=== PATIENT | female | born 1930 | race Caucasian/White ===

== ENCOUNTER → 2016-03-25 | Outpatient (REF) | payer OTHER ==
[~2016-03-25] MED LIST: /ROPI5TA OR; AMBI10TA PO; AMLO25TA PO; AMLO5TAB2 PO; BONIVA PO; CALCCHW12 OR; CITA10TA5 PO; COMP1TAB PO; DIOV320T3 PO; DULO1CAP3 PO; DULO20CA OR; FLAG500T PO; FLUC10TA PO; GABA-279 PO; GLEEVEC PO; IMAT400T PO; LEVO25TA2 OR; LEVO50TA5 PO; MEGA625S PO; MOBI15TA PO; MULTIVIT PO; MYLASUS2 PO; NITR50CA PO; ONDA1TAB16 PO; POTA8TAB PO; PROT1TAB2 PO; PROT20TA11 OR; QUET5TAB PO; RANI15TA PO; SUCR1TA PO; TORS10TA22 PO; TRAM50TA2 PO; TRAZ50TA4 PO; TYLE325T5 PO; VALS320T3 PO; VALS40TA OR; VITAMIN B COMPLEX WI OR; VITATAB38 PO; WELL100T OR; ZANT1TAB PO; ZOFR20TA PO; ZOFR8TAB4 PO; ZOLP5TAB PO
== END ==
LOC: M LAB REF 16:27
PROVIDERS: ATTEND Nurse Practitioner Family
DX: C92.10 Chronic myeloid leukemia, BCR/ABL-positive, not having achieved remission (principal)

== ENCOUNTER 2016-04-28 17:45 | Emergency (ER) | payer OTHER ==
[~2016-04-28 17:45] MED LIST changes: -TORS10TA22 PO; +TORS10TA3 PO
[2016-04-28] MEDS ORDERED: ACETAMINOPHEN 325 MG TAB As Ordered ONE (19:05)
[2016-04-28 19:41] LABS: BASO % 0.3 % (0.0-1.0); EOS % 0.1 % (0.0-3.0); LARGE UNSTAINED CELL # 0.1 K/mm3 (0.0-0.4); LARGE UNSTAINED CELL % 1.6 % (0.0-4.0); LYMPH # 1.6 K/mm3 (1.5-4.5); LYMPH % 22.4 % (24.0-44.0); MEAN CORPUSCULAR HEMOGLOBIN 31.3 pg (27.0-33.0); MEAN CORPUSCULAR HGB CONC 31.8 g/dl (32.0-36.5); MEAN CORPUSCULAR VOLUME 98.5 fl (80.0-96.0); MONO # 0.4 K/mm3 (0.0-0.8); MONO % 5.1 % (0.0-5.0); NEUTROPHILS # 4.9 K/mm3 (1.8-7.7); NEUTROPHILS % 70.3 % (36.0-66.0); PLATELET COUNT, AUTOMATED 143 k/mm3 (150-450); RED CELL DISTRIBUTION WIDTH 15.4 % (11.5-14.5)
--- NOTE | 2016-04-28 19:45 | REP ---
PA and lateral chest: Comparison 10/09/2015. There are no focal infiltrates. The left costophrenic angle is mildly effaced suggestive of a tiny left pleural effusion. The right costophrenic angle is unremarkable. Cardiac size is normal. The serena and mediastinum are unremarkable. There is a dual-chamber pacemaker. There is a scoliosis convex left in the lumbar spine. There is a fixed retrocardiac hiatal hernia. Impression: There are no acute cardiopulmonary findings except for a questionable tiny left pleural effusion. There is a fixed hiatal hernia. There is a pacemaker. Signed by Samuel Horta MD 04/28/2016 07:36 P
[2016-04-28 19:57] LABS: CALCIUM LEVEL 8.8 MG/DL (8.8-10.2); CREATININE FOR GFR 2.21 MG/DL (0.55-1.02); GLOMERULAR FILTRATION RATE 22.5 (>32); POTASSIUM SERUM 3.9 MEQ/L (3.5-5.1)
[2016-04-28] MEDS ORDERED: IPRATROPIUM 0.5MG/ALBUTEROL 2.5MG INH SOL UD 3ML (DUONEB)(J7620) As Ordered ONE (20:00)
[2016-04-28] MEDS ORDERED: AZITHROMYCIN 250 MG TAB As Ordered ONE (20:39)
--- NOTE | 2016-04-28 20:56 | EDDOCDS ---
Physician Documentation [facility] Name: Mariia Barnard Age: 86 yrs Sex: Female : 1930 Arrival Date: 04/28/2016 Time: 17:45 Bed 6 Private MD: Abdirizak Florez WAT Disposition: 04/28 20:25 Critical Care: Critical care not applicable. le Disposition: 04/28/16 20:23 Discharged to Home/Self Care. Impression: Acute sinusitis - bifrontal and right maxillary, Acute bronchitis. - Condition is Stable. - Discharge Instructions: Acute Bronchitis, Sinusitis, Adult. - Prescriptions for Zithromax Z- Cosme 250 mg Oral Tablet - take 1 tablet by ORAL route as directed for 4 days; 4 tablet. Albuterol Sulfate 90 mcg/actuation Inhalation HFA Aerosol Inhaler - inhale 2 puff by INHALATION route every 4 hours As needed; 1 Inhaler. - Medication Reconciliation, Local Pharmacy Hours form. - Follow up: Abdirizak Florez; When: Call to arrange an appointment; Reason: Recheck today's complaints, Continuance of care. - Problem is new. - Symptoms have improved. - Notes: Keep hydrated Use Tylenol, as needed, for any discomfort Return to the ED for worsening symptoms Historical: - Allergies: no known allergies; - Home Meds: 1. citalopram 10 mg Oral tab 1 tab once daily (Last dose: 04/28/2016 12:30) 2. acetaminophen 325 mg Oral tab 2 tabs every 4 hours as needed (Last dose: Unknown) 3. Compazine 10 mg Oral tab 1 tab nightly (Last dose: 04/27/2016) 4. Gleevec 400 mg oral tab once daily (Last dose: 04/28/2016 12:30) 5. levothyroxine 50 mcg Oral tab once daily (Last dose: 04/28/2016 12:30) 6. Protonix 40 mg Oral TbEC once daily (Last dose: 04/28/2016 12:30) 7. Seroquel 50 mg Oral tab 1 tab nightly (Last dose: 04/27/2016) 8. zolpidem 10 mg Oral tab 1 tab once daily (Last dose: 04/27/2016) 9. valsartan-hydrochlorothiazide 320-12.5 mg oral tab 1 tab once daily (Last dose: 04/28/2016 11:30) - PMHx: Hypothyroidism; Hypertension; Leukemia; GERD; Depression; - PSHx: Hysterectomy; Colon Resection; - Social history: Smoking status: Patient states was never smoker of tobacco. No barriers to communication noted, The patient speaks fluent Frisian, Speaks appropriately for age. - Family history: No immediate family members are acutely ill. - : The pt / caregiver states he / she is not on anticoagulants. Home medication list is obtained from the patient. - Exposure Risk Screening:: None identified. Vital Signs: 17:59 BP 151 / 72; Pulse 101; Resp 22; Temp 100(O); Pulse Ox 100% on 3 lpm NC; Weight 60.78 ct3 kg / 134 lbs (R); Height 5 ft. 0 in. (152.40 cm) (R); 19:10 BP 173 / 81 (auto/); mv5 19:10 Pulse 94 MON; Pulse Ox 89% ; mv5 19:49 Pulse Ox 89% on R/A; mv5 20:02 Pulse 92 MON; Pulse Ox 93% ; mv5 20:03 BP 141 / 83 (auto/); mv5 20:32 Pulse 90 MON; Pulse Ox 91% ; mv5 17:59 Body Mass Index 26.17 (60.78 kg, 152.40 cm) ct3 19:49 while ambulating mv5 MDM: 18:45 Misc. Nursing Order ordered. le 18:45 Albuterol-Ipratropium 3 ml Inhalation once ordered. le 18:45 Call Respiratory ordered. le 18:45 -Blood Culture (Adults Only), peripheral from different site, or from device/port/PICC le etc. if present ordered. 18:45 IV Saline Lock ordered. le 18:45 Rhythm Strip to chart ordered. le 18:45 Chest, 2 View (pa\E\lat) Ordered. EDMS 18:46 -Blood Culture Ordered. EDMS 18:46 Basic Metabolic Profile Ordered. EDMS 18:46 CBC with Diff Ordered. EDMS 18:47 Acetaminophen Tablet 650 mg PO once ordered. le 18:58 BLOOD CULTURES Ordered. EDMS 18:58 -Blood Culture (Adults Only), peripheral from different site, or from device/port/PICC mdr etc. if present complete. 18:58 Call Respiratory complete. dsf 20:14 Basic Metabolic Profile Reviewed. le 20:14 CBC with Diff Reviewed. le 20:14 Chest, 2 View (pa\E\lat) Reviewed. le 20:22 azithromycin 500 mg PO once ordered. le Administered Medications: 19:13 Drug: Acetaminophen 650 mg [acetaminophen 325 mg tablet (2 tabs)] Route: PO; mv5 20:34 Follow up: Response: No Adverse Reaction mv5 20:06 Drug: Albuterol-Ipratropium 3 ml [ipratropium-albuterol 0.5 mg-3 mg(2.5 mg base)/3 mL lf2 nebulization soln (3 mL)] Route: Inhalation; 20:42 Drug: azithromycin 500 mg [azithromycin 250 mg tablet (2 tabs)] Route: PO; mv5 Signatures: Dispatcher [employer] EDDeisy Ramos, BILINGUAL SPEECH LANGUAGE PATHOLOGIST BILINGUAL SPEECH LANGUAGE PATHOLOGIST Shannon GrubbsRN RN dsf Kirk Mosher, JV FRUIT PITTER Renea Mccollum RN RN mv5 Deisy Caro RT lf2 MTDD
--- NOTE | 2016-04-28 20:56 | EDDOCDS ---
Nurse's Notes [facility] Name: Mariia Barnard Age: 86 yrs Sex: Female : 1930 Arrival Date: 04/28/2016 Time: 17:45 Bed 6 Private MD: Abdirizak Florez WAT Diagnosis: Acute sinusitis-bifrontal and right maxillary;Acute bronchitis Presentation: 04/28 17:54 Presenting complaint: EMS states: pt was coughing 2 days ago. pt noticed facial dsf swelling today. Suicide/Homicide risk assessment- the patient denies having any suicidal and/or homicidal ideations and does not present with any other emotional, behavioral or mental health complaints. Status: Patient is not a room service clerk or dependent. Transition of care: patient was not received from another setting of care. 17:54 Acuity: CHARLES Level 3 dsf 17:54 Method Of Arrival: Ambulance dsf 20:54 Adult Sepsis Screening: The patient does not have new or worsening altered mentation. mv5 Patient's respiratory rate is less than 22. Systolic blood pressure is greater than 100. Patient has a qSOFA score of 0- Negative Sepsis Screen. Triage Assessment: 17:58 General: Appears in no apparent distress, Behavior is appropriate for age, cooperative. dsf Pain: Location: head Pain currently is 8 out of 10 on a pain scale. Quality of pain is described as aching. The patient is triaged at the bedside. See Assessment in Nurses Notes section of ED record. Neurological: Level of Consciousness is awake, alert, Oriented to person, place, time. Cardiovascular: Capillary refill < 3 seconds. Respiratory: Airway is patent Respiratory effort is even, unlabored, Respiratory pattern is regular, symmetrical, Reports cough that is since 2 days ago Denies shortness of breath pain with respiration. GI: Abdomen is non- distended. Derm: Skin is pink, warm & dry. Swollen area noted on under eyes and right side of face. Historical: - Allergies: no known allergies; - Home Meds: 1. citalopram 10 mg Oral tab 1 tab once daily (Last dose: 04/28/2016 12:30) 2. acetaminophen 325 mg Oral tab 2 tabs every 4 hours as needed (Last dose: Unknown) 3. Compazine 10 mg Oral tab 1 tab nightly (Last dose: 04/27/2016) 4. Gleevec 400 mg oral tab once daily (Last dose: 04/28/2016 12:30) 5. levothyroxine 50 mcg Oral tab once daily (Last dose: 04/28/2016 12:30) 6. Protonix 40 mg Oral TbEC once daily (Last dose: 04/28/2016 12:30) 7. Seroquel 50 mg Oral tab 1 tab nightly (Last dose: 04/27/2016) 8. zolpidem 10 mg Oral tab 1 tab once daily (Last dose: 04/27/2016) 9. valsartan-hydrochlorothiazide 320-12.5 mg oral tab 1 tab once daily (Last dose: 04/28/2016 11:30) - PMHx: Hypothyroidism; Hypertension; Leukemia; GERD; Depression; - PSHx: Hysterectomy; Colon Resection; - Social history: Smoking status: Patient states was never smoker of tobacco. No barriers to communication noted, The patient speaks fluent Prydeinig, Speaks appropriately for age. - Family history: No immediate family members are acutely ill. - : The pt / caregiver states he / she is not on anticoagulants. Home medication list is obtained from the patient. - Exposure Risk Screening:: None identified. Screenin:00 Screening information is obtained from the patient. Fall risk: No risks identified. dsf Assistance ADL's: Requires assistance with meal preparation, this assistance is provided by family members, housework, assistance is provided by Home Health Aides. Abuse/DV Screen: The patient / caregiver reports he/she is: not in a situation that causes fear, pain or injury. Nutritional screening: No deficits noted. Advance Directives: Currently, there is no health care proxy. home support is adequate. Assessment: 19:14 General: Appears in no apparent distress, well nourished. Pain: Denies pain. mv5 Neurological: Level of Consciousness is awake, alert, Oriented to person, place, time. EENT: Eyes swelling under eyes bilat. Cardiovascular: Capillary refill < 3 seconds Heart tones S1 S2 present Pulses are all present. Rhythm is sinus rhythm. Respiratory: Airway is patent Respiratory effort is even, unlabored, Respiratory pattern is regular, symmetrical, Breath sounds with wheezes bilaterally. GI: No deficits noted. : No deficits noted. Derm: Skin is pink, warm & dry. 19:34 General: Bloods collected. Pt to xray and returned without incident.. mv5 20:04 General: Appears in no apparent distress, RT at bedside. Neurological: Level of mv5 Consciousness is awake, alert. Cardiovascular: Rhythm is regular. Respiratory: Airway is patent Respiratory effort is even, unlabored, Respiratory pattern is regular, symmetrical. 20:53 General: Appears in no apparent distress. Pain: Denies pain. Cardiovascular: Rhythm is mv5 regular. Respiratory: Airway is patent Respiratory effort is even, unlabored, Respiratory pattern is regular, symmetrical. Derm: Skin is pink, warm & dry. Vital Signs: 17:59 BP 151 / 72; Pulse 101; Resp 22; Temp 100(O); Pulse Ox 100% on 3 lpm NC; Weight 60.78 ct3 kg (R); Height 5 ft. 0 in. (152.40 cm) (R); 19:10 BP 173 / 81 (auto/); mv5 19:10 Pulse 94 MON; Pulse Ox 89% ; mv5 19:49 Pulse Ox 89% on R/A; mv5 20:02 Pulse 92 MON; Pulse Ox 93% ; mv5 20:03 BP 141 / 83 (auto/); mv5 20:32 Pulse 90 MON; Pulse Ox 91% ; mv5 17:59 Body Mass Index 26.17 (60.78 kg, 152.40 cm) ct3 19:49 while ambulating mv5 Vitals: 17:59 Log In Time N/A - ambulance arrival. ct3 ED Course: 17:46 Patient visited by Adriana Muñoz, Early Morning Babysitter. lbd 17:46 Patient moved to Waiting lbd 17:47 Abdirizak Florez is Private Physician. lbd 17:47 Patient moved to 6 lbd 17:55 Triage Initiated dsf 17:59 Patient has correct armband on for positive identification. Placed in gown. Bed in low ct3 position. Call light in reach. Side rails up X2. shelter monitor on. Pulse ox on. NIBP on. 18:00 Patient visited by Chana Christie PCA. ct3 18:00 The patient / caregiver is instructed regarding the plan of care and ED course. dsf 18:01 Maintain field IV. Dressing intact. Good blood return noted. Site clean & dry. Gauge & dsf site: #20 gauge LAC. 18:13 Deisy Chaudhary FNP is PHCP. le 18:13 Patient visited by Deisy Chaudhary FNP. le 19:00 Renea Vance,YAN is Primary Nurse. mv5 19:34 Patient visited by Renea Vance RN. mv5 20:04 Patient visited by Renea Vance,YAN. mv5 20:06 Chest, 2 View (pa\E\lat) Returned. EDMS 20:23 Abdirizak Florez is Referral Physician. le 20:32 Discontinued intact, bleeding controlled, pressure dressing applied, No mv5 redness/swelling at site. No procedures done that require assistance. Administered Medications: 19:13 Drug: Acetaminophen 650 mg [acetaminophen 325 mg tablet (2 tabs)] Route: PO; mv5 20:34 Follow up: Response: No Adverse Reaction mv5 20:06 Drug: Albuterol-Ipratropium 3 ml [ipratropium-albuterol 0.5 mg-3 mg(2.5 mg base)/3 mL lf2 nebulization soln (3 mL)] Route: Inhalation; 20:42 Drug: azithromycin 500 mg [azithromycin 250 mg tablet (2 tabs)] Route: PO; mv5 RT: 20:06 Initial Med Neb Given as ordered Patient was instructed and evaluated on procedure lf2 Patient tolerated procedure well without adverse effect. Oxygen is room air. Respiratory: Airway is patent Respiratory effort is even, unlabored, Respiratory pattern is regular symmetrical, Breath sounds are coarse bilaterally. Reports shortness of breath on exertion cough that is non-productive. Order Results: Lab Order: Basic Metabolic Profile; SPEC'M 04/28/16 19:08 Test: GLUCOSE, FASTING; Value: 126; Range: 83-110; Abnormal: Above high normal; Units: MG/DL; Status: F Test: BLOOD UREA NITROGEN; Value: 32; Range: 7-18; Abnormal: Above high normal; Units: MG/DL; Status: F Test: CREATININE FOR GFR; Value: 2.21; Range: 0.55-1.02; Abnormal: Above high normal; Units: MG/DL; Status: F Test: GLOMERULAR FILTRATION RATE; Value: 22.5; Range: >32; Abnormal: Below low normal; Status: F Test: SODIUM LEVEL; Value: 138; Range: 136-145; Units: MEQ/L; Status: F Test: POTASSIUM SERUM; Value: 3.9; Range: 3.5-5.1; Units: MEQ/L; Status: F Test: CHLORIDE LEVEL; Value: 101; Range: 98-107; Units: MEQ/L; Status: F Test: CARBON DIOXIDE LEVEL; Value: 28; Range: 21-32; Units: MEQ/L; Status: F Test: ANION GAP; Value: 9; Range: 8-16; Units: MEQ/L; Status: F Test: CALCIUM LEVEL; Value: 8.8; Range: 8.8-10.2; Units: MG/DL; Status: F Test Note: ; Units are mL/min/1.73 m2 Chronic Kidney Disease Staging per NKF: Stage I & II GFR >=60 Normal to Mildly Decreased Stage III GFR 30-59 Moderately Decreased Stage IV GFR 15-29 Severely Decreased Stage V GFR <15 Very Little GFR Left ESRD GFR <15 on PROCUREMENT INTERNSHIP Lab Order: CBC with Diff; SPEC'M 04/28/16 19:08 Test: WHITE BLOOD COUNT; Value: 7.0; Range: 4.0-10.0; Units: K/mm3; Status: F Test: RED BLOOD COUNT; Value: 2.71; Range: 4.00-5.40; Abnormal: Below low normal; Units: M/mm3; Status: F Test: HEMOGLOBIN; Value: 8.5; Range: 12.0-16.0; Abnormal: Below low normal; Units: g/dl; Status: F Test: HEMATOCRIT; Value: 26.7; Range: 36.0-47.0; Abnormal: Below low normal; Units: %; Status: F Test: MEAN CORPUSCULAR VOLUME; Value: 98.5; Range: 80.0-96.0; Abnormal: Above high normal; Units: fl; Status: F Test: MEAN CORPUSCULAR HEMOGLOBIN; Value: 31.3; Range: 27.0-33.0; Units: pg; Status: F Test: MEAN CORPUSCULAR HGB CONC; Value: 31.8; Range: 32.0-36.5; Abnormal: Below low normal; Units: g/dl; Status: F Test: RED CELL DISTRIBUTION WIDTH; Value: 15.4; Range: 11.5-14.5; Abnormal: Above high normal; Units: %; Status: F Test: PLATELET COUNT, AUTOMATED; Value: 143; Range: 150-450; Abnormal: Below low normal; Units: k/mm3; Status: F Test: NEUTROPHILS %; Value: 70.3; Range: 36.0-66.0; Abnormal: Above high normal; Units: %; Status: F Test: LYMPH %; Value: 22.4; Range: 24.0-44.0; Abnormal: Below low normal; Units: %; Status: F Test: MONO %; Value: 5.1; Range: 0.0-5.0; Abnormal: Above high normal; Units: %; Status: F Test: EOS %; Value: 0.1; Range: 0.0-3.0; Units: %; Status: F Test: BASO %; Value: 0.3; Range: 0.0-1.0; Units: %; Status: F Test: LARGE UNSTAINED CELL %; Value: 1.6; Range: 0.0-4.0; Units: %; Status: F Test: NEUTROPHILS #; Value: 4.9; Range: 1.8-7.7; Units: K/mm3; Status: F Test: LYMPH #; Value: 1.6; Range: 1.5-4.5; Units: K/mm3; Status: F Test: MONO #; Value: 0.4; Range: 0.0-0.8; Units: K/mm3; Status: F Test: EOS #; Value: 0.0; Range: 0.0-0.50; Units: K/mm3; Status: F Test: BASO #; Value: 0.0; Range: 0.0-0.2; Units: K/mm3; Status: F Test: LARGE UNSTAINED CELL #; Value: 0.1; Range: 0.0-0.4; Units: K/mm3; Status: F Radiology Order: Chest, 2 View (pa\E\lat) Test: Chest, 2 View (pa\E\lat) REASON FOR EXAMINATION: Cough;Shortness of Breath; PA and lateral chest:; ; Comparison 10/09/2015.; ; There are no focal infiltrates. The left costophrenic angle is mildly effaced; suggestive of a tiny left pleural effusion. The right costophrenic angle is; unremarkable.; ; Cardiac size is normal. The serena and mediastinum are unremarkable.; ; There is a dual-chamber pacemaker.; ; There is a scoliosis convex left in the lumbar spine.; ; There is a fixed retrocardiac hiatal hernia.; ; Impression:; ; There are no acute cardiopulmonary findings except for a questionable tiny left; pleural effusion.; ; There is a fixed hiatal hernia. There is a pacemaker.; ; ; ; ; Signed by; Samuel Horta MD 04/28/2016 07:36 P; Outcome: 20:23 Discharge ordered by Provider. le 20:32 Discharge Assessment: Patient awake, alert and oriented x 3. No cognitive and/or mv5 functional deficits noted. Patient verbalized understanding of disposition instructions. patient administered narcotics - no. The following High Risk Discharge criteria are identified: None. Discharged to home via ambulance, by taxi. Condition: stable. No special radiology studies were completed. Property sent home with patient. 20:55 Patient left the ED. mv5 Signatures: Dispatcher [employer] EDMS Adriana Muñoz, Early Morning Babysitter Unit lbd Deiys Chaudhary, NETWORK DESKTOP SUPPORT SPECIALIST NETWORK DESKTOP SUPPORT SPECIALIST Chana Skinner, MEDICARE COMPLIANCE AUDITOR MEDICARE COMPLIANCE AUDITOR ct3 Shannon Ruiz,RN RN dsf Deisy Caro,RT RT lf2 Renea Vance,RN RN mv5 MTDD
--- NOTE | 2016-04-30 21:57 | EDDOCDS ---
Nurse's Notes [facility] Name: Mariia Barnard Age: 86 yrs Sex: Female : 1930 Arrival Date: 04/28/2016 Time: 17:45 Bed 6 Private MD: Abdirizak Florez WAT Diagnosis: Acute sinusitis-bifrontal and right maxillary;Acute bronchitis Presentation: 04/28 17:54 Presenting complaint: EMS states: pt was coughing 2 days ago. pt noticed facial dsf swelling today. Suicide/Homicide risk assessment- the patient denies having any suicidal and/or homicidal ideations and does not present with any other emotional, behavioral or mental health complaints. Status: Patient is not a home service advisor or dependent. Transition of care: patient was not received from another setting of care. 17:54 Acuity: CHARLES Level 3 dsf 17:54 Method Of Arrival: Ambulance dsf 20:54 Adult Sepsis Screening: The patient does not have new or worsening altered mentation. mv5 Patient's respiratory rate is less than 22. Systolic blood pressure is greater than 100. Patient has a qSOFA score of 0- Negative Sepsis Screen. Triage Assessment: 17:58 General: Appears in no apparent distress, Behavior is appropriate for age, cooperative. dsf Pain: Location: head Pain currently is 8 out of 10 on a pain scale. Quality of pain is described as aching. The patient is triaged at the bedside. See Assessment in Nurses Notes section of ED record. Neurological: Level of Consciousness is awake, alert, Oriented to person, place, time. Cardiovascular: Capillary refill < 3 seconds. Respiratory: Airway is patent Respiratory effort is even, unlabored, Respiratory pattern is regular, symmetrical, Reports cough that is since 2 days ago Denies shortness of breath pain with respiration. GI: Abdomen is non- distended. Derm: Skin is pink, warm & dry. Swollen area noted on under eyes and right side of face. Historical: - Allergies: no known allergies; - Home Meds: 1. citalopram 10 mg Oral tab 1 tab once daily (Last dose: 04/28/2016 12:30) 2. acetaminophen 325 mg Oral tab 2 tabs every 4 hours as needed (Last dose: Unknown) 3. Compazine 10 mg Oral tab 1 tab nightly (Last dose: 04/27/2016) 4. Gleevec 400 mg oral tab once daily (Last dose: 04/28/2016 12:30) 5. levothyroxine 50 mcg Oral tab once daily (Last dose: 04/28/2016 12:30) 6. Protonix 40 mg Oral TbEC once daily (Last dose: 04/28/2016 12:30) 7. Seroquel 50 mg Oral tab 1 tab nightly (Last dose: 04/27/2016) 8. zolpidem 10 mg Oral tab 1 tab once daily (Last dose: 04/27/2016) 9. valsartan-hydrochlorothiazide 320-12.5 mg oral tab 1 tab once daily (Last dose: 04/28/2016 11:30) - PMHx: Hypothyroidism; Hypertension; Leukemia; GERD; Depression; - PSHx: Hysterectomy; Colon Resection; - Social history: Smoking status: Patient states was never smoker of tobacco. No barriers to communication noted, The patient speaks fluent Moroccan, Speaks appropriately for age. - Family history: No immediate family members are acutely ill. - : The pt / caregiver states he / she is not on anticoagulants. Home medication list is obtained from the patient. - Exposure Risk Screening:: None identified. Screenin:00 Screening information is obtained from the patient. Fall risk: No risks identified. dsf Assistance ADL's: Requires assistance with meal preparation, this assistance is provided by family members, housework, assistance is provided by Home Health Aides. Abuse/DV Screen: The patient / caregiver reports he/she is: not in a situation that causes fear, pain or injury. Nutritional screening: No deficits noted. Advance Directives: Currently, there is no health care proxy. home support is adequate. Assessment: 19:14 General: Appears in no apparent distress, well nourished. Pain: Denies pain. mv5 Neurological: Level of Consciousness is awake, alert, Oriented to person, place, time. EENT: Eyes swelling under eyes bilat. Cardiovascular: Capillary refill < 3 seconds Heart tones S1 S2 present Pulses are all present. Rhythm is sinus rhythm. Respiratory: Airway is patent Respiratory effort is even, unlabored, Respiratory pattern is regular, symmetrical, Breath sounds with wheezes bilaterally. GI: No deficits noted. : No deficits noted. Derm: Skin is pink, warm & dry. 19:34 General: Bloods collected. Pt to xray and returned without incident.. mv5 20:04 General: Appears in no apparent distress, RT at bedside. Neurological: Level of mv5 Consciousness is awake, alert. Cardiovascular: Rhythm is regular. Respiratory: Airway is patent Respiratory effort is even, unlabored, Respiratory pattern is regular, symmetrical. 20:53 General: Appears in no apparent distress. Pain: Denies pain. Cardiovascular: Rhythm is mv5 regular. Respiratory: Airway is patent Respiratory effort is even, unlabored, Respiratory pattern is regular, symmetrical. Derm: Skin is pink, warm & dry. Vital Signs: 17:59 BP 151 / 72; Pulse 101; Resp 22; Temp 100(O); Pulse Ox 100% on 3 lpm NC; Weight 60.78 ct3 kg (R); Height 5 ft. 0 in. (152.40 cm) (R); 19:10 BP 173 / 81 (auto/); mv5 19:10 Pulse 94 MON; Pulse Ox 89% ; mv5 19:49 Pulse Ox 89% on R/A; mv5 20:02 Pulse 92 MON; Pulse Ox 93% ; mv5 20:03 BP 141 / 83 (auto/); mv5 20:32 Pulse 90 MON; Pulse Ox 91% ; mv5 17:59 Body Mass Index 26.17 (60.78 kg, 152.40 cm) ct3 19:49 while ambulating mv5 Vitals: 17:59 Log In Time N/A - ambulance arrival. ct3 ED Course: 17:46 Patient visited by Adriana Muñoz, Mine Engineering Manager. lbd 17:46 Patient moved to Waiting lbd 17:47 Abdirizak Florez is Private Physician. lbd 17:47 Patient moved to 6 lbd 17:55 Triage Initiated dsf 17:59 Patient has correct armband on for positive identification. Placed in gown. Bed in low ct3 position. Call light in reach. Side rails up X2. lunchroom monitor on. Pulse ox on. NIBP on. 18:00 Patient visited by Chana Christie PCA. ct3 18:00 The patient / caregiver is instructed regarding the plan of care and ED course. dsf 18:01 Maintain field IV. Dressing intact. Good blood return noted. Site clean & dry. Gauge & dsf site: #20 gauge LAC. 18:13 Deisy Chaudhary FNP is PHCP. le 18:13 Patient visited by Deisy Chaudhary FNP. le 19:00 Renea Vance,RN is Primary Nurse. mv5 19:34 Patient visited by Renea Vance,YAN. mv5 20:04 Patient visited by Renea Vance,YAN. mv5 20:06 Chest, 2 View (pa\E\lat) Returned. EDMS 20:23 Abdirizak Florez is Referral Physician. le 20:32 Discontinued intact, bleeding controlled, pressure dressing applied, No mv5 redness/swelling at site. No procedures done that require assistance. 04/29 14:09 T-Sheet-- Draft Copy was scanned into [employer] and attached to record. gb 14:10 Trend VS was scanned into [employer] and attached to record. gb Administered Medications: 04/28 19:13 Drug: Acetaminophen 650 mg [acetaminophen 325 mg tablet (2 tabs)] Route: PO; mv5 20:34 Follow up: Response: No Adverse Reaction mv5 20:06 Drug: Albuterol-Ipratropium 3 ml [ipratropium-albuterol 0.5 mg-3 mg(2.5 mg base)/3 mL lf2 nebulization soln (3 mL)] Route: Inhalation; 20:42 Drug: azithromycin 500 mg [azithromycin 250 mg tablet (2 tabs)] Route: PO; mv5 Attachments: 14:10 Trend VS gb RT: 04/28 20:06 Initial Med Neb Given as ordered Patient was instructed and evaluated on procedure lf2 Patient tolerated procedure well without adverse effect. Oxygen is room air. Respiratory: Airway is patent Respiratory effort is even, unlabored, Respiratory pattern is regular symmetrical, Breath sounds are coarse bilaterally. Reports shortness of breath on exertion cough that is non-productive. Order Results: Lab Order: -Blood Culture; SPEC'M 04/28/16 19:08 Test: BLOOD CULTURE; Value: No growth after 24 hours . All specimens observed; Status: F Test: BLOOD CULTURE; Value: for 5 days. Results final at that time.; Status: F Test: BLOOD CULTURE; Value: No Growth after 48 hours. All Specimens observed; Status: F Test: BLOOD CULTURE; Value: for 7 days. Results final at that time.; Status: F Lab Order: Basic Metabolic Profile; SPEC'M 04/28/16 19:08 Test: GLUCOSE, FASTING; Value: 126; Range: 83-110; Abnormal: Above high normal; Units: MG/DL; Status: F Test: BLOOD UREA NITROGEN; Value: 32; Range: 7-18; Abnormal: Above high normal; Units: MG/DL; Status: F Test: CREATININE FOR GFR; Value: 2.21; Range: 0.55-1.02; Abnormal: Above high normal; Units: MG/DL; Status: F Test: GLOMERULAR FILTRATION RATE; Value: 22.5; Range: >32; Abnormal: Below low normal; Status: F Test: SODIUM LEVEL; Value: 138; Range: 136-145; Units: MEQ/L; Status: F Test: POTASSIUM SERUM; Value: 3.9; Range: 3.5-5.1; Units: MEQ/L; Status: F Test: CHLORIDE LEVEL; Value: 101; Range: 98-107; Units: MEQ/L; Status: F Test: CARBON DIOXIDE LEVEL; Value: 28; Range: 21-32; Units: MEQ/L; Status: F Test: ANION GAP; Value: 9; Range: 8-16; Units: MEQ/L; Status: F Test: CALCIUM LEVEL; Value: 8.8; Range: 8.8-10.2; Units: MG/DL; Status: F Test Note: ; Units are mL/min/1.73 m2 Chronic Kidney Disease Staging per NKF: Stage I & II GFR >=60 Normal to Mildly Decreased Stage III GFR 30-59 Moderately Decreased Stage IV GFR 15-29 Severely Decreased Stage V GFR <15 Very Little GFR Left ESRD GFR <15 on PENS AND PENCILS REPAIRER Lab Order: CBC with Diff; SPEC'M 04/28/16 19:08 Test: WHITE BLOOD COUNT; Value: 7.0; Range: 4.0-10.0; Units: K/mm3; Status: F Test: RED BLOOD COUNT; Value: 2.71; Range: 4.00-5.40; Abnormal: Below low normal; Units: M/mm3; Status: F Test: HEMOGLOBIN; Value: 8.5; Range: 12.0-16.0; Abnormal: Below low normal; Units: g/dl; Status: F Test: HEMATOCRIT; Value: 26.7; Range: 36.0-47.0; Abnormal: Below low normal; Units: %; Status: F Test: MEAN CORPUSCULAR VOLUME; Value: 98.5; Range: 80.0-96.0; Abnormal: Above high normal; Units: fl; Status: F Test: MEAN CORPUSCULAR HEMOGLOBIN; Value: 31.3; Range: 27.0-33.0; Units: pg; Status: F Test: MEAN CORPUSCULAR HGB CONC; Value: 31.8; Range: 32.0-36.5; Abnormal: Below low normal; Units: g/dl; Status: F Test: RED CELL DISTRIBUTION WIDTH; Value: 15.4; Range: 11.5-14.5; Abnormal: Above high normal; Units: %; Status: F Test: PLATELET COUNT, AUTOMATED; Value: 143; Range: 150-450; Abnormal: Below low normal; Units: k/mm3; Status: F Test: NEUTROPHILS %; Value: 70.3; Range: 36.0-66.0; Abnormal: Above high normal; Units: %; Status: F Test: LYMPH %; Value: 22.4; Range: 24.0-44.0; Abnormal: Below low normal; Units: %; Status: F Test: MONO %; Value: 5.1; Range: 0.0-5.0; Abnormal: Above high normal; Units: %; Status: F Test: EOS %; Value: 0.1; Range: 0.0-3.0; Units: %; Status: F Test: BASO %; Value: 0.3; Range: 0.0-1.0; Units: %; Status: F Test: LARGE UNSTAINED CELL %; Value: 1.6; Range: 0.0-4.0; Units: %; Status: F Test: NEUTROPHILS #; Value: 4.9; Range: 1.8-7.7; Units: K/mm3; Status: F Test: LYMPH #; Value: 1.6; Range: 1.5-4.5; Units: K/mm3; Status: F Test: MONO #; Value: 0.4; Range: 0.0-0.8; Units: K/mm3; Status: F Test: EOS #; Value: 0.0; Range: 0.0-0.50; Units: K/mm3; Status: F Test: BASO #; Value: 0.0; Range: 0.0-0.2; Units: K/mm3; Status: F Test: LARGE UNSTAINED CELL #; Value: 0.1; Range: 0.0-0.4; Units: K/mm3; Status: F Lab Order: BLOOD CULTURES; SPEC'M 04/28/16 19:08 Test: BLOOD CULTURE; Value: No growth after 24 hours . All specimens observed; Status: F Test: BLOOD CULTURE; Value: for 5 days. Results final at that time.; Status: F Test: BLOOD CULTURE; Value: No Growth after 48 hours. All Specimens observed; Status: F Test: BLOOD CULTURE; Value: for 7 days. Results final at that time.; Status: F Radiology Order: Chest, 2 View (pa\E\lat) Test: Chest, 2 View (pa\E\lat) REASON FOR EXAMINATION: Cough;Shortness of Breath; PA and lateral chest:; ; Comparison 10/09/2015.; ; There are no focal infiltrates. The left costophrenic angle is mildly effaced; suggestive of a tiny left pleural effusion. The right costophrenic angle is; unremarkable.; ; Cardiac size is normal. The serena and mediastinum are unremarkable.; ; There is a dual-chamber pacemaker.; ; There is a scoliosis convex left in the lumbar spine.; ; There is a fixed retrocardiac hiatal hernia.; ; Impression:; ; There are no acute cardiopulmonary findings except for a questionable tiny left; pleural effusion.; ; There is a fixed hiatal hernia. There is a pacemaker.; ; ; ; ; Signed by; Samuel Horta MD 04/28/2016 07:36 P; Outcome: 20:23 Discharge ordered by Provider. le 20:32 Discharge Assessment: Patient awake, alert and oriented x 3. No cognitive and/or mv5 functional deficits noted. Patient verbalized understanding of disposition instructions. patient administered narcotics - no. The following High Risk Discharge criteria are identified: None. Discharged to home via ambulance, by taxi. Condition: stable. No special radiology studies were completed. Property sent home with patient. 20:55 Patient left the ED. mv5 Signatures: Dispatcher [employer] EDMS Adriana Muñoz, Mine Engineering Manager Unit lbd Yue Zhu, Reg Reg gb Deisy Chaudhary, HEALTH ACTUARY HEALTH ACTUARY Chana Skinner, SOIL SCIENCE TECHNICAL OFFICER SOIL SCIENCE TECHNICAL OFFICER ct3 Shannon Ruiz,RN RN dsf Deisy Caro,RT RT lf2 Renea Vance,RN RN mv5 Chart Complete MTDD
--- NOTE | 2016-04-30 21:57 | EDDOCDS ---
Physician Documentation [facility] Name: Mariia Barnard Age: 86 yrs Sex: Female : 1930 Arrival Date: 04/28/2016 Time: 17:45 Bed 6 Private MD: Abdirizak Florez WAT Disposition: 04/28 20:25 Critical Care: Critical care not applicable. le Disposition: 04/28/16 20:23 Discharged to Home/Self Care. Impression: Acute sinusitis - bifrontal and right maxillary, Acute bronchitis. - Condition is Stable. - Discharge Instructions: Acute Bronchitis, Sinusitis, Adult. - Prescriptions for Zithromax Z- Cosme 250 mg Oral Tablet - take 1 tablet by ORAL route as directed for 4 days; 4 tablet. Albuterol Sulfate 90 mcg/actuation Inhalation HFA Aerosol Inhaler - inhale 2 puff by INHALATION route every 4 hours As needed; 1 Inhaler. - Medication Reconciliation, Local Pharmacy Hours form. - Follow up: Abdirizak Florez; When: Call to arrange an appointment; Reason: Recheck today's complaints, Continuance of care. - Problem is new. - Symptoms have improved. - Notes: Keep hydrated Use Tylenol, as needed, for any discomfort Return to the ED for worsening symptoms Historical: - Allergies: no known allergies; - Home Meds: 1. citalopram 10 mg Oral tab 1 tab once daily (Last dose: 04/28/2016 12:30) 2. acetaminophen 325 mg Oral tab 2 tabs every 4 hours as needed (Last dose: Unknown) 3. Compazine 10 mg Oral tab 1 tab nightly (Last dose: 04/27/2016) 4. Gleevec 400 mg oral tab once daily (Last dose: 04/28/2016 12:30) 5. levothyroxine 50 mcg Oral tab once daily (Last dose: 04/28/2016 12:30) 6. Protonix 40 mg Oral TbEC once daily (Last dose: 04/28/2016 12:30) 7. Seroquel 50 mg Oral tab 1 tab nightly (Last dose: 04/27/2016) 8. zolpidem 10 mg Oral tab 1 tab once daily (Last dose: 04/27/2016) 9. valsartan-hydrochlorothiazide 320-12.5 mg oral tab 1 tab once daily (Last dose: 04/28/2016 11:30) - PMHx: Hypothyroidism; Hypertension; Leukemia; GERD; Depression; - PSHx: Hysterectomy; Colon Resection; - Social history: Smoking status: Patient states was never smoker of tobacco. No barriers to communication noted, The patient speaks fluent Divehi, Speaks appropriately for age. - Family history: No immediate family members are acutely ill. - : The pt / caregiver states he / she is not on anticoagulants. Home medication list is obtained from the patient. - Exposure Risk Screening:: None identified. Vital Signs: 17:59 BP 151 / 72; Pulse 101; Resp 22; Temp 100(O); Pulse Ox 100% on 3 lpm NC; Weight 60.78 ct3 kg / 134 lbs (R); Height 5 ft. 0 in. (152.40 cm) (R); 19:10 BP 173 / 81 (auto/); mv5 19:10 Pulse 94 MON; Pulse Ox 89% ; mv5 19:49 Pulse Ox 89% on R/A; mv5 20:02 Pulse 92 MON; Pulse Ox 93% ; mv5 20:03 BP 141 / 83 (auto/); mv5 20:32 Pulse 90 MON; Pulse Ox 91% ; mv5 17:59 Body Mass Index 26.17 (60.78 kg, 152.40 cm) ct3 19:49 while ambulating mv5 MDM: 18:45 Misc. Nursing Order ordered. le 18:45 Albuterol-Ipratropium 3 ml Inhalation once ordered. le 18:45 Call Respiratory ordered. le 18:45 -Blood Culture (Adults Only), peripheral from different site, or from device/port/PICC le etc. if present ordered. 18:45 IV Saline Lock ordered. le 18:45 Rhythm Strip to chart ordered. le 18:45 Chest, 2 View (pa\E\lat) Ordered. EDMS 18:46 -Blood Culture Ordered. EDMS 18:46 Basic Metabolic Profile Ordered. EDMS 18:46 CBC with Diff Ordered. EDMS 18:47 Acetaminophen Tablet 650 mg PO once ordered. le 18:58 BLOOD CULTURES Ordered. EDMS 18:58 -Blood Culture (Adults Only), peripheral from different site, or from device/port/PICC mdr etc. if present complete. 18:58 Call Respiratory complete. dsf 20:14 Basic Metabolic Profile Reviewed. le 20:14 CBC with Diff Reviewed. le 20:14 Chest, 2 View (pa\E\lat) Reviewed. le 20:22 azithromycin 500 mg PO once ordered. le 04/29 14: T-Sheet-- Draft Copy was scanned into [employer] and attached to record. gb 14:10 Trend VS was scanned into [employer] and attached to record. gb Administered Medications: 04/28 19:13 Drug: Acetaminophen 650 mg [acetaminophen 325 mg tablet (2 tabs)] Route: PO; mv5 20:34 Follow up: Response: No Adverse Reaction mv5 20:06 Drug: Albuterol-Ipratropium 3 ml [ipratropium-albuterol 0.5 mg-3 mg(2.5 mg base)/3 mL lf2 nebulization soln (3 mL)] Route: Inhalation; 20:42 Drug: azithromycin 500 mg [azithromycin 250 mg tablet (2 tabs)] Route: PO; mv5 Signatures: Dispatcher [employer] EDMS Yue Zhu, Reg Reg gb Deisy Chaudhary, CARD TENDER CARD TENDER Shannon Grubbs,RN RN dsf Krik Mosher, JV DATA SCIENCE AND IOT MANAGER Renea Mccollum RN RN mv5 Deisy Caro RT lf2 The chart was reviewed and I authenticate all verbal orders and agree with the evaluation and treatment provided.Attachments: 04/29 14:09 T-Sheet-- Draft Copy gb Chart Complete MTDD
--- NOTE | 2016-04-30 21:57 | EDDOCDS ---
Physician Documentation [facility] Name: Mariia Barnard Age: 86 yrs Sex: Female : 1930 Arrival Date: 04/28/2016 Time: 17:45 Bed 6 Private MD: Abdirizak Florez WAT Disposition: 04/28 20:25 Critical Care: Critical care not applicable. le Disposition: 04/28/16 20:23 Discharged to Home/Self Care. Impression: Acute sinusitis - bifrontal and right maxillary, Acute bronchitis. - Condition is Stable. - Discharge Instructions: Acute Bronchitis, Sinusitis, Adult. - Prescriptions for Zithromax Z- Cosme 250 mg Oral Tablet - take 1 tablet by ORAL route as directed for 4 days; 4 tablet. Albuterol Sulfate 90 mcg/actuation Inhalation HFA Aerosol Inhaler - inhale 2 puff by INHALATION route every 4 hours As needed; 1 Inhaler. - Medication Reconciliation, Local Pharmacy Hours form. - Follow up: Abdirizak Florez; When: Call to arrange an appointment; Reason: Recheck today's complaints, Continuance of care. - Problem is new. - Symptoms have improved. - Notes: Keep hydrated Use Tylenol, as needed, for any discomfort Return to the ED for worsening symptoms Historical: - Allergies: no known allergies; - Home Meds: 1. citalopram 10 mg Oral tab 1 tab once daily (Last dose: 04/28/2016 12:30) 2. acetaminophen 325 mg Oral tab 2 tabs every 4 hours as needed (Last dose: Unknown) 3. Compazine 10 mg Oral tab 1 tab nightly (Last dose: 04/27/2016) 4. Gleevec 400 mg oral tab once daily (Last dose: 04/28/2016 12:30) 5. levothyroxine 50 mcg Oral tab once daily (Last dose: 04/28/2016 12:30) 6. Protonix 40 mg Oral TbEC once daily (Last dose: 04/28/2016 12:30) 7. Seroquel 50 mg Oral tab 1 tab nightly (Last dose: 04/27/2016) 8. zolpidem 10 mg Oral tab 1 tab once daily (Last dose: 04/27/2016) 9. valsartan-hydrochlorothiazide 320-12.5 mg oral tab 1 tab once daily (Last dose: 04/28/2016 11:30) - PMHx: Hypothyroidism; Hypertension; Leukemia; GERD; Depression; - PSHx: Hysterectomy; Colon Resection; - Social history: Smoking status: Patient states was never smoker of tobacco. No barriers to communication noted, The patient speaks fluent Turkish, Speaks appropriately for age. - Family history: No immediate family members are acutely ill. - : The pt / caregiver states he / she is not on anticoagulants. Home medication list is obtained from the patient. - Exposure Risk Screening:: None identified. Vital Signs: 17:59 BP 151 / 72; Pulse 101; Resp 22; Temp 100(O); Pulse Ox 100% on 3 lpm NC; Weight 60.78 ct3 kg / 134 lbs (R); Height 5 ft. 0 in. (152.40 cm) (R); 19:10 BP 173 / 81 (auto/); mv5 19:10 Pulse 94 MON; Pulse Ox 89% ; mv5 19:49 Pulse Ox 89% on R/A; mv5 20:02 Pulse 92 MON; Pulse Ox 93% ; mv5 20:03 BP 141 / 83 (auto/); mv5 20:32 Pulse 90 MON; Pulse Ox 91% ; mv5 17:59 Body Mass Index 26.17 (60.78 kg, 152.40 cm) ct3 19:49 while ambulating mv5 MDM: 18:45 Misc. Nursing Order ordered. le 18:45 Albuterol-Ipratropium 3 ml Inhalation once ordered. le 18:45 Call Respiratory ordered. le 18:45 -Blood Culture (Adults Only), peripheral from different site, or from device/port/PICC le etc. if present ordered. 18:45 IV Saline Lock ordered. le 18:45 Rhythm Strip to chart ordered. le 18:45 Chest, 2 View (pa\E\lat) Ordered. EDMS 18:46 -Blood Culture Ordered. EDMS 18:46 Basic Metabolic Profile Ordered. EDMS 18:46 CBC with Diff Ordered. EDMS 18:47 Acetaminophen Tablet 650 mg PO once ordered. le 18:58 BLOOD CULTURES Ordered. EDMS 18:58 -Blood Culture (Adults Only), peripheral from different site, or from device/port/PICC mdr etc. if present complete. 18:58 Call Respiratory complete. dsf 20:14 Basic Metabolic Profile Reviewed. le 20:14 CBC with Diff Reviewed. le 20:14 Chest, 2 View (pa\E\lat) Reviewed. le 20:22 azithromycin 500 mg PO once ordered. le 04/29 14: T-Sheet-- Draft Copy was scanned into [employer] and attached to record. gb 14:10 Trend VS was scanned into [employer] and attached to record. gb Administered Medications: 04/28 19:13 Drug: Acetaminophen 650 mg [acetaminophen 325 mg tablet (2 tabs)] Route: PO; mv5 20:34 Follow up: Response: No Adverse Reaction mv5 20:06 Drug: Albuterol-Ipratropium 3 ml [ipratropium-albuterol 0.5 mg-3 mg(2.5 mg base)/3 mL lf2 nebulization soln (3 mL)] Route: Inhalation; 20:42 Drug: azithromycin 500 mg [azithromycin 250 mg tablet (2 tabs)] Route: PO; mv5 Signatures: Dispatcher [employer] EDMS Yue Zhu, Reg Reg gb Deisy Chaudhary, CLAIMS ANALYST CLAIMS ANALYST Shannon Grubbs,RN RN dsf iKrk Mosher, JV DRY WALL INSTALLER Renea Mccollum RN RN mv5 Deisy Caro RT lf2 The chart was reviewed and I authenticate all verbal orders and agree with the evaluation and treatment provided.Attachments: 04/29 14:09 T-Sheet-- Draft Copy gb Chart Complete MTDD
== END 2016-04-28 20:55 | disposition home or self-care (01) ==
LOC: M ED 17:45
DX: J01.90 Acute sinusitis, unspecified (principal); J20.9 Acute bronchitis, unspecified; E03.9 Hypothyroidism, unspecified; I10 Essential (primary) hypertension; Z85.6 Personal history of leukemia; K21.9 Gastro-esophageal reflux disease without esophagitis; F32.9 Major depressive disorder, single episode, unspecified; Z79.899 Other long term (current) drug therapy

== ENCOUNTER → 2016-04-29 | Outpatient (REF) | payer OTHER ==
[2016-04-29 19:06] LABS: PERCENT SATURATION 5.1 % (13.2-37.4)
== END ==
LOC: M LAB REF 16:28
PROVIDERS: ATTEND Internal Medicine Medical Oncology
DX: C92.10 Chronic myeloid leukemia, BCR/ABL-positive, not having achieved remission (principal); D64.9 Anemia, unspecified

== ENCOUNTER 2016-04-30 11:11 | Outpatient (CLI) | payer OTHER ==
[~2016-04-30] VITALS: Ht 152.4 cm; Wt 50.5 kg
[~2016-04-30 11:11] MED LIST changes: +ACETAMINOPHEN TAB 650MG DOSE (2X325MG) PO SCH; +diphenhydrAMINE 25 MG CAP PO SCH
[2016-04-30 11:15] VITALS: BP 128/66
[2016-04-30] MEDS ORDERED: FUROSEMIDE 20 MG/2 ML VIAL (J1940) IV ONE (14:00)
== END 2016-04-30 16:35 | disposition home or self-care (01) ==
LOC: M OPCLI4PR 11:11 → M PED 11:32 → M OPCLI4PR 16:35
PROVIDERS: ATTEND Nurse Practitioner Family
DX: D64.9 Anemia, unspecified (principal); Z91.018 Allergy to other foods
CPT/HCPCS: 36430; J1940; P9016

== ENCOUNTER → 2016-05-20 | Outpatient (REF) | payer OTHER ==
[~2016-05-20] MED LIST changes: -ACETAMINOPHEN TAB 650MG DOSE (2X325MG) PO SCH; -diphenhydrAMINE 25 MG CAP PO SCH
== END ==
LOC: M LAB REF 05-18 16:38
PROVIDERS: ATTEND Internal Medicine Medical Oncology
DX: C93.11 Chronic myelomonocytic leukemia, in remission (principal); D63.1 Anemia in chronic kidney disease; N18.9 Chronic kidney disease, unspecified; Z79.899 Other long term (current) drug therapy

== ENCOUNTER → 2016-06-04 | Outpatient (REF) | payer OTHER | LOC: M LAB REF 16:47 | PROVIDERS: ATTEND Internal Medicine Medical Oncology | DX: D64.9 Anemia, unspecified (principal) ==

== ENCOUNTER 2016-06-05 13:56 | Outpatient (CLI) | payer OTHER ==
[~2016-06-05 13:56] MED LIST changes: +ACETAMINOPHEN TAB 650MG DOSE (2X325MG) PO SCH
[2016-06-05] MEDS ORDERED: diphenhydrAMINE 50 MG CAP PO PRN (14:45)
[2016-06-05] MEDS ORDERED: FUROSEMIDE 20 MG/2 ML VIAL (J1940) IV ONE (21:00)
== END 2016-06-05 18:35 ==
LOC: M OPCLI4PV 13:56 → M MSPAV 13:59 → M OPCLI4PV 18:35
PROVIDERS: ATTEND Internal Medicine Medical Oncology
DX: D64.9 Anemia, unspecified (principal); Z79.899 Other long term (current) drug therapy; Z91.018 Allergy to other foods
CPT/HCPCS: 36430; J1940; P9016

== ENCOUNTER → 2016-06-24 | Outpatient (CLI) | payer OTHER ==
[~2016-06-24] VITALS: Ht 152.4 cm; Wt 55.3 kg
[~2016-06-24] MED LIST changes: -ACETAMINOPHEN TAB 650MG DOSE (2X325MG) PO SCH; +FERR150C PO; +LIDOCAINE 2% INJ 100 MG/5 ML SDV (FOR ANES.) As Ordered ONE; +MYLASUS16 PO; -MYLASUS2 PO; +NS 1,000 ML IV SCH; +POTA1TAB21 PO; -POTA8TAB PO; +PROPOFOL 200 MG/20 ML VIAL As Ordered ONE
--- NOTE | 2016-06-24 11:20 | ROOR ---
Patient Name: Mariia Barnard Procedure Date: 06/24/2016 10:39 AM Date of : 1930 Age: 86 Room: [facility] Gender: Female Note Status: Finalized Procedure: Upper GI endoscopy Indications: Iron deficiency anemia, Heartburn Providers: DO Angely Fonseca MD: OLIVIA LEE Requesting Provider: Medicines: Propofol per Anesthesia Complications: No immediate complications. Procedure: Pre-Anesthesia Assessment: - Prior to the procedure, a History and Physical was performed, and patient medications and allergies were reviewed. The patient is competent. The risks and benefits of the procedure and the sedation options and risks were discussed with the patient. All questions were answered and informed consent was obtained. Patient identification and proposed procedure were verified by the physician, the nurse, the anesthesiologist and the charge preparation technician in the endoscopy suite. Mental Status Examination: alert and oriented. Airway Examination: normal oropharyngeal airway and neck mobility. Respiratory Examination: clear to auscultation. CV Examination: normal. Prophylactic Antibiotics: The patient does not require prophylactic antibiotics. Prior Anticoagulants: The patient has taken no previous anticoagulant or antiplatelet agents. ASA Grade Assessment: II - A patient with mild systemic disease. After reviewing the risks and benefits, the patient was deemed in satisfactory condition to undergo the procedure. The anesthesia plan was to use monitored anesthesia care (MAC). Immediately prior to administration of medications, the patient was re-assessed for adequacy to receive sedatives. The heart rate, respiratory rate, oxygen saturations, blood pressure, adequacy of pulmonary ventilation, and response to care were monitored throughout the procedure. The physical status of the patient was re-assessed after the procedure. The Endoscope was introduced through the mouth, and advanced to the second part of duodenum. The upper GI endoscopy was accomplished without difficulty. The patient tolerated the procedure well. Findings: A medium-sized hiatal hernia was present. Estimated blood loss: none. Scattered severe inflammation characterized by adherent blood, congestion (edema), erythema, friability and linear erosions was found in the prepyloric region of the stomach. Biopsies were taken with a cold forceps for Helicobacter pylori testing. Estimated blood loss was minimal. The Z-line was irregular and was found 40 cm from the incisors. Biopsies were taken with a cold forceps for histology. Estimated blood loss was minimal. Impression: - Medium-sized hiatal hernia. - Gastritis. Biopsied. - Z-line irregular, 40 cm from the incisors. Biopsied. Recommendation: - Patient has a contact number available for emergencies. The signs and symptoms of potential delayed complications were discussed with the patient. Return to normal activities tomorrow. Written discharge instructions were provided to the patient. - Use sucralfate tablets 1 gram PO BID. - Await pathology results. Samuel Hernandez DO 06/24/2016 11:20:11 AM This report has been signed electronically. Number of Addenda: 0 Note Initiated On: 06/24/2016 10:39 AM Estimated Blood Loss: Estimated blood loss was minimal.
--- NOTE | 2016-06-24 11:23 | ROOR ---
Patient Name: Mariia Barnard Procedure Date: 06/24/2016 10:40 AM Date of : 1930 Age: 86 Room: [facility] Gender: Female Note Status: Finalized Procedure: Colonoscopy Indications: Iron deficiency anemia Providers: DO Angely Fonseca MD: Gera Salcedo MD Requesting Provider: Medicines: Propofol per Anesthesia Complications: No immediate complications. Procedure: Pre-Anesthesia Assessment: - Prior to the procedure, a History and Physical was performed, and patient medications and allergies were reviewed. The patient is competent. The risks and benefits of the procedure and the sedation options and risks were discussed with the patient. All questions were answered and informed consent was obtained. Patient identification and proposed procedure were verified by the physician, the nurse, the anesthesiologist and the certified veterinary technician in the endoscopy suite. Mental Status Examination: alert and oriented. Airway Examination: normal oropharyngeal airway and neck mobility. Respiratory Examination: clear to auscultation. CV Examination: normal. Prophylactic Antibiotics: The patient does not require prophylactic antibiotics. Prior Anticoagulants: The patient has taken no previous anticoagulant or antiplatelet agents. ASA Grade Assessment: II - A patient with mild systemic disease. After reviewing the risks and benefits, the patient was deemed in satisfactory condition to undergo the procedure. The anesthesia plan was to use monitored anesthesia care (MAC). Immediately prior to administration of medications, the patient was re-assessed for adequacy to receive sedatives. The heart rate, respiratory rate, oxygen saturations, blood pressure, adequacy of pulmonary ventilation, and response to care were monitored throughout the procedure. The physical status of the patient was re-assessed after the procedure. The Colonoscope was introduced through the anus and advanced to the cecum, identified by the appendiceal orifice, ileocecal valve and palpation. The colonoscopy was performed without difficulty. The patient tolerated the procedure well. The quality of the bowel preparation was adequate to identify polyps 6 mm and larger in size. Findings: A less than 5 mm polyp was found in the rectum. The polyp was semi-pedunculated. The polyp was removed with a hot snare. Resection and retrieval were complete. Estimated blood loss was minimal. The exam was otherwise without abnormality on direct and retroflexion views. Impression: - One less than 5 mm polyp in the rectum, removed with a hot snare. Resected and retrieved. - The examination was otherwise normal on direct and retroflexion views. Recommendation: - Patient has a contact number available for emergencies. The signs and symptoms of potential delayed complications were discussed with the patient. Return to normal activities tomorrow. Written discharge instructions were provided to the patient. - Repeat colonoscopy in 3 - 5 years for surveillance based on pathology results. Smauel Hernandez DO 06/24/2016 11:22:49 AM This report has been signed electronically. Number of Addenda: 0 Note Initiated On: 06/24/2016 10:40 AM Estimated Blood Loss: Estimated blood loss was minimal.
[2016-06-24 11:49] VITALS: BP 143/86
== END | disposition home or self-care (01) ==
LOC: M OPP 09:41
PROVIDERS: ATTEND Surgery
DX: D50.9 Iron deficiency anemia, unspecified (principal); D12.8 Benign neoplasm of rectum; R12 Heartburn; K22.8 Other specified diseases of esophagus; K44.9 Diaphragmatic hernia without obstruction or gangrene; K29.70 Gastritis, unspecified, without bleeding; K21.9 Gastro-esophageal reflux disease without esophagitis; I12.9 Hypertensive chronic kidney disease with stage 1 through stage 4 chronic kidney disease, or unspecified chronic kidney disease; E78.5 Hyperlipidemia, unspecified; E03.9 Hypothyroidism, unspecified; Z95.0 Presence of cardiac pacemaker; R19.5 Other fecal abnormalities; C92.10 Chronic myeloid leukemia, BCR/ABL-positive, not having achieved remission; M19.90 Unspecified osteoarthritis, unspecified site; F41.9 Anxiety disorder, unspecified; F32.9 Major depressive disorder, single episode, unspecified; G43.909 Migraine, unspecified, not intractable, without status migrainosus; N18.4 Chronic kidney disease, stage 4 (severe); N25.81 Secondary hyperparathyroidism of renal origin; Z91.018 Allergy to other foods; Z79.899 Other long term (current) drug therapy; Z80.3 Family history of malignant neoplasm of breast; Z80.1 Family history of malignant neoplasm of trachea, bronchus and lung

== ENCOUNTER 2016-07-07 14:25 | Outpatient (CLI) | payer OTHER ==
[~2016-07-07] VITALS: Ht 152.4 cm; Wt 60.1 kg
[~2016-07-07 14:25] MED LIST changes: -LIDOCAINE 2% INJ 100 MG/5 ML SDV (FOR ANES.) As Ordered ONE; -NS 1,000 ML IV SCH; -PROPOFOL 200 MG/20 ML VIAL As Ordered ONE
[2016-07-07] MEDS ORDERED: diphenhydrAMINE 50 MG CAP PO ONE (14:45)
[2016-07-07] MEDS ORDERED: ACETAMINOPHEN TAB 650MG DOSE (2X325MG) PO ONE (14:45)
[2016-07-07 16:30] VITALS: BP 174/81
[2016-07-07] MEDS: FUROSEMIDE 20 MG/2 ML VIAL (J1940) IV PRN ×2 (19:12→23:37)
[2016-07-07 20:05] VITALS: BP 148/67
[2016-07-07 21:15] VITALS: BP 168/84
[2016-07-07 21:30] VITALS: BP 166/80
[2016-07-07 22:15] VITALS: BP 168/88
[2016-07-07 23:15] VITALS: BP 168/88
[2016-07-08 00:15] VITALS: BP 166/84
== END 2016-07-08 00:22 | disposition home or self-care (01) ==
LOC: M INFU 14:25 → M MSPAV 16:35 → M INFU 07-08 00:22
PROVIDERS: ATTEND Internal Medicine Medical Oncology
DX: D64.9 Anemia, unspecified (principal); E07.9 Disorder of thyroid, unspecified; M19.90 Unspecified osteoarthritis, unspecified site; M54.2 Cervicalgia; Z95.0 Presence of cardiac pacemaker; Z91.018 Allergy to other foods; Z79.899 Other long term (current) drug therapy
CPT/HCPCS: 36430; 86850; 86870; 86900; 86901; 86920; J1940; P9016

== ENCOUNTER 2016-07-13 13:16 | Inpatient (IN) | payer OTHER ==
[~2016-07-13] VITALS: Ht 152.4 cm; Wt 54.3 kg
[2016-07-13] MEDS ORDERED: SUCR1TA PO (13:50)
[2016-07-13] MEDS ORDERED: SERO50TA PO (13:50)
[2016-07-13] MEDS ORDERED: MORPHINE 2 MG/ML 1ML SYRINGE IV ONE (14:15)
[2016-07-13] MEDS ORDERED: ONDANSETRON 4MG/2ML VIAL (J2405) IV ONE (14:15)
[2016-07-13 14:48] LABS: BASO % 0.1 % (0.0-1.0); EOS % 0.2 % (0.0-3.0); LARGE UNSTAINED CELL % 0.3 % (0.0-4.0); LYMPH # 0.3 K/mm3 (1.5-4.5); LYMPH % 3.9 % (24.0-44.0); MEAN CORPUSCULAR HEMOGLOBIN 29.5 pg (27.0-33.0); MEAN CORPUSCULAR HGB CONC 32.4 g/dl (32.0-36.5); MONO # 0.4 K/mm3 (0.0-0.8); MONO % 5.9 % (0.0-5.0); NEUTROPHILS # 5.7 K/mm3 (1.8-7.7); NEUTROPHILS % 89.4 % (36.0-66.0); PLATELET COUNT, AUTOMATED 142 k/mm3 (150-450); RED CELL DISTRIBUTION WIDTH 15.5 % (11.5-14.5); WHITE BLOOD COUNT 6.4 K/mm3 (4.0-10.0)
[2016-07-13 14:54] LABS: INR 0.95
[2016-07-13 15:22] LABS: CALCIUM LEVEL 9.4 MG/DL (8.8-10.2); CREATININE FOR GFR 2.25 MG/DL (0.55-1.02); POTASSIUM SERUM 4.3 MEQ/L (3.5-5.1)
--- NOTE | 2016-07-13 15:38 | REP ---
PELVIS AND RIGHT HIP: AP view of the pelvis and AP and cross table lateral views of the right hip demonstrate a fracture of the right femoral neck with varus deformity. No other fracture or dislocation is seen of the visualized osseous structures. IMPRESSION: Right femoral neck fracture. Signed by Samuel Luu MD 07/13/2016 08:12 P
[2016-07-13] MEDS ORDERED: MORPHINE 4 MG/ML 1ML SYRINGE IV ONE (15:45)
[2016-07-13] MEDS ORDERED: VALSARTAN 80 MG TAB (DIOVAN) PO ONE (15:45)
[2016-07-13] MEDS ORDERED: hydroCHLOROthiazide 25 MG TAB PO ONE (15:45)
--- NOTE | 2016-07-13 15:50 | REP ---
CHEST: AP view of the chest is performed. There is no acute infiltrate. There is calcification and tortuosity of the thoracic aorta. Heart is not significantly enlarged. Left dual lead pacemaker is noted. IMPRESSION: No acute infiltrate. Signed by Samuel Luu MD 07/13/2016 08:12 P
[2016-07-13] MEDS ORDERED: NEUR300C PO (15:52)
[2016-07-13] MEDS ORDERED: GUAI60TA PO (15:52)
[2016-07-13] MEDS ORDERED: MICR8CAP PO (15:52)
[2016-07-13] MEDS: NS 1,000 ML IV SCH (16:49)
--- NOTE | 2016-07-13 17:09 | HPE ---
DATE OF ADMISSION: 07/13/2016 REASON FOR ADMISSION: Fall, right femoral neck fracture. HISTORY OF PRESENT ILLNESS: The patient is an 86-year-old female with past medical history significant for heart block status post pacemaker, hypertension, gastroesophageal reflux disease, hypothyroidism, history of leukemia, depression and anxiety, neuropathy, history of gastritis, Simmons's esophagus and tubular adenoma, presented to the emergency room after she had fallen yesterday and was on the floor since last night. She stated she was trying to put on her pants, when she tripped and fell, landing on her right side. The patient was unable to get up and stayed on the floor until the following day when her grandson came down and saw her on the floor. She was brought into the emergency room. Hip and pelvis x-ray showed right femoral neck fracture. The patient had a CK of 2434. She had acute on chronic kidney injury. She was started on IV fluids in the emergency room. Dr. Fernandez from orthopedics was consulted and he agreed to see the patient in consultation. Hospitalist was called for the admission. The patient at this time states that her pain is 8/10. Denies any other symptoms. Denies any shortness of breath or chest pain. She states she is normally able to ambulate without difficulty as long as she does not go too fast. She can go up one flight of stairs without any difficulty without any shortness of breath or chest pain. REVIEW OF SYSTEMS: 12-point review of systems were obtained all of which was negative except for those mentioned above. 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 PAST SURGICAL HISTORY: Significant for pacemaker placement, bladder sling, tubal ligation, varicose vein surgery, cataract surgery, endoscopy and colonoscopy recent. ALLERGIES: No known drug allergies. SOCIAL HISTORY: The patient denies any alcohol or tobacco use. HOME MEDICATIONS: Include: - Tylenol 650 mg by mouth every 4 hours as needed for pain or fever - duloxetine 60 mg by mouth daily - gabapentin 300 mg by mouth three times a day - Mucinex 600 mg by mouth daily - Gleevec 400 mg by mouth daily - Synthroid 50 mcg by mouth daily - Zofran 8 mg by mouth three times a day as needed for nausea - Protonix 40 mg by mouth daily - Micro-K 8 mEq by mouth daily - Seroquel 50 mg at bedtime - ranitidine one tablet by mouth daily - Carafate 1 gram by mouth twice a day - tramadol 50 mg by mouth twice a day as needed for pain - valsartan-hydrochlorothiazide 320-25 mg by mouth daily - Ambien 5 mg at bedtime FAMILY HISTORY: Noncontributory. PHYSICAL EXAMINATION: Vital signs on admission: Temperature 98.9, pulse 83, respiratory rate 18, blood pressure initially was 212/99, recheck was 187/83, pulse oximetry 97% on room air. HEENT: Pupils equal, round, reactive to light and accommodation. Neck: Supple. No jugular venous distention (JVD). Lungs: Diminished breath sounds but no crackles or rhonchi appreciated. Cardiac: Regular rate and rhythm. Abdomen: Soft, nontender, nondistended. Extremities: Tenderness to palpation, worse over right hip. Neurologic: Cranial nerves II-XII grossly intact. No focal deficits. LABORATORY FINDINGS: WBC 6.4, hemoglobin 11, hematocrit 34.4, platelet count 142, sodium 137, potassium 4.3, chloride 99, BUN 38, creatinine 2.25, GFR 22, fasting glucose 125 , CK was 2434. IMAGING STUDIES: Pelvis and hip x-ray showed right femoral neck fracture. Chest x-ray showed no acute infiltrate. EKG reviewed appears paced. ASSESSMENT/PLAN: 1. Right femoral neck fracture. The patient will be evaluated by orthopedic surgery later. The patient has moderate risk of surgery given her age and cardiac pacemaker. will call Dr. Ash to obtain more records. The patient is able to ambulate independently and normally is able to go up one flight of stairs without getting short of breath. 2. History of leukemia. The patient used to follow with Dr. Peña, currently sees Dr. Banda. She is currently on Gleevec. 3. History of hypertension. We will resume the patient's home medication after she is evaluated by orthopedics. 4. History of depression and anxiety. We will continue her oral medications. 5. History of hypothyroidism. 6. History of gastroesophageal reflux disease. 7. History of gastritis and Simmons's esophagus. [facility]
[2016-07-13 20:22] VITALS: BP 189/94
--- NOTE | 2016-07-13 20:41 | ECGEPIP ---
Stationary ECG Study [facility] - ED Test Date: 2016-07-13 Pat Name: PHUONG ARZOLA Department: Room: - Gender: F Hand I Blocker: fred : 1930 Requested By: Shayne Chavis Order Number: [id number] Reading MD: Natali Uribe Measurements Intervals [place] Rate: 79 P: 56 GA: 182 QRS: 65 QRSD: 156 T: -87 QT: 416 QTc: 479 Interpretive Statements ELECTRONIC VENTRICULAR PACEMAKER ABNORMAL RHYTHM ECG SINUS RHYTHM SIMILAR 10/09/15 Electronically Signed On 07-13-2016 20:41:18 EDT by Natali Uribe
[2016-07-13 21:28] VITALS: BP 174/86
[2016-07-13] MEDS: NORCO, ANEXSIA 5/325MG TABLET (HYDROcodone/ACETAMINOPHEN) PO PRN (23:24)
[2016-07-13 23:53] VITALS: BP 166/79
[2016-07-14] VITALS (7 sets, daily range): BP systolic 122–172; BP diastolic 59–85; PULSE 79–80
[2016-07-14] MEDS: LEVOTHYROXINE 0.05 MG TAB (50 MCG) PO SCH (05:24)
[2016-07-14] MEDS: NORCO, ANEXSIA 5/325MG TABLET (HYDROcodone/ACETAMINOPHEN) PO PRN ×4 (05:24→22:02)
[2016-07-14 05:47] LABS: MEAN CORPUSCULAR HGB CONC 32.7 g/dl (32.0-36.5); MEAN CORPUSCULAR VOLUME 91.7 fl (80.0-96.0); RED CELL DISTRIBUTION WIDTH 15.9 % (11.5-14.5); WHITE BLOOD COUNT 6.3 K/mm3 (4.0-10.0)
[2016-07-14 06:18] LABS: ALBUMIN 3.1 GM/DL (3.2-5.2); ALBUMIN/GLOBULIN RATIO 1.03 (1.00-1.93); BILIRUBIN,TOTAL 0.6 MG/DL (0.2-1.0); CREATININE FOR GFR 2.27 MG/DL (0.55-1.02); GLOMERULAR FILTRATION RATE 21.8 (>32); MAGNESIUM LEVEL 1.5 MG/DL (1.8-2.4); TOTAL PROTEIN 6.1 GM/DL (6.4-8.2)
[2016-07-14] MEDS: NS 1,000 ML IV SCH (07:43)
[2016-07-14] MEDS: MAG SULF 1GM/100ML (MAG RUN) 1 GM in APPROPRIATE DILUENT 1 EA IV SCH ×2 (07:43→09:45)
[2016-07-14] MEDS: traMADol 50 MG TAB PO PRN (07:53)
[2016-07-14] MEDS ORDERED: ENOXAPARIN 30 MG/0.3 ML SYR (J1650) SC SCH (09:00)
[2016-07-14] MEDS: PANTOPRAZOLE 40MG TAB (PROTONIX) PO SCH (09:00)
--- NOTE | 2016-07-14 09:11 | IPNPDOC ---
Subjective Date Seen The patient was seen on 07/14/16. Subjective Chief Complaint/HPI The patient is a 86-year-old female admitted with a reason for visit of Fx Of Femoral Neck,Right,Closed. Events since last encounter pt seen and examined, doing well, denies any SOB or chest pain, no overnight events on tele. pain is somewhat controlled, Constitutional: Denies: Chills, Fever, Night Sweats Objective Physical Examination General Exam: Positive: Alert, No Acute Distress Eye Exam: Positive: Conjunctiva & lids normal, PERRLA Chest Exam: Positive: Clear to auscultation, Normal air movement Heart Exam: Positive: Rate Normal Abdomen Exam: Positive: Normal bowel sounds, Soft Extremity Exam: Positive: Tenderness, Negative: Clubbing, Cyanosis, Edema, Normal pulses, Other, Swelling Neuro Exam: Positive: Cranial Nerves 3-12 NL, Normal Speech Assessment /Plan Problems (1) Fracture of femoral neck, right, closed Status: Acute Problem Text: * Dr Fernandez saw pt yesterday and is willing to take her to surgery once she is medically optimaized * at this time, pt still has elevated CK, [employer] and troponin still going up * she has no chest pain or change in EKG but given her labs will wait one more day * will replace mag level, recheck cardiac marker and CK level * continue pain control * continue to monitor on tele (2) Presence of cardiac pacemaker Status: Chronic Response to Treatment: Stable (3) Fall on same level Status: Acute (4) HTN (hypertension) Status: Chronic Response to Treatment: Stable (5) Hypothyroidism Status: Chronic Response to Treatment: Stable (6) CML (chronic myelocytic leukemia) Status: Chronic Response to Treatment: Stable (7) MARCUS (acute kidney injury) Status: Acute Response to Treatment: Stable (8) Rhabdomyolysis Status: Acute Response to Treatment: Improving (9) GERD (gastroesophageal reflux disease) Status: Chronic Response to Treatment: Stable Plan/VTE VTE Prophylaxis Ordered?: Yes Plan/Urinary Catheter Reason for insertion/continuin: Perioperative VS, I&O, 24H, Fishbone Vital Signs/I&O Vital Signs Date Time Temp Pulse Resp B/P Pulse Ox O2 Delivery O2 Flow Rate FiO2 07/14/16 07:53 18 07/14/16 07:30 100.4 82 172/85 94 Room Air I&O- Last 24 Hours up to 6 AM 07/14/16 06:00 Intake Total 700 ml Output Total 325 ml Balance 375 ml Laboratory Data 24H LABS Laboratory Tests 2 07/13/16 14:32: Activated Partial Thromboplast Time 28.2, Anion Gap 8, White Blood Count 6.4, Red Blood Count 3.73L, Hemoglobin 11.0L, Hematocrit 34.0L, Mean Corpuscular Volume 91.0, Mean Corpuscular Hemoglobin 29.5, Mean Corpuscular Hemoglobin Concent 32.4, Red Cell Distribution Width 15.5H, Platelet Count 142L, Neutrophils (%) (Auto) 89.4H, Lymphocytes (%) (Auto) 3.9L, Monocytes (%) (Auto) 5.9H, Eosinophils (%) (Auto) 0.2, Basophils (%) (Auto) 0.1, Neutrophils # (Auto ) 5.7, Lymphocytes # (Auto) 0.3L, Monocytes # (Auto) 0.4, Eosinophils # (Auto) 0.0, Basophils # (Auto) 0.0, Blood Urea Nitrogen 38H, Creatinine 2.25H, Sodium Level 137, Potassium Level 4.3, Chloride Level 99, Carbon Dioxide Level 30, Calcium Level 9.4, Glomerular Filtration Rate 22.0L, Large Unclassified Cells # 0.0, Large Unclassified Cells % 0.3, Prothromb Time International Ratio 0.95, Prothrombin Time 12.8, Total Creatine Kinase 2434H 07/13/16 14:33: Total Creatine Kinase 2461H, Creatine Kinase MB 27.0H, Creatine Kinase MB Relative Index 1.09, Troponin I 0.13H 07/14/16 00:16: Total Creatine Kinase 2235H, Creatine Kinase MB 15.3H, Creatine Kinase MB Relative Index 0.68, Troponin I 0.23#H 07/14/16 05:17: Anion Gap 8, Blood Urea Nitrogen 39H, Creatinine 2.27H, Sodium Level 137, Potassium Level 4.0, Chloride Level 103, Carbon Dioxide Level 26, Calcium Level 8.0L, Glomerular Filtration Rate 21.8L, Total Creatine Kinase 1861H, Aspartate Amino Transf (AST/SGOT) 76H, Alanine Aminotransferase (ALT/SGPT) 27, Alkaline Phosphatase 63, Total Bilirubin 0.6, Total Protein 6.1L, Albumin 3.1L, Albumin/ Globulin Ratio 1.03, Magnesium Level 1.5L 07/14/16 08:43: CBC/BMP Laboratory Tests 07/13/16 14:32 Calcium Level 9.4, Red Blood Count 3.73 L, Mean Corpuscular Volume 91.0, Mean Corpuscular Hemoglobin 29.5, Mean Corpuscular Hemoglobin Concent 32.4, Red Cell Distribution Width 15.5 H, Neutrophils (%) (Auto) 89.4 H, Lymphocytes (%) (Auto ) 3.9 L, Monocytes (%) (Auto) 5.9 H, Eosinophils (%) (Auto) 0.2, Basophils (%) ( Auto) 0.1, Neutrophils # (Auto) 5.7, Lymphocytes # (Auto) 0.3 L, Monocytes # ( Auto) 0.4, Eosinophils # (Auto) 0.0, Basophils # (Auto) 0.0 07/14/16 05:17 Calcium Level 8.0 L, Red Blood Count 3.34 L, Mean Corpuscular Volume 91.7, Mean Corpuscular Hemoglobin 30.0, Mean Corpuscular Hemoglobin Concent 32.7, Red Cell Distribution Width 15.9 H, Aspartate Amino Transf (AST/SGOT) 76 H, Alanine Aminotransferase (ALT/SGPT) 27, Total Creatine Kinase 1861 H, Alkaline Phosphatase 63, Total Bilirubin 0.6, Total Protein 6.1 L, Albumin 3.1 L RORY WALLACE DO Jul 14, 2016 09:11
[2016-07-14] MEDS: MORPHINE 2 MG/ML 1ML SYRINGE IV PRN ×2 (09:46→14:31)
[2016-07-14] MEDS: hydrALAZINE INJ 20 MG/ML VIAL IV SCH ×2 (09:46→17:30)
[2016-07-14] MEDS: hydroCHLOROthiazide 25 MG TAB PO SCH (09:46)
[2016-07-14] MEDS: VALSARTAN 80 MG TAB (DIOVAN) PO SCH (09:47)
[2016-07-14] MEDS: POTASSIUM CHLORIDE 10 MEQ SR TABLET PO SCH (09:47)
[2016-07-14] MEDS: DULoxetine 30 MG CAP (CYMBALTA) PO SCH (09:47)
--- NOTE | 2016-07-14 09:59 | CR ---
DATE OF CONSULTATION: 07/14/2016 CHIEF COMPLAINT: Right hip pain. HISTORY OF PRESENT ILLNESS: This 86-year-old woman fell while at home. It happened in the evening. She was found about 11 o'clock in the morning by her son. Brought to the emergency room for further evaluation. Her imaging studies reflected a femoral neck fracture. She had an elevated CK and kidney issues. Orthopedics was consulted because of the hip fracture at the femoral neck. She complains of right hip pain. REVIEW OF SYSTEMS: 12-point review of systems obtained. Negative except for the right hip in terms of patient complaints. MEDICAL HISTORY: Includes leukemia, hypertension, pacemaker, depression, anxiety, neuropathy, hypothyroidism, reflux disease, gastritis, Simmons esophagus, adenoma in the colon, anemia which has required transfusion in the past. SURGICAL HISTORY: Includes pacemaker, bladder sling, tubal ligation, vein stripping, cataracts, endoscopy, colonoscopy. ALLERGIES: No known drug allergies. SOCIAL HISTORY: Does not drink or smoke. She lives in a senior facility; it is not an assisted-living facility. She had been having some struggles getting by as it is. She has a living son who accompanies her at the bedside today. She is retired. HOME MEDICATIONS: Include: - duloxetine - gabapentin - Mucinex - Gleevec - Synthroid - Zofran - Protonix - Micro-K - Seroquel - ranitidine - Carafate - tramadol - valsartan - Ambien FAMILY HISTORY: Not contributory. PHYSICAL EXAMINATION: Alert and cooperative. Mood and affect appropriate. Appears to be her stated age. She had palpable pulses at both lower extremities. Right lower extremity is shortened and externally rotated. There is no peripheral edema. The calves are soft and nontender, and there is no edema at the knees. Skin seems to be healthy at the face, upper and lower extremities. She is not short of breath. Cardiac seems to be regular at a rate of about 100 in the emergency room (ER). The abdomen is not distended. IMAGING STUDIES: Femoral neck fracture. LABORATORY STUDIES: Include hematocrit of 34%, creatinine 2.25, CK elevated at 24.34. IMPRESSION: Right femoral neck fracture in an 86-year-old woman. RECOMMENDATIONS: We will consider operative intervention if the patient clears for surgical intervention. Apparently, she will require cardiac clearance, as well as medical clearance, prior to surgery. We will tentatively coordinate with the ER and the operating room (OR) with respect to surgical scheduling.
--- NOTE | 2016-07-14 10:39 | CR ---
DATE OF CONSULTATION: 07/14/2016 Mariia's laboratories were reviewed today. Her hematocrit had decreased to 30.6. Her troponin had been noted to be elevated and trending to increase this morning at 0016 minutes past midnight at 0.23, elevated CK-MB, as well as an elevated creatinine kinase. Also, had a low magnesium and continues to have an elevated creatinine. IMPRESSION: She is not medically optimized for surgery. Therefore, we did not decide for surgery at this time. Decision for surgery will be made after medical optimization from cardiac and medical perspective.
[2016-07-14] MEDS ORDERED: HYDROmorphone 2 MG TAB PO ONE (12:30)
[2016-07-14 14:23] LABS: ALBUMIN 3.3 GM/DL (3.2-5.2); CALCIUM LEVEL 8.6 MG/DL (8.8-10.2); CREATININE FOR GFR 2.35 MG/DL (0.55-1.02); GLOMERULAR FILTRATION RATE 20.9 (>32); MAGNESIUM LEVEL 2.5 MG/DL (1.8-2.4); PHOSPHORUS LEVEL 2.6 MG/DL (2.5-4.9); POTASSIUM SERUM 3.9 MEQ/L (3.5-5.1)
[2016-07-15] VITALS (10 sets, daily range): BP systolic 126–191; BP diastolic 63–79; PULSE 77
[2016-07-15] MEDS: hydrALAZINE INJ 20 MG/ML VIAL IV SCH ×3 (02:00→17:08)
[2016-07-15 05:43] LABS: MEAN CORPUSCULAR HEMOGLOBIN 29.8 pg (27.0-33.0); MEAN CORPUSCULAR HGB CONC 31.6 g/dl (32.0-36.5); MEAN CORPUSCULAR VOLUME 94.1 fl (80.0-96.0); RED CELL DISTRIBUTION WIDTH 15.9 % (11.5-14.5); WHITE BLOOD COUNT 6.2 K/mm3 (4.0-10.0)
[2016-07-15] MEDS: LEVOTHYROXINE 0.05 MG TAB (50 MCG) PO SCH (05:51)
[2016-07-15 06:05] LABS: ALBUMIN 2.6 GM/DL (3.2-5.2); ALBUMIN/GLOBULIN RATIO 0.96 (1.00-1.93); BILIRUBIN,TOTAL 0.3 MG/DL (0.2-1.0); CALCIUM LEVEL 7.6 MG/DL (8.8-10.2); CREATININE FOR GFR 2.21 MG/DL (0.55-1.02); GLOMERULAR FILTRATION RATE 22.5 (>32); MAGNESIUM LEVEL 2.2 MG/DL (1.8-2.4); TOTAL PROTEIN 5.3 GM/DL (6.4-8.2)
--- NOTE | 2016-07-15 07:21 | ECGEPIP ---
Stationary ECG Study [facility] Test Date: 2016-07-14 Pat Name: PHUONG ARZOLA Department: Room: [place] [address] Gender: F Casing Splitter: : 1930 Requested By: RORY WALLACE Order Number: [id number] Reading MD: Antoine Anderson Measurements Intervals [place] Rate: 77 P: 68 ID: [id number] QRS: 86 QRSD: 155 T: -74 QT: 421 QTc: 477 Interpretive Statements Normal sinus rhythm with paced ventricular complexes No significant change since prior tracing of 07/13/2016 Electronically Signed On 07-15-2016 7:20:46 EDT by Antoine Anderson
--- NOTE | 2016-07-15 07:25 | IPNPDOC ---
Subjective Date Seen The patient was seen on 07/15/16. Subjective Chief Complaint/HPI The patient is a 86-year-old female admitted with a reason for visit of Fx Of Femoral Neck,Right,Closed. Events since last encounter pt seen and examined, doing well, denies any chest pain, palpitations, no Shortness of breath, still has leg pain, but controlled Objective Physical Examination General Exam: Positive: Alert, No Acute Distress Eye Exam: Positive: PERRLA, Conjunctiva & lids normal Chest Exam: Positive: Clear to auscultation, Normal air movement Heart Exam: Positive: Rate Normal Abdomen Exam: Positive: Normal bowel sounds, Soft Extremity Exam: Positive: Tenderness, Negative: Clubbing, Cyanosis, Edema, Normal pulses, Swelling, Other Neuro Exam: Positive: Normal Speech, Cranial Nerves 3-12 NL Assessment /Plan Problems (1) Preoperative clearance Problem Text: * Pt denies any chest pain, or shortness in breath, * no signs of acute ischemic heart disease or acute congestive heart failure * she follows up with Dr goff and i spoke with his yesterday regarding mild troponin elevation, he thought that it was secondary to her kidney disease, she has no symptoms at this time, pacemaker had no events, * pt normally ambulates independently without having chest pain or shortness of breath * she is moderate risk of surgery given her age and comorbidities * she is medically optimized (2) Fracture of femoral neck, right, closed Status: Acute Problem Text: * Dr Fernandez saw pt yesterday and is willing to take her to surgery once she is medically optimaized * at this time, pt still has elevated CK, 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 and 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 still going up * she has no chest pain or change in EKG but given her labs will wait one more day * will replace mag level, recheck cardiac marker and CK level * continue pain control * continue to monitor on tele (3) Presence of cardiac pacemaker Status: Chronic Response to Treatment: Stable (4) Fall on same level Status: Acute (5) HTN (hypertension) Status: Chronic Response to Treatment: Stable (6) Hypothyroidism Status: Chronic Response to Treatment: Stable (7) CML (chronic myelocytic leukemia) Status: Chronic Response to Treatment: Stable (8) Rhabdomyolysis Status: Acute Response to Treatment: Improving Problem Text: CK today 800s continue to trend rhabdomyolysis secondary to fall and being on the ground for a prolonged period of time (9) GERD (gastroesophageal reflux disease) Status: Chronic Response to Treatment: Stable (10) CKD (chronic kidney disease) Status: Chronic Response to Treatment: Stable Plan/VTE VTE Prophylaxis Ordered?: Yes Plan/Urinary Catheter Reason for insertion/continuin: Perioperative VS, I&O, 24H, Fishbone Vital Signs/I&O Vital Signs Date Time Temp Pulse Resp B/P (MAP) Pulse Ox O2 Delivery O2 Flow Rate FiO2 07/15/16 04:00 Room Air 07/15/16 04:00 77 07/15/16 03:45 98.8 18 126/63 (84) 94 I&O- Last 24 Hours up to 6 AM 07/15/16 06:00 Intake Total 1380 ml Output Total 600 ml Balance 780 ml Laboratory Data 24H LABS Laboratory Tests 2 07/14/16 08:43: Total Creatine Kinase 1564H, Creatine Kinase MB 11.0H, Creatine Kinase MB Relative Index 0.70, Troponin I 0.18#H 07/14/16 13:27: Total Creatine Kinase 1673H, Blood Urea Nitrogen 38H, Creatinine 2.35H, Sodium Level 137, Potassium Level 3.9, Chloride Level 100, Carbon Dioxide Level 28, Anion Gap 9, Glomerular Filtration Rate 20.9L, Calcium Level 8.6L, Phosphorus Level 2.6, Magnesium Level 2.5H, Albumin 3.3 07/14/16 21:56: Total Creatine Kinase 1257H 07/15/16 05:25: Total Creatine Kinase 847H, Blood Urea Nitrogen 38H, Creatinine 2.21H, Sodium Level 137, Potassium Level 4.0, Chloride Level 103, Carbon Dioxide Level 27, Anion Gap 7L, Glomerular Filtration Rate 22.5L, Calcium Level 7.6L, Magnesium Level 2.2, Albumin 2.6#L, Aspartate Amino Transf (AST/SGOT) 61H, Alanine Aminotransferase (ALT/SGPT) 24, Alkaline Phosphatase 57, Total Bilirubin 0.3, Total Protein 5.3L, Albumin/Globulin Ratio 0.96L CBC/BMP Laboratory Tests 07/14/16 13:27 Anion Gap 9 07/15/16 05:25 Red Blood Count 2.98 L, Mean Corpuscular Volume 94.1, Mean Corpuscular Hemoglobin 29.8, Mean Corpuscular Hemoglobin Concent 31.6 L, Red Cell Distribution Width 15.9 H, Calcium Level 7.6 L, Aspartate Amino Transf (AST/SGOT ) 61 H, Alanine Aminotransferase (ALT/SGPT) 24, Total Creatine Kinase 847 H, Alkaline Phosphatase 57, Total Bilirubin 0.3, Total Protein 5.3 L, Albumin 2.6 # L RORY WALLACE DO Jul 15, 2016 07:25
[2016-07-15] MEDS ORDERED: BUPIVACAINE/EPIN 0.25% 30 ML VIAL As Ordered ONE (07:42)
[2016-07-15] MEDS ORDERED: ceFAZolin 1GM INJ (J0690) As Ordered ONE (07:42)
[2016-07-15] MEDS: POTASSIUM CHLORIDE 10 MEQ SR TABLET PO SCH (08:27)
[2016-07-15] MEDS: NORCO, ANEXSIA 5/325MG TABLET (HYDROcodone/ACETAMINOPHEN) PO PRN ×2 (08:27→16:47)
[2016-07-15] MEDS: DULoxetine 30 MG CAP (CYMBALTA) PO SCH (08:28)
[2016-07-15] MEDS: PANTOPRAZOLE 40MG TAB (PROTONIX) PO SCH (08:28)
[2016-07-15] MEDS: hydroCHLOROthiazide 25 MG TAB PO SCH (10:36)
[2016-07-15] MEDS: VALSARTAN 80 MG TAB (DIOVAN) PO SCH (10:37)
[2016-07-15] MEDS: MORPHINE 2 MG/ML 1ML SYRINGE IV PRN ×3 (10:41→22:25)
[2016-07-15] MEDS ORDERED: EPINEPHrine INJ 1 MG/ML 1ML VIAL/AMP As Ordered ONE (15:22)
[2016-07-15] MEDS ORDERED: ceFAZolin 2 GM/D5W 50 ML IV BAG (J0690) As Ordered ONE (17:53)
[2016-07-15] MEDS ORDERED: fentaNYL 100 MCG/2 ML INJECTION (J3010) As Ordered ONE ×3 (18:25→20:43)
[2016-07-15] MEDS ORDERED: PROPOFOL 200 MG/20 ML VIAL As Ordered ONE (18:25)
[2016-07-15] MEDS ORDERED: ROCURONIUM BROMIDE 50 MG/5 ML VIAL As Ordered ONE (18:26)
[2016-07-15] MEDS ORDERED: GLYCOPYRROLATE INJ 0.2 MG/ML 2 ML VIAL As Ordered ONE (18:26)
[2016-07-15] MEDS ORDERED: NEOSTIGMINE 1MG/ML 5 ML SYRINGE (J2710) As Ordered ONE (18:26)
[2016-07-15] MEDS ORDERED: METOCLOPRAMIDE INJ 10MG/2ML VIAL (J2765) As Ordered ONE (18:26)
[2016-07-15] MEDS ORDERED: ONDANSETRON 4MG/2ML VIAL (J2405) As Ordered ONE (18:26)
[2016-07-15] MEDS ORDERED: LIDOCAINE 2% INJ 100 MG/5 ML SDV (FOR ANES.) As Ordered ONE (18:26)
[2016-07-15] MEDS ORDERED: PHENYLephrine HCL 500 MCG/5 ML (100MCG/ML) SYRINGE (J2370) As Ordered ONE (18:26)
[2016-07-15] MEDS ORDERED: PERCOCET 5MG/325MG TAB PO PRN (20:30)
[2016-07-15] MEDS ORDERED: METOCLOPRAMIDE INJ 10MG/2ML VIAL (J2765) IV PRN (20:30)
[2016-07-15] MEDS ORDERED: LR 1,000 ML IV SCH (20:30)
[2016-07-15] MEDS ORDERED: MEPERIDINE INJ 25 MG/ML VIAL (J2175) IV PRN (20:30)
[2016-07-15] MEDS ORDERED: ONDANSETRON 4MG/2ML VIAL (J2405) IV PRN (20:30)
[2016-07-15] MEDS: fentaNYL 100 MCG/2 ML INJECTION (J3010) IV PRN ×4 (20:48→21:03)
[2016-07-15] MEDS ORDERED: NS 1,000 ML IV SCH ×2 (21:00)
[2016-07-15] MEDS: IMATINIB MESYLATE 400 MG PO SCH (22:26)
[2016-07-16] VITALS (7 sets, daily range): BP systolic 129–142; BP diastolic 63–71
[2016-07-16] MEDS: MORPHINE 2 MG/ML 1ML SYRINGE IV PRN ×2 (00:30→08:26)
[2016-07-16] MEDS: hydrALAZINE INJ 20 MG/ML VIAL IV SCH ×3 (02:00→16:40)
[2016-07-16] MEDS: LEVOTHYROXINE 0.05 MG TAB (50 MCG) PO SCH (05:16)
[2016-07-16] MEDS: NORCO, ANEXSIA 5/325MG TABLET (HYDROcodone/ACETAMINOPHEN) PO PRN ×3 (05:16→22:27)
[2016-07-16 06:24] LABS: MEAN CORPUSCULAR HEMOGLOBIN 29.2 pg (27.0-33.0); MEAN CORPUSCULAR HGB CONC 30.9 g/dl (32.0-36.5); MEAN CORPUSCULAR VOLUME 94.3 fl (80.0-96.0); RED CELL DISTRIBUTION WIDTH 15.6 % (11.5-14.5); WHITE BLOOD COUNT 9.5 K/mm3 (4.0-10.0)
[2016-07-16 06:38] LABS: ALBUMIN 2.6 GM/DL (3.2-5.2); ALBUMIN/GLOBULIN RATIO 0.93 (1.00-1.93); BILIRUBIN,TOTAL 0.4 MG/DL (0.2-1.0); CALCIUM LEVEL 7.7 MG/DL (8.8-10.2); CREATININE FOR GFR 2.03 MG/DL (0.55-1.02); GLOMERULAR FILTRATION RATE 24.8 (>32); MAGNESIUM LEVEL 1.9 MG/DL (1.8-2.4); POTASSIUM SERUM 4.1 MEQ/L (3.5-5.1); TOTAL PROTEIN 5.4 GM/DL (6.4-8.2)
[2016-07-16] MEDS: MOM 30ML SUSPENSION UDC PO SCH (08:11)
[2016-07-16] MEDS: POTASSIUM CHLORIDE 10 MEQ SR TABLET PO SCH (08:11)
[2016-07-16] MEDS: MIRALAX *UNIT DOSE* 17GM PACKET PO SCH (08:11)
[2016-07-16] MEDS: IMATINIB MESYLATE 400 MG PO SCH (08:12)
[2016-07-16] MEDS: SENOKOT S TAB PO SCH ×2 (08:12→22:27)
[2016-07-16] MEDS: PANTOPRAZOLE 40MG TAB (PROTONIX) PO SCH (08:12)
[2016-07-16] MEDS: DULoxetine 30 MG CAP (CYMBALTA) PO SCH (08:12)
[2016-07-16] MEDS: hydroCHLOROthiazide 25 MG TAB PO SCH (08:13)
[2016-07-16] MEDS: VALSARTAN 80 MG TAB (DIOVAN) PO SCH (08:14)
--- NOTE | 2016-07-16 09:05 | IPNPDOC ---
Subjective Date Seen The patient was seen on 07/16/16. Subjective Chief Complaint/HPI The patient is a 86-year-old female admitted with a reason for visit of Fx Of Femoral Neck,Right,Closed. Events since last encounter pt seen and examined, doing well, tolerated procedure well, pain is controlled, states it's a 5/10 low grade temp this morning, no other events Objective Physical Examination General Exam: Positive: Alert, No Acute Distress Eye Exam: Positive: PERRLA, Conjunctiva & lids normal Chest Exam: Positive: Clear to auscultation, Normal air movement Heart Exam: Positive: Rate Normal Abdomen Exam: Positive: Normal bowel sounds, Soft Extremity Exam: Positive: Tenderness, Negative: Clubbing, Cyanosis, Edema, Normal pulses, Swelling, Other Neuro Exam: Positive: Normal Speech, Cranial Nerves 3-12 NL Assessment /Plan Problems (1) Fracture of femoral neck, right, closed Status: Acute Problem Text: * Dr Fernandez took pt to OR for hemiarthroplasty of Right hip POD #1 * pain is controlled, * will start pt on coumadin, checked with Dr duffy who will be following outpt * PT/OT (2) Anemia Status: Chronic Problem Text: * pt has history of chronic anemia * will transfuse 2 units of prbc * pt gets frequent blood transfusions (3) Presence of cardiac pacemaker Status: Chronic Response to Treatment: Stable (4) Fall on same level Status: Acute Problem Text: * s/p right femoral neck fracture, s/p hemiarthroplasty (5) HTN (hypertension) Status: Chronic Response to Treatment: Stable (6) Hypothyroidism Status: Chronic Response to Treatment: Stable (7) CML (chronic myelocytic leukemia) Status: Chronic Response to Treatment: Stable Problem Text: * pt follows up with dr duffy, (8) Rhabdomyolysis Status: Acute Response to Treatment: Improving Problem Text: rhabdomyolysis secondary to fall and remaining on the ground all night (9) GERD (gastroesophageal reflux disease) Status: Chronic Response to Treatment: Stable (10) CKD (chronic kidney disease) Status: Chronic Response to Treatment: Stable Problem Text: * 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 (11) Preoperative clearance Problem Text: * Pt denies any chest pain, or shortness in breath, * no signs of acute ischemic heart disease or acute congestive heart failure * she follows up with Dr goff and i spoke with his yesterday regarding mild troponin elevation, he thought that it was secondary to her kidney disease, she has no symptoms at this time, pacemaker had no events, * pt normally ambulates independently without having chest pain or shortness of breath * she is moderate risk of surgery given her age and comorbidities * she is medically optimized Plan/VTE VTE Prophylaxis Ordered?: Yes Plan/Urinary Catheter Reason for insertion/continuin: Perioperative VS, I&O, 24H, Fishbone Vital Signs/I&O Vital Signs Date Time Temp Pulse Resp B/P (MAP) Pulse Ox O2 Delivery O2 Flow Rate FiO2 07/16/16 08:26 20 Room Air 07/16/16 08:14 138/64 07/16/16 07:30 100.4 95 97 07/16/16 04:00 1.0 I&O- Last 24 Hours up to 6 AM 07/16/16 05:59 Intake Total 2072.5 ml Output Total 775 ml Balance 1297.5 ml Laboratory Data 24H LABS Laboratory Tests 2 07/15/16 13:54: Total Creatine Kinase 702H 07/15/16 22:07: Total Creatine Kinase 790H 07/16/16 05:46: Anion Gap 9, Glomerular Filtration Rate 24.8L, Blood Urea Nitrogen 35H, Creatinine 2.03H, Sodium Level 138, Potassium Level 4.1, Chloride Level 106, Carbon Dioxide Level 23, Calcium Level 7.7L, Aspartate Amino Transf (AST/SGOT) 49H, Alanine Aminotransferase (ALT/SGPT) 21, Alkaline Phosphatase 55, Total Bilirubin 0.4, Total Protein 5.4L, Albumin 2.6L, Magnesium Level 1.9, Albumin/ Globulin Ratio 0.93L CBC/BMP Laboratory Tests 07/16/16 05:46 Red Blood Count 2.74 L, Mean Corpuscular Volume 94.3, Mean Corpuscular Hemoglobin 29.2, Mean Corpuscular Hemoglobin Concent 30.9 L, Red Cell Distribution Width 15.6 H, Calcium Level 7.7 L, Aspartate Amino Transf (AST/SGOT ) 49 H, Alanine Aminotransferase (ALT/SGPT) 21, Alkaline Phosphatase 55, Total Bilirubin 0.4, Total Protein 5.4 L, Albumin 2.6 L RORY WALLACE DO Jul 16, 2016 09:04
[2016-07-16] MEDS: traMADol 50 MG TAB PO PRN (14:33)
[2016-07-16] MEDS ORDERED: WARFARIN SOD 5 MG TAB PO ONE (17:00)
--- NOTE | 2016-07-16 20:18 | REP ---
Right hip two views: There is a right hip hemiarthroplasty in satisfactory position alignment both projections. Skin yasemin are incidentally noted. Signed by Samuel Horta MD 07/16/2016 03:34 P
[2016-07-17 06:00] VITALS: BP 154/70
[2016-07-17] MEDS ORDERED: **hydrALAZINE** 10 MG TAB PO SCH (06:00)
[2016-07-17] MEDS: LEVOTHYROXINE 0.05 MG TAB (50 MCG) PO SCH (06:35)
[2016-07-17] MEDS: traMADol 50 MG TAB PO PRN (06:36)
[2016-07-17 06:41] LABS: MEAN CORPUSCULAR HEMOGLOBIN 31.7 pg (27.0-33.0); MEAN CORPUSCULAR HGB CONC 33.7 g/dl (32.0-36.5); MEAN CORPUSCULAR VOLUME 94.1 fl (80.0-96.0); RED CELL DISTRIBUTION WIDTH 15.3 % (11.5-14.5)
[2016-07-17 06:50] LABS: INR 1.19
[2016-07-17 07:02] LABS: ALBUMIN 2.2 GM/DL (3.2-5.2); ALBUMIN/GLOBULIN RATIO 0.71 (1.00-1.93); BILIRUBIN,TOTAL 0.5 MG/DL (0.2-1.0); CALCIUM LEVEL 8.1 MG/DL (8.8-10.2); CREATININE FOR GFR 2.58 MG/DL (0.55-1.02); GLOMERULAR FILTRATION RATE 18.8 (>32); POTASSIUM SERUM 4.7 MEQ/L (3.5-5.1); TOTAL PROTEIN 5.3 GM/DL (6.4-8.2)
--- NOTE | 2016-07-17 07:36 | IPNPDOC ---
Subjective Date Seen The patient was seen on 07/17/16. Subjective Chief Complaint/HPI The patient is a 86-year-old female admitted with a reason for visit of Fx Of Femoral Neck,Right,Closed. Events since last encounter pt seen and examined, states pain is controlled but still there, Constitutional: Denies: Chills, Fever, Night Sweats Pulmonary: Denies: Dyspnea, Cough Cardiovascular: Denies: Chest Pain, Palpitations, Orthopnea, Paroxysmal Noc. Dyspnea, Lt Headedness Objective Physical Examination General Exam: Positive: Alert, No Acute Distress Eye Exam: Positive: PERRLA, Conjunctiva & lids normal Chest Exam: Positive: Clear to auscultation, Normal air movement Heart Exam: Positive: Rate Normal Abdomen Exam: Positive: Normal bowel sounds, Soft Extremity Exam: Positive: Tenderness, Negative: Clubbing, Cyanosis, Edema, Normal pulses, Swelling, Other Neuro Exam: Positive: Normal Speech, Cranial Nerves 3-12 NL Assessment /Plan Problems (1) [id number] kidney injury Status: Acute Problem Text: * baseline creatine around 1.9-2. * will hold valsartan and hctz * continue to monitor (2) Fracture of femoral neck, right, closed Status: Acute Problem Text: * Dr Fernandez took pt to OR for hemiarthroplasty of Right hip POD #2 * pain is controlled, * pt was started on coumadin * PT/OT (3) Anemia Status: Chronic Problem Text: * pt has history of chronic anemia * s/p 2 units of prbc on 07/16/16 * pt gets frequent blood transfusions (4) Presence of cardiac pacemaker Status: Chronic Response to Treatment: Stable (5) Fall on same level Status: Acute Problem Text: * s/p right femoral neck fracture, s/p hemiarthroplasty (6) HTN (hypertension) Status: Chronic Response to Treatment: Stable Problem Text: pt is normally on valsartan and hctz will hold due to worsening kidney function will start hydralazine for now (7) Hypothyroidism Status: Chronic Response to Treatment: Stable (8) CML (chronic myelocytic leukemia) Status: Chronic Response to Treatment: Stable Problem Text: * pt follows up with dr duffy, (9) Rhabdomyolysis Status: Acute Response to Treatment: Improving Problem Text: rhabdomyolysis secondary to fall and remaining on the ground all night (10) GERD (gastroesophageal reflux disease) Status: Chronic Response to Treatment: Stable (11) CKD (chronic kidney disease) Status: Chronic Response to Treatment: Worse Problem Text: * 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 (12) Preoperative clearance Problem Text: * Pt denies any chest pain, or shortness in breath, * no signs of acute ischemic heart disease or acute congestive heart failure * she follows up with Dr goff and i spoke with his yesterday regarding mild troponin elevation, he thought that it was secondary to her kidney disease, she has no symptoms at this time, pacemaker had no events, * pt normally ambulates independently without having chest pain or shortness of breath * she is moderate risk of surgery given her age and comorbidities * she is medically optimized Plan/VTE VTE Prophylaxis Ordered?: Yes Plan/Urinary Catheter Reason for insertion/continuin: Perioperative VS, I&O, 24H, Fishbone Vital Signs/I&O Vital Signs Date Time Temp Pulse Resp B/P (MAP) Pulse Ox O2 Delivery O2 Flow Rate FiO2 07/17/16 06:36 18 07/17/16 06:00 99.3 86 154/70 (98) 94 Room Air 07/16/16 08:40 1.0 I&O- Last 24 Hours up to 6 AM 07/17/16 06:00 Intake Total 1195 ml Output Total 325 ml Balance 870 ml Laboratory Data 24H LABS Laboratory Tests 2 07/17/16 06:33: Prothrombin Time 15.2H, Prothromb Time International Ratio 1.19, Anion Gap 6L, Glomerular Filtration Rate 18.8L, Blood Urea Nitrogen 41H, Creatinine 2.58H, Sodium Level 134L, Potassium Level 4.7, Chloride Level 103, Carbon Dioxide Level 25, Calcium Level 8.1L, Aspartate Amino Transf (AST/SGOT) 34, Alanine Aminotransferase (ALT/SGPT) 18, Alkaline Phosphatase 59, Total Bilirubin 0.5, Total Protein 5.3L, Albumin 2.2L, Magnesium Level 2.0, Albumin/Globulin Ratio 0.71L CBC/BMP Laboratory Tests 07/17/16 06:33 Red Blood Count 3.04 L, Mean Corpuscular Volume 94.1, Mean Corpuscular Hemoglobin 31.7, Mean Corpuscular Hemoglobin Concent 33.7, Red Cell Distribution Width 15.3 H, Calcium Level 8.1 L, Aspartate Amino Transf (AST/SGOT ) 34, Alanine Aminotransferase (ALT/SGPT) 18, Alkaline Phosphatase 59, Total Bilirubin 0.5, Total Protein 5.3 L, Albumin 2.2 L RORY WALLACE DO Jul 17, 2016 07:36
[2016-07-17] MEDS: POTASSIUM CHLORIDE 10 MEQ SR TABLET PO SCH (09:21)
[2016-07-17] MEDS: IMATINIB MESYLATE 400 MG PO SCH (09:21)
[2016-07-17] MEDS: PANTOPRAZOLE 40MG TAB (PROTONIX) PO SCH (09:21)
[2016-07-17] MEDS: MIRALAX *UNIT DOSE* 17GM PACKET PO SCH (09:21)
[2016-07-17] MEDS: MOM 30ML SUSPENSION UDC PO SCH (09:21)
[2016-07-17 09:22] VITALS: BP 154/70
[2016-07-17] MEDS: DULoxetine 30 MG CAP (CYMBALTA) PO SCH (09:22)
[2016-07-17] MEDS: SENOKOT S TAB PO SCH (09:22)
[2016-07-17] MEDS ORDERED: NORCOTAB PO (09:48)
[2016-07-17] MEDS ORDERED: COUM1TAB17 PO (09:48)
--- NOTE | 2016-07-17 15:32 | IPN ---
DATE: 07/15/2016 The patient was seen for her right hip. She had initially failed clearance for surgery but then she cleared today. At that stage, she wanted to proceed with the operative intervention and we coordinated with anesthesia personnel as well the medical team to move forward with surgery and decided to proceed. Consent was again reviewed.
[2016-07-17] MEDS ORDERED: WARFARIN SOD 5 MG TAB PO ONE (17:00)
--- NOTE | 2016-07-18 15:05 | RO ---
DATE OF PROCEDURE: 07/15/2016 PREOPERATIVE DIAGNOSIS: Right femoral neck fracture. POSTOPERATIVE DIAGNOSIS: Right femoral neck fracture. PROCEDURE PERFORMED: Right hip hemiarthroplasty, cemented SURGEON: Dr. Wong Fernandez WALLBOARD WORKER: Dr. Espinal, physician. ANESTHESIA: LMA/general. ESTIMATED BLOOD LOSS: Less than 60 mL, replaced with crystalloid. No complications. INDICATIONS: An 86-year-old woman with a femoral neck fracture displaced, previous ambulator, has elected for operation. Next, consent reviewed in detail, including a xin discussion of the procedure proposed, alternatives including doing nothing, risks including but not limited to pain, failure, limp, infection, need for more surgery or some other issue. She wants to proceed. COMPONENTS USED: Include a size 43 fracture hip ball, size 2 femoral component, size -3 neck length. DESCRIPTION OF PROCEDURE: Identified in the holding area, site and side verified, brought to the operating room. Once anesthesia was administered, Dr. Espinal and I positioned the patient on the Aj frame for exposure of the right hip for operative intervention. This was for a Hardinge approach, lateral decubitus position. Next, once she was sterilely prepped and draped in the usual fashion, the incision was outlined with a marking pen based on the greater trochanter. I infiltrated with 0.25% Marcaine with epinephrine. We made our incision over the greater trochanter, developed down through skin and subcuticular tissues to the lateral fascia. The patient had significantly edematous soft tissues with a lot of watery edema fluid continuously expressed throughout the entirety of the procedure. The lateral fascia was identified and split parallel to its fibers, and this facilitated exposure of the greater trochanter and abductor mechanism. The patient appeared to have chronic bursitis over the right hip and also her abductor mechanism was somewhat attenuated. We created a split at the 2 o'clock position of the abductor mechanism and continued the dissection down the femoral neck, exposing the fracture. Next, we released the abductor mechanism from the greater trochanter, leaving a cuff of tissue for later repair and also split the vastus lateralis to facilitate better exposure. Next, the lesser trochanter was able to be palpated. We utilized a corkscrew to remove the femoral head and then we positioned the extremity and the hip bag and positioned the hip with the trochanteric retractor. Next, the canal opening reamer was utilized, followed by the canal finding reamer. Then, the femoral neck 1template was plate was placed in an intramedullary position. The oscillating saw was utilized to make the femoral neck cut one fingerbreadth from the lesser trochanter as palpated. Next, once this was accomplished, broaches through a size 2 broach were utilized. We also had measured the femoral head for a 43. Next, the 2 broach seemed to fit appropriately with good fill. Next, we inspected the acetabulum and removed some capsular debris in the round ligament. Next, the radiopaque bone cement was prepared for the surgery. Because of the patient's significant medical frailty, I did elect to use antibiotic impregnated cement. We placed a number 2 cement restrictor. Next, irrigation of the canal was accomplished. Canal was packed with epinephrine soaked vag pack. When the cement was the appropriate consistency, I removed the vag pack, one end of which was utilized to protect the acetabulum. The cement was injected into the femoral canal, and then the non-trial femoral component was installed. The cement was allowed to harden, excess cement cleared with curettes. Next, trial -3 neck length, 43 head was installed, reduced, placed through a range of motion, appeared to be stable. This was then dislocated, and we placed the non-trial femoral neck and head. Next, irrigation was accomplished, pulse lavage, capsular tissues and the abductor mechanism were reapproximated with interrupted stitch as well as stitch through bony tunnels. Lateral fascia was reapproximated with a running Stratafix #1 stitch. Deep dermis was reapproximated with interrupted stitch followed by yasemin. Sterile dressing applied. The patient moved to recovery room in good condition. She tolerated the procedure well. Dr. Espinal and I were both present and participated in the entirety of the case.
== END 2016-07-17 10:42 | DRG 470 ==
LOC: M ED 16:42 → M ED INP 16:43 → M PCU 20:22 → M MS5PR 07-16 21:35
PROVIDERS: ADMIT Internal Medicine; ATTEND Internal Medicine
PROC: 0SR9049 Replacement of Right Hip Joint with Ceramic on Polyethylene Synthetic Substitute, Cemented, Open Approach (ICD-10-PCS; principal; 2016-07-15 12:00)
DX: S72.001A Fracture of unspecified part of neck of right femur, initial encounter for closed fracture (principal); M62.82 Rhabdomyolysis; N17.9 Acute kidney failure, unspecified; C92.10 Chronic myeloid leukemia, BCR/ABL-positive, not having achieved remission; Z95.0 Presence of cardiac pacemaker; I12.9 Hypertensive chronic kidney disease with stage 1 through stage 4 chronic kidney disease, or unspecified chronic kidney disease; K21.9 Gastro-esophageal reflux disease without esophagitis; E03.9 Hypothyroidism, unspecified; F41.9 Anxiety disorder, unspecified; F32.9 Major depressive disorder, single episode, unspecified; Z79.899 Other long term (current) drug therapy; K22.70 Barrett's esophagus without dysplasia; W18.30XA Fall on same level, unspecified, initial encounter; Y92.009 Unspecified place in unspecified non-institutional (private) residence as the place of occurrence of the external cause; D64.9 Anemia, unspecified; N18.9 Chronic kidney disease, unspecified

== ENCOUNTER 2016-07-17 10:31 | Inpatient (IN) | payer OTHER ==
[~2016-07-17] VITALS: Ht 152.4 cm; Wt 50.4 kg
[2016-07-17] MEDS: GABAPENTIN 300 MG CAP PO SCH ×3 (09:00→21:34)
[~2016-07-17 10:31] MED LIST changes: +COUM1TAB17 PO; +GUAI60TA PO; +MICR8CAP PO; +NEUR300C PO; +NORCOTAB PO; +SERO50TA PO
[2016-07-17 11:15] VITALS: BP 168/78
[2016-07-17] MEDS ORDERED: ACETAMINOPHEN 325 MG TAB PO PRN (11:15)
[2016-07-17] MEDS ORDERED: MOM 30ML SUSPENSION UDC PO PRN (11:15)
[2016-07-17] MEDS ORDERED: traMADol 50 MG TAB PO PRN (11:15)
--- NOTE | 2016-07-17 11:47 | IPNPDOC ---
Subjective Date Seen The patient was seen on 07/17/16. Subjective Chief Complaint/HPI The patient is a 86-year-old female admitted with a reason for visit of Right Femoral Neck Fx. Events since last encounter Pt with no new issues from this AM. Patient states she still has some pain. Objective Physical Examination General Exam: Positive: Alert Eye Exam: Positive: PERRLA Neck Exam: Positive: Supple Chest Exam: Positive: Clear to auscultation, Normal air movement Heart Exam: Positive: Rate Normal, Regular Rhythm, Normal S1, Normal S2, Negative: Murmurs, Rubs Skin Exam: Positive: Nl turgor and temperature Assessment /Plan Problems (1) Fracture of femoral neck, right, closed Status: Acute Problem Text: * Rehab as per ARU. * PT/OT * Pain control. * Orthopedics managing Coumadin. (2) Anemia Status: Chronic Problem Text: * Status post 2 units PRBC 07/16/16 * Monitor CBC * Patient with history of chronic anemia and need for transfusion. * Follows with Dr. Banda. * Recheck CBC in a.m. (3) [id number]-[id number] kidney injury Status: Acute Problem Text: * Serum creatinine 2.58 * Baseline 1.9-2. * HCTZ/valsartan are non-hold * Hydralazine 10 mg every 8 for blood pressure control with hold parameter * Recheck CMP in a.m. (4) Hypothyroidism Status: Chronic Problem Text: * Continue supplement (5) GERD (gastroesophageal reflux disease) Status: Chronic (6) HTN (hypertension) Status: Chronic Problem Text: * Serum creatinine 2.58. Baseline 1.9-2. * Valsartan and HCTZ on hold. Hold KCL. * Hydralazine 10 mg by mouth every 8 hrs added this a.m. * Monitor BP. (7) CML (chronic myelocytic leukemia) Status: Chronic Problem Text: * Follows as outpatient with Dr. Banda. Plan/VTE VTE Prophylaxis Ordered?: Yes (Coumadin as per orthopedics) Disposition As per ARU VS, I&O, 24H, Fishbone Vital Signs/I&O Vital Signs Date Time Temp Pulse Resp B/P (MAP) Pulse Ox O2 Delivery O2 Flow Rate FiO2 07/17/16 11:15 99.7 86 16 168/78 (108) 96 Room Air Dalila Ryan Jul 17, 2016 11:47
[2016-07-17] MEDS ORDERED: MIRALAX *UNIT DOSE* 17GM PACKET PO PRN (12:00)
[2016-07-17] MEDS ORDERED: BISACODYL 10 MG SUPP PR PRN (12:00)
[2016-07-17] MEDS ORDERED: FLEET ENEMA PR PRN (12:00)
[2016-07-17] MEDS: SUCRALFATE 1 GM TAB PO SCH ×2 (13:05→21:34)
[2016-07-17] MEDS: VALSARTAN 80 MG TAB (DIOVAN) PO SCH (13:07)
[2016-07-17] MEDS: guaiFENesin ER 600 MG TAB PO SCH (13:07)
[2016-07-17] MEDS: oxyCODONE 5MG TAB PO PRN ×2 (13:08→21:35)
[2016-07-17] MEDS: FAMOTIDINE 20 MG TAB PO SCH (13:08)
--- NOTE | 2016-07-17 13:55 | PMRHPE ---
DATE OF ADMISSION: 07/17/2016 REASON FOR ADMISSION: Rehabilitation of right hip fracture status post hemiarthroplasty with multiple medical problems. OTHER DIAGNOSES: 1. Postoperative and post fracture anemia, status post transfusion of 2 units for moderate anemia at this time. 2. Rhabdomyolysis. 3. Chronic myelogenous leukemia. 4. 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 5. Hypertension. 6. Depression/anxiety. 7. Neuropathy. 8. Hypothyroidism. 9. 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 10. Tubular adenoma of the colon. PAST SURGICAL HISTORY: Includes: 1. Pacemaker placement. 2. Status post bladder sling. 3. Status post tubal ligation. 4. Status post varicose vein surgery. 5. Status post cataract surgery. 6. Status post endoscopy and colonoscopy. ALLERGIES: Patient has no known drug allergies. Is allergic to MUSHROOMS. FAMILY HISTORY: Noncontributory. Son with cerebral palsy. SOCIAL HISTORY: Patient previously independent, living alone at home until she tripped and fell onto her right side, sustaining a right hip fracture. Patient was down for about a day or so and was found by her family member and then transferred to the hospital for evaluation and treatment, where a right hip fracture was found. Patient was admitted to acute unit on 07/14/2016 and had surgery for repair of the hip fracture on 07/16/2016. REVIEW OF SYSTEMS: A 12-point review of systems were obtained and patient was negative except for some ongoing gastroesophageal reflux disease (GERD) symptoms, needing glasses for visual correction and the pain in her right hip. PHYSICAL EXAMINATION: Patient is a short, somewhat overweight, elderly white female who weighs 152 pounds with a body mass index (BMI) of 24.7. She is in moderate musculoskeletal distress, favoring the right hip with any movement. She is somewhat pale in her complexion at this time and she is wearing her corrective glasses, which are pink hinges and trifocal's. VITAL SIGNS: Temperature on arrival in the unit 99.7, blood pressure 160/78, pulse 86, respirations 16, pulse oximetry 96% on room air. HEENT: Normocephalic, atraumatic. Patient with thick trifocal glasses with kallie-colored tinge to them. As well, ocular motions are intact. Pupils are equal, round, reactive to light and accommodation. Nares are clear. Septem is without deviation and no lesions or lymph nodes in the head. No facial droop. Tongue slightly goes to the left. No lesions noted in the oropharynx. NECK: Supple, nontender, without lymph nodes. Thyroid gland is midline without any hypertrophy or goiter. LUNGS: Clear in all noyola to auscultation. CORONARY: Regular rate and rhythm with normal S1, S2s without S3, S4 murmurs or rubs. Patient with 2/4 bilateral radial pulses. Good warmth and palpable pulses in the lower extremities. ABDOMEN: Mildly distended with increased tympany and palpable stool in the ascending colon and gas in the cecum. Patient with mild abdominal tenderness, especially right lower quadrant. Bowel sounds, however, are present in all quadrants with normal sounds heard. No high-pitched sounds. GENITALIA: Elderly adult female. Right hip with plain surgical dressing over a posterolateral incision with no drainage or notable erythema or increased warmth. Patient with marked tenderness to any hip movement and any elevation of the leg to examine. NEUROLOGICAL: She is alert and oriented to person, place, time and situation. Speech is clear, coherent and appropriate. Affect is pleasant, cooperative. Motor is intact in bilateral upper extremities. Patient with marked arthritic changes or an osteoarthritis (OA) fashion, including nodule at the proximal interphalangeal (PIP) joints in both hands. Light touch and vibration intact in bilateral upper and lower extremity. Deep tendon reflexes show 2/4 biceps, brachial radialis, 1/4 triceps, 2/4 left knee jerk, 1/4 right knee jerk, 1/4 ankle jerks and toes are equivocal on plantar stimulation. LABORATORY EXAMINATION: Shows patient with a moderate anemia, having received two units or packed red blood cells to bring the hematocrit up to 28% yesterday to today, from 25%. Electrolytes show mild sodium and renal deficits, but potassium is normal at 4.7. INR shows patient is still subtherapeutic after receiving 5 mg of Coumadin last night. ADMITTING DIAGNOSES: 1. Rehabilitation of right hip fracture status post hemiarthroplasty: Will have patient start in team evaluation with physical, occupational therapies, rehabilitation nursing and physiatry to develop acute, intensive program of musculoskeletal rehabilitation. Patient is weightbearing as tolerated on her right lower extremity, but is complicated not only by the anemia, but her prior cancer and current postoperative pain in this somewhat frail, elderly white female. However, patient has shown very good commitment to doing the rehabilitation. She is able to tolerate the three hours of therapy per day and will be on that type of a program. Will anticipate patient' s dessing to discharge to home in 7-10 days and then transitional home care outpatient therapy. 2. Anemia. Will follow and ask trauma. I have asked them to follow with us. A consult to the hospitalist team has been set. Patient will probably require iron supplementation. 3. Acute on chronic renal disease. Will continue to follow up with medicine service, renal function. Complete metabolic panel (CBC) ordered for tomorrow, as is the CBC for the anemia. 4. Cancers, including chronic myelocytic leukemia and tubular adenoma of the colon per neoplasm. Will continue to follow these with medicine team. 5. Hypothyroidism. Will continue with her Synthroid. 6. Gastroesophageal reflux disease (GERD) and Simmons's esophagus. Will continue with Protonix and also a bowel program in addition to the Carafate with Dulcolax, milk of magnesia and Fleet's enema, as the patient who has been constipated and probably his distal hardening. Once we can get this going down, we probably get to be more comfortable with our valve function. 7. Hip fracture and osteoarthritis. Consultation sent to orthopedic service to assess with Coumadin management and any other issues or plans of care with regards to her hip surgery as well as wound care. POST ADMISSION PHYSICIAN EVALUATION: Patient with multiple medical problems, including rhabdomyolysis on top the hip fracture, she was restricted to the floor by the fracture and pain for an extended period of time. Does need close medical management and treatment of the acute on chronic kidney disease in addition to rehabilitation of the right hip fracture, patient appears to be quite willing and able to participate in and benefit from three hours of therapy per day with physical and occupational therapy and I do believe we will progress over the course of the next 7-10 days to the point where transition to home with home care or outpatient additional services and therapy can proceed. I feel her prognosis is good for this. ESTIMATED LENGTH OF STAY: Is 7-10 days. TIME SPENT: On chart review, history of present illness and documentation is greater than 70 minutes.
[2016-07-17 14:39] VITALS: BP 164/79
[2016-07-17] MEDS: **hydrALAZINE** 10 MG TAB PO SCH ×2 (14:45→21:34)
[2016-07-17] MEDS ORDERED: WARFARIN SOD 5 MG TAB PO SCH (17:00)
[2016-07-17] MEDS ORDERED: QUEtiapine FUMARATE 50 MG TAB PO SCH (21:00)
[2016-07-17 21:30] VITALS: BP 139/77
[2016-07-18] MEDS: LEVOTHYROXINE 0.05 MG TAB (50 MCG) PO SCH ×2 (06:00→16:53)
[2016-07-18] MEDS: **hydrALAZINE** 10 MG TAB PO SCH ×3 (06:00→16:53)
[2016-07-18 07:00] LABS: BASO % 0.3 % (0.0-1.0); EOS # 0.2 K/mm3 (0.0-0.50); EOS % 2.5 % (0.0-3.0); LARGE UNSTAINED CELL # 0.1 K/mm3 (0.0-0.4); LARGE UNSTAINED CELL % 1.4 % (0.0-4.0); LYMPH # 0.8 K/mm3 (1.5-4.5); LYMPH % 8.4 % (24.0-44.0); MEAN CORPUSCULAR HGB CONC 31.6 g/dl (32.0-36.5); MONO # 0.6 K/mm3 (0.0-0.8); MONO % 7.4 % (0.0-5.0); NEUTROPHILS # 6.3 K/mm3 (1.8-7.7); PLATELET COUNT, AUTOMATED 174 k/mm3 (150-450); RED CELL DISTRIBUTION WIDTH 15.3 % (11.5-14.5); WHITE BLOOD COUNT 7.9 K/mm3 (4.0-10.0)
[2016-07-18 07:09] LABS: INR 1.96
[2016-07-18 07:12] VITALS: BP 129/71
[2016-07-18 07:19] LABS: ALBUMIN 2.2 GM/DL (3.2-5.2); ALBUMIN/GLOBULIN RATIO 0.67 (1.00-1.93); BILIRUBIN,TOTAL 0.4 MG/DL (0.2-1.0); CALCIUM LEVEL 8.2 MG/DL (8.8-10.2); CREATININE FOR GFR 2.37 MG/DL (0.55-1.02); GLOMERULAR FILTRATION RATE 20.7 (>32); TOTAL PROTEIN 5.5 GM/DL (6.4-8.2)
[2016-07-18] MEDS: VALSARTAN 80 MG TAB (DIOVAN) PO SCH (09:00)
[2016-07-18] MEDS: guaiFENesin ER 600 MG TAB PO SCH (09:00)
[2016-07-18] MEDS: FAMOTIDINE 20 MG TAB PO SCH (09:00)
[2016-07-18] MEDS ORDERED: DULoxetine 30 MG CAP (CYMBALTA) PO SCH (09:00)
[2016-07-18] MEDS: GABAPENTIN 300 MG CAP PO SCH ×2 (09:00→16:00)
[2016-07-18] MEDS ORDERED: PANTOPRAZOLE 40MG TAB (PROTONIX) PO SCH (09:00)
[2016-07-18] MEDS: IMATINIB 400 MG PO SCH ×2 (09:00→16:53)
[2016-07-18] MEDS ORDERED: POTASSIUM CHLORIDE 10 MEQ SR TABLET PO SCH (09:00)
[2016-07-18] MEDS: SUCRALFATE 1 GM TAB PO SCH (09:00)
[2016-07-18 09:30] VITALS: BP 114/61
[2016-07-18] MEDS ORDERED: NALOXONE INJ 0.4 MG/1 ML VIAL (J2310) IV STA ×5 (11:18→16:11)
[2016-07-18 12:04] LABS: ABG BASE EXCESS -0.9 (-2.0-2.0); ABG HCO3 23.7 MEQ/L (22.0-26.0); ABG PARTIAL PRESSURE CO2 39.1 mmHg (35.0-45.0); ABG PARTIAL PRESSURE O2 134.5 mmHg (75.0-100.0); ABG STANDARD HCO3 23.8 MEQ/L (22.0-26.0); ABG TOTAL CO2 24.9 MEQ/L (23.0-31.0); ABG pH (ARTERIAL) 7.401 UNITS (7.350-7.450)
[2016-07-18] MEDS ORDERED: oxyCODONE 5MG TAB PO PRN (12:15)
[2016-07-18 14:00] VITALS: BP 151/75
--- NOTE | 2016-07-18 14:02 | IPNPDOC ---
Subjective Date Seen The patient was seen on 07/18/16. Subjective Chief Complaint/HPI The patient is a 86-year-old female admitted with a reason for visit of Right Femoral Neck Fx. Events since last encounter pt seen and examined, nurse called me this morning at bedside because pt is difficult to arouse, she received her Seroquel and OxyContin last night, when i examined her, she was sleepy but would open her eyes on commands briefly then goes back to sleep General: Reports: ROS Unobtainable Objective Physical Examination General Exam: Positive: Other (lethargy) Eye Exam: Positive: PERRLA Neck Exam: Positive: Supple Chest Exam: Positive: Clear to auscultation, Normal air movement Heart Exam: Positive: Rate Normal, Regular Rhythm, Normal S1, Normal S2, Negative: Murmurs, Rubs Skin Exam: Positive: Nl turgor and temperature Assessment /Plan Problems (1) Lethargic Problem Text: * pt was found to be very sleepy * would open her eyes briefly * she was given 2 doses of 0.1 Narcan which helped then she became sleepy again * will order 0.2mg Narcan * decrease dose of pain medication and discontinue Seroquel * ABG was normal * will order cardiac markers (2) Fracture of femoral neck, right, closed Status: Acute Problem Text: * Rehab as per ARU. * PT/OT * Pain control. * Orthopedics managing Coumadin. (3) Anemia Status: Chronic Problem Text: * Status post 2 units PRBC 07/16/16 * Monitor CBC * Patient with history of chronic anemia and need for transfusion. * Follows with Dr. Banda. * Recheck CBC. (4) Nrgdi-ir-[id number] kidney injury Status: Acute Response to Treatment: Improving Problem Text: * Serum creatinine 2.31 * Baseline 1.9-2. (5) Hypothyroidism Status: Chronic Problem Text: * Continue supplement (6) GERD (gastroesophageal reflux disease) Status: Chronic (7) HTN (hypertension) Status: Chronic Problem Text: * Serum creatinine 2.58. Baseline 1.9-2. * Valsartan and HCTZ on hold. Hold KCL. * Hydralazine 10 mg by mouth every 8 hrs added this a.m. * Monitor BP. 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 Banda. Plan/VTE VTE Prophylaxis Ordered?: Yes (Coumadin as per orthopedics) VS, I&O, 24H, Fishbone Vital Signs/I&O Vital Signs Date Time Temp Pulse Resp B/P (MAP) Pulse Ox O2 Delivery O2 Flow Rate FiO2 07/18/16 09:30 91 114/61 (78) 07/18/16 08:00 Room Air 07/18/16 07:15 97 07/18/16 07:12 97.8 16 I&O- Last 24 Hours up to 6 AM 07/18/16 05:59 Intake Total 60 ml Output Total 275 ml Balance -215 ml Laboratory Data 24H LABS Laboratory Tests 2 07/17/16 15:12: Urine Appearance CLEAR, Urine Color YELLOW, Urine pH 5.0, Urine Specific [place] 1.013, Urine Protein 2+H, Urine Glucose (UA) NEGATIVE, Urine Ketones NEGATIVE, Urine Urobilinogen 0.2, Urine Bilirubin NEGATIVE, Urine Leukocyte Esterase 1+H, Urine Blood 1+H, Urine Nitrite NEGATIVE, Urine WBC (Auto) 26H, Urine RBC (Auto) 6H, Urine Hyaline Casts (Auto) 0, Urine Bacteria (Auto) NEGATIVE, Urine Squamous Epithelial Cells 0, Urine Mucus (Auto) SMALL, Urine Sperm (Auto) 07/18/16 06:30: White Blood Count 7.9, Red Blood Count 3.21L, Hemoglobin 9.6L, Hematocrit 30.5L , Mean Corpuscular Volume 95.0, Mean Corpuscular Hemoglobin 30.0, Mean Corpuscular Hemoglobin Concent 31.6L, Red Cell Distribution Width 15.3H, Platelet Count 174, Neutrophils (%) (Auto) 80.0H, Lymphocytes (%) (Auto) 8.4L, Monocytes (%) (Auto) 7.4H, Eosinophils (%) (Auto) 2.5, Basophils (%) (Auto) 0.3 , Neutrophils # (Auto) 6.3, Lymphocytes # (Auto) 0.8L, Monocytes # (Auto) 0.6, Eosinophils # (Auto) 0.2, Basophils # (Auto) 0.0, Large Unclassified Cells % 1.4 , Large Unclassified Cells # 0.1, Anion Gap 7L, Glomerular Filtration Rate 20.7L , Blood Urea Nitrogen 48H, Creatinine 2.37H, Sodium Level 134L, Potassium Level 5.0, Chloride Level 100, Carbon Dioxide Level 27, Calcium Level 8.2L, Aspartate Amino Transf (AST/SGOT) 35, Alanine Aminotransferase (ALT/SGPT) 15, Alkaline Phosphatase 74, Total Bilirubin 0.4, Total Protein 5.5L, Albumin 2.2L, Albumin/ Globulin Ratio 0.67L 07/18/16 06:31: Prothrombin Time 22.4H, Prothromb Time International Ratio 1.96 07/18/16 11:38: Blood Gas Bicarbonate Standard 23.8, Arterial Blood pH 7.401, Arterial Blood Partial Pressure CO2 39.1, Arterial Blood Partial Pressure O2 134.5H, Arterial Blood Total CO2 24.9, Arterial Blood HCO3 23.7, Arterial Blood Base Excess -0.9 , Arterial Blood Oxygen Saturation 99.0 CBC/BMP Laboratory Tests 07/18/16 06:30 Red Blood Count 3.21 L, Mean Corpuscular Volume 95.0, Mean Corpuscular Hemoglobin 30.0, Mean Corpuscular Hemoglobin Concent 31.6 L, Red Cell Distribution Width 15.3 H, Neutrophils (%) (Auto) 80.0 H, Lymphocytes (%) (Auto ) 8.4 L, Monocytes (%) (Auto) 7.4 H, Eosinophils (%) (Auto) 2.5, Basophils (%) ( Auto) 0.3, Neutrophils # (Auto) 6.3, Lymphocytes # (Auto) 0.8 L, Monocytes # ( Auto) 0.6, Eosinophils # (Auto) 0.2, Basophils # (Auto) 0.0, Calcium Level 8.2 L , Aspartate Amino Transf (AST/SGOT) 35, Alanine Aminotransferase (ALT/SGPT) 15, Alkaline Phosphatase 74, Total Bilirubin 0.4, Total Protein 5.5 L, Albumin 2.2 L RORY WALLACE DO Jul 18, 2016 14:02
[2016-07-18] MEDS ORDERED: ACETAMINOPHEN TAB 650MG DOSE (2X325MG) PO PRN (16:46)
[2016-07-18] MEDS ORDERED: VALSARTAN 80 MG TAB (DIOVAN) PO ONE (17:00)
[2016-07-18] MEDS ORDERED: WARFARIN SOD 2.5 MG TAB PO ONE (17:00)
[2016-07-18] MEDS ORDERED: NALOXONE INJ 0.4 MG/1 ML VIAL (J2310) IV PRN (17:15)
[2016-07-20] MEDS ORDERED: HYDR10TAB PO (08:44)
[2016-07-20] MEDS ORDERED: DIOV320T PO (09:06)
[2016-07-20 10:30] VITALS: BP 162/78
[2016-07-20] MEDS ORDERED: ONDANSETRON 4 MG TAB (S0181) PO PRN (11:30)
[2016-07-20] MEDS ORDERED: MIRALAX *UNIT DOSE* 17GM PACKET PO PRN (11:45)
[2016-07-20] MEDS ORDERED: BISACODYL 10 MG SUPP PR PRN (11:45)
[2016-07-20] MEDS ORDERED: MOM 30ML SUSPENSION UDC PO PRN (11:45)
[2016-07-20 14:00] VITALS: BP 138/67
[2016-07-20] MEDS: **hydrALAZINE** 10 MG TAB PO SCH ×2 (14:42→21:22)
--- NOTE | 2016-07-20 15:34 | PMRNOTEPD ---
PMR Note Patient reviewed in the acute rehabilitation unit team rounds this afternoon. Patient been seen by physical occupational therapy as long with rehabilitation nursing and physiatry. We feel patient is much more alert and is showing good interest and participation in therapies and Anticipate she will do well and returned to home with home care services approximately 07/28/16, As our no new medical problems and her overall cognition and thereby ability to participate in learning has improved as she has come off the Seroquel. HARMONY VALENTINE MD July 20, 2016 15:34
[2016-07-20] MEDS ORDERED: WARFARIN SOD 2.5 MG TAB PO ONE (17:00)
[2016-07-20 20:00] VITALS: BP 149/71
[2016-07-20] MEDS: SUCRALFATE 1 GM TAB PO SCH (21:22)
[2016-07-20] MEDS: traMADol 50 MG TAB PO PRN (21:24)
[2016-07-21] MEDS ORDERED: ONDANSETRON 4 MG ORAL DISINTEGRATING TAB (S0181) SL PRN (02:30)
[2016-07-21] MEDS: **hydrALAZINE** 10 MG TAB PO SCH ×3 (05:43→20:52)
[2016-07-21] MEDS: LEVOTHYROXINE 0.05 MG TAB (50 MCG) PO SCH (05:43)
[2016-07-21 06:00] VITALS: BP 159/74
[2016-07-21] MEDS: FAMOTIDINE 20 MG TAB PO SCH (08:51)
[2016-07-21] MEDS: PANTOPRAZOLE 20 MG TAB PO SCH (08:51)
[2016-07-21] MEDS: SUCRALFATE 1 GM TAB PO SCH ×2 (08:51→20:52)
[2016-07-21] MEDS: ASPIRIN 81 MG ENTERIC TAB PO SCH (08:51)
[2016-07-21] MEDS: VALSARTAN 80 MG TAB (DIOVAN) PO SCH (08:52)
[2016-07-21] MEDS: DULoxetine 30 MG CAP (CYMBALTA) PO SCH (08:52)
[2016-07-21] MEDS: traMADol 50 MG TAB PO PRN ×2 (08:56→23:33)
[2016-07-21] MEDS ORDERED: NON-FORMULARY 1 EA EA PO SCH (09:00)
[2016-07-21 09:52] LABS: INR 1.69
[2016-07-21] MEDS: IMATINIB 400 MG PO SCH (11:15)
[2016-07-21 14:00] VITALS: BP 157/71
--- NOTE | 2016-07-21 14:30 | IPNPDOC ---
[employer]ield Engineer Progress Note DATE OF SERVICE: 07/21/16 DATE OF ADMISSION: Jul 17, 2016 at 10:45 INPATIENT REHABILITATION ADMISSION DAY: #3 SUBJECTIVE: Patient is a 86-year-old white female with right hip fracture with hemiarthroplasty. Patient reports fairly good pain control today and no problems with lethargy. She notes that the bowel and bladder are working well though she had some dyspepsia last night and did not get a good night sleep. ALLERGIES: See Below MEDICATIONS: Reviewed, see below. OBJECTIVE: VITAL SIGNS: Please see below. PHYSICAL EXAMINATION: GENERAL: Short elderly white female in mild musculoskeletal distress favoring right hip. HEENT: Normocephalic atraumatic. CARDIOVASCULAR: Regular rate and rhythm with normal S1 and S2 in 2 out of 4 radial pulses. LUNGS: All noyola clear to auscultation. ABDOMEN: Normal bowel sounds in all quadrants with no tenderness/rebound/masses. NEUROLOGICAL: Patient is alert and well oriented with no lethargy and very clear and appropriate speech. Memory are fair to good. Good to full motor in bilateral upper extremities and left lower extremity with some guarding in the right hip area. SKIN: Thigh incision healing well. LABORATORY DATA: Reviewed. Please see below. MICROBIOLOGY: Please see below. DVT prophylaxis ordered?: Coumadin still low with INR 1.69 today. Coumadin adjusted.. ASSESSMENT AND PLAN: 1. Rehabilitation of right hip fracture: Patient with setback due to reaction with Seroquel exacerbated by oxycodone on Wednesday morning. Patient returned to unit yesterday and evaluations were restarted. However due to patient not being back early in the morning it was not possible get in the full 3 hours of PT and OT yesterday due to the medical complication of left-sided she from the Seroquel. Patient however is doing well today in therapies so only yesterday should require an exception other than Wednesday and patient was transferred to the acute medicine floor for further evaluation. 2. Anemia: Currently stable we'll continue to monitor. 3. Hypertension: Still a bit elevated today at 159/74. We will consider adapting medications. TIME SPENT: Chart Review, examination and documentation greater than 25 minutes. Allergies Coded Allergies: Mushroom (Verified Adverse Reaction, Mild, vomiting, 06/17/16) Vital Signs Vital Signs Date Time Temp Pulse Resp B/P (MAP) Pulse Ox O2 Delivery O2 Flow Rate FiO2 07/21/16 09:30 20 07/21/16 09:00 Room Air 07/21/16 08:52 159/74 07/21/16 06:00 98.0 75 98 Laboratory Data Labs 24H Laboratory Tests 2 07/21/16 08:43: Prothrombin Time 20.0H, Prothromb Time International Ratio 1.69 Current Medications Current Medications Current Medications Acetaminophen (Tylenol Tab) 650 mg Q4HP PRN PO MILD PAIN OR FEVER; Start at 11:15; Stop 07/18/16 at 16:46; Status DC Acetaminophen (Tylenol Tab) 650 mg Q4HP PRN PO MILD PAIN OR FEVER; Start at 16:46; Stop 07/18/16 at 23:56; Status DC Acetaminophen (Tylenol Tab) 650 mg Q6HP PRN PO PAIN / FEVER; Start 07/20/16 at 11:45; Stop 08/19/16 at 11:44 Al Hydrox/Mg Hydrox/Simethicone (Mylanta) 30 ml Q6HP PRN PO HEARTBURN; Start at 11:15; Stop 08/20/16 at 11:14 Aspirin (Ecotrin) 81 mg DAILY PO Last administered on 07/21/16 08:51; Start 07/21/16 at 09:00; Stop 08/20/16 at 08:59 Bisacodyl (Dulcolax Suppository) 10 mg DAILYPRN PRN [place] CONSTIPATION; Start at 12:00; Stop 07/18/16 at 23:56; Status DC Bisacodyl (Dulcolax Suppository) 10 mg DAILYPRN PRN [place] CONSTIPATION; Start 07/20 at 11:45; Stop 08/19/16 at 11:44 Duloxetine HCl (Cymbalta) 60 mg DAILY PO ; Start 07/18/16 at 09:00; Stop at 23:56; Status DC Duloxetine HCl (Cymbalta) 60 mg DAILY PO Last administered on 07/21/16 08:52; Start 07/21/16 at 09:00; Stop 08/20/16 at 08:59 Famotidine (Pepcid) 20 mg DAILY PO Last administered on 07/17/16 13:08; Start 07/17/16 at 09:00; Stop 07/18/16 at 23:56; Status DC Famotidine (Pepcid) 20 mg DAILY PO Last administered on 07/21/16 08:51; Start 07/21/16 at 09:00; Stop 08/20/16 at 08:59 Gabapentin (Neurontin) 300 mg TID PO Last administered on 07/17/16 21:34; Start 07/17/16 at 09:00; Stop 07/18/16 at 23:56; Status DC Guaifenesin (Mucinex Tab Er) 600 mg DAILY PO Last administered on 07/17/16 13: 07; Start 07/17/16 at 09:00; Stop 07/18/16 at 23:56; Status DC Hydralazine HCl (Apresoline) 10 mg Q8H PO Last administered on 07/18/16 16:53 ; Start 07/17/16 at 14:00; Stop 07/18/16 at 23:56; Status DC Hydralazine HCl (Apresoline) 10 mg Q8H PO Last administered on 07/21/16 05:43; Start 07/20/16 at 14:00; Stop 08/19/16 at 13:59 Levothyroxine Sodium (Synthroid) 0.05 mg DAILY@06 PO Last administered on 05:43; Start 07/21/16 at 06:00; Stop 08/20/16 at 05:59 Levothyroxine Sodium (Synthroid) 0.05 mg DAILY@0600 PO Last administered on 16:53; Start 07/18/16 at 06:00; Stop 07/18/16 at 23:56; Status DC Magnesium Hydroxide (Milk Of Magnesia) 30 ml DAILYPRN PRN PO CONSTIPATION; Start 07/17/16 at 11:15; Stop 07/18/16 at 23:56; Status DC Magnesium Hydroxide (Milk Of Magnesia) 30 ml DAILYPRN PRN PO CONSTIPATION; Start 07/20/16 at 11:45; Stop 08/19/16 at 11:44 Naloxone HCl (Narcan) 0.1 mg Q5MP PRN IV RESP. RATE < 10; Start 07/18/16 at 17: 15; Stop 07/18/16 at 23:56; Status DC Naloxone HCl (Narcan) 0.1 mg STAT STAT IV Last administered on 07/18/16 11:24 ; Start 07/18/16 at 11:18; Stop 07/18/16 at 11:20; Status DC Naloxone HCl (Narcan) 0.1 mg STAT STAT IV Last administered on 07/18/16 12:02 ; Start 07/18/16 at 11:58; Stop 07/18/16 at 12:00; Status DC Naloxone HCl (Narcan) 0.2 mg STAT STAT IV Last administered on 07/18/16 13:57 ; Start 07/18/16 at 13:51; Stop 07/18/16 at 13:53; Status DC Naloxone HCl (Narcan) 0.2 mg STAT STAT IV Last administered on 07/18/16 14:18 ; Start 07/18/16 at 14:12; Stop 07/18/16 at 14:13; Status DC Naloxone HCl (Narcan) 0.4 mg STAT STAT IV Last administered on 07/18/16 16:19 ; Start 07/18/16 at 16:11; Stop 07/18/16 at 16:13; Status DC Non-Formulary Medication Imitab Mesylate 400mg p... DAILY PO ; Start 07/21/16 at 09:00; Stop 08/20/16 at 08:59; Status UNV Ondansetron HCl (Zofran Odt) 4 mg Q6HP PRN SL NAUSEA OR VOMITING; Start at 02:30; Stop 08/20/16 at 02:29; Status Cancel Ondansetron HCl (Zofran) 8 mg TID PRN PO NAUSEA; Start 07/20/16 at 11:30; Stop 07/20/16 at 11:30; Status UNV Oxycodone HCl (Roxicodone, Oxyir) 2.5 mg Q6HP PRN PO PAIN SCALE 6-10; Start at 12:15; Stop 07/18/16 at 16:12; Status DC Oxycodone HCl (Roxicodone, Oxyir) 5 mg Q6HP PRN PO PAIN SCALE 6-10 Last administered on 07/17/16 21:35; Start 07/17/16 at 12:00; Stop 07/18/16 at 12:11 ; Status DC Pantoprazole Sodium (Protonix) 20 mg DAILY PO Last administered on 07/21/16 08: 51; Start 07/21/16 at 09:00; Stop 08/20/16 at 08:59 Pantoprazole Sodium (Protonix) 40 mg DAILY PO ; Start 07/18/16 at 09:00; Stop at 23:56; Status DC Patient Own Medication (Patient'S Own Med) 400MG DAILY PO Last administered on 07/18/16 16:53; Start 07/18/16 at 09:00; Stop 07/18/16 at 23:56; Status DC Patient Own Medication (Patient'S Own Med) 400MG DAILY@0800 PO Last administered on 07/21/16 11:15; Start 07/21/16 at 08:00; Stop 08/20/16 at 07:59 Polyethylene Glycol (Miralax) 1 pkt DAILYPRN PRN PO CONSTIPATION; Start at 12:00; Stop 07/18/16 at 23:56; Status DC Polyethylene Glycol (Miralax) 1 pkt DAILYPRN PRN PO CONSTIPATION; Start at 11:45; Stop 08/19/16 at 11:44 Potassium Chloride (Micro-K Extencaps) 10 meq DAILY PO ; Start 07/18/16 at 09:00 ; Stop 07/18/16 at 09:00; Status DC Quetiapine Fumarate (SEROquel) 50 mg QHS PO Last administered on 07/17/16 21: 34; Start 07/17/16 at 21:00; Stop 07/18/16 at 11:19; Status DC Sodium Biphosphate/ Sodium Phosphate (Fleet Enema) 1 ENEMA Q12HP PRN MD CONSTIPATION; Start 07/17/16 at 12:00; Stop 07/18/16 at 23:56; Status DC Sucralfate (Carafate) 1 gm BID PO Last administered on 07/17/16 21:34; Start 07/17/16 at 09:00; Stop 07/18/16 at 23:56; Status DC Sucralfate (Carafate) 1 gm BID PO Last administered on 07/21/16 08:51; Start at 21:00; Stop 08/19/16 at 20:59 Tramadol HCl (Ultram) 50 mg BIDP PRN PO PAIN; Start 07/17/16 at 11:15; Stop at 23:56; Status DC Tramadol HCl (Ultram) 50 mg Q6HP PRN PO MODERATE PAIN (PS 5-7) Last administered on 07/21/16 08:56; Start 07/20/16 at 11:45; Stop 07/27/16 at 11:44 Valsartan (Diovan) 320 mg DAILY PO Last administered on 07/17/16 13:07; Start 07/17/16 at 09:00; Stop 07/18/16 at 23:56; Status DC Valsartan (Diovan) 320 mg DAILY PO Last administered on 07/21/16 08:52; Start 07/21/16 at 09:00; Stop 08/20/16 at 08:59 Warfarin Sodium (Coumadin) 5 mg DAILY@1700 PO Last administered on 07/17/16 16 :28; Start 07/17/16 at 17:00; Stop 07/18/16 at 08:27; Status DC HARMONY VALENTINE MD July 21, 2016 14:30
[2016-07-21] MEDS ORDERED: WARFARIN SOD 5 MG TAB PO ONE (17:00)
[2016-07-21] MEDS: MAALOX 30 ML SUSP *UDC PO PRN (18:22)
[2016-07-21 20:00] VITALS: BP 145/70
[2016-07-22] MEDS: LEVOTHYROXINE 0.05 MG TAB (50 MCG) PO SCH (05:33)
[2016-07-22] MEDS: **hydrALAZINE** 10 MG TAB PO SCH ×3 (05:34→21:54)
[2016-07-22 06:00] VITALS: BP 164/80
[2016-07-22 07:26] LABS: INR 1.73
[2016-07-22] MEDS: MAALOX 30 ML SUSP *UDC PO PRN (07:33)
[2016-07-22] MEDS: FAMOTIDINE 20 MG TAB PO SCH (09:04)
[2016-07-22] MEDS: DULoxetine 30 MG CAP (CYMBALTA) PO SCH (09:04)
[2016-07-22] MEDS: ASPIRIN 81 MG ENTERIC TAB PO SCH (09:04)
[2016-07-22] MEDS: PANTOPRAZOLE 20 MG TAB PO SCH (09:04)
[2016-07-22] MEDS: SUCRALFATE 1 GM TAB PO SCH ×2 (09:04→21:52)
[2016-07-22] MEDS: VALSARTAN 80 MG TAB (DIOVAN) PO SCH (09:05)
[2016-07-22] MEDS: traMADol 50 MG TAB PO PRN ×3 (09:05→21:53)
[2016-07-22] MEDS: IMATINIB 400 MG PO SCH (09:06)
--- NOTE | 2016-07-22 11:27 | IPNPDOC ---
[employer] Progress Note DATE OF SERVICE: 07/22/16 DATE OF ADMISSION: Jul 17, 2016 at 10:45 INPATIENT REHABILITATION ADMISSION DAY: #5 SUBJECTIVE: Patient is a 86-year-old white female with hip fracture status post hemiarthroplasty. Patient continues to have some pain around the hip is doing well with the CPM. Bowels are working well but she still has a little nausea and is reminded to assess for Myl[place] for dyspepsia. She denies any fever or chills. ALLERGIES: See Below MEDICATIONS: Reviewed, see below. OBJECTIVE: VITAL SIGNS: Please see below. PHYSICAL EXAMINATION: GENERAL: Short well-nourished well-developed elderly white female with mild musculoskeletal distress of right hip. HEENT: Normocephalic/atraumatic. CARDIOVASCULAR: Regular rate and rhythm with normal S1-S2 without S3-S4 murmurs or rub. 2 out 4 radial pulses. LUNGS: All [place]ola clear to auscultation. ABDOMEN: Benign with normal bowel sounds in all quadrants. NEUROLOGICAL: Alert and well oriented speech is clear coherent and appropriate. Affect is pleasant and cooperative. Bilateral upper extremity and left lower extremity motor intact right lower extremity with guarding of right hip movement. Balance is being good. SKIN: Healing surgical incision of the right posterior hip. LABORATORY DATA: Reviewed. Please see below. MICROBIOLOGY: Please see below. IMAGING: No new DVT prophylaxis ordered?: Patient on Coumadin. Ms. Anderson is adjusting Coumadin for orthopedics service. INR today is a little low at 1.73. ASSESSMENT AND PLAN: 1. Rehabilitation of right hip fracture: Patient doing well with their pain control no confusion or lethargy. We'll continue with PT and OT and anticipated discharge of July 28 will be reviewed at team rounds tomorrow. 2. Anemia appears to be stable. 3. Hypertension: Systolic blood pressures in the 160s this morning before taking antihypertensive meds and done with machine. Nursing will check systolic blood pressures greater than 150 with a manual blood pressure. Diastolic blood pressures of been very good and increasing her medication may cause patient to have Diastat systolic hypotension. TIME SPENT: Chart Review, examination and documentation greater than 25 minutes. Allergies Coded Allergies: Mushroom (Verified Adverse Reaction, Mild, vomiting, 06/17/16) Vital Signs Vital Signs Date Time Temp Pulse Resp B/P (MAP) Pulse Ox O2 Delivery O2 Flow Rate FiO2 07/22/16 09:18 Room Air 07/22/16 09:05 16 07/22/16 09:05 164/80 07/22/16 06:00 99.1 81 98 Laboratory Data Labs 24H Laboratory Tests 2 07/22/16 06:57: Prothrombin Time 20.3H, Prothromb Time International Ratio 1.73 Current Medications Current Medications Current Medications Acetaminophen (Tylenol Tab) 650 mg Q4HP PRN PO MILD PAIN OR FEVER; Start at 11:15; Stop 07/18/16 at 16:46; Status DC Acetaminophen (Tylenol Tab) 650 mg Q4HP PRN PO MILD PAIN OR FEVER; Start at 16:46; Stop 07/18/16 at 23:56; Status DC Acetaminophen (Tylenol Tab) 650 mg Q6HP PRN PO PAIN / FEVER; Start 07/20/16 at 11:45; Stop 08/19/16 at 11:44 Al Hydrox/Mg Hydrox/Simethicone (Mylanta) 30 ml Q6HP PRN PO HEARTBURN Last administered on 07/22/16 07:33; Start 07/21/16 at 11:15; Stop 08/20/16 at 11:14 Aspirin (Ecotrin) 81 mg DAILY PO Last administered on 07/22/16 09:04; Start 07/21/16 at 09:00; Stop 08/20/16 at 08:59 Bisacodyl (Dulcolax Suppository) 10 mg DAILYPRN PRN [place] CONSTIPATION; Start at 12:00; Stop 07/18/16 at 23:56; Status DC Bisacodyl (Dulcolax Suppository) 10 mg DAILYPRN PRN [place] CONSTIPATION; Start 07/20 at 11:45; Stop 08/19/16 at 11:44 Duloxetine HCl (Cymbalta) 60 mg DAILY PO ; Start 07/18/16 at 09:00; Stop at 23:56; Status DC Duloxetine HCl (Cymbalta) 60 mg DAILY PO Last administered on 07/22/16 09:04; Start 07/21/16 at 09:00; Stop 08/20/16 at 08:59 Famotidine (Pepcid) 20 mg DAILY PO Last administered on 07/17/16 13:08; Start 07/17/16 at 09:00; Stop 07/18/16 at 23:56; Status DC Famotidine (Pepcid) 20 mg DAILY PO Last administered on 07/22/16 09:04; Start 07/21/16 at 09:00; Stop 08/20/16 at 08:59 Gabapentin (Neurontin) 300 mg TID PO Last administered on 07/17/16 21:34; Start 07/17/16 at 09:00; Stop 07/18/16 at 23:56; Status DC Guaifenesin (Mucinex Tab Er) 600 mg DAILY PO Last administered on 07/17/16 13: 07; Start 07/17/16 at 09:00; Stop 07/18/16 at 23:56; Status DC Hydralazine HCl (Apresoline) 10 mg Q8H PO Last administered on 07/18/16 16:53 ; Start 07/17/16 at 14:00; Stop 07/18/16 at 23:56; Status DC Hydralazine HCl (Apresoline) 10 mg Q8H PO Last administered on 07/22/16 05:34; Start 07/20/16 at 14:00; Stop 08/19/16 at 13:59 Levothyroxine Sodium (Synthroid) 0.05 mg DAILY@06 PO Last administered on 05:33; Start 07/21/16 at 06:00; Stop 08/20/16 at 05:59 Levothyroxine Sodium (Synthroid) 0.05 mg DAILY@0600 PO Last administered on 16:53; Start 07/18/16 at 06:00; Stop 07/18/16 at 23:56; Status DC Magnesium Hydroxide (Milk Of Magnesia) 30 ml DAILYPRN PRN PO CONSTIPATION; Start 07/17/16 at 11:15; Stop 07/18/16 at 23:56; Status DC Magnesium Hydroxide (Milk Of Magnesia) 30 ml DAILYPRN PRN PO CONSTIPATION; Start 07/20/16 at 11:45; Stop 08/19/16 at 11:44 Naloxone HCl (Narcan) 0.1 mg Q5MP PRN IV RESP. RATE < 10; Start 07/18/16 at 17: 15; Stop 07/18/16 at 23:56; Status DC Naloxone HCl (Narcan) 0.1 mg STAT STAT IV Last administered on 07/18/16 11:24 ; Start 07/18/16 at 11:18; Stop 07/18/16 at 11:20; Status DC Naloxone HCl (Narcan) 0.1 mg STAT STAT IV Last administered on 07/18/16 12:02 ; Start 07/18/16 at 11:58; Stop 07/18/16 at 12:00; Status DC Naloxone HCl (Narcan) 0.2 mg STAT STAT IV Last administered on 07/18/16 13:57 ; Start 07/18/16 at 13:51; Stop 07/18/16 at 13:53; Status DC Naloxone HCl (Narcan) 0.2 mg STAT STAT IV Last administered on 07/18/16 14:18 ; Start 07/18/16 at 14:12; Stop 07/18/16 at 14:13; Status DC Naloxone HCl (Narcan) 0.4 mg STAT STAT IV Last administered on 07/18/16 16:19 ; Start 07/18/16 at 16:11; Stop 07/18/16 at 16:13; Status DC Non-Formulary Medication Imitab Mesylate 400mg p... DAILY PO ; Start 07/21/16 at 09:00; Stop 08/20/16 at 08:59; Status UNV Ondansetron HCl (Zofran Odt) 4 mg Q6HP PRN SL NAUSEA OR VOMITING; Start at 02:30; Stop 08/20/16 at 02:29; Status Cancel Ondansetron HCl (Zofran) 8 mg TID PRN PO NAUSEA; Start 07/20/16 at 11:30; Stop 07/20/16 at 11:30; Status UNV Oxycodone HCl (Roxicodone, Oxyir) 2.5 mg Q6HP PRN PO PAIN SCALE 6-10; Start at 12:15; Stop 07/18/16 at 16:12; Status DC Oxycodone HCl (Roxicodone, Oxyir) 5 mg Q6HP PRN PO PAIN SCALE 6-10 Last administered on 07/17/16 21:35; Start 07/17/16 at 12:00; Stop 07/18/16 at 12:11 ; Status DC Pantoprazole Sodium (Protonix) 20 mg DAILY PO Last administered on 07/22/16 09: 04; Start 07/21/16 at 09:00; Stop 08/20/16 at 08:59 Pantoprazole Sodium (Protonix) 40 mg DAILY PO ; Start 07/18/16 at 09:00; Stop at 23:56; Status DC Patient Own Medication (Patient'S Own Med) 400MG DAILY PO Last administered on 07/18/16 16:53; Start 07/18/16 at 09:00; Stop 07/18/16 at 23:56; Status DC Patient Own Medication (Patient'S Own Med) 400MG DAILY@0800 PO Last administered on 07/22/16 09:06; Start 07/21/16 at 08:00; Stop 08/20/16 at 07:59 Polyethylene Glycol (Miralax) 1 pkt DAILYPRN PRN PO CONSTIPATION; Start at 12:00; Stop 07/18/16 at 23:56; Status DC Polyethylene Glycol (Miralax) 1 pkt DAILYPRN PRN PO CONSTIPATION; Start at 11:45; Stop 08/19/16 at 11:44 Potassium Chloride (Micro-K Extencaps) 10 meq DAILY PO ; Start 07/18/16 at 09:00 ; Stop 07/18/16 at 09:00; Status DC Quetiapine Fumarate (SEROquel) 50 mg QHS PO Last administered on 07/17/16 21: 34; Start 07/17/16 at 21:00; Stop 07/18/16 at 11:19; Status DC Sodium Biphosphate/ Sodium Phosphate (Fleet Enema) 1 ENEMA Q12HP PRN [place] CONSTIPATION; Start 07/17/16 at 12:00; Stop 07/18/16 at 23:56; Status DC Sucralfate (Carafate) 1 gm BID PO Last administered on 07/17/16 21:34; Start 07/17/16 at 09:00; Stop 07/18/16 at 23:56; Status DC Sucralfate (Carafate) 1 gm BID PO Last administered on 07/22/16 09:04; Start at 21:00; Stop 08/19/16 at 20:59 Tramadol HCl (Ultram) 50 mg BIDP PRN PO PAIN; Start 07/17/16 at 11:15; Stop at 23:56; Status DC Tramadol HCl (Ultram) 50 mg Q6HP PRN PO MODERATE PAIN (PS 5-7) Last administered on 07/22/16 09:05; Start 07/20/16 at 11:45; Stop 07/27/16 at 11:44 Valsartan (Diovan) 320 mg DAILY PO Last administered on 07/17/16 13:07; Start 07/17/16 at 09:00; Stop 07/18/16 at 23:56; Status DC Valsartan (Diovan) 320 mg DAILY PO Last administered on 07/22/16 09:05; Start 07/21/16 at 09:00; Stop 08/20/16 at 08:59 Warfarin Sodium (Coumadin) 5 mg DAILY@1700 PO Last administered on 07/17/16 16 :28; Start 07/17/16 at 17:00; Stop 07/18/16 at 08:27; Status DC HARMONY VALENTINE MD July 22, 2016 11:27
[2016-07-22 13:51] VITALS: BP 127/68
[2016-07-22] MEDS ORDERED: WARFARIN SOD 4 MG TAB PO ONE (17:00)
[2016-07-22 21:30] VITALS: BP 143/63
[2016-07-23 06:00] VITALS: BP 145/66
[2016-07-23] MEDS: **hydrALAZINE** 10 MG TAB PO SCH ×3 (06:14→22:04)
[2016-07-23] MEDS: LEVOTHYROXINE 0.05 MG TAB (50 MCG) PO SCH (06:15)
[2016-07-23] MEDS: traMADol 50 MG TAB PO PRN ×2 (06:15→22:04)
[2016-07-23 06:57] LABS: INR 2.05
[2016-07-23] MEDS: DULoxetine 30 MG CAP (CYMBALTA) PO SCH (09:33)
[2016-07-23] MEDS: IMATINIB 400 MG PO SCH (09:33)
[2016-07-23] MEDS: ASPIRIN 81 MG ENTERIC TAB PO SCH (09:33)
[2016-07-23] MEDS: SUCRALFATE 1 GM TAB PO SCH ×2 (09:33→22:04)
[2016-07-23] MEDS: FAMOTIDINE 20 MG TAB PO SCH (09:33)
[2016-07-23] MEDS: VALSARTAN 80 MG TAB (DIOVAN) PO SCH (09:34)
[2016-07-23] MEDS: PANTOPRAZOLE 20 MG TAB PO SCH (09:34)
--- NOTE | 2016-07-23 12:45 | IPNPDOC ---
Chopper Gun Operator Progress Note DATE OF SERVICE: 07/23/16 DATE OF ADMISSION: Jul 17, 2016 at 10:45 INPATIENT REHABILITATION ADMISSION DAY: #6 SUBJECTIVE: Patient is a 86-year-old white female with hip fracture status post hemiarthroplasty. Patient continues to have some pain around the hip is doing well with the CPM. Bowels are working well but she still has a little nausea and is reminded to assess for Mylanta for dyspepsia. She denies any fever or chills. ALLERGIES: See Below MEDICATIONS: Reviewed, see below. OBJECTIVE: VITAL SIGNS: Please see below. PHYSICAL EXAMINATION: GENERAL: Short well-nourished well-developed elderly white female with mild musculoskeletal distress of right hip. HEENT: Normocephalic/atraumatic. CARDIOVASCULAR: Regular rate and rhythm with normal S1-S2 without S3-S4 murmurs or rub. 2 out 4 radial pulses. LUNGS: All noyola clear to auscultation. ABDOMEN: Benign with normal bowel sounds in all quadrants. NEUROLOGICAL: Alert and well oriented speech is clear coherent and appropriate. Affect is pleasant and cooperative. Bilateral upper extremity and left lower extremity motor intact right lower extremity with guarding of right hip movement. Balance is being good. SKIN: Healing surgical incision of the right posterior hip. LABORATORY DATA: Reviewed. Please see below. MICROBIOLOGY: Please see below. IMAGING: No new DVT prophylaxis ordered?: Patient on Coumadin. Ms. Anderson is adjusting Coumadin for orthopedics service. INR today is a little low at 2.05 having had a good response to the last 2 days dosing. ASSESSMENT AND PLAN: 1. Rehabilitation of right hip fracture: Patient doing well with their pain control no confusion or lethargy. Patient with good ambulation and transfer techniques observed by me this morning. We'll continue with PT and OT and anticipated discharge of July 28 on reviewed at team rounds today as patient is making marked gains in ambulation distance and tolerance to weightbearing on her right lower extremity which is carrying over into her ADLs and transfers. As patient lives alone is important for her to be modified independent to independent in ADLs and mobility. 2. Anemia appears to be stable. 3. Hypertension: Systolic blood pressures in the 150s this morning before taking antihypertensive meds. Diastolic blood pressures of been very good and increasing her medication may cause patient to have Diastolic hypotension remains my concern. We will continue to follow for now and not adjust medications. TIME SPENT: Chart Review, examination and documentation >35 minutes. Allergies Coded Allergies: Mushroom (Verified Adverse Reaction, Mild, vomiting, 06/17/16) Vital Signs Vital Signs Date Time Temp Pulse Resp B/P (MAP) Pulse Ox O2 Delivery O2 Flow Rate FiO2 07/23/16 09:34 135/66 07/23/16 06:56 18 07/23/16 06:00 98.7 84 99 Room Air Laboratory Data Labs 24H Laboratory Tests 2 07/23/16 06:17: Prothrombin Time 23.2H, Prothromb Time International Ratio 2.05 Current Medications Current Medications Current Medications Acetaminophen (Tylenol Tab) 650 mg Q4HP PRN PO MILD PAIN OR FEVER; Start at 11:15; Stop 07/18/16 at 16:46; Status DC Acetaminophen (Tylenol Tab) 650 mg Q4HP PRN PO MILD PAIN OR FEVER; Start at 16:46; Stop 07/18/16 at 23:56; Status DC Acetaminophen (Tylenol Tab) 650 mg Q6HP PRN PO PAIN / FEVER; Start 07/20/16 at 11:45; Stop 08/19/16 at 11:44 Al Hydrox/Mg Hydrox/Simethicone (Mylanta) 30 ml Q6HP PRN PO HEARTBURN Last administered on 07/22/16 07:33; Start 07/21/16 at 11:15; Stop 08/20/16 at 11:14 Aspirin (Ecotrin) 81 mg DAILY PO Last administered on 07/23/16 09:33; Start 07/21/16 at 09:00; Stop 08/20/16 at 08:59 Bisacodyl (Dulcolax Suppository) 10 mg DAILYPRN PRN [place] CONSTIPATION; Start at 12:00; Stop 07/18/16 at 23:56; Status DC Bisacodyl (Dulcolax Suppository) 10 mg DAILYPRN PRN [place] CONSTIPATION; Start 07/20 at 11:45; Stop 08/19/16 at 11:44 Duloxetine HCl (Cymbalta) 60 mg DAILY PO ; Start 07/18/16 at 09:00; Stop at 23:56; Status DC Duloxetine HCl (Cymbalta) 60 mg DAILY PO Last administered on 07/23/16 09:33; Start 07/21/16 at 09:00; Stop 08/20/16 at 08:59 Famotidine (Pepcid) 20 mg DAILY PO Last administered on 07/17/16 13:08; Start 07/17/16 at 09:00; Stop 07/18/16 at 23:56; Status DC Famotidine (Pepcid) 20 mg DAILY PO Last administered on 07/23/16 09:33; Start 07/21/16 at 09:00; Stop 08/20/16 at 08:59 Gabapentin (Neurontin) 300 mg TID PO Last administered on 07/17/16 21:34; Start 07/17/16 at 09:00; Stop 07/18/16 at 23:56; Status DC Guaifenesin (Mucinex Tab Er) 600 mg DAILY PO Last administered on 07/17/16 13: 07; Start 07/17/16 at 09:00; Stop 07/18/16 at 23:56; Status DC Hydralazine HCl (Apresoline) 10 mg Q8H PO Last administered on 07/18/16 16:53 ; Start 07/17/16 at 14:00; Stop 07/18/16 at 23:56; Status DC Hydralazine HCl (Apresoline) 10 mg Q8H PO Last administered on 07/23/16 06:14; Start 07/20/16 at 14:00; Stop 08/19/16 at 13:59 Levothyroxine Sodium (Synthroid) 0.05 mg DAILY@06 PO Last administered on 06:15; Start 07/21/16 at 06:00; Stop 08/20/16 at 05:59 Levothyroxine Sodium (Synthroid) 0.05 mg DAILY@0600 PO Last administered on 16:53; Start 07/18/16 at 06:00; Stop 07/18/16 at 23:56; Status DC Magnesium Hydroxide (Milk Of Magnesia) 30 ml DAILYPRN PRN PO CONSTIPATION; Start 07/17/16 at 11:15; Stop 07/18/16 at 23:56; Status DC Magnesium Hydroxide (Milk Of Magnesia) 30 ml DAILYPRN PRN PO CONSTIPATION; Start 07/20/16 at 11:45; Stop 08/19/16 at 11:44 Naloxone HCl (Narcan) 0.1 mg Q5MP PRN IV RESP. RATE < 10; Start 07/18/16 at 17: 15; Stop 07/18/16 at 23:56; Status DC Naloxone HCl (Narcan) 0.1 mg STAT STAT IV Last administered on 07/18/16 11:24 ; Start 07/18/16 at 11:18; Stop 07/18/16 at 11:20; Status DC Naloxone HCl (Narcan) 0.1 mg STAT STAT IV Last administered on 07/18/16 12:02 ; Start 07/18/16 at 11:58; Stop 07/18/16 at 12:00; Status DC Naloxone HCl (Narcan) 0.2 mg STAT STAT IV Last administered on 07/18/16 13:57 ; Start 07/18/16 at 13:51; Stop 07/18/16 at 13:53; Status DC Naloxone HCl (Narcan) 0.2 mg STAT STAT IV Last administered on 07/18/16 14:18 ; Start 07/18/16 at 14:12; Stop 07/18/16 at 14:13; Status DC Naloxone HCl (Narcan) 0.4 mg STAT STAT IV Last administered on 07/18/16 16:19 ; Start 07/18/16 at 16:11; Stop 07/18/16 at 16:13; Status DC Non-Formulary Medication Imitab Mesylate 400mg p... DAILY PO ; Start 07/21/16 at 09:00; Stop 08/20/16 at 08:59; Status UNV Ondansetron HCl (Zofran Odt) 4 mg Q6HP PRN SL NAUSEA OR VOMITING; Start at 02:30; Stop 08/20/16 at 02:29; Status Cancel Ondansetron HCl (Zofran) 8 mg TID PRN PO NAUSEA; Start 07/20/16 at 11:30; Stop 07/20/16 at 11:30; Status UNV Oxycodone HCl (Roxicodone, Oxyir) 2.5 mg Q6HP PRN PO PAIN SCALE 6-10; Start at 12:15; Stop 07/18/16 at 16:12; Status DC Oxycodone HCl (Roxicodone, Oxyir) 5 mg Q6HP PRN PO PAIN SCALE 6-10 Last administered on 07/17/16 21:35; Start 07/17/16 at 12:00; Stop 07/18/16 at 12:11 ; Status DC Pantoprazole Sodium (Protonix) 20 mg DAILY PO Last administered on 07/23/16 09: 34; Start 07/21/16 at 09:00; Stop 08/20/16 at 08:59 Pantoprazole Sodium (Protonix) 40 mg DAILY PO ; Start 07/18/16 at 09:00; Stop at 23:56; Status DC Patient Own Medication (Patient'S Own Med) 400MG DAILY PO Last administered on 07/18/16 16:53; Start 07/18/16 at 09:00; Stop 07/18/16 at 23:56; Status DC Patient Own Medication (Patient'S Own Med) 400MG DAILY@0800 PO Last administered on 07/23/16 09:33; Start 07/21/16 at 08:00; Stop 08/20/16 at 07:59 Polyethylene Glycol (Miralax) 1 pkt DAILYPRN PRN PO CONSTIPATION; Start at 12:00; Stop 07/18/16 at 23:56; Status DC Polyethylene Glycol (Miralax) 1 pkt DAILYPRN PRN PO CONSTIPATION; Start at 11:45; Stop 08/19/16 at 11:44 Potassium Chloride (Micro-K Extencaps) 10 meq DAILY PO ; Start 07/18/16 at 09:00 ; Stop 07/18/16 at 09:00; Status DC Quetiapine Fumarate (SEROquel) 50 mg QHS PO Last administered on 07/17/16 21: 34; Start 07/17/16 at 21:00; Stop 07/18/16 at 11:19; Status DC Sodium Biphosphate/ Sodium Phosphate (Fleet Enema) 1 ENEMA Q12HP PRN PA CONSTIPATION; Start 07/17/16 at 12:00; Stop 07/18/16 at 23:56; Status DC Sucralfate (Carafate) 1 gm BID PO Last administered on 07/17/16 21:34; Start 07/17/16 at 09:00; Stop 07/18/16 at 23:56; Status DC Sucralfate (Carafate) 1 gm BID PO Last administered on 07/23/16 09:33; Start at 21:00; Stop 08/19/16 at 20:59 Tramadol HCl (Ultram) 50 mg BIDP PRN PO PAIN; Start 07/17/16 at 11:15; Stop at 23:56; Status DC Tramadol HCl (Ultram) 50 mg Q6HP PRN PO MODERATE PAIN (PS 5-7) Last administered on 07/23/16 06:15; Start 07/20/16 at 11:45; Stop 07/27/16 at 11:44 Valsartan (Diovan) 320 mg DAILY PO Last administered on 07/17/16 13:07; Start 07/17/16 at 09:00; Stop 07/18/16 at 23:56; Status DC Valsartan (Diovan) 320 mg DAILY PO Last administered on 07/23/16 09:34; Start 07/21/16 at 09:00; Stop 08/20/16 at 08:59 Warfarin Sodium (Coumadin) 2.5 mg DAILY@17 PO ; Start 07/23/16 at 17:00; Stop 01/05 at 16:59 Warfarin Sodium (Coumadin) 5 mg DAILY@1700 PO Last administered on 07/17/16 16 :28; Start 07/17/16 at 17:00; Stop 07/18/16 at 08:27; Status DC HARMONY VALENTINE MD July 23, 2016 12:45
[2016-07-23 14:00] VITALS: BP 145/73
[2016-07-23] MEDS: WARFARIN SOD 2.5 MG TAB PO SCH (17:29)
[2016-07-23 20:43] VITALS: BP 131/62
[2016-07-24 06:36] VITALS: BP 147/69
[2016-07-24] MEDS: **hydrALAZINE** 10 MG TAB PO SCH ×3 (06:37→21:07)
[2016-07-24] MEDS: traMADol 50 MG TAB PO PRN ×2 (06:37→13:48)
[2016-07-24] MEDS: LEVOTHYROXINE 0.05 MG TAB (50 MCG) PO SCH (06:37)
[2016-07-24 06:51] LABS: INR 2.23
[2016-07-24] MEDS: SUCRALFATE 1 GM TAB PO SCH ×2 (08:38→21:07)
[2016-07-24] MEDS: DULoxetine 30 MG CAP (CYMBALTA) PO SCH (08:38)
[2016-07-24] MEDS: ASPIRIN 81 MG ENTERIC TAB PO SCH (08:38)
[2016-07-24] MEDS: IMATINIB 400 MG PO SCH (08:38)
[2016-07-24] MEDS: VALSARTAN 80 MG TAB (DIOVAN) PO SCH (08:39)
[2016-07-24] MEDS: PANTOPRAZOLE 20 MG TAB PO SCH (08:39)
[2016-07-24] MEDS: FAMOTIDINE 20 MG TAB PO SCH (08:39)
[2016-07-24] MEDS: WARFARIN SOD 2.5 MG TAB PO SCH (09:07)
[2016-07-24] MEDS: MAALOX 30 ML SUSP *UDC PO PRN (09:19)
--- NOTE | 2016-07-24 09:55 | IPNPDOC ---
Saddle Lining Stitcher Progress Note DATE OF SERVICE: 07/24/16 DATE OF ADMISSION: Jul 17, 2016 at 10:45 INPATIENT REHABILITATION ADMISSION DAY: #7 SUBJECTIVE: Patient is a 86-year-old white female with right hip fracture status post hemiarthroplasty. Patient noting a bit nausea this morning and requesting her Ambien at bedtime. She reports she has not been using the CPM at night as nursing has not set her up in it. Nursing reports patient declined the Mylanta earlier but patient now willing to take it and begin her physical therapy. Overall her pain is still fairly well-controlled. ALLERGIES: See Below MEDICATIONS: Reviewed, see below. OBJECTIVE: VITAL SIGNS: Please see below. PHYSICAL EXAMINATION: GENERAL: Short elderly white female laying in bed in mild GI distress. HEENT: Normocephalic/atraumatic. CARDIOVASCULAR: Regular rate and rhythm with normal S1-S2 without S3-S4 murmurs or rubs. 2 out 4 bilateral radial pulses. LUNGS: All noyola clear to auscultation. ABDOMEN: Mildly distended but not tender with increased versus her normal bowel sounds but no high-frequency/pitched sounds. NEUROLOGICAL: Patient alert oriented 4. Speech is clear coherent and appropriate affect is a little anxious. Motor is intact with some guarding of the right hip. SKIN: Right hip incision healing well under foam dressing. LABORATORY DATA: Reviewed. Please see below. MICROBIOLOGY: Please see below. IMAGING: No new imaging. DVT prophylaxis ordered?: Patient continues on Coumadin and her INR today is 2.23. Ms. Anderson to order tonight Coumadin dose. ASSESSMENT AND PLAN: 1. Rehabilitation of right hip fracture status post hemiarthroplasty: Patient delayed a few minutes and starting PT due to nausea but has been making good progress in therapy with PT and OT. Anticipate discharge is for Wednesday for patient to return to home by herself with home care including PT and OT. 2. Nausea: Unclear why patient is having nausea this morning though she has had some occasional complaints on other days. Patient reports having had a bowel movement yesterday, but abdomen suggests she has a little gas buildup so the Mylanta with simethicone may be particularly helpful to her. If not we will go ahead and push bowel regimen to better cleanout GI tract. 3. Anemia: Patient remained stable with blood pressure slightly elevated at times but no tachycardia. I will recheck CBC on Wednesday. TIME SPENT: Chart Review, examination and documentation greater than 25 minutes. Allergies Coded Allergies: Mushroom (Verified Adverse Reaction, Mild, vomiting, 06/17/16) Vital Signs Vital Signs Date Time Temp Pulse Resp B/P (MAP) Pulse Ox O2 Delivery O2 Flow Rate FiO2 07/24/16 08:39 147/69 07/24/16 07:11 18 07/24/16 06:36 97.1 82 97 Room Air Laboratory Data Labs 24H Laboratory Tests 2 07/24/16 06:17: Prothrombin Time 24.8H, Prothromb Time International Ratio 2.23 Current Medications Current Medications Current Medications Acetaminophen (Tylenol Tab) 650 mg Q4HP PRN PO MILD PAIN OR FEVER; Start at 11:15; Stop 07/18/16 at 16:46; Status DC Acetaminophen (Tylenol Tab) 650 mg Q4HP PRN PO MILD PAIN OR FEVER; Start at 16:46; Stop 07/18/16 at 23:56; Status DC Acetaminophen (Tylenol Tab) 650 mg Q6HP PRN PO PAIN / FEVER; Start 07/20/16 at 11:45; Stop 08/19/16 at 11:44 Al Hydrox/Mg Hydrox/Simethicone (Mylanta) 30 ml Q6HP PRN PO HEARTBURN Last administered on 07/24/16 09:19; Start 07/21/16 at 11:15; Stop 08/20/16 at 11:14 Aspirin (Ecotrin) 81 mg DAILY PO Last administered on 07/24/16 08:38; Start 07/21/16 at 09:00; Stop 08/20/16 at 08:59 Bisacodyl (Dulcolax Suppository) 10 mg DAILYPRN PRN [place] CONSTIPATION; Start at 12:00; Stop 07/18/16 at 23:56; Status DC Bisacodyl (Dulcolax Suppository) 10 mg DAILYPRN PRN [place] CONSTIPATION; Start 07/20 at 11:45; Stop 08/19/16 at 11:44 Duloxetine HCl (Cymbalta) 60 mg DAILY PO ; Start 07/18/16 at 09:00; Stop at 23:56; Status DC Duloxetine HCl (Cymbalta) 60 mg DAILY PO Last administered on 07/24/16 08:38; Start 07/21/16 at 09:00; Stop 08/20/16 at 08:59 Famotidine (Pepcid) 20 mg DAILY PO Last administered on 07/17/16 13:08; Start 07/17/16 at 09:00; Stop 07/18/16 at 23:56; Status DC Famotidine (Pepcid) 20 mg DAILY PO Last administered on 07/24/16 08:39; Start 07/21/16 at 09:00; Stop 08/20/16 at 08:59 Gabapentin (Neurontin) 300 mg TID PO Last administered on 07/17/16 21:34; Start 07/17/16 at 09:00; Stop 07/18/16 at 23:56; Status DC Guaifenesin (Mucinex Tab Er) 600 mg DAILY PO Last administered on 07/17/16 13: 07; Start 07/17/16 at 09:00; Stop 07/18/16 at 23:56; Status DC Hydralazine HCl (Apresoline) 10 mg Q8H PO Last administered on 07/18/16 16:53 ; Start 07/17/16 at 14:00; Stop 07/18/16 at 23:56; Status DC Hydralazine HCl (Apresoline) 10 mg Q8H PO Last administered on 07/24/16 06:37; Start 07/20/16 at 14:00; Stop 08/19/16 at 13:59 Levothyroxine Sodium (Synthroid) 0.05 mg DAILY@06 PO Last administered on 06:37; Start 07/21/16 at 06:00; Stop 08/20/16 at 05:59 Levothyroxine Sodium (Synthroid) 0.05 mg DAILY@0600 PO Last administered on 16:53; Start 07/18/16 at 06:00; Stop 07/18/16 at 23:56; Status DC Magnesium Hydroxide (Milk Of Magnesia) 30 ml DAILYPRN PRN PO CONSTIPATION; Start 07/17/16 at 11:15; Stop 07/18/16 at 23:56; Status DC Magnesium Hydroxide (Milk Of Magnesia) 30 ml DAILYPRN PRN PO CONSTIPATION; Start 07/20/16 at 11:45; Stop 08/19/16 at 11:44 Naloxone HCl (Narcan) 0.1 mg Q5MP PRN IV RESP. RATE < 10; Start 07/18/16 at 17: 15; Stop 07/18/16 at 23:56; Status DC Naloxone HCl (Narcan) 0.1 mg STAT STAT IV Last administered on 07/18/16 11:24 ; Start 07/18/16 at 11:18; Stop 07/18/16 at 11:20; Status DC Naloxone HCl (Narcan) 0.1 mg STAT STAT IV Last administered on 07/18/16 12:02 ; Start 07/18/16 at 11:58; Stop 07/18/16 at 12:00; Status DC Naloxone HCl (Narcan) 0.2 mg STAT STAT IV Last administered on 07/18/16 13:57 ; Start 07/18/16 at 13:51; Stop 07/18/16 at 13:53; Status DC Naloxone HCl (Narcan) 0.2 mg STAT STAT IV Last administered on 07/18/16 14:18 ; Start 07/18/16 at 14:12; Stop 07/18/16 at 14:13; Status DC Naloxone HCl (Narcan) 0.4 mg STAT STAT IV Last administered on 07/18/16 16:19 ; Start 07/18/16 at 16:11; Stop 07/18/16 at 16:13; Status DC Non-Formulary Medication Imitab Mesylate 400mg p... DAILY PO ; Start 07/21/16 at 09:00; Stop 08/20/16 at 08:59; Status UNV Ondansetron HCl (Zofran Odt) 4 mg Q6HP PRN SL NAUSEA OR VOMITING; Start at 02:30; Stop 08/20/16 at 02:29; Status Cancel Ondansetron HCl (Zofran) 8 mg TID PRN PO NAUSEA; Start 07/20/16 at 11:30; Stop 07/20/16 at 11:30; Status UNV Oxycodone HCl (Roxicodone, Oxyir) 2.5 mg Q6HP PRN PO PAIN SCALE 6-10; Start at 12:15; Stop 07/18/16 at 16:12; Status DC Oxycodone HCl (Roxicodone, Oxyir) 5 mg Q6HP PRN PO PAIN SCALE 6-10 Last administered on 07/17/16 21:35; Start 07/17/16 at 12:00; Stop 07/18/16 at 12:11 ; Status DC Pantoprazole Sodium (Protonix) 20 mg DAILY PO Last administered on 07/24/16 08: 39; Start 07/21/16 at 09:00; Stop 08/20/16 at 08:59 Pantoprazole Sodium (Protonix) 40 mg DAILY PO ; Start 07/18/16 at 09:00; Stop at 23:56; Status DC Patient Own Medication (Patient'S Own Med) 400MG DAILY PO Last administered on 07/18/16 16:53; Start 07/18/16 at 09:00; Stop 07/18/16 at 23:56; Status DC Patient Own Medication (Patient'S Own Med) 400MG DAILY@0800 PO Last administered on 07/24/16 08:38; Start 07/21/16 at 08:00; Stop 08/20/16 at 07:59 Polyethylene Glycol (Miralax) 1 pkt DAILYPRN PRN PO CONSTIPATION; Start at 12:00; Stop 07/18/16 at 23:56; Status DC Polyethylene Glycol (Miralax) 1 pkt DAILYPRN PRN PO CONSTIPATION; Start at 11:45; Stop 08/19/16 at 11:44 Potassium Chloride (Micro-K Extencaps) 10 meq DAILY PO ; Start 07/18/16 at 09:00 ; Stop 07/18/16 at 09:00; Status DC Quetiapine Fumarate (SEROquel) 50 mg QHS PO Last administered on 07/17/16 21: 34; Start 07/17/16 at 21:00; Stop 07/18/16 at 11:19; Status DC Sodium Biphosphate/ Sodium Phosphate (Fleet Enema) 1 ENEMA Q12HP PRN [place] CONSTIPATION; Start 07/17/16 at 12:00; Stop 07/18/16 at 23:56; Status DC Sucralfate (Carafate) 1 gm BID PO Last administered on 07/17/16 21:34; Start 07/17/16 at 09:00; Stop 07/18/16 at 23:56; Status DC Sucralfate (Carafate) 1 gm BID PO Last administered on 07/24/16 08:38; Start at 21:00; Stop 08/19/16 at 20:59 Tramadol HCl (Ultram) 50 mg BIDP PRN PO PAIN; Start 07/17/16 at 11:15; Stop at 23:56; Status DC Tramadol HCl (Ultram) 50 mg Q6HP PRN PO MODERATE PAIN (PS 5-7) Last administered on 07/24/16 06:37; Start 07/20/16 at 11:45; Stop 07/27/16 at 11:44 Valsartan (Diovan) 320 mg DAILY PO Last administered on 07/17/16 13:07; Start 07/17/16 at 09:00; Stop 07/18/16 at 23:56; Status DC Valsartan (Diovan) 320 mg DAILY PO Last administered on 07/24/16 08:39; Start 07/21/16 at 09:00; Stop 08/20/16 at 08:59 Warfarin Sodium (Coumadin) 2.5 mg DAILY@17 PO Last administered on 07/23/16 17: 29; Start 07/23/16 at 17:00; Stop 07/29/16 at 16:59 Warfarin Sodium (Coumadin) 5 mg DAILY@1700 PO Last administered on 07/17/16 16 :28; Start 07/17/16 at 17:00; Stop 07/18/16 at 08:27; Status DC Zolpidem Tartrate (Ambien) 5 mg QHSP PRN PO SLEEP; Start 07/24/16 at 09:30; Stop 07/31/16 at 09:29 HARMONY VALENTINE MD July 24, 2016 09:55
[2016-07-24 14:00] VITALS: BP 137/64
[2016-07-24 20:00] VITALS: BP 145/69
[2016-07-24] MEDS: ACETAMINOPHEN TAB 650MG DOSE (2X325MG) PO PRN (21:09)
[2016-07-24] MEDS: zolPIDEM TARTRATE 5 MG TAB PO PRN (22:26)
[2016-07-25 06:00] VITALS: BP 161/77
[2016-07-25] MEDS: LEVOTHYROXINE 0.05 MG TAB (50 MCG) PO SCH (06:13)
[2016-07-25] MEDS: **hydrALAZINE** 10 MG TAB PO SCH ×3 (06:13→21:12)
[2016-07-25 06:27] LABS: INR 2.05
[2016-07-25] MEDS: SUCRALFATE 1 GM TAB PO SCH ×2 (09:53→19:35)
[2016-07-25] MEDS: FAMOTIDINE 20 MG TAB PO SCH (09:53)
[2016-07-25] MEDS: ASPIRIN 81 MG ENTERIC TAB PO SCH (09:53)
[2016-07-25] MEDS: DULoxetine 30 MG CAP (CYMBALTA) PO SCH (09:53)
[2016-07-25] MEDS: IMATINIB 400 MG PO SCH (09:53)
[2016-07-25] MEDS: PANTOPRAZOLE 20 MG TAB PO SCH (09:54)
[2016-07-25] MEDS: VALSARTAN 80 MG TAB (DIOVAN) PO SCH (09:54)
[2016-07-25] MEDS: ACETAMINOPHEN TAB 650MG DOSE (2X325MG) PO PRN ×2 (11:20→21:15)
[2016-07-25 14:00] VITALS: BP 146/62
[2016-07-25] MEDS: WARFARIN SOD 2.5 MG TAB PO SCH (17:22)
[2016-07-25] MEDS: traMADol 50 MG TAB PO PRN (19:35)
[2016-07-25 20:00] VITALS: BP 140/66
[2016-07-25] MEDS: zolPIDEM TARTRATE 5 MG TAB PO PRN (22:06)
[2016-07-26] MEDS: ACETAMINOPHEN TAB 650MG DOSE (2X325MG) PO PRN ×2 (03:31→13:01)
[2016-07-26 06:00] VITALS: BP 170/69
[2016-07-26] MEDS: **hydrALAZINE** 10 MG TAB PO SCH ×3 (06:10→21:17)
[2016-07-26] MEDS: LEVOTHYROXINE 0.05 MG TAB (50 MCG) PO SCH (06:10)
[2016-07-26 06:24] LABS: INR 1.73
[2016-07-26] MEDS: IMATINIB 400 MG PO SCH (08:35)
[2016-07-26] MEDS: traMADol 50 MG TAB PO PRN ×2 (08:37→19:45)
[2016-07-26] MEDS: DULoxetine 30 MG CAP (CYMBALTA) PO SCH (08:37)
[2016-07-26] MEDS: FAMOTIDINE 20 MG TAB PO SCH (08:38)
[2016-07-26] MEDS: ASPIRIN 81 MG ENTERIC TAB PO SCH (08:38)
[2016-07-26] MEDS: PANTOPRAZOLE 20 MG TAB PO SCH (08:38)
[2016-07-26] MEDS: SUCRALFATE 1 GM TAB PO SCH ×2 (08:39→21:16)
[2016-07-26] MEDS: VALSARTAN 80 MG TAB (DIOVAN) PO SCH (08:41)
[2016-07-26] MEDS: MAALOX 30 ML SUSP *UDC PO PRN ×2 (10:48→19:44)
[2016-07-26 14:00] VITALS: BP 153/74
[2016-07-26] MEDS: WARFARIN SOD 2.5 MG TAB PO SCH (16:43)
[2016-07-26 20:00] VITALS: BP 163/72
[2016-07-26] MEDS: zolPIDEM TARTRATE 5 MG TAB PO PRN (23:34)
[2016-07-27 05:38] VITALS: BP 173/85
[2016-07-27] MEDS: LEVOTHYROXINE 0.05 MG TAB (50 MCG) PO SCH (05:39)
[2016-07-27] MEDS: **hydrALAZINE** 10 MG TAB PO SCH ×3 (05:40→21:06)
[2016-07-27 06:00] VITALS: BP 173/85
[2016-07-27 06:56] LABS: MEAN CORPUSCULAR HEMOGLOBIN 29.9 pg (27.0-33.0); MEAN CORPUSCULAR HGB CONC 30.8 g/dl (32.0-36.5); MEAN CORPUSCULAR VOLUME 96.9 fl (80.0-96.0); RED CELL DISTRIBUTION WIDTH 15.5 % (11.5-14.5); WHITE BLOOD COUNT 5.2 K/mm3 (4.0-10.0)
[2016-07-27 07:06] LABS: INR 1.81
[2016-07-27] MEDS: IMATINIB 400 MG PO SCH (08:56)
[2016-07-27] MEDS: VALSARTAN 80 MG TAB (DIOVAN) PO SCH (08:56)
[2016-07-27] MEDS: PANTOPRAZOLE 20 MG TAB PO SCH (08:57)
[2016-07-27] MEDS: FAMOTIDINE 20 MG TAB PO SCH (08:57)
[2016-07-27] MEDS: DULoxetine 30 MG CAP (CYMBALTA) PO SCH (08:57)
[2016-07-27] MEDS: SUCRALFATE 1 GM TAB PO SCH ×2 (08:57→21:05)
[2016-07-27] MEDS: traMADol 50 MG TAB PO PRN ×2 (09:26→17:27)
[2016-07-27 09:39] LABS: CALCIUM LEVEL 8.4 MG/DL (8.8-10.2); CREATININE FOR GFR 2.02 MG/DL (0.55-1.02); GLOMERULAR FILTRATION RATE 24.9 (>32); POTASSIUM SERUM 4.6 MEQ/L (3.5-5.1)
[2016-07-27] MEDS: MAALOX 30 ML SUSP *UDC PO PRN ×2 (10:11→21:33)
--- NOTE | 2016-07-27 11:14 | IPNPDOC ---
Subjective Date Seen The patient was seen on 07/27/16. Subjective Chief Complaint/HPI The patient is a 86-year-old female admitted with a reason for visit of Right Femoral Neck Fx. Events since last encounter Patient was seen this morning at bedside due to anemia. She denies any gross bleeding. States her stools are dark, but unchanged from when she got to the unit. She denies any chest pain/pressure, SOB, lightheadedness, dizziness, nausea, vomiting, abd pain or diarrhea. No fevers and vitals are stable. Objective Physical Examination General Exam: Positive: Alert, Cooperative, No Acute Distress, Other (lethargy) Eye Exam: Positive: PERRLA, Conjunctiva & lids normal, EOMI, Negative: Sclera icteric ENT Exam: Positive: Mucous membr. moist/pink, Pharynx Normal Neck Exam: Positive: Supple, Negative: thyromegaly Chest Exam: Positive: Clear to auscultation, Normal air movement Heart Exam: Positive: Rate Normal, Regular Rhythm, Normal S1, Normal S2, Negative: Murmurs Abdomen Exam: Positive: Normal bowel sounds, Soft, Negative: Tenderness Extremity Exam: Positive: Normal pulses, Negative: Edema Skin Exam: Positive: Nl turgor and temperature, Negative: Rash Neuro Exam: Positive: Normal Speech, Cranial Nerves 3-12 NL Assessment /Plan Problems (1) Fracture of femoral neck, right, closed Status: Acute Problem Specific Plan: Monitor Clinically Problem Text: * Status post repair on 07/17 * Continue with PT/OT * Pain control * Patient on Coumadin, INR subtherapeutic (2) Anemia Status: Chronic Problem Specific Plan: Monitor Clinically, Repeat Labs Problem Text: * Status post 2 units PRBC 07/16/16 * Will receive 2 more units of pRBC today * Monitor H/H q8h * Stool occult positive, serial H/H for now, if H/H drops after transfusion or patient has active bleeding, may need to be re-scoped and anticoagulation would need to be discontinued * Had upper and lower endoscopy done on 06/24: chronic gastritis, Simmons's esophagus and one tubular adenoma polyp * Continue Protonix and Carafate * Will place on ferrous sulfate and vitamin c * Patient with history of chronic anemia and need for transfusion. * Follows with Dr. Banda. 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 Banda. (6) GERD (gastroesophageal reflux disease) Status: Chronic Problem Specific Plan: Monitor Clinically Problem Text: * Currently on protonix and pepcid (7) Hypothyroidism Status: Chronic Problem Specific Plan: Monitor Clinically Problem Text: * Continue Synthroid (8) Depression Status: Chronic Problem Text: * Continue Cymbalta Plan/VTE VTE Prophylaxis Ordered?: Yes (Coumadin as per orthopedics) VS, I&O, 24H, Fishbone Vital Signs/I&O Vital Signs Date Time Temp Pulse Resp B/P (MAP) Pulse Ox O2 Delivery O2 Flow Rate FiO2 07/27/16 09:56 20 07/27/16 08:56 173/85 07/27/16 06:00 97.6 84 97 Room Air I&O- Last 24 Hours up to 6 AM 07/27/16 06:00 Intake Total 360 ml Balance 360 ml Laboratory Data CBC/BMP Laboratory Tests 07/27/16 06:45 Red Blood Count 2.34 L, Mean Corpuscular Volume 96.9 H, Mean Corpuscular Hemoglobin 29.9, Mean Corpuscular Hemoglobin Concent 30.8 L, Red Cell Distribution Width 15.5 H 07/27/16 08:43 Calcium Level 8.4 L Microbiology Microbiology 07/27/16 Stool Occult Blood (SAV) - Final, Complete GME ATTESTATION GME ATTESTATION My preceptor for this patient encounter was physically present in the building during the encounter and was fully available. As needed, all aspects of the patient interview, examination, medical decision making process, and medical care plan development were reviewed and approved by the preceptor. Preceptor is aware and concurs with the plan as stated in the body of this note and will attest to such by his/her cosignature. EDUAR RANGEL DO July 27, 2016 11:14
[2016-07-27] MEDS: amLODIPine 5 MG TAB PO SCH (11:54)
--- NOTE | 2016-07-27 12:05 | IPNPDOC ---
Line Up Worker Progress Note DATE OF SERVICE: 07/27/16 DATE OF ADMISSION: Jul 17, 2016 at 10:45 INPATIENT REHABILITATION ADMISSION DAY: #10 SUBJECTIVE: Patient is a 86-year-old white female with right hip fracture status post hemiarthroplasty. Patient to is still hypertensive but not tachycardic was found to have dropped her H&H to 7.0/22.7% with guaiac positive stools and low therapeutic INR. Patient on previous service postoperatively required 2 units of packed red blood cells. Medicine services ordered 2 more units to be transfused today. Patient has a little bit and nausea and some continued hip pain but no dizziness, lightheadedness, or increasing weakness. ALLERGIES: See Below MEDICATIONS: Reviewed, see below. OBJECTIVE: VITAL SIGNS: Please see below. PHYSICAL EXAMINATION: GENERAL: Short elderly white female who's more pale with no redness in the palmar lines of the hand. HEENT: Normocephalic/atraumatic. CARDIOVASCULAR: Regular rate and rhythm with normal S1-S2 without S3-S4 murmurs or rubs. LUNGS: All noyola clear to auscultation. ABDOMEN: Benign with normal bowel sounds in all quadrants. NEUROLOGICAL: Patient alert and oriented 4. Speech is clear coherent and appropriate. Affect is pleasant and cooperative. SKIN: Slight increase in pallor. Hip incision looks good though. LABORATORY DATA: Reviewed. Please see below. MICROBIOLOGY: Please see below. IMAGING: No new imaging. DVT prophylaxis ordered?: Patient on Coumadin INR is 1.81. ASSESSMENT AND PLAN: 1. Rehabilitation of right hip fracture with hemiarthroplasty: Patient is done very well in is essentially at discharge goals and will be reviewed at team rounds today. However worsening anemia with guaiac positive stools are concerned and patient will be receiving a transfusion today. Unless unless H&H is not steady after her transfusion or vital signs did not remain steady, then the plan will be to discharge to home with home care tomorrow. However if ongoing blood loss continues then the discharge plan will be reconsidered. For discharge patient will need a tub bench, front wheeled walker and a commode to keep her proper position and avoid breaking her hip precautions that could cause a dislocation of the surgical hip hemiarthroplasty. A traditional toilet puts patient in adverse position for trying to maintain the hip precaution of the commode is necessary. 2. Blood loss anemia: Patient done well after receiving her original 2 units but on check in preparation of going home patient has started to lose H&H again and is scheduled for 2 units of packed red blood cells today. 3. DVT prophylaxis: Patient doing very well with ambulation which is the best protection and I will go ahead and discontinue her from Coumadin and let Ms. Becker know. TIME SPENT: Chart Review, examination and documentation greater than 35 minutes. Allergies Coded Allergies: Mushroom (Verified Adverse Reaction, Mild, vomiting, 06/17/16) Vital Signs Vital Signs Date Time Temp Pulse Resp B/P (MAP) Pulse Ox O2 Delivery O2 Flow Rate FiO2 07/27/16 11:54 96 140/71 07/27/16 09:56 20 07/27/16 06:00 97.6 97 Room Air Laboratory Data CBC/BMP Laboratory Tests 07/27/16 06:45 Red Blood Count 2.34 L, Mean Corpuscular Volume 96.9 H, Mean Corpuscular Hemoglobin 29.9, Mean Corpuscular Hemoglobin Concent 30.8 L, Red Cell Distribution Width 15.5 H 07/27/16 08:43 Calcium Level 8.4 L Labs 24H Laboratory Tests 2 07/27/16 06:45: Prothrombin Time 21.1H, Prothromb Time International Ratio 1.81 07/27/16 08:43: Anion Gap 7L, Glomerular Filtration Rate 24.9L, Blood Urea Nitrogen 40H, Creatinine 2.02H, Sodium Level 139, Potassium Level 4.6, Chloride Level 104, Carbon Dioxide Level 28, Calcium Level 8.4L Microbiology Microbiology 07/27/16 Stool Occult Blood (SAV) - Final, Complete Current Medications Current Medications Current Medications Acetaminophen (Tylenol Tab) 650 mg Q4HP PRN PO MILD PAIN OR FEVER; Start at 11:15; Stop 07/18/16 at 16:46; Status DC Acetaminophen (Tylenol Tab) 650 mg Q4HP PRN PO MILD PAIN OR FEVER; Start at 16:46; Stop 07/18/16 at 23:56; Status DC Acetaminophen (Tylenol Tab) 650 mg Q6HP PRN PO PAIN / FEVER Last administered on 07/26/16t 13:01; Start 07/20/16 at 11:45; Stop 08/19/16 at 11:44 Al Hydrox/Mg Hydrox/Simethicone (Mylanta) 30 ml Q6HP PRN PO HEARTBURN Last administered on 07/27/16 10:11; Start 07/21/16 at 11:15; Stop 08/20/16 at 11:14 Amlodipine Besylate (Norvasc) 5 mg DAILY PO Last administered on 07/27/16 11:54 ; Start 07/27/16 at 09:00; Stop 08/26/16 at 08:59 Aspirin (Ecotrin) 81 mg DAILY PO Last administered on 07/26/16 08:38; Start 07/21/16 at 09:00; Stop 07/27/16 at 07:27; Status DC Bisacodyl (Dulcolax Suppository) 10 mg DAILYPRN PRN [place] CONSTIPATION; Start at 12:00; Stop 07/18/16 at 23:56; Status DC Bisacodyl (Dulcolax Suppository) 10 mg DAILYPRN PRN IL CONSTIPATION; Start 07/20 at 11:45; Stop 08/19/16 at 11:44 Duloxetine HCl (Cymbalta) 60 mg DAILY PO ; Start 07/18/16 at 09:00; Stop at 23:56; Status DC Duloxetine HCl (Cymbalta) 60 mg DAILY PO Last administered on 07/27/16 08:57; Start 07/21/16 at 09:00; Stop 08/20/16 at 08:59 Famotidine (Pepcid) 20 mg DAILY PO Last administered on 07/17/16 13:08; Start 07/17/16 at 09:00; Stop 07/18/16 at 23:56; Status DC Famotidine (Pepcid) 20 mg DAILY PO Last administered on 07/27/16 08:57; Start 07/21/16 at 09:00; Stop 08/20/16 at 08:59 Gabapentin (Neurontin) 300 mg TID PO Last administered on 07/17/16 21:34; Start 07/17/16 at 09:00; Stop 07/18/16 at 23:56; Status DC Guaifenesin (Mucinex Tab Er) 600 mg DAILY PO Last administered on 07/17/16 13: 07; Start 07/17/16 at 09:00; Stop 07/18/16 at 23:56; Status DC Hydralazine HCl (Apresoline) 10 mg Q8H PO Last administered on 07/18/16 16:53 ; Start 07/17/16 at 14:00; Stop 07/18/16 at 23:56; Status DC Hydralazine HCl (Apresoline) 10 mg Q8H PO Last administered on 07/27/16 05:40; Start 07/20/16 at 14:00; Stop 08/19/16 at 13:59 Levothyroxine Sodium (Synthroid) 0.05 mg DAILY@06 PO Last administered on 05:39; Start 07/21/16 at 06:00; Stop 08/20/16 at 05:59 Levothyroxine Sodium (Synthroid) 0.05 mg DAILY@0600 PO Last administered on 16:53; Start 07/18/16 at 06:00; Stop 07/18/16 at 23:56; Status DC Magnesium Hydroxide (Milk Of Magnesia) 30 ml DAILYPRN PRN PO CONSTIPATION; Start 07/17/16 at 11:15; Stop 07/18/16 at 23:56; Status DC Magnesium Hydroxide (Milk Of Magnesia) 30 ml DAILYPRN PRN PO CONSTIPATION; Start 07/20/16 at 11:45; Stop 08/19/16 at 11:44 Naloxone HCl (Narcan) 0.1 mg Q5MP PRN IV RESP. RATE < 10; Start 07/18/16 at 17: 15; Stop 07/18/16 at 23:56; Status DC Naloxone HCl (Narcan) 0.1 mg STAT STAT IV Last administered on 07/18/16 11:24 ; Start 07/18/16 at 11:18; Stop 07/18/16 at 11:20; Status DC Naloxone HCl (Narcan) 0.1 mg STAT STAT IV Last administered on 07/18/16 12:02 ; Start 07/18/16 at 11:58; Stop 07/18/16 at 12:00; Status DC Naloxone HCl (Narcan) 0.2 mg STAT STAT IV Last administered on 07/18/16 13:57 ; Start 07/18/16 at 13:51; Stop 07/18/16 at 13:53; Status DC Naloxone HCl (Narcan) 0.2 mg STAT STAT IV Last administered on 07/18/16 14:18 ; Start 07/18/16 at 14:12; Stop 07/18/16 at 14:13; Status DC Naloxone HCl (Narcan) 0.4 mg STAT STAT IV Last administered on 07/18/16 16:19 ; Start 07/18/16 at 16:11; Stop 07/18/16 at 16:13; Status DC Non-Formulary Medication Imitab Mesylate 400mg p... DAILY PO ; Start 07/21/16 at 09:00; Stop 08/20/16 at 08:59; Status UNV Ondansetron HCl (Zofran Odt) 4 mg Q6HP PRN SL NAUSEA OR VOMITING; Start at 02:30; Stop 08/20/16 at 02:29; Status Cancel Ondansetron HCl (Zofran) 8 mg TID PRN PO NAUSEA; Start 07/20/16 at 11:30; Stop 07/20/16 at 11:30; Status UNV Oxycodone HCl (Roxicodone, Oxyir) 2.5 mg Q6HP PRN PO PAIN SCALE 6-10; Start at 12:15; Stop 07/18/16 at 16:12; Status DC Oxycodone HCl (Roxicodone, Oxyir) 5 mg Q6HP PRN PO PAIN SCALE 6-10 Last administered on 07/17/16 21:35; Start 07/17/16 at 12:00; Stop 07/18/16 at 12:11 ; Status DC Pantoprazole Sodium (Protonix) 20 mg DAILY PO Last administered on 07/27/16 08: 57; Start 07/21/16 at 09:00; Stop 08/20/16 at 08:59 Pantoprazole Sodium (Protonix) 40 mg DAILY PO ; Start 07/18/16 at 09:00; Stop at 23:56; Status DC Patient Own Medication (Patient'S Own Med) 400MG DAILY PO Last administered on 07/18/16 16:53; Start 07/18/16 at 09:00; Stop 07/18/16 at 23:56; Status DC Patient Own Medication (Patient'S Own Med) 400MG DAILY@0800 PO Last administered on 07/27/16 08:56; Start 07/21/16 at 08:00; Stop 08/20/16 at 07:59 Polyethylene Glycol (Miralax) 1 pkt DAILYPRN PRN PO CONSTIPATION; Start at 12:00; Stop 07/18/16 at 23:56; Status DC Polyethylene Glycol (Miralax) 1 pkt DAILYPRN PRN PO CONSTIPATION; Start at 11:45; Stop 08/19/16 at 11:44 Potassium Chloride (Micro-K Extencaps) 10 meq DAILY PO ; Start 07/18/16 at 09:00 ; Stop 07/18/16 at 09:00; Status DC Quetiapine Fumarate (SEROquel) 50 mg QHS PO Last administered on 07/17/16 21: 34; Start 07/17/16 at 21:00; Stop 07/18/16 at 11:19; Status DC Sodium Biphosphate/ Sodium Phosphate (Fleet Enema) 1 ENEMA Q12HP PRN [place] CONSTIPATION; Start 07/17/16 at 12:00; Stop 07/18/16 at 23:56; Status DC Sucralfate (Carafate) 1 gm BID PO Last administered on 07/17/16 21:34; Start 07/17/16 at 09:00; Stop 07/18/16 at 23:56; Status DC Sucralfate (Carafate) 1 gm BID PO Last administered on 07/27/16 08:57; Start at 21:00; Stop 08/19/16 at 20:59 Tramadol HCl (Ultram) 50 mg BIDP PRN PO PAIN; Start 07/17/16 at 11:15; Stop at 23:56; Status DC Tramadol HCl (Ultram) 50 mg Q6HP PRN PO MODERATE PAIN (PS 5-7) Last administered on 07/27/16 09:26; Start 07/20/16 at 11:45; Stop 07/31/16 at 11:00 Valsartan (Diovan) 320 mg DAILY PO Last administered on 07/17/16 13:07; Start 07/17/16 at 09:00; Stop 07/18/16 at 23:56; Status DC Valsartan (Diovan) 320 mg DAILY PO Last administered on 07/27/16 08:56; Start 07/21/16 at 09:00; Stop 08/20/16 at 08:59 Warfarin Sodium (Coumadin) 2.5 mg DAILY@17 PO Last administered on 07/26/16 16: 43; Start 07/23/16 at 17:00; Stop 07/29/16 at 16:59 Warfarin Sodium (Coumadin) 5 mg DAILY@1700 PO Last administered on 07/17/16 16 :28; Start 07/17/16 at 17:00; Stop 07/18/16 at 08:27; Status DC Zolpidem Tartrate (Ambien) 5 mg QHSP PRN PO SLEEP Last administered on 23:34; Start 07/24/16 at 09:30; Stop 07/31/16 at 09:29 HARMONY VALENTINE MD July 27, 2016 12:05
[2016-07-27 14:00] VITALS: BP 141/65
[2016-07-27] MEDS: ACETAMINOPHEN TAB 650MG DOSE (2X325MG) PO PRN ×2 (14:16→21:06)
[2016-07-27 20:00] VITALS: BP 162/77
[2016-07-27 20:41] VITALS: BP 158/78
[2016-07-27] MEDS: FERROUS SULFATE 325MG TAB PO SCH (21:05)
[2016-07-27] MEDS: ASCORBIC ACID 500 MG TAB PO SCH (21:05)
[2016-07-27] MEDS: zolPIDEM TARTRATE 5 MG TAB PO PRN (21:08)
[2016-07-28 06:00] VITALS: BP 158/82
[2016-07-28] MEDS: traMADol 50 MG TAB PO PRN (06:13)
[2016-07-28] MEDS: **hydrALAZINE** 10 MG TAB PO SCH (06:13)
[2016-07-28] MEDS: LEVOTHYROXINE 0.05 MG TAB (50 MCG) PO SCH (06:13)
[2016-07-28 07:04] LABS: INR 1.86
[2016-07-28] MEDS ORDERED: HYDROCORTISONE 1% CREAM 30 GM TOP SCH (09:00)
[2016-07-28] MEDS: SUCRALFATE 1 GM TAB PO SCH (09:02)
[2016-07-28] MEDS: PANTOPRAZOLE 20 MG TAB PO SCH (09:02)
[2016-07-28] MEDS: IMATINIB 400 MG PO SCH (09:02)
[2016-07-28] MEDS: DULoxetine 30 MG CAP (CYMBALTA) PO SCH (09:02)
[2016-07-28] MEDS: amLODIPine 5 MG TAB PO SCH (09:02)
[2016-07-28] MEDS: ASCORBIC ACID 500 MG TAB PO SCH (09:02)
[2016-07-28] MEDS: FERROUS SULFATE 325MG TAB PO SCH (09:02)
[2016-07-28 09:03] VITALS: BP 158/82
[2016-07-28] MEDS: FAMOTIDINE 20 MG TAB PO SCH (09:03)
[2016-07-28] MEDS: VALSARTAN 80 MG TAB (DIOVAN) PO SCH (09:03)
[2016-07-28] MEDS ORDERED: HYDR1CR TOP ×2 (09:53→09:54)
--- NOTE | 2016-07-28 21:49 | PMRDS ---
DATE OF ADMISSION: 07/17/2016 DATE OF DISCHARGE: 07/28/2016 With interrupted stay from 07/18/2016 to 07/20/2016, due to lethargy secondary to medications, i.e., Seroquel and oxycodone. DISCHARGE DIAGNOSIS: Rehabilitation of right hip fracture with right hemiarthroplasty. SECONDARY DIAGNOSES: 1. Chronic myelocytic leukemia. 2. Atherosclerotic cardiovascular disease including hypertension, hyperlipidemia, coronary artery disease, arrhythmia status post pacemaker. 3. History of rhabdomyolysis with the hip fracture. 4. Chronic anemia compounded with acute blood loss anemia from hip fracture. 5. Chronic kidney disease. 6. History of tubular adenoma of the colon. 7. Anxiety/depression. HISTORY: The patient was in her usual state of health at home and tripped, landing on her right side, fracturing her right hip. She was down for an unclear amount of time, leading to rhabdomyolysis. She was found by a family member and brought to [facility]. The patient then had right hip hemiarthroplasty on 07/16/2016, and was started in physical and occupational therapy, which she was doing well, and the patient was evaluated by the rehabilitation team and admission to the acute rehabilitation unit was scheduled for 07/17/2016. PROCEDURES ON THIS ADMISSION: None. DIAGNOSTIC LABORATORY DATA: Includes: Comprehensive metabolic panel showing some hyponatremia to start with that corrected, along with her chronic kidney disease with a BUN of 48 and creatinine of 2.37 on 07/18/2016. On 07/27/2016, sodium was 139, BUN had decreased to 40, still elevated, and creatinine decreased to 2.02, still elevated. The patient also with hypoalbuminemia with level at 2.2 on 07/18/2016. On 07/18/2016, hemoglobin and hematocrit were 9.6 and 30.5, however on recheck on 07/27/2016, hemoglobin had dropped to 7.0 and the hematocrit to 22.7. The patient was transfused two units of packed red blood cells and came up to 10.4 for hemoglobin and 31.5 for hematocrit. She has remained stable on two subsequent tests, including today at 10.1 for the hemoglobin and 31.5 for the hematocrit. The patient had been on heparin for anticoagulation to prevent deep venous thromboses (DVTs) and this was discontinued when patient was found to have dropped her hemoglobin and hematocrit on 07/27/2016, and at present her INR is 1.86 from this morning. HOSPITAL COURSE: The patient was admitted to the rehabilitation unit on 07/17/2016, and started in musculoskeletal rehabilitation with physical and occupational therapy evaluation along with rehabilitation nursing and podiatry. The patient, who had been on Seroquel at bedtime, was mildly sedated and then received oxycodone for analgesia and became very lethargic on 07/18/2016. She was seen by the hospitalist and transferred for evaluation, however no abnormal findings were found and patient was transferred back to the acute rehabilitation unit on 07/20/2016, to restart her acute intensive program. She had had the Seroquel discontinued, as well as transitioned away from oxycodone as a first line analgesic for low level pain and with this patient did not have problems with cognition, though some discomfort problems as her pain overall was managed with Tylenol and tramadol. However, the patient was able to make good, steady progress in ambulation, transfers, activities of daily living (ADLs), and was felt to be ready for discharge today, 07/28/2016, by the rehabilitation team when we met on 07/27/2016. DISCHARGE MEDICATIONS: - hydrocortisone 1% cream topically four times a day as needed to perianal tissues for pain and inflammation - acetaminophen 650 mg by mouth every 4 hours for mild pain or fever, not to exceed 3 grams per day - duloxetine 60 mg by mouth daily - gabapentin 300 mg by mouth three times a day - guanfacine 600 mg by mouth daily - hydralazine 10 mg by mouth every 8 hours - imatinib mesylate 400 mg daily - Synthroid 50 mcg daily - Protonix 40 mg daily - Zantac 150 mg daily - sucralfate 1 gram by mouth twice a day - tramadol 50 mg by mouth twice a day as needed for pain - valsartan 320 mg by mouth daily During the admission patient had Zofran and Coumadin stopped. DISCHARGE PLAN INSTRUCTIONS: Patient to follow hip precautions which requires that she will need to use a commode instead of a standard height toilet to avoid too much hip flexion. Front wheel walker and tub bench also ordered. The patient is to see her primary care, Abdirizak Florez, within 1-2 weeks, along with Dr. Peña for her various cancers and anemia within 2 weeks, and Dr. Wong Fernandez, her surgeon, within 2 weeks. COMPLICATIONS: Flare of patient's gastritis with drop in hemoglobin and hematocrit. As noted above, the patient needs in home care to have every other day complete blood counts (CBCs) sent to Abdirizak Florez for management. TIME SPENT ON DISCHARGE: Greater than 35 minutes.
== END 2016-07-28 13:12 | disposition home health service (06) | DRG 560 ==
LOC: M PM&R 10:45 → UNDODISIN 07-18 19:45
PROVIDERS: ADMIT Physical Medicine & Rehabilitation; ATTEND Physical Medicine & Rehabilitation
PROC: 30233N1 Transfusion of Nonautologous Red Blood Cells into Peripheral Vein, Percutaneous Approach (ICD-10-PCS; principal; 2016-07-27)
DX: S72.001D Fracture of unspecified part of neck of right femur, subsequent encounter for closed fracture with routine healing (principal); N17.9 Acute kidney failure, unspecified; C92.10 Chronic myeloid leukemia, BCR/ABL-positive, not having achieved remission; D62 Acute posthemorrhagic anemia; E87.1 Hypo-osmolality and hyponatremia; M62.82 Rhabdomyolysis; E03.9 Hypothyroidism, unspecified; K21.9 Gastro-esophageal reflux disease without esophagitis; I12.9 Hypertensive chronic kidney disease with stage 1 through stage 4 chronic kidney disease, or unspecified chronic kidney disease; R53.83 Other fatigue; T43.595A Adverse effect of other antipsychotics and neuroleptics, initial encounter; F32.9 Major depressive disorder, single episode, unspecified; F41.9 Anxiety disorder, unspecified; Z98.51 Tubal ligation status; Z95.0 Presence of cardiac pacemaker; Z91.018 Allergy to other foods; Z68.24 Body mass index [BMI] 24.0-24.9, adult; D12.6 Benign neoplasm of colon, unspecified; K22.70 Barrett's esophagus without dysplasia; M19.90 Unspecified osteoarthritis, unspecified site; N18.9 Chronic kidney disease, unspecified; Z79.82 Long term (current) use of aspirin; Z79.899 Other long term (current) drug therapy

== ENCOUNTER 2016-07-18 18:51 | Inpatient (IN) | payer OTHER ==
[~2016-07-18] VITALS: Ht 165.1 cm; Wt 63.3 kg
[2016-07-18] MEDS ORDERED: NS 1,000 ML IV SCH (18:56)
[2016-07-18] MEDS ORDERED: BISACODYL 10 MG SUPP PR PRN (19:00)
[2016-07-18] MEDS ORDERED: NALOXONE INJ 0.4 MG/1 ML VIAL (J2310) IV PRN (19:00)
[2016-07-18] MEDS ORDERED: MOM 30ML SUSPENSION UDC PO PRN (19:00)
[2016-07-18] MEDS ORDERED: MIRALAX *UNIT DOSE* 17GM PACKET PO PRN (19:00)
--- NOTE | 2016-07-18 19:10 | HPEPDOC ---
General Date of Admission Jul 18, 2016 at 18:58 Chief Complaint The patient is a 86-year-old female Transferred from PM&R because of lethargy. History of Present Illness Patient is an 86 year old female with a PMHx of HTN, CAD, Arrhythmia s /p pacemaker, Hypothyroidism, CML, Hx of Tubular adenoma of colon, Depression, Anxiety, Neuropathy, GERD and Recent history of rhabdomyolysis and post- operative anemia who presented to [facility] PM&R unit after she had an right hip surgery for a fracture. Patient was transferred over on 07/17/2016. Patient was noted to be very lethargic this morning after she had received her first dose of oxycodone HCL 5mg PO and Seroquel yesterday evening. She received Naloxone 0.1mg this morning, followed by 0.2 several hours later and 0.4mg at 2PM this afternoon. She had responded to each of the doses appropriately but they were short lived. Upon receiving Naloxone patient was able to respond to questions and noted that she had right hip pain. She was unable to answer any additional questions because of drowsiness. Additional information was acquired from the medical record. Home Medications Scheduled (Imatinib Mesylate) 400 Mg Tab, 400 MG PO DAILY, (Reported) (Valsartan/Hydrochlorothia 320-25 mg) 1 Tab Tab, 1 TAB PO DAILY, (Reported) Duloxetine Hcl (Duloxetine HCl) 60 Mg Cap, 60 MG PO DAILY, (Reported) Gabapentin (Neurontin) 300 Mg Cap, 300 MG PO TID, (Reported) Guaifenesin (Mucinex) 600 Mg Tab, 600 MG PO DAILY, (Reported) Levothyroxine Sodium (Synthroid) 50 Mcg Tab, 50 MCG PO DAILY, (Reported) Pantoprazole Sodium Sesquihydr (Protonix) 40 Mg Tab, 40 MG PO DAILY, (Reported) Potassium Chloride (Micro-K) 8 Meq Cap, 8 MEQ PO DAILY, (Reported) Quetiapine Fumerate (Seroquel) 50 Mg Tab, 50 MG PO QHS, (Reported) Ranitidine HCl (Zantac) 150 Mg Tab, 1 TAB PO DAILY, (Reported) Sucralfate (Carafate) 1 Gm Tab, 1 GM PO BID, (Reported) Warfarin Sod (Coumadin) 5 Mg Tab, 5 MG PO DAILY Zolpidem Tartrate (Zolpidem Tartrate) 5 Mg Tab, 5 MG PO QHS, (Reported) Scheduled PRN Acetaminophen (Tylenol) 325 Mg Tab, 650 MG PO Q4HP PRN for MILD PAIN OR FEVER, ( Reported) Acetaminophen/Hydrocodone ([place], Anexsia 5/325) 1 Tab Tab, 1 TAB PO Q4HP PRN for MODERATE PAIN (PS 5-7) Ondansetron HCl (Ondansetron HCl) 8 Mg Tab, 8 MG PO TID PRN for NAUSEA, ( Reported) Tramadol HCl (Tramadol HCl) 50 Mg Tab, 50 MG PO BID PRN for PAIN, (Reported) Allergies Coded Allergies: Mushroom (Verified Adverse Reaction, Mild, vomiting, 06/17/16) Past Medical History Medical History HTN, CAD, Arrhythmia s/p pacemaker, Hypothyroidism, CML, Hx of Tubular adenoma of colon, Depression, Anxiety, Neuropathy, GERD and Recent history of rhabdomyolysis and post-operative anemia Surgical History Bladder sling Tubal ligation Varicose vein surgery Bilateral cataract surgery Family History - Non-contributory Social History - Unable to be obtained Review of Symptoms Other systems - Unable to obtained because patient is lethargic Vital Signs - Vitals: BP 151/75, HR 82, RR 18, Sat 96%RA, Temp 99.0F - General: Lying in bed, Drowsy, Oriented to person / place / time - HEENT: NC, AT, Pin point pupils but reactive - CVS: RRR, +S1S2 - Lungs: Fair air entry bilaterally, Clear to auscultation, No wheezing / rales / rhonchi - Abdomen: Soft, Non-distended, Non-tender, + Bowel sounds x 4 - Extremities: + PPx4, No lower extremity edema, No calf tenderness - Neuro: Moving all four extremities; Right hip pain - Skin: No visible rashes Plan / VTE VTE Prophylaxis Ordered?: Yes Plan Plan Lethargy likely 2/2 medications 2/2 opiates and Seroquel - Occurred this morning after receiving her first doses yesterday night - Was found to be lethargic and drowsy - Responded to several doses of Naloxone that were given throughout the day - Still remains drowsy after Naloxone effects wear off - Hemodynamically stable and respiratory rate adequate - ABG acquired which does not reveal any respiratory distress - Cardiac enzymes are negative - Will transfer to PCU for cardiac monitoring and continuous pulse oximetry - Will avoid opiate mediations and Seroquel at this time - Will hold Gabapentin for now Fracture of right femoral neck s/p surgery - Orthopedic surgery has evaluated patient - Will c/w physical therapy - INR of 1.96 - On Coumadin for DVT prophylaxis Anemia - Hg appears to be at baseline - will monitor for now Acute on Chronic Kidney Disease - Cr baseline of 1.9-2.0 - Currently at 2.3 - Will start gentle IV fluid hydration Chronic myelocytic leukemia - c/w Imatinib (home med) Hypothyroidism - c/w synthroid HTN - c/w Valsartan and Hydralazine with holding parameters CAD - not on aspirin - will start ASA 81 Arrhythmia s/p pacemaker Depression & Anxiety - c/w Duloxetine - will stop Quetiapine Neuropathy - will hold Gabapentin in setting of lethargy GERD - c/w famotidine and sucralfate DVT prophylaxis - On full anticoagulation with Coumadin RAY JANSEN MD Jul 18, 2016 19:10
[2016-07-18 19:50] VITALS: BP 142/69
[2016-07-18 20:00] VITALS: O2SAT 97
[2016-07-18 20:46] LABS: BASO % 0.1 % (0.0-1.0); EOS # 0.1 K/mm3 (0.0-0.50); LARGE UNSTAINED CELL # 0.1 K/mm3 (0.0-0.4); LARGE UNSTAINED CELL % 1.6 % (0.0-4.0); LYMPH # 0.6 K/mm3 (1.5-4.5); LYMPH % 7.6 % (24.0-44.0); MEAN CORPUSCULAR HEMOGLOBIN 30.6 pg (27.0-33.0); MEAN CORPUSCULAR HGB CONC 32.1 g/dl (32.0-36.5); MEAN CORPUSCULAR VOLUME 95.2 fl (80.0-96.0); MONO # 0.6 K/mm3 (0.0-0.8); MONO % 6.6 % (0.0-5.0); NEUTROPHILS % 83.1 % (36.0-66.0); PLATELET COUNT, AUTOMATED 219 k/mm3 (150-450); RED CELL DISTRIBUTION WIDTH 15.2 % (11.5-14.5); WHITE BLOOD COUNT 8.4 K/mm3 (4.0-10.0)
[2016-07-18 20:51] LABS: INR 1.97
[2016-07-18 21:09] LABS: ALBUMIN 2.3 GM/DL (3.2-5.2); ALBUMIN/GLOBULIN RATIO 0.66 (1.00-1.93); BILIRUBIN,TOTAL 0.4 MG/DL (0.2-1.0); CALCIUM LEVEL 8.5 MG/DL (8.8-10.2); CREATININE FOR GFR 2.37 MG/DL (0.55-1.02); GLOMERULAR FILTRATION RATE 20.7 (>32); TOTAL PROTEIN 5.8 GM/DL (6.4-8.2)
[2016-07-18 21:28] LABS: POTASSIUM SERUM 5.5 MEQ/L (3.5-5.1)
[2016-07-18] MEDS: SUCRALFATE 1 GM TAB PO SCH (21:37)
[2016-07-18] MEDS: **hydrALAZINE** 10 MG TAB PO SCH (21:38)
[2016-07-18 23:59] VITALS: BP 160/72
[2016-07-19] VITALS (8 sets, daily range): BP systolic 118–173; BP diastolic 58–84; O2SAT 97–98
[2016-07-19 03:15] LABS: BASO % 0.4 % (0.0-1.0); EOS # 0.2 K/mm3 (0.0-0.50); EOS % 3.2 % (0.0-3.0); LARGE UNSTAINED CELL # 0.1 K/mm3 (0.0-0.4); LARGE UNSTAINED CELL % 1.4 % (0.0-4.0); LYMPH # 1.1 K/mm3 (1.5-4.5); MEAN CORPUSCULAR HEMOGLOBIN 29.9 pg (27.0-33.0); MEAN CORPUSCULAR HGB CONC 31.8 g/dl (32.0-36.5); MEAN CORPUSCULAR VOLUME 94.1 fl (80.0-96.0); MONO # 0.6 K/mm3 (0.0-0.8); NEUTROPHILS # 5.7 K/mm3 (1.8-7.7); PLATELET COUNT, AUTOMATED 216 k/mm3 (150-450); RED CELL DISTRIBUTION WIDTH 15.4 % (11.5-14.5); WHITE BLOOD COUNT 7.7 K/mm3 (4.0-10.0)
[2016-07-19 03:34] LABS: ALBUMIN 2.1 GM/DL (3.2-5.2); ALBUMIN/GLOBULIN RATIO 0.7 (1.00-1.93); BILIRUBIN,TOTAL 0.4 MG/DL (0.2-1.0); CREATININE FOR GFR 2.29 MG/DL (0.55-1.02); GLOMERULAR FILTRATION RATE 21.6 (>32); MAGNESIUM LEVEL 2.3 MG/DL (1.8-2.4); TOTAL PROTEIN 5.1 GM/DL (6.4-8.2)
[2016-07-19] MEDS: LEVOTHYROXINE 0.05 MG TAB (50 MCG) PO SCH (05:28)
[2016-07-19] MEDS: ACETAMINOPHEN TAB 650MG DOSE (2X325MG) PO PRN ×3 (05:28→14:29)
[2016-07-19] MEDS: **hydrALAZINE** 10 MG TAB PO SCH ×3 (05:28→22:25)
[2016-07-19] MEDS: DULoxetine 30 MG CAP (CYMBALTA) PO SCH (09:12)
[2016-07-19] MEDS: ASPIRIN 81 MG ENTERIC TAB PO SCH (09:12)
[2016-07-19] MEDS: VALSARTAN 80 MG TAB (DIOVAN) PO SCH (09:12)
[2016-07-19] MEDS: SUCRALFATE 1 GM TAB PO SCH ×2 (09:12→22:24)
[2016-07-19] MEDS: PANTOPRAZOLE 40MG TAB (PROTONIX) PO SCH (09:12)
[2016-07-19] MEDS: FAMOTIDINE 20 MG TAB PO SCH (09:12)
[2016-07-19] MEDS: traMADol 50 MG TAB PO PRN ×2 (09:15→22:25)
--- NOTE | 2016-07-19 11:44 | ECGEPIP ---
Stationary ECG Study [facility] Test Date: 2016-07-18 Pat Name: PHUONG ARZOLA Department: Room: [place] [address] Gender: F Eye Technician: : [id number] Requested By: RAY JANSEN Order Number: [id number] Reading MD: Antoine Anderson Measurements Intervals [place] Rate: 93 P: 36 VT: 137 QRS: 56 QRSD: 116 T: 17 QT: 337 QTc: 420 Interpretive Statements Normal sinus rhythm Right bundle branch block Nonspecific T-wave abnormalities likely related to right bundle branch block Compared to prior tracing of 07/14/2016, pacemaker activity is not evident on this tracing Electronically Signed On 07-19-2016 11:43:52 EDT by Antoine Anderson
--- NOTE | 2016-07-19 14:43 | IPNPDOC ---
Subjective Date Seen The patient was seen on 07/19/16. Subjective Chief Complaint/HPI The patient is a 86-year-old female admitted with a reason for visit of Decrease Responsiveness. Events since last encounter pt seen and examined appears awake alert and oriented X3, she didn't require any more Narcan overnight, Objective Physical Examination General Exam: Positive: No Acute Distress Eye Exam: Positive: PERRLA, Conjunctiva & lids normal Chest Exam: Positive: Clear to auscultation, Normal air movement Heart Exam: Positive: Rate Normal, Normal S1, Normal S2, Negative: Rubs Abdomen Exam: Positive: Normal bowel sounds, Soft, Negative: Tenderness, Hepatospenomegaly Extremity Exam: Positive: Normal pulses, Tenderness, Negative: Clubbing, Cyanosis, Edema Assessment /Plan Problems (1) Lethargic Status: Resolved Problem Text: * pt was lethargic 07/18 while on PMR * she was given a total of 0.6 mg of narcan * she was transferred to pcu for observation * now she is alert oriented, awake * will move pt to med/surg * discontinued her norco, and Seroquel (2) Fracture of femoral neck, right, closed Status: Acute Response to Treatment: Stable (3) Fall on same level Status: Acute Response to Treatment: Stable (4) Anemia Status: Chronic Response to Treatment: Stable (5) CKD (chronic kidney disease) Status: Chronic Response to Treatment: Stable (6) CML (chronic myelocytic leukemia) Status: Chronic (7) HTN (hypertension) Status: Chronic (8) GERD (gastroesophageal reflux disease) Status: Chronic (9) Hypothyroidism Status: Chronic Plan/VTE VTE Prophylaxis Ordered?: Yes Plan/Urinary Catheter Reason for insertion/continuin: Acute obstruct/retention VS, I&O, 24H, Fishbone Vital Signs/I&O Vital Signs Date Time Temp Pulse Resp B/P (MAP) Pulse Ox O2 Delivery O2 Flow Rate FiO2 07/19/16 12:00 98.9 87 18 155/74 (101) 96 Room Air I&O- Last 24 Hours up to 6 AM 07/19/16 05:59 Intake Total 720 ml Output Total 750 ml Balance -30 ml Laboratory Data 24H LABS Laboratory Tests 2 07/18/16 20:16: White Blood Count 8.4, Red Blood Count 3.18L, Hemoglobin 9.7L, Hematocrit 30.3L , Mean Corpuscular Volume 95.2, Mean Corpuscular Hemoglobin 30.6, Mean Corpuscular Hemoglobin Concent 32.1, Red Cell Distribution Width 15.2H, Platelet Count 219, Neutrophils (%) (Auto) 83.1H, Lymphocytes (%) (Auto) 7.6L, Monocytes (%) (Auto) 6.6H, Eosinophils (%) (Auto) 1.0, Basophils (%) (Auto) 0.1 , Neutrophils # (Auto) 7.0, Lymphocytes # (Auto) 0.6L, Monocytes # (Auto) 0.6, Eosinophils # (Auto) 0.1, Basophils # (Auto) 0.0, Large Unclassified Cells % 1.6 , Large Unclassified Cells # 0.1, Prothrombin Time 22.5H, Prothromb Time International Ratio 1.97, Anion Gap 7L, Glomerular Filtration Rate 20.7L, Blood Urea Nitrogen 51H, Creatinine 2.37H, Sodium Level 132L, Potassium Level 5.5H, Chloride Level 100, Carbon Dioxide Level 25, Calcium Level 8.5L, Aspartate Amino Transf (AST/SGOT) 52H, Alanine Aminotransferase (ALT/SGPT) 20, Total Creatine Kinase 305H, Alkaline Phosphatase 86, Total Bilirubin 0.4, Total Protein 5.8L, Albumin 2.3L, Creatine Kinase MB 4.7H, Creatine Kinase MB Relative Index 1.54, Troponin I 0.04#, Albumin/Globulin Ratio 0.66L 07/19/16 02:56: White Blood Count 7.7, Red Blood Count 2.88L, Hemoglobin 8.6L, Hematocrit 27.1L , Mean Corpuscular Volume 94.1, Mean Corpuscular Hemoglobin 29.9, Mean Corpuscular Hemoglobin Concent 31.8L, Red Cell Distribution Width 15.4H, Platelet Count 216, Neutrophils (%) (Auto) 74.0H, Lymphocytes (%) (Auto) 13.0L, Monocytes (%) (Auto) 8.0H, Eosinophils (%) (Auto) 3.2H, Basophils (%) (Auto) 0.4 , Neutrophils # (Auto) 5.7, Lymphocytes # (Auto) 1.1L, Monocytes # (Auto) 0.6, Eosinophils # (Auto) 0.2, Basophils # (Auto) 0.0, Large Unclassified Cells % 1.4 , Large Unclassified Cells # 0.1, Anion Gap 7L, Glomerular Filtration Rate 21.6L , Blood Urea Nitrogen 51H, Creatinine 2.29H, Sodium Level 133L, Potassium Level 5.0, Chloride Level 101, Carbon Dioxide Level 25, Calcium Level 8.0L, Aspartate Amino Transf (AST/SGOT) 57H, Alanine Aminotransferase (ALT/SGPT) 23, Total Creatine Kinase 220H, Alkaline Phosphatase 78, Total Bilirubin 0.4, Total Protein 5.1L, Albumin 2.1L, Creatine Kinase MB 3.2, Creatine Kinase MB Relative Index 1.45, Troponin I 0.05#, Albumin/Globulin Ratio 0.70L, Magnesium Level 2.3 07/19/16 11:12: Total Creatine Kinase 185, Creatine Kinase MB 2.2, Creatine Kinase MB Relative Index 1.18, Troponin I 0.04 CBC/BMP Laboratory Tests 07/18/16 20:16 Red Blood Count 3.18 L, Mean Corpuscular Volume 95.2, Mean Corpuscular Hemoglobin 30.6, Mean Corpuscular Hemoglobin Concent 32.1, Red Cell Distribution Width 15.2 H, Neutrophils (%) (Auto) 83.1 H, Lymphocytes (%) (Auto ) 7.6 L, Monocytes (%) (Auto) 6.6 H, Eosinophils (%) (Auto) 1.0, Basophils (%) ( Auto) 0.1, Neutrophils # (Auto) 7.0, Lymphocytes # (Auto) 0.6 L, Monocytes # ( Auto) 0.6, Eosinophils # (Auto) 0.1, Basophils # (Auto) 0.0, Calcium Level 8.5 L , Aspartate Amino Transf (AST/SGOT) 52 H, Alanine Aminotransferase (ALT/SGPT) 20 , Total Creatine Kinase 305 H, Alkaline Phosphatase 86, Total Bilirubin 0.4, Total Protein 5.8 L, Albumin 2.3 L 07/19/16 02:56 Red Blood Count 2.88 L, Mean Corpuscular Volume 94.1, Mean Corpuscular Hemoglobin 29.9, Mean Corpuscular Hemoglobin Concent 31.8 L, Red Cell Distribution Width 15.4 H, Neutrophils (%) (Auto) 74.0 H, Lymphocytes (%) (Auto ) 13.0 L, Monocytes (%) (Auto) 8.0 H, Eosinophils (%) (Auto) 3.2 H, Basophils (% ) (Auto) 0.4, Neutrophils # (Auto) 5.7, Lymphocytes # (Auto) 1.1 L, Monocytes # (Auto) 0.6, Eosinophils # (Auto) 0.2, Basophils # (Auto) 0.0, Calcium Level 8.0 L, Aspartate Amino Transf (AST/SGOT) 57 H, Alanine Aminotransferase (ALT/SGPT) 23, Total Creatine Kinase 220 H, Alkaline Phosphatase 78, Total Bilirubin 0.4, Total Protein 5.1 L, Albumin 2.1 L RORY WALLACE DO Jul 19, 2016 14:43
[2016-07-19] MEDS ORDERED: WARFARIN SOD 2.5 MG TAB PO ONE (17:00)
[2016-07-19] MEDS ORDERED: WARFARIN SOD 2.5 MG TAB PO SCH (17:00)
[2016-07-19 19:24] LABS: INR 1.79
[2016-07-20 06:00] VITALS: BP 141/70
[2016-07-20] MEDS: ACETAMINOPHEN TAB 650MG DOSE (2X325MG) PO PRN (06:30)
[2016-07-20] MEDS: **hydrALAZINE** 10 MG TAB PO SCH (06:30)
[2016-07-20] MEDS: LEVOTHYROXINE 0.05 MG TAB (50 MCG) PO SCH (06:30)
[2016-07-20 07:17] LABS: BASO % 0.8 % (0.0-1.0); EOS # 0.3 K/mm3 (0.0-0.50); EOS % 5.5 % (0.0-3.0); LARGE UNSTAINED CELL # 0.1 K/mm3 (0.0-0.4); LYMPH % 14.2 % (24.0-44.0); MEAN CORPUSCULAR HEMOGLOBIN 29.9 pg (27.0-33.0); MEAN CORPUSCULAR HGB CONC 31.8 g/dl (32.0-36.5); MEAN CORPUSCULAR VOLUME 93.8 fl (80.0-96.0); MONO # 0.5 K/mm3 (0.0-0.8); MONO % 7.5 % (0.0-5.0); NEUTROPHILS # 4.4 K/mm3 (1.8-7.7); NEUTROPHILS % 70.1 % (36.0-66.0); PLATELET COUNT, AUTOMATED 273 k/mm3 (150-450); RED CELL DISTRIBUTION WIDTH 15.4 % (11.5-14.5); WHITE BLOOD COUNT 6.2 K/mm3 (4.0-10.0)
[2016-07-20 07:48] LABS: ALBUMIN 2.1 GM/DL (3.2-5.2); ALBUMIN/GLOBULIN RATIO 0.88 (1.00-1.93); BILIRUBIN,TOTAL 0.4 MG/DL (0.2-1.0); CALCIUM LEVEL 7.8 MG/DL (8.8-10.2); CREATININE FOR GFR 2.52 MG/DL (0.55-1.02); GLOMERULAR FILTRATION RATE 19.3 (>32); MAGNESIUM LEVEL 2.5 MG/DL (1.8-2.4); POTASSIUM SERUM 5.1 MEQ/L (3.5-5.1); TOTAL PROTEIN 4.5 GM/DL (6.4-8.2)
[2016-07-20] MEDS ORDERED: HYDR10TAB PO (08:44)
[2016-07-20] MEDS ORDERED: DIOV320T PO (09:06)
[2016-07-20] MEDS: DULoxetine 30 MG CAP (CYMBALTA) PO SCH (09:07)
[2016-07-20] MEDS: SUCRALFATE 1 GM TAB PO SCH (09:07)
[2016-07-20] MEDS: ASPIRIN 81 MG ENTERIC TAB PO SCH (09:07)
[2016-07-20] MEDS: FAMOTIDINE 20 MG TAB PO SCH (09:07)
[2016-07-20 09:08] VITALS: BP 141/84
[2016-07-20] MEDS: VALSARTAN 80 MG TAB (DIOVAN) PO SCH (09:08)
[2016-07-20] MEDS: PANTOPRAZOLE 40MG TAB (PROTONIX) PO SCH (09:08)
[2016-07-20 09:34] LABS: INR 2.39
--- NOTE | 2016-07-20 15:26 | DSES ---
DATE OF ADMISSION: 07/18/2016 DATE OF DISCHARGE: 07/20/2016 DISCHARGE DIAGNOSES: 1. Lethargy secondary to medications, resolved. 2. Fracture of femoral neck, right. 3. Fall. 4. Anemia. 5. Chronic kidney disease. 6. Chronic myelocytic leukemia. 7. Hypertension. 8. Hypothyroidism. 9. Coronary artery disease. 10. Arrhythmia status post pacemaker 11. History of tubular adenoma of the colon. 12. Depression. 13. Anxiety. 14. History of rhabdomyolysis. DISCHARGE MEDICATIONS: - hydralazine 10 mg by mouth every 8 hours - Diovan 320 mg by mouth daily - Tylenol 650 mg by mouth every 4 hours as needed - duloxetine 60 mg by mouth daily - gabapentin 300 mg by mouth three times daily - Mucinex 600 mg by mouth daily - imatinib 400 mg by mouth daily - Synthroid 50 mcg by mouth daily - ondansetron 8 mg by mouth three times a day as needed - Protonix 40 mg by mouth daily - ranitidine one tablet by mouth daily - Carafate 1 gram by mouth twice daily - tramadol 50 mg by mouth twice daily as needed - Coumadin 5 mg by mouth daily DISCONTINUED MEDICATIONS: - [place] one tablet by mouth every 4 hours as needed - potassium chloride 8 mEq by mouth daily. - Seroquel 50 mg by mouth at night - valsartan/hydrochlorothiazide one tablet by mouth daily - zolpidem tartrate 5 mg by mouth at night BRIEF HOSPITAL COURSE: The patient was admitted to the physical medicine and rehabilitation (PM R) unit after having right hip surgery for fractured right hip. She was transferred to the acute floor secondary to lethargy after receiving a dose of oxycodone. She had also received Seroquel the night prior. She received several doses of Narcan with good response. Her mentation returned back to baseline. All sedative medications were held and/or avoided. She did not have any acute complaints on the day of discharge. On day of discharge she denied any chest pain, shortness of breath, palpitations, lightheadedness or dizziness, nausea, vomiting, diarrhea, abdominal pain. Mentation is at baseline. She is ready to be discharged back to the PM R unit. She states that she thinks she has several weeks of physical therapy left. LABORATORY DATA: On discharge: WBC 6.2, hemoglobin 8.6, hematocrit 27.0, platelet count 273, sodium 134, potassium 5.1, chloride 102, carbon dioxide 25, anion gap 7, BUN 57, creatinine 2.5, GFR 19, fasting glucose 99, calcium 7.8, magnesium 2.5, total bilirubin 0.4, AST 67, ALT 35, alkaline phosphatase 85, total protein 4.5, albumin 2.1, PT 26.1, INR 2.39. PHYSICAL EXAMINATION ON DISCHARGE: VITAL SIGNS: Temperature 99.0, pulse 84, respiratory rate 16, blood pressure 141/84, pulse oximetry 94% on room air. GENERAL: The patient is awake and alert. In no acute distress. HEENT: Normocephalic, atraumatic. Extraocular muscles are intact. Moist mucosa. NECK: Supple. No cervical lymphadenopathy. No thyromegaly appreciated. HEART: Normal S1 and S2, regular rate and rhythm. LUNGS: Clear to auscultation bilaterally. No rales, rhonchi or wheezing. ABDOMEN: Soft, nontender, nondistended. Positive bowel sounds. EXTREMITIES: No cyanosis or edema. Positive pedal pulses bilaterally. SKIN: Warm and dry. No rashes noted. NEUROLOGIC: No focal deficits. Cranial nerves II-XII are grossly intact. Motor and sensation intact. DISCHARGE INSTRUCTIONS: The patient is discharged back to PM R. No added salt diet. Activity as tolerated, per physical therapy. She is to followup with her primary care physician within 7-10 days, unless she remains in the unit, then followup once discharged. Time spent on discharge 30 minutes. My preceptor for this patient encounter was Dr. Elin Cavanaugh. The preceptor was physically present in the building during the encounter and was fully available. As needed, all aspects of the patient interview, examination, medical decision making process, and medical care plan development were reviewed and approved by the preceptor. The preceptor is aware and concurs with the plan as stated in the body of this note and will attest to such by her cosignature.
== END 2016-07-20 10:20 | DRG 948 ==
LOC: M PCU 18:58 → M MS5PR 07-19 13:35
PROVIDERS: ADMIT Internal Medicine; ATTEND Internal Medicine
DX: R53.83 Other fatigue (principal); C92.10 Chronic myeloid leukemia, BCR/ABL-positive, not having achieved remission; T40.2X5A Adverse effect of other opioids, initial encounter; T43.595A Adverse effect of other antipsychotics and neuroleptics, initial encounter; S72.001D Fracture of unspecified part of neck of right femur, subsequent encounter for closed fracture with routine healing; I12.9 Hypertensive chronic kidney disease with stage 1 through stage 4 chronic kidney disease, or unspecified chronic kidney disease; E03.9 Hypothyroidism, unspecified; F41.9 Anxiety disorder, unspecified; F32.9 Major depressive disorder, single episode, unspecified; D64.9 Anemia, unspecified; N18.9 Chronic kidney disease, unspecified; I25.10 Atherosclerotic heart disease of native coronary artery without angina pectoris; Z95.0 Presence of cardiac pacemaker; Z79.899 Other long term (current) drug therapy; Z79.01 Long term (current) use of anticoagulants; Z91.018 Allergy to other foods

== ENCOUNTER 2016-08-12 14:09 | Outpatient (CLI) | payer OTHER ==
[~2016-08-12] VITALS: Ht 152.4 cm; Wt 55.4 kg
[2016-08-12 14:40] VITALS: BP 137/66
[2016-08-12] MEDS ORDERED: ACETAMINOPHEN TAB 650MG DOSE (2X325MG) PO ONE (15:00)
[2016-08-12] MEDS ORDERED: diphenhydrAMINE 50 MG CAP PO ONE (15:00)
[2016-08-12] MEDS ORDERED: FUROSEMIDE 20 MG/2 ML VIAL (J1940) IV SCH (15:00)
== END 2016-08-12 16:18 | disposition home or self-care (01) ==
LOC: M OPCLI4PV 14:09 → M MSPAV 14:13 → M OPCLI4PV 16:18
PROVIDERS: ATTEND Internal Medicine Medical Oncology
DX: D50.9 Iron deficiency anemia, unspecified (principal); N18.9 Chronic kidney disease, unspecified; D63.8 Anemia in other chronic diseases classified elsewhere

== ENCOUNTER → 2016-08-12 | Outpatient (REF) | payer OTHER ==
[~2016-08-12] MED LIST changes: +DIOV320T PO; +HYDR10TAB PO; +HYDR1CR TOP
== END ==
LOC: M LAB REF 14:08
PROVIDERS: ATTEND Internal Medicine Medical Oncology
DX: N18.9 Chronic kidney disease, unspecified (principal); D63.8 Anemia in other chronic diseases classified elsewhere; D50.9 Iron deficiency anemia, unspecified

== ENCOUNTER 2016-08-13 10:27 | Outpatient (CLI) | payer OTHER ==
[~2016-08-13] VITALS: Ht 152.4 cm; Wt 47.7 kg
[~2016-08-13 10:27] MED LIST changes: +ACETAMINOPHEN TAB 650MG DOSE (2X325MG) PO SCH; +diphenhydrAMINE 25 MG CAP PO SCH
[2016-08-13 13:41] VITALS: BP 150/69
[2016-08-13] MEDS: FUROSEMIDE 20 MG/2 ML VIAL (J1940) IV SCH ×2 (17:34→19:50)
== END 2016-08-13 20:49 | disposition home or self-care (01) ==
LOC: M OPCLI4 10:27 → M MSPAV 10:32 → M OPCLI4 20:49
PROVIDERS: ATTEND Internal Medicine Medical Oncology
DX: D50.9 Iron deficiency anemia, unspecified (principal); N18.9 Chronic kidney disease, unspecified; D63.8 Anemia in other chronic diseases classified elsewhere; Z91.018 Allergy to other foods; Z79.899 Other long term (current) drug therapy
CPT/HCPCS: 36415; 36430; 86850; 86870; 86900; 86901; 86920; J1940; P9016

== ENCOUNTER → 2016-08-18 | Outpatient (REF) | payer OTHER ==
[~2016-08-18] MED LIST changes: -ACETAMINOPHEN TAB 650MG DOSE (2X325MG) PO SCH; -diphenhydrAMINE 25 MG CAP PO SCH
[2016-08-18 18:44] LABS: PERCENT SATURATION 23.8 % (13.2-37.4)
== END ==
LOC: M LAB REF 16:43
PROVIDERS: ATTEND Internal Medicine Medical Oncology
DX: C92.10 Chronic myeloid leukemia, BCR/ABL-positive, not having achieved remission (principal); D50.9 Iron deficiency anemia, unspecified

== ENCOUNTER → 2016-09-08 | Outpatient (REF) | payer OTHER | LOC: M LAB REF 12:30 | PROVIDERS: ATTEND Internal Medicine Medical Oncology | DX: D50.9 Iron deficiency anemia, unspecified (principal); N18.9 Chronic kidney disease, unspecified; D63.1 Anemia in chronic kidney disease ==

== ENCOUNTER 2016-09-09 08:23 | Outpatient (CLI) | payer OTHER ==
[~2016-09-09] VITALS: Ht 152.4 cm; Wt 52.3 kg
[~2016-09-09 08:23] MED LIST changes: +diphenhydrAMINE 25 MG CAP PO ONE
[2016-09-09] MEDS ORDERED: ACETAMINOPHEN TAB 650MG DOSE (2X325MG) PO ONE (08:30)
[2016-09-09] MEDS: FUROSEMIDE 20 MG/2 ML VIAL (J1940) IV SCH ×2 (10:34→12:40)
== END 2016-09-09 13:00 | disposition home or self-care (01) ==
LOC: M INFU 08:23
PROVIDERS: ATTEND Internal Medicine Medical Oncology
DX: D50.9 Iron deficiency anemia, unspecified (principal); Z95.0 Presence of cardiac pacemaker; Z79.899 Other long term (current) drug therapy
CPT/HCPCS: 36430; J1940; P9016

== ENCOUNTER → 2016-10-01 | Outpatient (REF) | payer OTHER ==
[~2016-10-01] MED LIST changes: -GUAI60TA PO; -HYDR1CR TOP; +HYDR1CRE2 TOP; +MUCI600T31 PO; -ONDA1TAB16 PO; +ONDA8TAB7 PO; +TRAZ50TA11 PO; -TRAZ50TA4 PO; -diphenhydrAMINE 25 MG CAP PO ONE
[2016-10-01 16:21] LABS: PERCENT SATURATION 32.3 % (13.2-37.4)
== END ==
LOC: M LAB REF 15:03
PROVIDERS: ATTEND Internal Medicine Medical Oncology
DX: D50.9 Iron deficiency anemia, unspecified (principal)

== ENCOUNTER → 2016-10-02 | Outpatient (CLI) | payer OTHER ==
[~2016-10-02] MED LIST changes: +ACETAMINOPHEN 325 MG TAB As Ordered ONE; +ACETAMINOPHEN TAB 650MG DOSE (2X325MG) PO SCH; +FUROSEMIDE 20 MG/2 ML VIAL (J1940) As Ordered ONE; +FUROSEMIDE 20 MG/2 ML VIAL (J1940) IV ONE; +diphenhydrAMINE 25 MG CAP As Ordered ONE; +diphenhydrAMINE 25 MG CAP PO SCH
[2016-10-02 12:37] VITALS: BP 188/88
== END ==
LOC: M RROUT 11:46
PROVIDERS: ATTEND Nurse Practitioner Family
DX: D50.9 Iron deficiency anemia, unspecified (principal)
CPT/HCPCS: 36430; J1940; P9016

== ENCOUNTER → 2016-10-07 | Outpatient (REF) | payer OTHER ==
[~2016-10-07] MED LIST changes: -ACETAMINOPHEN 325 MG TAB As Ordered ONE; -ACETAMINOPHEN TAB 650MG DOSE (2X325MG) PO SCH; -FUROSEMIDE 20 MG/2 ML VIAL (J1940) As Ordered ONE; -FUROSEMIDE 20 MG/2 ML VIAL (J1940) IV ONE; -diphenhydrAMINE 25 MG CAP As Ordered ONE; -diphenhydrAMINE 25 MG CAP PO SCH
== END ==
LOC: M LAB REF 16:37
PROVIDERS: ATTEND Internal Medicine Medical Oncology
DX: C92.10 Chronic myeloid leukemia, BCR/ABL-positive, not having achieved remission (principal); Z79.899 Other long term (current) drug therapy

== ENCOUNTER → 2016-11-05 | Outpatient (REF) | payer OTHER ==
[2016-11-05 18:17] LABS: PERCENT SATURATION 42.4 % (13.2-45.0)
== END ==
LOC: M LAB REF 17:34
PROVIDERS: ATTEND Internal Medicine Medical Oncology
DX: D50.9 Iron deficiency anemia, unspecified (principal); C92.10 Chronic myeloid leukemia, BCR/ABL-positive, not having achieved remission

== ENCOUNTER → 2016-12-21 | Outpatient (REF) | payer OTHER ==
[2016-12-21 21:47] LABS: PERCENT SATURATION 25.7 % (13.2-45.0)
== END ==
LOC: M LAB REF 16:32
PROVIDERS: ATTEND Internal Medicine Medical Oncology
DX: C92.10 Chronic myeloid leukemia, BCR/ABL-positive, not having achieved remission (principal); D64.9 Anemia, unspecified

== ENCOUNTER → 2016-12-21 | Outpatient (REF) | payer OTHER | LOC: M LAB REF 16:23 | PROVIDERS: ATTEND Internal Medicine Medical Oncology | DX: D64.9 Anemia, unspecified (principal); C92.10 Chronic myeloid leukemia, BCR/ABL-positive, not having achieved remission ==

== ENCOUNTER 2016-12-22 12:06 | Outpatient (CLI) | payer OTHER ==
[~2016-12-22] VITALS: Ht 152.4 cm; Wt 47.7 kg
[~2016-12-22 12:06] MED LIST changes: +ACETAMINOPHEN TAB 650MG DOSE (2X325MG) PO SCH; +diphenhydrAMINE 25 MG CAP PO SCH
[2016-12-22] MEDS ORDERED: FUROSEMIDE 20 MG/2 ML VIAL (J1940) IV ONE (14:00)
== END 2016-12-22 16:55 | disposition home or self-care (01) ==
LOC: M INFU 12:06
PROVIDERS: ATTEND Internal Medicine Medical Oncology
DX: D64.9 Anemia, unspecified (principal); Z95.0 Presence of cardiac pacemaker; Z96.1 Presence of intraocular lens; C92.10 Chronic myeloid leukemia, BCR/ABL-positive, not having achieved remission; Z92.21 Personal history of antineoplastic chemotherapy; Z91.018 Allergy to other foods; Z79.899 Other long term (current) drug therapy
CPT/HCPCS: 36430; J1940; P9016

== ENCOUNTER 2017-01-20 14:37 | Outpatient (CLI) | payer OTHER ==
[2017-01-20] MEDS ORDERED: FUROSEMIDE 20 MG/2 ML VIAL (J1940) IV ONE (16:00)
[2017-01-20 17:00] VITALS: BP 198/100
[2017-01-20 17:15] VITALS: BP 190/90
== END 2017-01-20 18:18 | disposition home or self-care (01) ==
LOC: M OPCLI4PV 14:37 → M MSPAV 14:42 → M OPCLI4PV 18:18
PROVIDERS: ATTEND Internal Medicine Medical Oncology
DX: D64.9 Anemia, unspecified (principal); Z53.9 Procedure and treatment not carried out, unspecified reason

== ENCOUNTER 2017-01-26 14:32 | Outpatient (CLI) | payer OTHER ==
[~2017-01-26] VITALS: Ht 152.4 cm; Wt 53.7 kg
[~2017-01-26 14:32] MED LIST changes: -ACETAMINOPHEN TAB 650MG DOSE (2X325MG) PO SCH; -diphenhydrAMINE 25 MG CAP PO SCH
[2017-01-26] MEDS ORDERED: diphenhydrAMINE 25 MG CAP PO ONE (15:30)
[2017-01-26] MEDS ORDERED: ACETAMINOPHEN TAB 650MG DOSE (2X325MG) PO ONE (15:30)
[2017-01-26] MEDS ORDERED: FUROSEMIDE 20 MG/2 ML VIAL (J1940) IV ONE (18:00)
[2017-01-26 19:50] VITALS: BP 160/86
[2017-01-26 21:06] VITALS: BP 166/70
[2017-01-26 21:20] VITALS: BP 164/83
[2017-01-26 22:00] VITALS: BP 164/82
== END 2017-01-26 22:02 | disposition home or self-care (01) ==
LOC: M OPCLI4PV 14:32 → M MSPAV 14:38 → M OPCLI4PV 22:02
PROVIDERS: ATTEND Internal Medicine Medical Oncology
DX: D64.9 Anemia, unspecified (principal); Z91.018 Allergy to other foods; Z79.899 Other long term (current) drug therapy
CPT/HCPCS: 36430; 86850; 86870; 86900; 86901; 86920; J1940; P9016

== ENCOUNTER 2017-02-18 06:46 | Day surgery (SDC) | payer OTHER ==
[~2017-02-18] VITALS: Ht 152.4 cm; Wt 52.2 kg
[~2017-02-18 06:46] MED LIST changes: +BUSP5TA PO; +MUCU400T8 PO; +ONDA4TAB5 PO; +VALS160T PO; +[UNRECOGNIZED DRUG - CODE] PO
[2017-02-18] MEDS ORDERED: PROPOFOL 200 MG/20 ML VIAL As Ordered ONE (11:56)
[2017-02-18] MEDS ORDERED: LIDOCAINE 2% INJ 100 MG/5 ML SDV (FOR ANES.) As Ordered ONE (11:56)
--- NOTE | 2017-02-18 12:28 | ROOR ---
Patient Name: Mariia Barnard Procedure Date: 02/18/2017 11:52 AM Date of : 1930 Age: 87 Room: [facility] Gender: Female Note Status: Finalized Procedure: Upper GI endoscopy Indications: Iron deficiency anemia Providers: Adin PHILIP MD Referring MD: OLIVIA LEE Requesting Provider: Medicines: Monitored Anesthesia Care Complications: No immediate complications. Procedure: Pre-Anesthesia Assessment: - The heart rate, respiratory rate, oxygen saturations, blood pressure, adequacy of pulmonary ventilation, and response to care were monitored throughout the procedure. The Endoscope was introduced through the mouth, and advanced to the second part of duodenum. The upper GI endoscopy was accomplished without difficulty. The patient tolerated the procedure well. Findings: The examined esophagus was normal. 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 Coagulation for tissue destruction using argon plasma at 0.8 liters/minute and 35 osborne was successful. A medium-sized hiatal hernia was present. A medium-sized polypoid mass with no bleeding was found in the first portion of the duodenum and in the second portion of the duodenum. Biopsies were taken with a cold forceps for histology. Impression: - Gastric antral vascular ectasia. Treated with argon plasma coagulation (APC). - 3 cm multilobed, umbilicated duodenal polypoid mass. Biopsied. - Normal esophagus. - Medium-sized hiatal hernia. Recommendation: - Await pathology results. - Repeat upper endoscopy in 1 month for retreatment. 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 2) The duodenal polypoid mass is benign in appearance and is Not likely cause for anemia/blood loss. However depending on pathology of duodenal lesion, repeat endoscopic treatment or surgery will be recommended. Adin Philip MD Adin PHILIP MD 02/18/2017 12:28:00 PM This report has been signed electronically. Number of Addenda: 0 Note Initiated On: 02/18/2017 11:52 AM Estimated Blood Loss: Estimated blood loss: none.
[2017-02-18 12:52] VITALS: BP 203/95
[2017-02-18] MEDS ORDERED: hydroCHLOROthiazide 12.5 MG CAPSULE PO ONE (13:00)
[2017-02-18] MEDS ORDERED: VALSARTAN 80 MG TAB (DIOVAN) PO ONE (13:00)
== END 2017-02-18 13:50 | disposition home or self-care (01) ==
LOC: M OPP 06:46
PROVIDERS: ATTEND Internal Medicine Gastroenterology
DX: D50.9 Iron deficiency anemia, unspecified (principal); K31.89 Other diseases of stomach and duodenum; K31.819 Angiodysplasia of stomach and duodenum without bleeding; K44.9 Diaphragmatic hernia without obstruction or gangrene; I10 Essential (primary) hypertension; E78.5 Hyperlipidemia, unspecified; E03.9 Hypothyroidism, unspecified; Z95.0 Presence of cardiac pacemaker; Z85.6 Personal history of leukemia; Z92.21 Personal history of antineoplastic chemotherapy; R06.02 Shortness of breath; M54.9 Dorsalgia, unspecified; F41.9 Anxiety disorder, unspecified; F32.9 Major depressive disorder, single episode, unspecified; Z78.0 Asymptomatic menopausal state; Z91.018 Allergy to other foods; Z91.013 Allergy to seafood; Z79.899 Other long term (current) drug therapy; Z80.3 Family history of malignant neoplasm of breast

== ENCOUNTER 2017-03-04 16:48 | Observation (INO) | payer OTHER ==
[~2017-03-04] VITALS: Ht 152.4 cm; Wt 51.8 kg
[2017-03-04] MEDS ORDERED: AMLO2.5T PO (17:00)
[2017-03-04 18:16] LABS: CREATININE FOR GFR 2.69 MG/DL (0.55-1.02); GLOMERULAR FILTRATION RATE 17.9 (>32)
[2017-03-04 18:18] LABS: POTASSIUM SERUM 5.2 MEQ/L (3.5-5.1)
[2017-03-04 18:29] LABS: BASO % 0.5 % (0.0-1.0); EOS # 0.1 10^3/uL (0.0-0.50); EOS % 2.3 % (0.0-3.0); IMMATURE GRANULOCYTE % 0.5 % (0-0); LYMPH % 22.7 % (24.0-44.0); MEAN CORPUSCULAR HGB CONC 31.7 g/dl (32.0-36.5); MEAN CORPUSCULAR VOLUME 97.6 fl (80.0-96.0); MONO # 0.4 10^3/uL (0.0-0.8); MONO % 9.5 % (0.0-5.0); NEUTROPHILS # 2.9 10^3/uL (1.8-7.7); NEUTROPHILS % 64.5 % (36.0-66.0); PLATELET COUNT, AUTOMATED 241 10^3/uL (150-450); RED CELL DISTRIBUTION WIDTH 15.3 % (11.5-14.5); WHITE BLOOD COUNT 4.4 10^3/uL (4.0-10.0)
[2017-03-04] MEDS ORDERED: ACETAMINOPHEN TAB 650MG DOSE (2X325MG) PO PRN (20:00)
--- NOTE | 2017-03-04 20:44 | HPE ---
DATE OF ADMISSION: 03/04/2017 PRIMARY CARE PROVIDER: Dr. Florez ATTENDING PHYSICIAN: Dr. Lund CHIEF COMPLAINT: General weakness. HISTORY OF PRESENT ILLNESS: The patient is an 87-year-old white female with a history of chronic myelogenous leukemia (CML) and chronic anemia, who presented to the emergency room for general weakness. History is provided by herself. Per the patient, she was diagnosed with CML since 2007, and she is following with her oncologist every 2 weeks and she is taking the medication called Imatinib every day. She has chronic anemia and requires frequent blood transfusions. Today, she went to see her oncologist and she went for the blood draw and was told her blood count is very low and she needed a transfusion and she was transported to the hospital here directly. In the emergency room, her hemoglobin and hematocrit was 5.2/16.4. The emergency department attending started blood transfusion, medicine service was called for admission. REVIEW OF SYSTEMS: Denies fevers. No chills. No headache. No blurred vision. No shortness of breath. No chest pain. No abdominal pain. No diarrhea. No constipation. No tingling, numbness, weakness in the arms or lower extremities. She does have general weakness and also she states that she feels dizzy when she moves around. All other systems reviewed but negative. PAST MEDICAL HISTORY: 1. CML 2. Hypertension. 3. Arrhythmia, status post pacemaker. 4. Hypothyroidism. 5. Depression. 6. Anxiety. 7. Peripheral neuropathy. 8. Chronic kidney disease stage III. PAST SURGICAL HISTORY: 1. Hysterectomy. 2. Right hip fracture repair. 3. Tubal ligation. 4. Bladder sling. 5. Varicose vein surgery. 6. Bilateral cataract surgery. ALLERGIES: MUSHROOMS. FAMILY HISTORY: No family member with leukemia or heart attack. SOCIAL HISTORY: No tobacco use. Social drinker. No illicit drug abuse. She is FULL CODE. She lives by herself. Her many years ago. She has five adopted children. MEDICATIONS: - amlodipine 2.5 mg by mouth - buspirone 5 mg by mouth daily - Cymbalta 60 mg by mouth daily - Neurontin 300 mg three times a day - Synthroid 50 mg once a day - Protonix 40 mg once a day - valsartan/hydrochlorothiazide 160/12.5 daily - Imatinib one tablet by mouth daily PHYSICAL EXAMINATION: VITAL SIGNS: Temperature 98.4, heart rate 88, respiratory rate 18, blood pressure 178/81, oxygen saturation 100% on room air. GENERAL: She is awake, alert, oriented times three. She is not in acute distress. HEENT: Atraumatic. Pupils are equal, round, and reactive to light. Extraocular muscles intact. No jaundice. Ears, nose and throat normal. Moist mucosa. Neck with no jugular venous distention (JVD). No bruits. LUNGS: Clear. No wheezing. No crackles. HEART: S1, S2. Regular. No murmur. ABDOMEN: Soft. Bowel sounds positive. Nontender. LOWER EXTREMITIES: No edema in her bilateral lower extremities. SKIN: No rash. NEUROLOGIC: Nonfocal. PSYCHIATRIC: No acute psychosis. Not depressed. DIAGNOSTICS AND LAB STUDIES: Include the following: Complete blood count (CBC) and differential showed WBC 4.4, hemoglobin and hematocrit 5.2/16.4, platelets 241. Sodium is 139, potassium 5.2, chloride 108, bicarbonate 23, BUN 39, creatinine 2.69. IMPRESSION: 1. Symptomatic severe anemia. 2. Chronic myelogenous leukemia (CML). 3. Hypertension. 4. Acid reflux. 5. Peripheral neuropathy. 6. Depression and anxiety. 7. Chronic kidney disease stage III. PLAN: She will be admitted for observation. She will receive 2 to 3 packed red blood cell transfusion. I will continue her on routine medications. MTDD
[2017-03-05] MEDS ORDERED: hydroCHLOROthiazide 12.5 MG CAPSULE PO ONE (03:30)
[2017-03-05] MEDS ORDERED: VALSARTAN 80 MG TAB (DIOVAN) PO ONE (03:30)
[2017-03-05] MEDS ORDERED: BUPR15TASR PO (04:45)
[2017-03-05] MEDS ORDERED: ACET650T3 PO (04:45)
[2017-03-05] MEDS ORDERED: VALS1TAB48 PO (04:45)
[2017-03-05] MEDS ORDERED: ONDA4TAB6 PO (04:48)
[2017-03-05] MEDS ORDERED: PATIENT COMMENT (04:50)
[2017-03-05] MEDS ORDERED: busPIRone 5 MG TAB PO PRN (06:00)
[2017-03-05] MEDS ORDERED: ACETAMINOPHEN 650MG ER TAB (TYLENOL ARTHRITIS) PO PRN (06:00)
[2017-03-05] MEDS ORDERED: ONDANSETRON 4 MG ORAL DISINTEGRATING TAB (S0181) PO PRN (06:00)
[2017-03-05 06:55] LABS: BASO % 0.6 % (0.0-1.0); EOS # 0.3 10^3/uL (0.0-0.50); EOS % 3.8 % (0.0-3.0); IMMATURE GRANULOCYTE % 0.3 % (0-0); LYMPH # 1.1 10^3/uL (1.5-4.5); LYMPH % 16.3 % (24.0-44.0); MEAN CORPUSCULAR HEMOGLOBIN 30.7 pg (27.0-33.0); MEAN CORPUSCULAR HGB CONC 34.7 g/dl (32.0-36.5); MEAN CORPUSCULAR VOLUME 88.6 fl (80.0-96.0); MONO # 0.6 10^3/uL (0.0-0.8); MONO % 9.5 % (0.0-5.0); NEUTROPHILS # 4.6 10^3/uL (1.8-7.7); NEUTROPHILS % 69.5 % (36.0-66.0); PLATELET COUNT, AUTOMATED 234 10^3/uL (150-450); RED CELL DISTRIBUTION WIDTH 16.6 % (11.5-14.5); WHITE BLOOD COUNT 6.6 10^3/uL (4.0-10.0)
[2017-03-05 07:50] LABS: CALCIUM LEVEL 8.9 MG/DL (8.8-10.2); CREATININE FOR GFR 2.29 MG/DL (0.55-1.02); GLOMERULAR FILTRATION RATE 21.5 (>32); MAGNESIUM LEVEL 1.8 MG/DL (1.8-2.4); POTASSIUM SERUM 4.6 MEQ/L (3.5-5.1)
[2017-03-05] MEDS: GABAPENTIN 300 MG CAP PO SCH ×3 (08:18→20:20)
[2017-03-05] MEDS: VALSARTAN 80 MG TAB (DIOVAN) PO SCH (08:18)
[2017-03-05] MEDS: DULoxetine 30 MG CAP (CYMBALTA) PO SCH (08:18)
[2017-03-05] MEDS: ACETAMINOPHEN 650MG ER TAB (TYLENOL ARTHRITIS) PO SCH (08:19)
[2017-03-05] MEDS: PANTOPRAZOLE 40MG TAB (PROTONIX) PO SCH (08:19)
[2017-03-05] MEDS: FAMOTIDINE 20 MG TAB PO SCH ×2 (08:19→20:21)
[2017-03-05] MEDS ORDERED: amLODIPine 5 MG TAB PO ONE ×3 (08:45→15:30)
[2017-03-05] MEDS ORDERED: ONDANSETRON 4MG/2ML VIAL (J2405) IV ONE (09:00)
[2017-03-05] MEDS: buPROPion **SR TABLET** (ZYBAN) 150MG PO SCH (10:26)
[2017-03-05 11:00] VITALS: BP 170/88
[2017-03-05 13:49] VITALS: BP 196/102
[2017-03-05 14:00] VITALS: BP 148/80
[2017-03-05] MEDS ORDERED: **hydrALAZINE HCL** 25 MG TAB PO ONE (14:00)
[2017-03-05] MEDS ORDERED: **hydrALAZINE** 50 MG TAB PO SCH (14:00)
[2017-03-05] MEDS ORDERED: FUROSEMIDE 20 MG/2 ML VIAL (J1940) IV ONE (15:30)
[2017-03-05 17:30] VITALS: BP 158/72
--- NOTE | 2017-03-05 18:26 | REP ---
Renal ultrasound for renal insufficiency: The right kidney measures 9.0 x 4.3 x 5.1 cm. Left kidney measures 8.2 x 2.9 x 3.5 cm. The kidneys are atrophic size. The renal cortices are echogenic bilaterally compatible with medical renal disease. There is no hydronephrosis or calculus. There are no solid or cystic masses. There is bilateral renal sinus listhesis. There is a trace of left renal perinephric fluid. The right renal images are limited because of the narrow scanning window. Impression: Bilateral atrophic size kidneys. Bilateral renal cortical echogenicity compatible with medical renal disease. There is no hydronephrosis. However, there is a trace of left perinephric fluid. This is of uncertain significance, however, pyelonephritis is possible. Correlation with clinical findings is recommended. Bladder ultrasound: The bladder is empty and cannot be evaluated. Signed by Samuel Horta MD 03/05/2017 06:17 P
[2017-03-05 19:30] VITALS: BP 164/90
[2017-03-05] MEDS: **hydrALAZINE HCL** 25 MG TAB PO SCH (20:21)
[2017-03-05 22:00] VITALS: BP 159/77
[2017-03-05] MEDS: hydrALAZINE INJ 20 MG/ML VIAL IV SCH ×2 (23:06→23:07)
[2017-03-06] MEDS: **hydrALAZINE HCL** 25 MG TAB PO SCH (02:26)
[2017-03-06 06:00] VITALS: BP 145/75
[2017-03-06] MEDS ORDERED: LEVOTHYROXINE 50MCG TABLET (0.05MG) PO SCH (06:00)
[2017-03-06 08:45] LABS: MEAN CORPUSCULAR HEMOGLOBIN 30.8 pg (27.0-33.0); MEAN CORPUSCULAR HGB CONC 33.9 g/dl (32.0-36.5); MEAN CORPUSCULAR VOLUME 91.1 fl (80.0-96.0); PLATELET COUNT, AUTOMATED 213 10^3/uL (150-450); RED CELL DISTRIBUTION WIDTH 16.7 % (11.5-14.5); WHITE BLOOD COUNT 5.9 10^3/uL (4.0-10.0)
[2017-03-06] MEDS ORDERED: **hydrALAZINE HCL** 25 MG TAB PO SCH (09:00)
[2017-03-06] MEDS ORDERED: amLODIPine 10 MG TAB PO SCH (09:00)
[2017-03-06] MEDS: FAMOTIDINE 20 MG TAB PO SCH (09:27)
[2017-03-06] MEDS: buPROPion **SR TABLET** (ZYBAN) 150MG PO SCH (09:27)
[2017-03-06] MEDS: DULoxetine 30 MG CAP (CYMBALTA) PO SCH (09:27)
[2017-03-06] MEDS: GABAPENTIN 300 MG CAP PO SCH (09:27)
[2017-03-06] MEDS: ACETAMINOPHEN 650MG ER TAB (TYLENOL ARTHRITIS) PO SCH (09:27)
[2017-03-06 09:30] LABS: CALCIUM LEVEL 9.1 MG/DL (8.8-10.2); CREATININE FOR GFR 2.31 MG/DL (0.55-1.02); GLOMERULAR FILTRATION RATE 21.3 (>32); MAGNESIUM LEVEL 1.9 MG/DL (1.8-2.4)
[2017-03-06 09:34] LABS: POTASSIUM SERUM 5.2 MEQ/L (3.5-5.1)
[2017-03-06] MEDS: PANTOPRAZOLE 40MG TAB (PROTONIX) PO SCH (09:36)
[2017-03-06 09:37] VITALS: BP 145/75
[2017-03-06] MEDS: VALSARTAN 80 MG TAB (DIOVAN) PO SCH (09:37)
[2017-03-06] MEDS ORDERED: SOD POLYSTYRENE SULFONATE SUSP 15 GM/60 ML UD PO ONE (10:30)
[2017-03-06] MEDS ORDERED: DIOV80TA3 PO (10:39)
[2017-03-06] MEDS ORDERED: HYDR25TA PO (10:39)
[2017-03-06] MEDS ORDERED: AMLO10TA2 PO (10:39)
[2017-03-06] MEDS ORDERED: VALS1TAB47 PO (10:55)
--- NOTE | 2017-03-06 12:50 | DS.PDOC ---
Discharge Summary General Date of Admission Mar 04, 2017 at 19:54 Date of Discharge 03/06/2017 Primary Care Physician: Jonatan Florez Attending Physician: XOCHITL FOURNIER MD Discharge Summary PROCEDURES PERFORMED DURING STAY: Renal ultrasound, bladder ultrasound ADMITTING/ DISCHARGE DIAGNOSES: 1. Anemia 2. Hypertensive urgency 3. CML 4. Chronic kidney disease stage III COMPLICATIONS/CHIEF COMPLAINT: Symptomatic Anemia. HISTORY OF PRESENT ILLNESS/ HOSPITAL COURSE: Patient is an 87-year-old female with a history of chronic myelogenous leukemia and chronic anemia which requires transfusions. He presented to the ED immediately for transfusion cassette H&H was 5.2/16.4 respectively. Patient received 2 units of blood on and 1 unit on 03/05/2017. Patient's patient was noted to have an elevated blood pressure of 208/ 88. She was admitted for hypertensive urgency for management of her BP. Posterior hospitalization the patient admitted that her blood pressure typically runs in the 180s. And has been for several years now. Renal ultrasound was performed, see results below. Throughout her first day of admission patient's blood pressure remained high despite appropriate medical management. On 03/06/2017 patient's blood pressure was finally able to be normalized with regiment of amiodarone pain 10 mg by mouth daily, hydralazine 25 mg by mouth 3 times a day, and valsartan 60 mg by mouth daily. She was discharged in high spirit. She had no complaints. She denied headaches. Vision, denied dizziness, denied nausea DISCHARGE MEDICATIONS: Please see below. ALLERGIES: Please see below. PHYSICAL EXAMINATION ON DISCHARGE: VITAL SIGNS: Please see below. GENERAL: Orientated 3. No discomfort, developed woman adult female HEENT: Head is atraumatic eyes are nonicteric neck is supple throat is moist no tonsillar exudate CARDIOVASCULAR EXAMINATION: S1 and S2 present within normal limits no murmurs rubs or gallops detected, RESPIRATORY EXAMINATION: Lungs are clear to auscultate bilaterally anterior and posterior. No rales no rhonchi no wheezing detected ABDOMINAL EXAMINATION: Soft, nontender, bowel sounds present all 4 quadrants EXTREMITIES:, Peripheral pulses detected LABORATORY DATA: Please see below. IMAGING: Renal ultrasound: Impression: Bilateral atrophic size kidneys. Bilateral renal cortical echogenicity compatible with medical renal disease. There is no hydronephrosis. However, there is a trace of left perinephric fluid. This is of uncertain significance, however, pyelonephritis is possible. Correlation with clinical findings is recommended. Bladder ultrasound: Impression:The bladder is empty and cannot be evaluated PROGNOSIS: Stable ACTIVITY: As tolerated DIET; low sodium DISCHARGE PLAN: Patient will be discharged home DISPOSITION: Stable DISCHARGE INSTRUCTIONS: 1. Follow-up with PCP in 1 week, needs referral to head teller for increasing BUN/creatinine 2. Manage blood pressures by adherent to medication ITEMS TO FOLLOWUP ON ON OUTPATIENT: 1. Anemia 2. Hypertension 3. Chronic kidney disease DISCHARGE CONDITION: Stable TIME SPENT ON DISCHARGE: Greater than 38 minutes. Vital Signs/I&Os Vital Signs Date Time Temp Pulse Resp B/P (MAP) Pulse Ox O2 Delivery O2 Flow Rate FiO2 03/06/17 09:37 145/75 03/06/17 09:27 80 03/06/17 06:00 97.6 15 94 Room Air Laboratory Data Labs 24H Laboratory Tests 2 03/06/17 08:39: Nucleated Red Blood Cells % (auto) 0.0, Anion Gap 5L, Glomerular Filtration Rate 21.3L, Blood Urea Nitrogen 41H, Creatinine 2.31H, Sodium Level 139, Potassium Level 5.2H, Chloride Level 106, Carbon Dioxide Level 28, Calcium Level 9.1, Magnesium Level 1.9 CBC/BMP Laboratory Tests 03/06/17 08:39 Red Blood Count 3.47 L, Mean Corpuscular Volume 91.1, Mean Corpuscular Hemoglobin 30.8, Mean Corpuscular Hemoglobin Concent 33.9, Red Cell Distribution Width 16.7 H, Calcium Level 9.1 Discharge Medications Scheduled (Imatinib Mesylate) 400 Mg Tab, 400 MG PO DAILY, (Reported) Amlodipine Besylate (Amlodipine Besylate) 10 Mg Tab, 10 MG PO DAILY Bupropion HCl (Bupropion HCl Sr) 150 Mg Tab, 150 MG PO DAILY, (Reported) Duloxetine Hcl (Duloxetine HCl) 60 Mg Cap, 60 MG PO DAILY, (Reported) Gabapentin (Neurontin) 300 Mg Cap, 300 MG PO TID, (Reported) Hydralazine HCl (Hydralazine HCl) 25 Mg Tab, 25 MG PO TID Levothyroxine Sodium (Synthroid) 50 Mcg Tab, 50 MCG PO DAILY, (Reported) Pantoprazole Sodium Sesquihydr (Protonix) 40 Mg Tab, 40 MG PO DAILY, (Reported) Ranitidine HCl (Zantac) 150 Mg Tab, 1 TAB PO BID, (Reported) Valsartan (Valsartan) 160 Mg Tab, 160 MG PO DAILY Zolpidem Tartrate (Zolpidem Tartrate) 5 Mg Tab, 5 MG PO QHS, (Reported) LAST FILLED 03/01/17 Scheduled PRN Acetaminophen (Acetaminophen ER) 650 Mg Tab, 650 MG PO DAILY PRN for PAIN, ( Reported) Buspirone HCl (Buspirone HCl) 5 Mg Tab, 5 MG PO DAILY PRN for ANXIETY, (Reported ) Ondansetron (Ondansetron Odt) 4 Mg Tab, 4 MG PO BID PRN for NAUSEA, (Reported) Tramadol HCl (Tramadol HCl) 50 Mg Tab, 50 MG PO BID PRN for PAIN, (Reported) Allergies Coded Allergies: Mushroom (Verified Adverse Reaction, Mild, vomiting, 02/09/17) Oyster (Unverified Adverse Reaction, Mild, vomiting, 02/09/17) GME ATTESTATION GME ATTESTATION My faculty preceptor for this patient encounter was physically present during the encounter and was fully available. All aspects of the patient interview, examination, medical decision making process, and medical care plan development were reviewed and approved by the faculty preceptor. The faculty preceptor is aware and concurs with the plan as stated in the body of this note and will attest to such by his/her cosignature. ANETTE PEGUERO DO Mar 06, 2017 12:32
--- NOTE | 2017-03-06 15:25 | IPN ---
DATE: 03/05/2017 HISTORY OF PRESENT ILLNESS: The patient is an 87-year-old female with a history of chronic myelogenous leukemia and chronic anemia who presented to the emergency department for general weakness. The patient was diagnosed with chronic myelocytic leukemia (CML) in 2007 and she is followed with her oncologist every 2 weeks and she is also on imatinib everyday. The patient has chronic anemia that requires frequent blood transfusions. She presented to the emergency department on 03/04/2017 with an hemoglobin and hematocrit of 5.2 and 16.4. She received 3 units of blood. Her hemoglobin and hematocrit improved to 11 and 32.0. After her transfusions, the patient was noticed to have severely elevated blood pressure. According to the patient, her blood pressure stays elevated in the high 180s and she has never had a full workup for it. This morning, the patient is resting comfortably in bed. Her blood pressure was 190/94. Overnight he continued to have elevated blood pressure despite medications The patient denied any signs or symptoms of hypertension. She denied blurry vision. She denied headaches. She did admit that occasionally when she feels her blood pressure is really high, she might get some hot flashes but she was not experiencing this morning despite her blood pressure being in the high 190s. She denied any pain. PHYSICAL EXAMINATION: Vitals: The patient's blood pressure is 196/102. She has remained severely elevated around that number. At one point after the administration of her medication, her blood pressure did drop to 150/71 but has not been that low throughout her stay. Pulse rate is 78, oxygen saturation is 100% on room air. General: The patient is alert. Does not exhibit any signs of hypertension. Cardiac: Regular rate and rhythm. No murmurs, rubs or gallops. Lungs: Clear to auscultation. Abdomen: Soft, nontender, nondistended. Bowel sounds present. Extremities: No bound in pulses in extremities. No rashes. No deformities. No cyanosis. IMAGING: Renal ultrasound impression was bilateral atrophic size kidneys. Bilateral renal cortical echogenicity compatible with medical renal disease. There is no hydronephrosis. There is, however, a left perirenal fluid. This is of uncertain significance, however, pyelonephritis is possible. Bladder ultrasound: The bladder was empty and could not be evaluated at this time. ASSESSMENT/PLAN: 1. Hypertension: The patient is currently on multiple medications to control her hypertension including hydralazine, Norvasc, Valsartan, and amlodipine. However, despite all of this, her blood pressure continues to be elevated. The patient that this is around her baseline. Will consider consult to nephrology tomorrow if patient's blood pressure continues to be elevated despite all of these medications. Would also consider further workup including pheochromocytoma and possible renal stenosis. 2. Systemic severe anemia currently stable. The patient's hemoglobin and hematocrit have improved since admission. The patient is not exhibiting signs of any anemia. 3. Chronic myelogenous leukemia: Stable. The patient is no medication. 4. Acid reflux, stable. Continue home medications. 5. Peripheral neuropathy stable. Continue medications.Stable 6. Depression and anxiety: Continue her Cymbalta and lorazepam. 7. Chronic kidney disease stage IV. Currently stable. Will consider a nephrology consultation tomorrow. My faculty preceptor for this patient encounter was physically present during the encounter and was fully available. All aspects of the patient interview, examination, medical decision making process, and medical care plan development were reviewed and approved by the faculty preceptor. The faculty preceptor is aware and concurs with the plan as stated in the body of this note and will attest to such by his/her co-signature. JOSE
--- NOTE | 2017-03-06 21:05 | ECGEPIP ---
Stationary ECG Study [facility] Test Date: 2017-03-05 Pat Name: PHUONG ARZOLA Department: Room: [place] [address] Gender: F Charity Fundraiser: [facility] [place] : 1930 Requested By: XOCHITL FOURNIER Order Number: [id number] Reading MD: Adin Mark Measurements Intervals Frontier Rate: 81 P: 38 AK: 192 QRS: -20 QRSD: 146 T: 94 QT: 391 QTc: 455 Interpretive Statements Sinus rhythm, 81 BPM, P-synchronous ventricular paced rhythm. Ventricular pacing new compared with 07/18/2016. Electronically Signed On 03-06-2017 21:05:10 EST by Adin Mark
[2017-03-07] MEDS ORDERED: VALSARTAN 80 MG TAB (DIOVAN) PO SCH (09:00)
== END 2017-03-06 13:50 | disposition home or self-care (01) ==
LOC: M ED 16:48 → M ED INP 19:54 → M MS5PR 21:33
PROVIDERS: ADMIT Hospitalist; ATTEND Internal Medicine
DX: D64.9 Anemia, unspecified (principal); I16.0 Hypertensive urgency; C92.90 Myeloid leukemia, unspecified, not having achieved remission; N18.3 Chronic kidney disease, stage 3 (moderate); K21.9 Gastro-esophageal reflux disease without esophagitis; F41.9 Anxiety disorder, unspecified; F32.9 Major depressive disorder, single episode, unspecified; E03.9 Hypothyroidism, unspecified; Z95.0 Presence of cardiac pacemaker; G62.9 Polyneuropathy, unspecified; Z79.899 Other long term (current) drug therapy; Z91.018 Allergy to other foods; Z91.013 Allergy to seafood
CPT/HCPCS: 36415; 36430; 76775; 80048; 83735; 85025; 85027; 86850; 86870; 86900; 86901; 86920; 93005; 96374; 99285; G0378; J2405; P9016

== ENCOUNTER 2017-03-20 14:22 | Inpatient (IN) | payer OTHER ==
[2017-03-20 17:14] LABS: EOS # 0.2 10^3/uL (0.0-0.50); EOS % 4.1 % (0.0-3.0); HEMATOCRIT 25.4 % (36.0-47.0); HEMOGLOBIN 8.2 g/dl (12.0-16.0); IMMATURE GRANULOCYTE % 0.2 % (0-0); LYMPH # 0.8 10^3/uL (1.5-4.5); LYMPH % 20.1 % (24.0-44.0); MEAN CORPUSCULAR HEMOGLOBIN 30.6 pg (27.0-33.0); MEAN CORPUSCULAR HGB CONC 32.3 g/dl (32.0-36.5); MEAN CORPUSCULAR VOLUME 94.8 fl (80.0-96.0); MONO # 0.3 10^3/uL (0.0-0.8); MONO % 8.2 % (0.0-5.0); NEUTROPHILS # 2.7 10^3/uL (1.8-7.7); NEUTROPHILS % 66.4 % (36.0-66.0); PLATELET COUNT, AUTOMATED 329 10^3/uL (150-450); RED BLOOD COUNT 2.68 10^6/uL (4.00-5.40); RED CELL DISTRIBUTION WIDTH 14.3 % (11.5-14.5); WHITE BLOOD COUNT 4.1 10^3/uL (4.0-10.0)
[2017-03-20 17:32] LABS: INR 0.95; PROTHROMBIN TIME 12.8 SECONDS (12.4-14.5)
[2017-03-20 17:42] LABS: ALBUMIN 3.3 GM/DL (3.2-5.2); ALBUMIN/GLOBULIN RATIO 1.27 (1.00-1.93); ALKALINE PHOSPHATASE 70 U/L (45-117); ALT/SGPT 18 U/L (12-78); ANION GAP 6 MEQ/L (8-16); AST/SGOT 28 U/L (7-37); BILIRUBIN,DIRECT < 0.1 MG/DL (0.0-0.2); BILIRUBIN,TOTAL 0.2 MG/DL (0.2-1.0); BLOOD UREA NITROGEN 33 MG/DL (7-18); CALCIUM LEVEL 8.6 MG/DL (8.8-10.2); CARBON DIOXIDE LEVEL 26 MEQ/L (21-32); CHLORIDE LEVEL 109 MEQ/L (98-107); CREATININE FOR GFR 2.37 MG/DL (0.55-1.02); FREE THYROXINE INDEX 4.4 % (1.3-4.8); GLOMERULAR FILTRATION RATE 20.7 (>32); GLUCOSE, FASTING 102 MG/DL (83-110); LIPASE 303 U/L (73-393); SODIUM LEVEL 141 MEQ/L (136-145); T UPTAKE 35 % (30-39); THYROXINE (T4) 12.7 UG/DL (4.5-12.0); TOTAL PROTEIN 5.9 GM/DL (6.4-8.2)
[2017-03-20 18:06] LABS: POTASSIUM SERUM 5.2 MEQ/L (3.5-5.1)
[2017-03-20 18:24] LABS: APPEARANCE, URINE CLEAR (CLEAR); BACTERIA, URINE AUTO 1+ (NEGATIVE); BILIRUBIN, URINE AUTO NEGATIVE (NEGATIVE); BLOOD, URINE BLOOD NEGATIVE (NEGATIVE); COLOR, URINE YELLOW (YELLOW); GLUCOSE, URINE (UA) AUTO NEGATIVE (NEGATIVE); KETONE, URINE AUTO NEGATIVE (NEGATIVE); LEUKOCYTE ESTERASE, URINE AUTO 1+ (NEGATIVE); MUCUS, URINE SMALL (NEGATIVE); NITRITE, URINE AUTO NEGATIVE (NEGATIVE); PROTEIN, URINE AUTO 2+ mg/dL (NEGATIVE); RBC, URINE AUTO 2 /HPF (0-3); SQUAMOUS EPITHELIAL CELL UR AU 0 /HPF (0-6); UROBILINOGEN, URINE AUTO 0.2 mg/dL (0.0-2.0); WBC, URINE AUTO 10 /HPF (0-3)
[2017-03-20] MEDS ORDERED: busPIRone 5 MG TAB PO (20:15)
[2017-03-20] MEDS ORDERED: traMADol 50 MG TAB PO (20:15)
[2017-03-20] MEDS: FAMOTIDINE 20 MG TAB PO (23:34)
[2017-03-20] MEDS: zolPIDEM TARTRATE 5 MG TAB PO (23:34)
[2017-03-20] MEDS: GABAPENTIN 300 MG CAP PO (23:35)
[2017-03-20] MEDS: **hydrALAZINE HCL** 25 MG TAB PO (23:35)
[2017-03-21 00:43] LABS: IMMEDIATE SPIN CROSSMATCH 1 1
[2017-03-21 04:12] LABS: HEMATOCRIT 26.8 % (36.0-47.0); HEMOGLOBIN 8.7 g/dl (12.0-16.0); MEAN CORPUSCULAR HEMOGLOBIN 30.2 pg (27.0-33.0); MEAN CORPUSCULAR HGB CONC 32.5 g/dl (32.0-36.5); MEAN CORPUSCULAR VOLUME 93.1 fl (80.0-96.0); PLATELET COUNT, AUTOMATED 286 10^3/uL (150-450); RED BLOOD COUNT 2.88 10^6/uL (4.00-5.40); RED CELL DISTRIBUTION WIDTH 14.6 % (11.5-14.5); WHITE BLOOD COUNT 4.6 10^3/uL (4.0-10.0)
[2017-03-21 04:23] LABS: ANION GAP 10 MEQ/L (8-16); BLOOD UREA NITROGEN 35 MG/DL (7-18); CARBON DIOXIDE LEVEL 24 MEQ/L (21-32); CHLORIDE LEVEL 109 MEQ/L (98-107); CREATININE FOR GFR 2.26 MG/DL (0.55-1.02); GLOMERULAR FILTRATION RATE 21.8 (>32); GLUCOSE, FASTING 93 MG/DL (83-110); POTASSIUM SERUM 4.6 MEQ/L (3.5-5.1); SODIUM LEVEL 143 MEQ/L (136-145)
[2017-03-21] MEDS: LEVOTHYROXINE 50MCG TABLET (0.05MG) PO (05:58)
[2017-03-21] MEDS ORDERED: VALSARTAN 80 MG TAB (DIOVAN) PO (09:00)
[2017-03-21] MEDS ORDERED: ENTER DRUG NAME HERE (PATIENT'S OWN MED) PO (09:00)
[2017-03-21] MEDS: amLODIPine 10 MG TAB PO (09:17)
[2017-03-21] MEDS: **hydrALAZINE HCL** 25 MG TAB PO ×3 (09:17→21:53)
[2017-03-21] MEDS: DULoxetine 30 MG CAP (CYMBALTA) PO (09:17)
[2017-03-21] MEDS: PANTOPRAZOLE 40MG TAB (PROTONIX) PO (09:17)
[2017-03-21] MEDS: GABAPENTIN 300 MG CAP PO ×3 (09:17→21:53)
[2017-03-21] MEDS: FAMOTIDINE 20 MG TAB PO ×2 (09:17→21:53)
[2017-03-21] MEDS: buPROPion **SR TABLET** (ZYBAN) 150MG PO (09:17)
[2017-03-21] MEDS: ACETAMINOPHEN 650MG ER TAB (TYLENOL ARTHRITIS) PO (09:21)
[2017-03-21 11:57] LABS: IMMEDIATE SPIN CROSSMATCH 1 1
[2017-03-21 12:27] LABS: RETIC HEMOGLOBIN EQUIVALENT 37.3 pg (24-36); RETICULOCYTE # 19.3 10^9/L (17-77); RETICULOCYTE % 0.7 % (0.5-1.5)
[2017-03-21 12:36] LABS: FERRITIN 65 NG/ML (8-252); IRON (FE) 143 UG/DL (50-170); PERCENT SATURATION 40.5 % (13.2-45.0); TOTAL IRON BINDING CAPACITY 353 UG/DL (250-450)
[2017-03-21 12:42] LABS: REASON FOR REVIEW COMPREHENSIVE REVIEW; SLIDE REVIEW Report; SOURCE PERIPHERAL SMEAR
[2017-03-21] MEDS: zolPIDEM TARTRATE 5 MG TAB PO (21:52)
[2017-03-22 05:36] LABS: HEMATOCRIT 27.6 % (36.0-47.0); HEMOGLOBIN 9.1 g/dl (12.0-16.0); MEAN CORPUSCULAR HEMOGLOBIN 29.9 pg (27.0-33.0); MEAN CORPUSCULAR VOLUME 90.8 fl (80.0-96.0); PLATELET COUNT, AUTOMATED 268 10^3/uL (150-450); RED BLOOD COUNT 3.04 10^6/uL (4.00-5.40); RED CELL DISTRIBUTION WIDTH 16.6 % (11.5-14.5); WHITE BLOOD COUNT 4.8 10^3/uL (4.0-10.0)
[2017-03-22 05:58] LABS: ANION GAP 6 MEQ/L (8-16); BLOOD UREA NITROGEN 38 MG/DL (7-18); CALCIUM LEVEL 8.1 MG/DL (8.8-10.2); CARBON DIOXIDE LEVEL 24 MEQ/L (21-32); CHLORIDE LEVEL 110 MEQ/L (98-107); CREATININE FOR GFR 2.24 MG/DL (0.55-1.02); GLOMERULAR FILTRATION RATE 22.1 (>32); GLUCOSE, FASTING 88 MG/DL (83-110); POTASSIUM SERUM 4.3 MEQ/L (3.5-5.1); SODIUM LEVEL 140 MEQ/L (136-145)
[2017-03-22] MEDS: LEVOTHYROXINE 50MCG TABLET (0.05MG) PO (06:00)
[2017-03-22] MEDS: buPROPion **SR TABLET** (ZYBAN) 150MG PO (08:50)
[2017-03-22] MEDS: FAMOTIDINE 20 MG TAB PO (08:50)
[2017-03-22] MEDS: DULoxetine 30 MG CAP (CYMBALTA) PO (08:50)
[2017-03-22] MEDS: GABAPENTIN 300 MG CAP PO (08:50)
[2017-03-22] MEDS: PANTOPRAZOLE 40MG TAB (PROTONIX) PO (08:50)
[2017-03-22] MEDS: amLODIPine 10 MG TAB PO (08:51)
[2017-03-22] MEDS: **hydrALAZINE HCL** 25 MG TAB PO (08:51)
== END 2017-03-22 10:56 | disposition home or self-care (01) | DRG 812 ==
LOC: M ED 14:22 → M ED INP 20:42 → M PCU 23:11
PROC: 30233N1 Transfusion of Nonautologous Red Blood Cells into Peripheral Vein, Percutaneous Approach (ICD-10-PCS; principal; 2017-03-21)
DX: D64.9 Anemia, unspecified (principal); C92.90 Myeloid leukemia, unspecified, not having achieved remission; N18.3 Chronic kidney disease, stage 3 (moderate); G47.00 Insomnia, unspecified; K21.9 Gastro-esophageal reflux disease without esophagitis; F41.9 Anxiety disorder, unspecified; E03.9 Hypothyroidism, unspecified; I12.9 Hypertensive chronic kidney disease with stage 1 through stage 4 chronic kidney disease, or unspecified chronic kidney disease; D84.1 Defects in the complement system; Z95.0 Presence of cardiac pacemaker; G60.9 Hereditary and idiopathic neuropathy, unspecified; Z79.899 Other long term (current) drug therapy; Z91.018 Allergy to other foods; Z91.013 Allergy to seafood; K44.9 Diaphragmatic hernia without obstruction or gangrene; F32.9 Major depressive disorder, single episode, unspecified; K29.50 Unspecified chronic gastritis without bleeding

== ENCOUNTER 2017-04-13 11:52 | Inpatient (IN) | payer OTHER ==
[2017-04-13 13:03] LABS: BASO % 0.7 % (0.0-1.0); EOS # 0.2 10^3/uL (0.0-0.50); EOS % 5.2 % (0.0-3.0); HEMATOCRIT 17.3 % (36.0-47.0); IMMATURE GRANULOCYTE # 0.1 10^3/uL (0-0); IMMATURE GRANULOCYTE % 1.2 % (0-0); LYMPH # 1.1 10^3/uL (1.5-4.5); LYMPH % 24.8 % (24.0-44.0); MEAN CORPUSCULAR HEMOGLOBIN 30.7 pg (27.0-33.0); MEAN CORPUSCULAR HGB CONC 31.2 g/dl (32.0-36.5); MEAN CORPUSCULAR VOLUME 98.3 fl (80.0-96.0); MONO # 0.4 10^3/uL (0.0-0.8); MONO % 9.6 % (0.0-5.0); NEUTROPHILS # 2.5 10^3/uL (1.8-7.7); NEUTROPHILS % 58.5 % (36.0-66.0); PLATELET COUNT, AUTOMATED 307 10^3/uL (150-450); RED BLOOD COUNT 1.76 10^6/uL (4.00-5.40); RED CELL DISTRIBUTION WIDTH 17.8 % (11.5-14.5); WHITE BLOOD COUNT 4.3 10^3/uL (4.0-10.0)
[2017-04-13 13:07] LABS: HEMOGLOBIN 5.4 g/dl (12.0-16.0)
[2017-04-13] MEDS: NS 1,000 ML IV ×2 (13:20→20:23)
[2017-04-13] MEDS: PANTOPRAZOLE 40MG INJ (PROTONIX) (C9113) IV ×2 (13:20→20:22)
[2017-04-13 13:55] LABS: ALBUMIN 3.1 GM/DL (3.2-5.2); ALBUMIN/GLOBULIN RATIO 1.29 (1.00-1.93); ALKALINE PHOSPHATASE 61 U/L (45-117); ALT/SGPT 18 U/L (12-78); ANION GAP 6 MEQ/L (8-16); AST/SGOT 34 U/L (7-37); BILIRUBIN,DIRECT < 0.1 MG/DL (0.0-0.2); BILIRUBIN,TOTAL 0.2 MG/DL (0.2-1.0); BLOOD UREA NITROGEN 37 MG/DL (7-18); CARBON DIOXIDE LEVEL 27 MEQ/L (21-32); CHLORIDE LEVEL 108 MEQ/L (98-107); CREATININE FOR GFR 2.66 MG/DL (0.55-1.02); GLOMERULAR FILTRATION RATE 18.1 (>32); GLUCOSE, FASTING 98 MG/DL (70-100); LIPASE 209 U/L (73-393); POTASSIUM SERUM 5.1 MEQ/L (3.5-5.1); SODIUM LEVEL 141 MEQ/L (136-145); TOTAL PROTEIN 5.5 GM/DL (6.4-8.2)
[2017-04-13 14:00] LABS: PROTHROMBIN TIME 13.3 SECONDS (12.4-14.5)
[2017-04-13 14:57] LABS: KETONE, URINE AUTO RFX NEGATIVE (NEGATIVE); LEUKOCYTE ESTERASE UR AUTO RFX 2+ (NEGATIVE); NITRITE, URINE AUTO RFX NEGATIVE (NEGATIVE); RBC, URINE AUTO RFX 4 /HPF (0-3); SPECIFIC GRAVITY UR AUTO RFX 1.008 (1.002-1.035); SQUAM EPITHELIAL CELL UR AURFX 0 /HPF (0-6); WBC, URINE AUTO RFX 11 /HPF (0-3)
[2017-04-13] MEDS: LEVOTHYROXINE 50MCG TABLET (0.05MG) PO (17:34)
[2017-04-13] MEDS: ACETAMINOPHEN TAB 650MG DOSE (2X325MG) PO ×2 (17:34→23:43)
[2017-04-13] MEDS: DULoxetine 30 MG CAP (CYMBALTA) PO (17:34)
[2017-04-13] MEDS: GABAPENTIN 300 MG CAP PO ×2 (17:34→20:22)
[2017-04-13] MEDS: **hydrALAZINE HCL** 25 MG TAB PO ×2 (17:35→20:22)
[2017-04-13 18:14] LABS: IMMEDIATE SPIN CROSSMATCH 1 2
[2017-04-13 18:41] LABS: CK-MB VALUE MASS 3.9 NG/ML (0.0-3.6); CPK CREATINE PHOSPHOKINASE 423 U/L (26-192); MB/CK RELATIVE INDEX 0.92 (< OR =4); TROPONIN I 0.06 NG/ML (< 0.10)
[2017-04-13] MEDS: buPROPion **SR TABLET** (ZYBAN) 150MG PO (18:49)
[2017-04-13] MEDS: FAMOTIDINE 20 MG TAB PO (20:22)
[2017-04-13] MEDS: ONDANSETRON 4MG/2ML VIAL (J2405) IV (23:43)
[2017-04-14] MEDS: busPIRone 5 MG TAB PO (00:03)
[2017-04-14 01:20] LABS: MEAN CORPUSCULAR HEMOGLOBIN 30.1 pg (27.0-33.0); MEAN CORPUSCULAR HGB CONC 33.2 g/dl (32.0-36.5); MEAN CORPUSCULAR VOLUME 90.6 fl (80.0-96.0); PLATELET COUNT, AUTOMATED 256 10^3/uL (150-450); RED BLOOD COUNT 3.09 10^6/uL (4.00-5.40); RED CELL DISTRIBUTION WIDTH 17.8 % (11.5-14.5); WHITE BLOOD COUNT 6.4 10^3/uL (4.0-10.0)
[2017-04-14 01:29] LABS: HEMOGLOBIN 9.3 g/dl (12.0-16.0)
[2017-04-14 01:40] LABS: CPK CREATINE PHOSPHOKINASE 430 U/L (26-192); TROPONIN I 0.08 NG/ML (< 0.10)
[2017-04-14 01:41] LABS: CK-MB VALUE MASS 4.6 NG/ML (0.0-3.6); MB/CK RELATIVE INDEX 1.06 (< OR =4)
[2017-04-14] MEDS: NS 1,000 ML IV ×2 (04:40→20:59)
[2017-04-14] MEDS: LEVOTHYROXINE 50MCG TABLET (0.05MG) PO (05:45)
[2017-04-14] MEDS: ONDANSETRON 4MG/2ML VIAL (J2405) IV (05:45)
[2017-04-14 06:33] LABS: MEAN CORPUSCULAR HEMOGLOBIN 30.3 pg (27.0-33.0); MEAN CORPUSCULAR HGB CONC 33.3 g/dl (32.0-36.5); MEAN CORPUSCULAR VOLUME 90.9 fl (80.0-96.0); PLATELET COUNT, AUTOMATED 266 10^3/uL (150-450); RED BLOOD COUNT 2.97 10^6/uL (4.00-5.40); RED CELL DISTRIBUTION WIDTH 17.8 % (11.5-14.5); WHITE BLOOD COUNT 5.7 10^3/uL (4.0-10.0)
[2017-04-14] MEDS ORDERED: LIDOCAINE 2% MDV 20 ML VIAL As Ordered (06:55)
[2017-04-14] MEDS ORDERED: PROPOFOL 200 MG/20 ML VIAL As Ordered ×2 (06:55→18:10)
[2017-04-14 06:57] LABS: ALBUMIN/GLOBULIN RATIO 1.11 (1.00-1.93); ALKALINE PHOSPHATASE 59 U/L (45-117); ALT/SGPT 18 U/L (12-78); ANION GAP 7 MEQ/L (8-16); AST/SGOT 34 U/L (7-37); BILIRUBIN,TOTAL 0.3 MG/DL (0.2-1.0); BLOOD UREA NITROGEN 28 MG/DL (7-18); CARBON DIOXIDE LEVEL 23 MEQ/L (21-32); CHLORIDE LEVEL 112 MEQ/L (98-107); CREATININE FOR GFR 2.05 MG/DL (0.55-1.02); GLOMERULAR FILTRATION RATE 24.4 (>32); GLUCOSE, FASTING 103 MG/DL (70-100); MAGNESIUM LEVEL 1.6 MG/DL (1.8-2.4); POTASSIUM SERUM 4.2 MEQ/L (3.5-5.1); SODIUM LEVEL 142 MEQ/L (136-145); TOTAL PROTEIN 5.7 GM/DL (6.4-8.2)
[2017-04-14] MEDS: DULoxetine 30 MG CAP (CYMBALTA) PO (09:46)
[2017-04-14] MEDS: FAMOTIDINE 20 MG TAB PO ×2 (09:46→20:58)
[2017-04-14] MEDS: PANTOPRAZOLE 40MG INJ (PROTONIX) (C9113) IV ×2 (09:46→20:58)
[2017-04-14] MEDS: buPROPion **SR TABLET** (ZYBAN) 150MG PO (09:46)
[2017-04-14] MEDS: MAG SULF 1GM/100ML (MAG RUN) 1 GM in APPROPRIATE DILUENT 1 EA IV (09:46)
[2017-04-14] MEDS: **hydrALAZINE HCL** 25 MG TAB PO ×3 (09:47→21:00)
[2017-04-14] MEDS: GABAPENTIN 300 MG CAP PO ×3 (09:47→21:00)
[2017-04-14 11:02] LABS: CPK CREATINE PHOSPHOKINASE 377 U/L (26-192); TROPONIN I 0.06 NG/ML (< 0.10)
[2017-04-14 11:03] LABS: CK-MB VALUE MASS 4.4 NG/ML (0.0-3.6); MB/CK RELATIVE INDEX 1.16 (< OR =4)
[2017-04-14] MEDS ORDERED: LIDOCAINE 2% INJ 100 MG/5 ML SYRINGE As Ordered (18:10)
[2017-04-14] MEDS ORDERED: GLUCAGON FOR INJ 1 MG VIAL (J1610) As Ordered (18:23)
[2017-04-14] MEDS ORDERED: ONDANSETRON 4MG/2ML VIAL (J2405) As Ordered (19:05)
[2017-04-14] MEDS ORDERED: METOCLOPRAMIDE INJ 10MG/2ML VIAL (J2765) IV (19:30)
[2017-04-14] MEDS ORDERED: ONDANSETRON 4MG/2ML VIAL (J2405) IV (19:30)
[2017-04-14] MEDS: LR 1,000 ML IV (19:30)
[2017-04-14 20:30] LABS: HEMOGLOBIN 10.1 g/dl (12.0-16.0); MEAN CORPUSCULAR HEMOGLOBIN 30.1 pg (27.0-33.0); MEAN CORPUSCULAR HGB CONC 32.6 g/dl (32.0-36.5); MEAN CORPUSCULAR VOLUME 92.5 fl (80.0-96.0); PLATELET COUNT, AUTOMATED 270 10^3/uL (150-450); RED BLOOD COUNT 3.35 10^6/uL (4.00-5.40); RED CELL DISTRIBUTION WIDTH 18.2 % (11.5-14.5); WHITE BLOOD COUNT 9.7 10^3/uL (4.0-10.0)
[2017-04-15 00:29] LABS: HEMATOCRIT 28.7 % (36.0-47.0); HEMOGLOBIN 9.4 g/dl (12.0-16.0); MEAN CORPUSCULAR HEMOGLOBIN 29.9 pg (27.0-33.0); MEAN CORPUSCULAR HGB CONC 32.8 g/dl (32.0-36.5); MEAN CORPUSCULAR VOLUME 91.4 fl (80.0-96.0); PLATELET COUNT, AUTOMATED 276 10^3/uL (150-450); RED BLOOD COUNT 3.14 10^6/uL (4.00-5.40); RED CELL DISTRIBUTION WIDTH 18.2 % (11.5-14.5); WHITE BLOOD COUNT 7.5 10^3/uL (4.0-10.0)
[2017-04-15] MEDS: LEVOTHYROXINE 50MCG TABLET (0.05MG) PO (05:48)
[2017-04-15] MEDS: NS 1,000 ML IV (05:48)
[2017-04-15 06:36] LABS: HEMATOCRIT 25.8 % (36.0-47.0); HEMOGLOBIN 8.3 g/dl (12.0-16.0); MEAN CORPUSCULAR HGB CONC 32.2 g/dl (32.0-36.5); MEAN CORPUSCULAR VOLUME 93.1 fl (80.0-96.0); PLATELET COUNT, AUTOMATED 249 10^3/uL (150-450); RED BLOOD COUNT 2.77 10^6/uL (4.00-5.40); RED CELL DISTRIBUTION WIDTH 18.2 % (11.5-14.5)
[2017-04-15 07:08] LABS: ALBUMIN 2.6 GM/DL (3.2-5.2); ALBUMIN/GLOBULIN RATIO 0.96 (1.00-1.93); ALKALINE PHOSPHATASE 62 U/L (45-117); ALT/SGPT 16 U/L (12-78); ANION GAP 7 MEQ/L (8-16); AST/SGOT 30 U/L (7-37); BILIRUBIN,TOTAL 0.2 MG/DL (0.2-1.0); BLOOD UREA NITROGEN 26 MG/DL (7-18); CALCIUM LEVEL 8.1 MG/DL (8.8-10.2); CARBON DIOXIDE LEVEL 23 MEQ/L (21-32); CHLORIDE LEVEL 113 MEQ/L (98-107); CREATININE FOR GFR 1.94 MG/DL (0.55-1.02); GLUCOSE, FASTING 98 MG/DL (70-100); MAGNESIUM LEVEL 1.8 MG/DL (1.8-2.4); SODIUM LEVEL 143 MEQ/L (136-145); TOTAL PROTEIN 5.3 GM/DL (6.4-8.2)
[2017-04-15] MEDS: PANTOPRAZOLE 40MG INJ (PROTONIX) (C9113) IV (09:58)
[2017-04-15] MEDS: GABAPENTIN 300 MG CAP PO ×3 (09:58→20:20)
[2017-04-15] MEDS: FAMOTIDINE 20 MG TAB PO ×2 (09:58→20:20)
[2017-04-15] MEDS: DULoxetine 30 MG CAP (CYMBALTA) PO (09:58)
[2017-04-15] MEDS: **hydrALAZINE HCL** 25 MG TAB PO ×3 (09:59→20:21)
[2017-04-15] MEDS: buPROPion **SR TABLET** (ZYBAN) 150MG PO (09:59)
[2017-04-15 14:18] LABS: HEMATOCRIT 29.2 % (36.0-47.0); HEMOGLOBIN 9.3 g/dl (12.0-16.0)
[2017-04-15] MEDS: PANTOPRAZOLE 40MG TAB (PROTONIX) PO (20:20)
[2017-04-16] MEDS: LEVOTHYROXINE 50MCG TABLET (0.05MG) PO (05:40)
[2017-04-16 07:07] LABS: ALBUMIN 2.9 GM/DL (3.2-5.2); ALBUMIN/GLOBULIN RATIO 1.04 (1.00-1.93); ALKALINE PHOSPHATASE 63 U/L (45-117); ALT/SGPT 18 U/L (12-78); ANION GAP 7 MEQ/L (8-16); AST/SGOT 27 U/L (7-37); BILIRUBIN,TOTAL 0.4 MG/DL (0.2-1.0); BLOOD UREA NITROGEN 27 MG/DL (7-18); CALCIUM LEVEL 8.5 MG/DL (8.8-10.2); CARBON DIOXIDE LEVEL 24 MEQ/L (21-32); CHLORIDE LEVEL 109 MEQ/L (98-107); CREATININE FOR GFR 1.88 MG/DL (0.55-1.02); GLUCOSE, FASTING 91 MG/DL (70-100); MAGNESIUM LEVEL 1.6 MG/DL (1.8-2.4); POTASSIUM SERUM 4.3 MEQ/L (3.5-5.1); SODIUM LEVEL 140 MEQ/L (136-145); TOTAL PROTEIN 5.7 GM/DL (6.4-8.2)
[2017-04-16 08:04] LABS: HEMATOCRIT 25.9 % (36.0-47.0); HEMOGLOBIN 8.2 g/dl (12.0-16.0)
[2017-04-16] MEDS: FAMOTIDINE 20 MG TAB PO (09:29)
[2017-04-16] MEDS: DULoxetine 30 MG CAP (CYMBALTA) PO (09:29)
[2017-04-16] MEDS: PANTOPRAZOLE 40MG TAB (PROTONIX) PO (09:29)
[2017-04-16] MEDS: GABAPENTIN 300 MG CAP PO (09:29)
[2017-04-16] MEDS: buPROPion **SR TABLET** (ZYBAN) 150MG PO (09:30)
[2017-04-16] MEDS: **hydrALAZINE HCL** 25 MG TAB PO (09:30)
[2017-04-16] MEDS: MAGNESIUM OXIDE 400 MG TAB (MAG-OX) PO (10:13)
== END 2017-04-16 12:08 | disposition home or self-care (01) | DRG 811 ==
LOC: M ED 11:52 → M ED INP 13:43 → M MSPAV 16:41
PROC: 0W3P8ZZ Control Bleeding in Gastrointestinal Tract, Via Natural or Artificial Opening Endoscopic (ICD-10-PCS; principal; 2017-04-14 14:00)
PROC: 0DB98ZX Excision of Duodenum, Via Natural or Artificial Opening Endoscopic, Diagnostic (ICD-10-PCS; 2017-04-14 14:00)
PROC: 30233N1 Transfusion of Nonautologous Red Blood Cells into Peripheral Vein, Percutaneous Approach (ICD-10-PCS; 2017-04-14 18:15)
DX: D64.9 Anemia, unspecified (principal); K31.811 Angiodysplasia of stomach and duodenum with bleeding; C92.91 Myeloid leukemia, unspecified in remission; N17.9 Acute kidney failure, unspecified; N18.3 Chronic kidney disease, stage 3 (moderate); Z79.899 Other long term (current) drug therapy; Z88.8 Allergy status to other drugs, medicaments and biological substances; Z91.013 Allergy to seafood; Z91.018 Allergy to other foods; E03.9 Hypothyroidism, unspecified; I12.9 Hypertensive chronic kidney disease with stage 1 through stage 4 chronic kidney disease, or unspecified chronic kidney disease; F41.9 Anxiety disorder, unspecified; G62.9 Polyneuropathy, unspecified; Z95.0 Presence of cardiac pacemaker; K44.9 Diaphragmatic hernia without obstruction or gangrene; Z96.641 Presence of right artificial hip joint; F32.9 Major depressive disorder, single episode, unspecified; G89.29 Other chronic pain; K31.7 Polyp of stomach and duodenum

== ENCOUNTER 2017-05-14 12:14 | Outpatient (CLI) | payer OTHER ==
[2017-05-14] MEDS: diphenhydrAMINE 25 MG CAP PO (14:59)
[2017-05-14] MEDS: ACETAMINOPHEN TAB 650MG DOSE (2X325MG) PO (14:59)
[2017-05-14 15:10] LABS: IMMEDIATE SPIN CROSSMATCH 1 2
[2017-05-14] MEDS: FUROSEMIDE 20 MG/2 ML VIAL (J1940) IV (18:52)
== END 2017-05-14 20:00 | disposition home or self-care (01) ==
LOC: M OPCLI4PR 12:14 → M MS4PR 12:23 → M OPCLI4PR 20:00
DX: D64.9 Anemia, unspecified (principal)
CPT/HCPCS: 36430

== ENCOUNTER → 2017-05-18 | Outpatient (CLI) | payer OTHER ==
[~2017-05-18] MED LIST changes: -/ROPI5TA OR; -AMBI10TA PO; -AMLO25TA PO; -AMLO5TAB2 PO; -BONIVA PO; -BUSP5TA PO; -CALCCHW12 OR; -CITA10TA5 PO; -COMP1TAB PO; -COUM1TAB17 PO; -DIOV320T PO; -DIOV320T3 PO; -DULO1CAP3 PO; -DULO20CA OR; +E-Z-PAQUE 96% w/w SUSP 176GM BTL As Ordered; -FERR150C PO; -FLAG500T PO; -FLUC10TA PO; -GABA-279 PO; -GLEEVEC PO; -HYDR10TAB PO; -HYDR1CRE2 TOP; -IMAT400T PO; -LEVO25TA2 OR; -LEVO50TA5 PO; -MEGA625S PO; -MICR8CAP PO; -MOBI15TA PO; -MUCI600T31 PO; -MUCU400T8 PO; -MULTIVIT PO; -MYLASUS16 PO; -NEUR300C PO; -NITR50CA PO; -NORCOTAB PO; -ONDA4TAB5 PO; -ONDA8TAB7 PO; -POTA1TAB21 PO; -PROT1TAB2 PO; -PROT20TA11 OR; -QUET5TAB PO; -RANI15TA PO; -SERO50TA PO; -SUCR1TA PO; -TORS10TA3 PO; -TRAM50TA2 PO; -TRAZ50TA11 PO; -TYLE325T5 PO; -VALS160T PO; -VALS320T3 PO; -VALS40TA OR; -VITAMIN B COMPLEX WI OR; -VITATAB38 PO; -WELL100T OR; -ZANT1TAB PO; -ZOFR20TA PO; -ZOFR8TAB4 PO; -ZOLP5TAB PO; -[UNRECOGNIZED DRUG - CODE] PO
== END ==
LOC: M RAD 09:32
DX: D64.9 Anemia, unspecified (principal); K31.7 Polyp of stomach and duodenum
CPT/HCPCS: 74250

== ENCOUNTER → 2017-05-20 | Outpatient (REF) | payer OTHER | LOC: M LAB REF 16:45 | DX: C92.11 Chronic myeloid leukemia, BCR/ABL-positive, in remission (principal) | CPT/HCPCS: 88300 ==

== ENCOUNTER → 2017-05-28 | Outpatient (REF) | payer OTHER ==
[2017-05-29 15:56] LABS: IMMEDIATE SPIN CROSSMATCH 1 2
== END ==
LOC: M LAB REF 12:52
DX: D64.9 Anemia, unspecified (principal)
CPT/HCPCS: 86900

== ENCOUNTER 2017-05-29 13:48 | Observation (INO) | payer OTHER ==
[2017-05-29 14:41] LABS: HEMATOCRIT 22.2 % (36.0-47.0); HEMOGLOBIN 7.1 g/dl (12.0-16.0); MEAN CORPUSCULAR HEMOGLOBIN 31.1 pg (27.0-33.0); MEAN CORPUSCULAR VOLUME 97.4 fl (80.0-96.0); PLATELET COUNT, AUTOMATED 223 10^3/uL (150-450); RED BLOOD COUNT 2.28 10^6/uL (4.00-5.40); RED CELL DISTRIBUTION WIDTH 15.9 % (11.5-14.5); WHITE BLOOD COUNT 3.3 10^3/uL (4.0-10.0)
[2017-05-29 15:00] LABS: ANION GAP 5 MEQ/L (8-16); BLOOD UREA NITROGEN 52 MG/DL (7-18); CALCIUM LEVEL 8.1 MG/DL (8.8-10.2); CARBON DIOXIDE LEVEL 28 MEQ/L (21-32); CHLORIDE LEVEL 106 MEQ/L (98-107); CREATININE FOR GFR 2.76 MG/DL (0.55-1.30); GLOMERULAR FILTRATION RATE 17.3 (>32); GLUCOSE, FASTING 121 MG/DL (70-100); POTASSIUM SERUM 4.2 MEQ/L (3.5-5.1); SODIUM LEVEL 139 MEQ/L (136-145)
[2017-05-29] MEDS ORDERED: ACETAMINOPHEN TAB 650MG DOSE (2X325MG) PO (15:30)
[2017-05-29 15:58] LABS: RETIC HEMOGLOBIN EQUIVALENT 37.1 pg (24-36); RETICULOCYTE # 25.1 10^9/L (17-77); RETICULOCYTE % 1.1 % (0.5-1.5)
[2017-05-29] MEDS: diphenhydrAMINE 25 MG CAP PO (16:01)
[2017-05-29] MEDS: ACETAMINOPHEN TAB 650MG DOSE (2X325MG) PO (16:01)
[2017-05-29 16:04] LABS: REASON FOR REVIEW ANEMIA / RBC MORPH; SLIDE REVIEW Report; SOURCE PERIPHERAL SMEAR
[2017-05-29 16:07] LABS: FERRITIN 52 NG/ML (8-252); IRON (FE) 78 UG/DL (50-170); PERCENT SATURATION 22.9 % (13.2-45.0); TOTAL IRON BINDING CAPACITY 340 UG/DL (250-450)
[2017-05-29] MEDS: amLODIPine 5 MG TAB PO (18:02)
[2017-05-29] MEDS: SUCRALFATE SUSP 1GM/10ML UD PO ×2 (18:02→21:39)
[2017-05-29] MEDS: cloNIDine 0.1 MG TAB PO (18:02)
[2017-05-29 18:28] LABS: CK-MB VALUE MASS 3.6 NG/ML (0.0-3.6); CPK CREATINE PHOSPHOKINASE 296 U/L (26-192); MB/CK RELATIVE INDEX 1.21 (< OR =4); TROPONIN I 0.03 NG/ML (< 0.10)
[2017-05-29] MEDS ORDERED: ACETAMINOPHEN 650MG ER TAB (TYLENOL ARTHRITIS) PO (20:00)
[2017-05-29] MEDS ORDERED: PANTOPRAZOLE 40MG INJ (PROTONIX) (C9113) IV (21:00)
[2017-05-29] MEDS: zolPIDEM TARTRATE 5 MG TAB PO (21:39)
[2017-05-29] MEDS: busPIRone 5 MG TAB PO (21:39)
[2017-05-29] MEDS: GABAPENTIN 300 MG CAP PO (21:39)
[2017-05-29] MEDS: PANTOPRAZOLE 40MG TAB (PROTONIX) PO (21:45)
[2017-05-29] MEDS: raNITIdine SYRUP 150 MG/10 ML UDC PO (23:33)
[2017-05-30 00:29] LABS: CK-MB VALUE MASS 2.5 NG/ML (0.0-3.6); CPK CREATINE PHOSPHOKINASE 240 U/L (26-192); MB/CK RELATIVE INDEX 1.04 (< OR =4)
[2017-05-30 00:42] LABS: HEMATOCRIT 26.1 % (36.0-47.0); HEMOGLOBIN 8.5 g/dl (12.0-16.0)
[2017-05-30 00:47] LABS: TROPONIN I 0.04 NG/ML (< 0.10)
[2017-05-30] MEDS: LEVOTHYROXINE 50MCG TABLET (0.05MG) PO (05:04)
[2017-05-30] MEDS: **hydrALAZINE** 10 MG TAB PO ×4 (06:00→16:59)
[2017-05-30 06:20] LABS: HEMATOCRIT 26.7 % (36.0-47.0); HEMOGLOBIN 8.8 g/dl (12.0-16.0); MEAN CORPUSCULAR HEMOGLOBIN 30.2 pg (27.0-33.0); MEAN CORPUSCULAR VOLUME 91.8 fl (80.0-96.0); PLATELET COUNT, AUTOMATED 199 10^3/uL (150-450); RED BLOOD COUNT 2.91 10^6/uL (4.00-5.40); WHITE BLOOD COUNT 4.4 10^3/uL (4.0-10.0)
[2017-05-30 06:48] LABS: ALBUMIN 2.7 GM/DL (3.2-5.2); ANION GAP 9 MEQ/L (8-16); BLOOD UREA NITROGEN 49 MG/DL (7-18); CALCIUM LEVEL 7.5 MG/DL (8.8-10.2); CARBON DIOXIDE LEVEL 24 MEQ/L (21-32); CHLORIDE LEVEL 103 MEQ/L (98-107); CK-MB VALUE MASS 2.5 NG/ML (0.0-3.6); CPK CREATINE PHOSPHOKINASE 231 U/L (26-192); CREATININE FOR GFR 2.71 MG/DL (0.55-1.30); GLOMERULAR FILTRATION RATE 17.7 (>32); GLUCOSE, FASTING 99 MG/DL (70-100); MAGNESIUM LEVEL 1.8 MG/DL (1.8-2.4); MB/CK RELATIVE INDEX 1.08 (< OR =4); PHOSPHORUS LEVEL 3.7 MG/DL (2.5-4.9); POTASSIUM SERUM 3.8 MEQ/L (3.5-5.1); SODIUM LEVEL 136 MEQ/L (136-145); TROPONIN I 0.04 NG/ML (< 0.10)
[2017-05-30] MEDS: SUCRALFATE SUSP 1GM/10ML UD PO ×4 (08:35→21:41)
[2017-05-30] MEDS: raNITIdine SYRUP 150 MG/10 ML UDC PO ×2 (08:35→21:41)
[2017-05-30] MEDS: NS 1,000 ML IV (08:36)
[2017-05-30] MEDS: busPIRone 5 MG TAB PO ×3 (08:36→21:41)
[2017-05-30] MEDS: PANTOPRAZOLE 40MG TAB (PROTONIX) PO ×2 (08:36→21:42)
[2017-05-30] MEDS: GABAPENTIN 300 MG CAP PO ×3 (08:36→21:41)
[2017-05-30] MEDS: DULoxetine 30 MG CAP (CYMBALTA) PO (08:36)
[2017-05-30] MEDS: TAMSULOSIN 0.4 MG CAP PO (08:36)
[2017-05-30] MEDS: buPROPion **SR TABLET** (ZYBAN) 150MG PO (08:36)
[2017-05-30] MEDS ORDERED: VALSARTAN 80 MG TAB (DIOVAN) PO (09:00)
[2017-05-30] MEDS ORDERED: hydroCHLOROthiazide 12.5 MG CAPSULE PO (09:00)
[2017-05-30] MEDS ORDERED: **hydrALAZINE HCL** 25 MG TAB PO (09:00)
[2017-05-30 12:01] LABS: HEMATOCRIT 26.7 % (36.0-47.0)
[2017-05-30] MEDS: ONDANSETRON 4MG/2ML VIAL (J2405) IV (20:18)
[2017-05-30] MEDS: zolPIDEM TARTRATE 5 MG TAB PO (21:41)
[2017-05-31] MEDS: **hydrALAZINE** 10 MG TAB PO ×3 (06:19→11:49)
[2017-05-31] MEDS: LEVOTHYROXINE 50MCG TABLET (0.05MG) PO (06:23)
[2017-05-31 07:09] LABS: ALBUMIN 2.6 GM/DL (3.2-5.2); ANION GAP 7 MEQ/L (8-16); BLOOD UREA NITROGEN 41 MG/DL (7-18); CALCIUM LEVEL 7.5 MG/DL (8.8-10.2); CARBON DIOXIDE LEVEL 26 MEQ/L (21-32); CHLORIDE LEVEL 104 MEQ/L (98-107); CREATININE FOR GFR 2.36 MG/DL (0.55-1.30); GLOMERULAR FILTRATION RATE 20.8 (>32); GLUCOSE, FASTING 114 MG/DL (70-100); PHOSPHORUS LEVEL 2.7 MG/DL (2.5-4.9); POTASSIUM SERUM 4.1 MEQ/L (3.5-5.1); SODIUM LEVEL 137 MEQ/L (136-145)
[2017-05-31] MEDS: DULoxetine 30 MG CAP (CYMBALTA) PO (08:43)
[2017-05-31] MEDS: TAMSULOSIN 0.4 MG CAP PO (08:43)
[2017-05-31] MEDS: raNITIdine SYRUP 150 MG/10 ML UDC PO (08:43)
[2017-05-31] MEDS: GABAPENTIN 300 MG CAP PO (08:43)
[2017-05-31] MEDS: SUCRALFATE SUSP 1GM/10ML UD PO ×2 (08:43→11:49)
[2017-05-31] MEDS: buPROPion **SR TABLET** (ZYBAN) 150MG PO (08:43)
[2017-05-31] MEDS: PANTOPRAZOLE 40MG TAB (PROTONIX) PO (08:44)
[2017-05-31] MEDS: busPIRone 5 MG TAB PO (08:44)
== END 2017-05-31 14:00 | disposition home or self-care (01) ==
LOC: M MS5PR 05-30 14:18 → M ED 13:48 → M ED INP 15:17
DX: D64.9 Anemia, unspecified (principal); C92.10 Chronic myeloid leukemia, BCR/ABL-positive, not having achieved remission; N18.3 Chronic kidney disease, stage 3 (moderate); R79.89 Other specified abnormal findings of blood chemistry; K31.819 Angiodysplasia of stomach and duodenum without bleeding; N17.9 Acute kidney failure, unspecified; E03.9 Hypothyroidism, unspecified; I12.9 Hypertensive chronic kidney disease with stage 1 through stage 4 chronic kidney disease, or unspecified chronic kidney disease; G62.9 Polyneuropathy, unspecified; G89.29 Other chronic pain; F32.9 Major depressive disorder, single episode, unspecified; F41.9 Anxiety disorder, unspecified; K44.9 Diaphragmatic hernia without obstruction or gangrene; Z95.0 Presence of cardiac pacemaker; Z91.018 Allergy to other foods; Z88.8 Allergy status to other drugs, medicaments and biological substances; Z79.899 Other long term (current) drug therapy
CPT/HCPCS: J2405

== ENCOUNTER → 2017-07-01 | Outpatient (REF) | payer OTHER ==
[2017-07-01 18:47] LABS: FERRITIN 46 NG/ML (8-252); IRON (FE) 108 UG/DL (50-170); TOTAL IRON BINDING CAPACITY 386 UG/DL (250-450)
== END ==
LOC: M LAB REF 17:34
DX: C92.10 Chronic myeloid leukemia, BCR/ABL-positive, not having achieved remission (principal)
CPT/HCPCS: 83550

== ENCOUNTER → 2017-09-28 | Outpatient (REF) | payer OTHER ==
[2017-09-28 18:33] LABS: FERRITIN 69 NG/ML (8-252); IRON (FE) 148 UG/DL (50-170); PERCENT SATURATION 35.3 % (13.2-45.0); TOTAL IRON BINDING CAPACITY 419 UG/DL (250-450)
== END ==
LOC: M LAB REF 17:58
DX: C93.11 Chronic myelomonocytic leukemia, in remission (principal); D63.1 Anemia in chronic kidney disease

== ENCOUNTER → 2017-09-28 | Outpatient (REF) | payer OTHER ==
[2017-09-29 12:52] LABS: IMMEDIATE SPIN CROSSMATCH 1 2
== END ==
LOC: M LAB REF 17:05
DX: C93.11 Chronic myelomonocytic leukemia, in remission (principal); D63.1 Anemia in chronic kidney disease; N18.3 Chronic kidney disease, stage 3 (moderate)
CPT/HCPCS: 83550

== ENCOUNTER → 2017-12-13 | Outpatient (REF) | payer OTHER ==
[2017-12-13 19:43] LABS: FERRITIN 98 NG/ML (8-252); IRON (FE) 144 UG/DL (50-170); PERCENT SATURATION 36.1 % (13.2-45.0); TOTAL IRON BINDING CAPACITY 399 UG/DL (250-450)
== END ==
LOC: M LAB REF 18:39
DX: C91.10 Chronic lymphocytic leukemia of B-cell type not having achieved remission (principal)
CPT/HCPCS: 83550

== ENCOUNTER → 2017-12-21 | Outpatient (CLI) | payer OTHER | LOC: M RAD 12:10 | DX: K31.7 Polyp of stomach and duodenum (principal); D64.9 Anemia, unspecified ==

== ENCOUNTER 2018-02-07 19:31 | Emergency (ER) | payer OTHER ==
[2018-02-07 20:20] LABS: BASO # 0.1 10^3/uL (0.0-0.2); BASO % 1.2 % (0.0-1.0); EOS # 0.2 10^3/uL (0.0-0.50); EOS % 2.5 % (0.0-3.0); HEMATOCRIT 30.3 % (36.0-47.0); HEMOGLOBIN 9.7 g/dl (12.0-15.5); IMMATURE GRANULOCYTE % 0.5 % (0-3.0); LYMPH # 1.7 10^3/uL (1.5-4.5); LYMPH % 20.2 % (24.0-44.0); MEAN CORPUSCULAR HEMOGLOBIN 30.8 pg (27.0-33.0); MEAN CORPUSCULAR VOLUME 96.2 fl (80.0-96.0); MONO # 0.8 10^3/uL (0.0-0.8); MONO % 9.4 % (0.0-5.0); NEUTROPHILS # 5.5 10^3/uL (1.8-7.7); NEUTROPHILS % 66.2 % (36.0-66.0); PLATELET COUNT, AUTOMATED 316 10^3/uL (150-450); RED BLOOD COUNT 3.15 10^6/uL (4.00-5.40); RED CELL DISTRIBUTION WIDTH 14.6 % (11.5-14.5); WHITE BLOOD COUNT 8.3 10^3/uL (4.0-10.0)
[2018-02-07] MEDS: NS 1,000 ML IV (20:47)
[2018-02-07 20:55] LABS: ALBUMIN 3.4 GM/DL (3.2-5.2); ALKALINE PHOSPHATASE 64 U/L (45-117); ALT/SGPT 19 U/L (12-78); ANION GAP 6 MEQ/L (8-16); AST/SGOT 28 U/L (7-37); BILIRUBIN,DIRECT < 0.1 MG/DL (0.0-0.2); BILIRUBIN,TOTAL 0.2 MG/DL (0.2-1.0); BLOOD UREA NITROGEN 50 MG/DL (7-18); CALCIUM LEVEL 8.4 MG/DL (8.8-10.2); CARBON DIOXIDE LEVEL 23 MEQ/L (21-32); CHLORIDE LEVEL 110 MEQ/L (98-107); CPK CREATINE PHOSPHOKINASE 218 U/L (26-192); CREATININE FOR GFR 2.46 MG/DL (0.55-1.30); GLOMERULAR FILTRATION RATE 19.8 (>32); GLUCOSE, FASTING 99 MG/DL (70-100); MB/CK RELATIVE INDEX 2.52 (< OR =4); POTASSIUM SERUM 6.2 MEQ/L (3.5-5.1); SODIUM LEVEL 139 MEQ/L (136-145); TOTAL PROTEIN 6.5 GM/DL (6.4-8.2); TROPONIN I 0.03 NG/ML (< 0.10)
[2018-02-07 21:19] LABS: KETONE, URINE AUTO RFX NEGATIVE (NEGATIVE); RBC, URINE AUTO RFX 3 /HPF (0-3); SPECIFIC GRAVITY UR AUTO RFX 1.011 (1.002-1.035); SQUAM EPITHELIAL CELL UR AURFX 0 /HPF (0-6)
[2018-02-07 21:20] LABS: LEUKOCYTE ESTERASE UR AUTO RFX 2+ (NEGATIVE); NITRITE, URINE AUTO RFX POSITIVE (NEGATIVE); WBC, URINE AUTO RFX 19 /HPF (0-3)
[2018-02-08 00:34] LABS: ANION GAP 4 MEQ/L (8-16); BLOOD UREA NITROGEN 49 MG/DL (7-18); CALCIUM LEVEL 8.2 MG/DL (8.8-10.2); CARBON DIOXIDE LEVEL 24 MEQ/L (21-32); CHLORIDE LEVEL 114 MEQ/L (98-107); CREATININE FOR GFR 2.29 MG/DL (0.55-1.30); GLOMERULAR FILTRATION RATE 21.5 (>32); GLUCOSE, FASTING 101 MG/DL (70-100); POTASSIUM SERUM 5.6 MEQ/L (3.5-5.1); SODIUM LEVEL 142 MEQ/L (136-145)
== END 2018-02-08 01:06 | disposition home or self-care (01) ==
LOC: M ED 02-08 01:06
DX: E87.5 Hyperkalemia (principal); I12.9 Hypertensive chronic kidney disease with stage 1 through stage 4 chronic kidney disease, or unspecified chronic kidney disease; N18.4 Chronic kidney disease, stage 4 (severe)
CPT/HCPCS: 76775

== ENCOUNTER 2018-05-10 15:21 | Emergency (ER) | payer MEDICARE, OTHER ==
[~2018-05-10] VITALS: Ht 152.4 cm; Wt 45.5 kg
[~2018-05-10 15:21] MED LIST changes: +/ROPI5TA OR; +ACET650T3 PO; +AMBI10TA PO; +AMLO10TA5 PO; +AMLO2.5T3 PO; +AMLO25TA PO; +AMLO5TAB6 PO; +BONIVA PO; +BUPR15TASR PO; +BUSP5TA PO; +CALCCHW12 OR; +CARV3.12 PO; +CITA10TA5 PO; +COMP1TAB PO; +COUM1TAB17 PO; +DIOV320T PO; +DIOV320T3 PO; +DIOV80TA3 PO; +DULO1CAP3 PO; +DULO20CA OR; -E-Z-PAQUE 96% w/w SUSP 176GM BTL As Ordered; +FERR150C PO; +FLAG500T PO; +FLOM0.4C39 PO; +FLUC10TA PO; +GABA-1171 PO; +GLEEVEC PO; +HYDR10TAB PO; +HYDR12.55 PO; +HYDR1CRE2 TOP; +HYDR25TA PO; +IMAT100TAB PO; +IMAT400T PO; +LEVO25TA2 OR; +LEVO50TA5 PO; +MAG400TA PO; +MEGA625S PO; +MICR8CAP PO; +MOBI15TA PO; +MUCI600T31 PO; +MUCU400T9 PO; +MULTIVIT PO; +MYLASUS16 PO; +NEUR300C PO; +NITR50CA40 PO; +NORCOTAB PO; +ONDA4TAB5 PO; +ONDA4TAB6 PO; +ONDA8TAB7 PO; +PANT40TA3 PO; +PATIENT COMMENT; +POTA1TAB21 PO; +PROC2.5C3 PR; +PROT1TAB2 PO; +PROT20TA11 OR; +QUET5TAB PO; +RANI15TA PO; +ROPI0.253 PO; +SERO50TA PO; +SPIR-10 PO; +SUCR1TA PO; +TORS10TA3 PO; +TRAM50TA2 PO; +TRAZ-160 PO; +TYLE325T5 PO; +VALS160T PO; +VALS1TAB47 PO; +VALS1TAB48 PO; +VALS320T3 PO; +VALS40TA OR; +VITAMIN B COMPLEX WI OR; +VITATAB38 PO; +WELL100T OR; +ZANT150T15 PO; +ZOFR4TAB16 PO; +ZOFR8TAB22 PO; +ZOLP5TAB PO; +[UNRECOGNIZED DRUG - CODE] PO
--- NOTE | 2018-05-10 17:14 | REP ---
Lumbar spine five views History: Fall There is no acute fracture. The lumbar intervertebral discs are decreased in height. Vacuum phenomenon is present at the L1-2 and L2-3 levels. These findings are consistent with disc degeneration. Osteophytes are present throughout the lumbar spine. There is narrowing of the L4-5 and L5-L1 facet joints. There is scoliosis convex to the left. The bony structure is osteopenic. Impression: Degenerative change as described above. Electronically Signed by Edu Carmichael MD 05/10/2018 05:05 P
--- NOTE | 2018-05-10 17:16 | REP ---
AP pelvis: The patient is rotated. No pelvic fractures are identified. There is a right hip hemiarthroplasty without dislocation or fracture. Right hip is unremarkable. Phleboliths are incidentally identified. Impression: No pelvic fracture. Left hip two views: There is a left hip hemiarthroplasty. There is no fracture or dislocation. No acetabular fracture. No calcifications or foreign bodies. Impression Hemiarthroplasty. No fracture or dislocation. Electronically Signed by Samuel Horta MD 05/10/2018 05:07 P
[2018-05-10] MEDS ORDERED: NAPR-50 PO ×2 (17:37→17:51)
[2018-05-10 17:51] VITALS: BP 156/71
== END 2018-05-10 17:55 | disposition home or self-care (01) ==
LOC: M ED 15:21
DX: S70.01XA Contusion of right hip, initial encounter (principal); S39.012A Strain of muscle, fascia and tendon of lower back, initial encounter; W01.0XXA Fall on same level from slipping, tripping and stumbling without subsequent striking against object, initial encounter; Y92.098 Other place in other non-institutional residence as the place of occurrence of the external cause; Z87.891 Personal history of nicotine dependence; Z88.8 Allergy status to other drugs, medicaments and biological substances; Z91.018 Allergy to other foods; Z91.013 Allergy to seafood; Z79.899 Other long term (current) drug therapy; Z96.641 Presence of right artificial hip joint

== ENCOUNTER 2018-05-28 16:59 | Emergency (ER) | payer MEDICARE ==
[~2018-05-28] VITALS: Ht 152.4 cm; Wt 47.7 kg
[~2018-05-28 16:59] MED LIST changes: +NAPR-50 PO
[2018-05-28] MEDS ORDERED: NS 1,000 ML IV SCH (17:45)
[2018-05-28 18:14] LABS: HEMATOCRIT 28.4 % (36.0-47.0); HEMOGLOBIN 8.9 g/dl (12.0-15.5); MEAN CORPUSCULAR HEMOGLOBIN 31.2 pg (27.0-33.0); MEAN CORPUSCULAR HGB CONC 31.3 g/dl (32.0-36.5); MEAN CORPUSCULAR VOLUME 99.6 fl (80.0-96.0); PLATELET COUNT, AUTOMATED 261 10^3/uL (150-450); RED BLOOD COUNT 2.85 10^6/uL (4.00-5.40)
[2018-05-28 18:34] LABS: ALBUMIN 3.1 GM/DL (3.2-5.2); ALT/SGPT 17 U/L (12-78); BILIRUBIN,DIRECT < 0.1 MG/DL (0.0-0.2); BILIRUBIN,TOTAL 0.2 MG/DL (0.2-1.0); BLOOD UREA NITROGEN 40 MG/DL (7-18); CALCIUM LEVEL 7.8 MG/DL (8.8-10.2); CARBON DIOXIDE LEVEL 27 MEQ/L (21-32); CHLORIDE LEVEL 111 MEQ/L (98-107); CREATININE FOR GFR 2.31 MG/DL (0.55-1.30); GLOMERULAR FILTRATION RATE 21.2 (>32); GLUCOSE, FASTING 98 MG/DL (70-100); POTASSIUM SERUM 5.2 MEQ/L (3.5-5.1); SODIUM LEVEL 142 MEQ/L (136-145); TOTAL PROTEIN 5.7 GM/DL (6.4-8.2)
[2018-05-28] MEDS ORDERED: MACR100C43 PO (19:08)
[2018-05-28] MEDS ORDERED: NITROFURANTOIN (MACROBID) 100 MG CAP PO ONE (19:15)
[2018-05-28 19:30] VITALS: BP 141/85
== END 2018-05-28 19:30 | disposition home or self-care (01) ==
LOC: M ED 16:59 → EDBD 16:59 → M ED 19:30
DX: F03.90 Unspecified dementia, unspecified severity, without behavioral disturbance, psychotic disturbance, mood disturbance, and anxiety (principal); I10 Essential (primary) hypertension; C95.90 Leukemia, unspecified not having achieved remission; E03.9 Hypothyroidism, unspecified; G62.9 Polyneuropathy, unspecified; F41.9 Anxiety disorder, unspecified; Z95.0 Presence of cardiac pacemaker; Z98.890 Other specified postprocedural states; Z88.8 Allergy status to other drugs, medicaments and biological substances; Z91.018 Allergy to other foods; Z79.899 Other long term (current) drug therapy; Z79.890 Hormone replacement therapy

== ENCOUNTER 2019-02-22 17:12 | Inpatient (IN) | payer MEDICARE ==
[~2019-02-22] VITALS: Ht 152.4 cm; Wt 52.5 kg
[~2019-02-22 17:12] MED LIST changes: -/ROPI5TA OR; +CYMB1CAP4 OR; -DULO1CAP3 PO; +DULO1CAP6 PO; -DULO20CA OR; +HYDR-3715 PO; +MACR100C43 PO; -MUCU400T9 PO; -NAPR-50 PO; +NAPR-837 PO; +NITR1CAP27 PO; -NITR50CA40 PO; -NORCOTAB PO; +QC A650T3 PO; +REQU1TAB15 OR; -TRAZ-160 PO; +TRAZ-252 PO; -VALS1TAB47 PO; -VALS1TAB48 PO; +VALS1TAB67 PO; +VALS1TAB68 PO; +[UNRECOGNIZED DRUG - CODE] PO
[2019-02-22] MEDS ORDERED: NS 1,000 ML IV SCH ×2 (17:18→23:15)
[2019-02-22 18:26] LABS: BASO % 0.4 % (0.0-1.0); EOS # 0.2 10^3/uL (0.0-0.5); EOS % 3.5 % (0.0-3.0); HEMATOCRIT 21.4 % (36.0-47.0); LYMPH % 22.8 % (24.0-44.0); MEAN CORPUSCULAR HEMOGLOBIN 33.5 pg (27.0-33.0); MEAN CORPUSCULAR HGB CONC 31.3 g/dl (32.0-36.5); MONO # 0.5 10^3/uL (0.0-0.8); MONO % 9.9 % (0.0-5.0); NEUTROPHILS # 2.9 10^3/uL (1.5-8.5); NEUTROPHILS % 62.7 % (36.0-66.0); PLATELET COUNT, AUTOMATED 190 10^3/uL (150-450); WHITE BLOOD COUNT 4.6 10^3/uL (4.0-10.0)
[2019-02-22 18:36] LABS: HEMOGLOBIN 6.7 g/dl (12.0-15.5)
[2019-02-22 18:58] LABS: ALBUMIN 3.4 GM/DL (3.2-5.2); ALT/SGPT 19 U/L (12-78); BILIRUBIN,DIRECT < 0.1 MG/DL (0.0-0.2); BILIRUBIN,TOTAL 0.1 MG/DL (0.2-1.0); CK-MB VALUE MASS 3.6 NG/ML (<3.6); CPK CREATINE PHOSPHOKINASE 307 U/L (26-192); MB/CK RELATIVE INDEX 1.17 (< OR =4); TOTAL PROTEIN 5.8 GM/DL (6.4-8.2)
[2019-02-22 18:59] LABS: LIPASE 308 U/L (73-393)
[2019-02-22] MEDS ORDERED: CEPHALEXIN 500 MG CAP PO ONE (19:00)
[2019-02-22] MEDS ORDERED: MAGN400T2 PO (19:28)
[2019-02-22] MEDS ORDERED: ROPI0.253 PO (19:28)
[2019-02-22] MEDS ORDERED: BOOSLIQ77 PO (19:28)
[2019-02-22] MEDS ORDERED: TUMS500C PO (19:28)
[2019-02-22] MEDS ORDERED: SPIR-10 PO (19:28)
[2019-02-22] MEDS ORDERED: ESCI20TA PO (19:28)
[2019-02-22] MEDS ORDERED: GABA-1171 PO (19:28)
[2019-02-22] MEDS ORDERED: CARV3.12 PO (19:28)
[2019-02-22] MEDS ORDERED: ONDA8TAB7 PO (19:28)
[2019-02-22] MEDS ORDERED: AMLO5TAB6 PO (19:28)
--- NOTE | 2019-02-22 19:39 | HPEPDOC ---
[facility] Medical History & Physical Date of Admission Feb 22, 2019 Date of Service: Feb 22, 2019 Other Provider Mauri Florez Attending Physician: MELISSA KYLE MD History and Physical TIME OF SERVICE: 9:30 PM CHIEF COMPLAINT: Abdominal pain HISTORY OF PRESENT ILLNESS: This is an 89-year-old female who presents with complaints of one day in duration mid 8 out of 10 in severity, nonradiating abdominal pain. She had similar pain when she was diagnosed with a hernia. Associated symptoms include shortness of breath when she tries to walk, nausea, dark stools for 3-4 days, and blood mixed with her stools for 1-2 days. She denies vomiting, denies feeling dizzy, denies having chest pain. She admits to being told that she looks more pale than usual. 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 CKD4 Chronic hypertension Hypothyroidism Pacemaker placed for unspecified arrhythmia . 2016 Status post tubal ligation. Status post hysterectomy Unsteady gait, ambulates with a cane SOCIAL HISTORY: She doesn't smoke She lives with her grandson who helps her complete her ADLs and helps her with her medications FAMILY HISTORY: Her mother had breast cancer ALLERGIES: Please see below. HOME MEDICATIONS: Please see below. PHYSICAL EXAMINATION: VITAL SIGNS: Please see below. GENERAL APPEARANCE: Well-nourished, well-developed, not in apparent distress HEENT: Cephalic, atraumatic, mucous membranes moist and pink. Sclera are anicteric. Nasal cannula is in place CARDIOVASCULAR: Regular rate and rhythm. No murmurs, rubs or gallops LUNGS:. Clear to auscultation bilaterally on room air ABDOMEN: Bowel sounds are hypoactive. Abdomen is soft and slightly tender with palpation of the mid lower abdomen MUSCULOSKELETAL:. Range of motion is intact in all 4 extremities INTEGUMENT:. Generalized pallor NEUROLOGICAL: CN 2-12 grossly intact PSYCHIATRIC: A&O x 3 / able to understand and follow all comands LABORATORY DATA: See below. MICROBIOLOGY: Please see below. ASSESSMENT: Ms. 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 PLAN: 1. Acute blood loss anemia secondary to GI bleed. At this point in time it's unclear if the source is an upper or lower GI bleed. Baseline hemoglobin 8.9--> today it is 6.7 Her MAP is in the 90s . She's not tachycardic Plan: Admit to PCU/telemetry/follow-up stool occult/transient, 1 unit of PRBCs and follow-up iron panel & serial hemoglobin / will aim to keep hemoglobin above 7 / clear liquid diet pending GI consult / she has a history of upper GI bleed will order 1 dose of ciprofloxacin PPI 40mg IB BID and octreotide 2. MARCUS on CKD4 Baseline creatinine is 2.8 -->today it is 3.15 Renal US 2018 "IMPRESSION: 1. Bilateral small kidneys. 2. No evidence of hydronephrosis or renal stones. Plan: IV fluids / follow-up BMP & Ulytes for FEUrea 3. Chronic hypertension Plan: c/w amlodipine, spironolactone and coreg 4. Hypothyroidism Plan: c/w levothyroxine DVT prophylaxis with SCDs. Disposition likely home after more than 2 midnight stay Vital Signs Vital Signs Date Time Temp Pulse Resp B/P (MAP) Pulse Ox O2 Delivery O2 Flow Rate FiO2 02/22/19 17:25 97.6 77 18 151/67 (95) 98 Nasal Cannula 2.0 Laboratory Data Labs 24H Laboratory Tests 2 02/22/19 18:01: POC Glucose (Misc Panel) 100, POC Sodium (Misc Panel) 139, POC Potassium (Misc Panel) 5.1, POC Chloride (Misc Panel) 104, POC Total CO2 (Misc Panel) 29.0H, POC Blood Urea Nitrogen (Misc Panel 37H, POC Ionized Calcium (Misc Panel) 4.8, POC Creatinine (Misc Panel) 3.2H, POC Hematocrit (Misc Panel) 21.0L 02/22/19 18:06: Immature Granulocyte % (Auto) 0.7, Neutrophils (%) (Auto) 62.7, Lymphocytes (%) (Auto) 22.8L, Monocytes (%) (Auto) 9.9H, Eosinophils (%) (Auto) 3.5H, Basophils (%) (Auto) 0.4, Neutrophils # (Auto) 2.9, Lymphocytes # (Auto) 1.0L, Monocytes # (Auto) 0.5, Eosinophils # (Auto) 0.2, Basophils # (Auto) 0.0, Nucleated Red Blood Cells % (auto) 0.0, Total Bilirubin 0.1L, Direct Bilirubin < 0.1, Aspartate Amino Transf (AST/SGOT) 36, Alanine Aminotransferase (ALT/SGPT) 19, Alkaline Phosphatase 60, Total Creatine Kinase 307H, Creatine Kinase MB 3.6, Creatine Kinase MB Relative Index 1.17, Total Protein 5.8L, Albumin 3.4, Albumin/Globulin Ratio 1.42, Lipase 308 02/22/19 18:12: Urine Color YELLOW, Urine Appearance HAZY, Urine pH 6.0, Urine Specific [place] 1.011, Urine Protein 2+H, Urine Glucose (UA) NEGATIVE, Urine Ketones NEGATIVE, Urine Blood 1+H, Urine Nitrite NEGATIVE, Urine Bilirubin NEGATIVE, Urine Urobilinogen 0.2, Urine Leukocyte Esterase 2+H, Urine WBC (Auto) 21H, Urine RBC (Auto) 1, Urine Hyaline Casts (Auto) 0, Urine Bacteria (Auto) 3+H, Urine Squamous Epithelial Cells 0, Urine Sperm (Auto) CBC/BMP Laboratory Tests 02/22/19 18:06 Microbiology Microbiology 02/22/19 Urine Culture, Received Pending 02/22/19 Blood Culture, Received Pending 02/22/19 Blood Culture, Received Pending Home Medications Scheduled Amlodipine Besylate (Amlodipine Besylate) 5 Mg Tablet, 5 MG PO QPM Buspirone HCl (Buspirone HCl) 5 Mg Tab, 5 MG PO BID Calcium Carbonate (Tums) 200 Mg Tab.chew, 500 MG PO BID Carvedilol (Carvedilol) 3.125 Mg Tablet, 3.125 MG PO BID Escitalopram Oxalate (Escitalopram Oxalate) 20 Mg Tablet, 20 MG PO QPM Gabapentin (Gabapentin) 100 Mg Capsule, 300 MG PO TID Imatinib Mesylate (Imatinib Mesylate) 400 Mg Tablet, 400 MG PO DAILY Lactose-Reduced Food (Boost Plus) 237 Ml Liquid, 237 ML PO BID Levothyroxine Sodium (Levothyroxine Sodium) 50 Mcg Tab, 50 MCG PO QPM Magnesium Oxide (Magnesium Oxide) 400 Mg Tablet, 400 MG PO BID Pantoprazole Sodium (Pantoprazole Sodium) 40 Mg Tab, 40 MG PO DAILY Ropinirole HCl (Ropinirole HCl) 0.25 Mg Tablet, 0.25 MG PO QHS Spironolactone (Spironolactone) 25 Mg Tablet, 12.5 MG PO DAILY Scheduled PRN Ondansetron HCl (Ondansetron HCl) 8 Mg Tablet, 8 MG PO Q6H PRN for NAUSEA OR VOMITING Trazodone HCl (Trazodone HCl) 50 Mg Tab, 50 MG PO QHS PRN for SLEEP Allergies Coded Allergies: losartan (Verified Adverse Reaction, Severe, angioedema, 06/23/18) mushroom (Verified Adverse Reaction, Intermediate, vomiting, 02/22/19) oyster extract (Verified Adverse Reaction, Intermediate, vomiting, 02/22/19) MELISSA KYLE MD Feb 22, 2019 19:39
[2019-02-22] MEDS ORDERED: ACETAMINOPHEN TAB 650MG DOSE (2X325MG) PO PRN (19:45)
[2019-02-22 20:29] VITALS: BP 151/68
[2019-02-22 22:50] VITALS: BP 158/74
[2019-02-22 23:05] VITALS: BP 134/65
[2019-02-22] MEDS ORDERED: CIPROFLOXACIN 200 MG in IV 1 EA IV ONE (23:15)
[2019-02-23] VITALS (9 sets, daily range): BP systolic 116–151; BP diastolic 57–98
[2019-02-23] MEDS: ESCITALOPRAM OXALATE 10 MG TAB (LEXAPRO) PO SCH ×2 (00:05→18:47)
[2019-02-23] MEDS: PANTOPRAZOLE 40MG INJ (PROTONIX) (C9113) IV SCH ×3 (00:05→20:12)
[2019-02-23] MEDS: traZODone 50 MG TAB PO PRN (00:07)
[2019-02-23] MEDS: CARVedilol 3.125 MG TAB PO SCH ×3 (00:07→20:13)
[2019-02-23] MEDS: rOPINIRole 0.25 MG TAB(REQUIP) PO SCH ×2 (00:07→20:13)
[2019-02-23] MEDS: busPIRone 5 MG TAB PO SCH ×3 (00:08→20:12)
[2019-02-23] MEDS: amLODIPine 5 MG TAB PO SCH ×2 (00:08→18:47)
[2019-02-23] MEDS: LEVOTHYROXINE 50MCG TABLET (0.05MG) PO SCH ×2 (00:10→18:46)
[2019-02-23] MEDS: GABAPENTIN 300 MG CAP PO SCH ×2 (00:11→20:12)
[2019-02-23] MEDS: MAGNESIUM OXIDE 400 MG TAB (MAG-OX) PO SCH ×3 (00:11→20:12)
[2019-02-23 05:38] LABS: HEMATOCRIT 25.7 % (36.0-47.0); HEMOGLOBIN 8.4 g/dl (12.0-15.5); MEAN CORPUSCULAR HEMOGLOBIN 32.4 pg (27.0-33.0); MEAN CORPUSCULAR HGB CONC 32.7 g/dl (32.0-36.5); MEAN CORPUSCULAR VOLUME 99.2 fl (80.0-96.0); PLATELET COUNT, AUTOMATED 153 10^3/uL (150-450); RED BLOOD COUNT 2.59 10^6/uL (4.00-5.40); WHITE BLOOD COUNT 4.5 10^3/uL (4.0-10.0)
[2019-02-23 05:52] LABS: CALCIUM LEVEL 8.3 MG/DL (8.8-10.2); CREATININE FOR GFR 2.8 MG/DL (0.55-1.30); MAGNESIUM LEVEL 2.6 MG/DL (1.8-2.4); POTASSIUM SERUM 4.7 MEQ/L (3.5-5.1)
[2019-02-23] MEDS: SPIRONOLACTONE 12.5MG PER 1/2 TABLET PO SCH (08:56)
--- NOTE | 2019-02-23 10:45 | IPNPDOC ---
Text Note Date of Service The patient was seen on 02/23/19. NOTE SUBJECTIVE: Denies any abdominal pain , nausea or vomiting. Says has not had any bowel movement after coming to the hospital. No fever or chills, Just says she feels very weak and tired. PHYSICAL EXAMINATION: VITAL SIGNS: Please see below. GENERAL APPEARANCE: Well-nourished, well-developed, not in apparent distress HEENT: Cephalic, atraumatic, mucous membranes moist and pink. Sclera are anicteric. Nasal cannula is in place CARDIOVASCULAR: Regular rate and rhythm. No murmurs, rubs or gallops LUNGS:. Clear to auscultation bilaterally on room air ABDOMEN: Bowel sounds are hypoactive. Abdomen is soft and slightly tender with palpation of the mid lower abdomen MUSCULOSKELETAL:. Range of motion is intact in all 4 extremities INTEGUMENT:. Generalized pallor PSYCHIATRIC: A&O x 3 / able to understand and follow all commands LABORATORY DATA and radiology : reviewed. See below. 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 As per patient's grandson patient sleeps most of the day and last 3 to 4 days she was having 4 to 6 bowel movements a day with red to black stools. Acute GIB with acute blood loss anemia on 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 Monitor HH GI consulted. Chronic anemia Multifactorial anemia secondary to chronic renal insufficiency and iron deficiency anemia from GIB with upper endoscopy March 2017 showing mild gastric antral vascular ectasia and duodenal polyp. Hypothyroid. -c/w Synthroid Latoya on CKD stage 4 with baseline creatinine about 2.5 to 2.8 now creatinine back to baseline. CML On imatinib stable HTN Amlodipine , coreg and spironolactone. Anxiety/depression c/w Buspirone, lexapro, trazodone. Peripheral neuropathy/chronic pain Gabapentin VS,Fishbone, I+O VS, Fishbone, I+O Laboratory Tests 02/22/19 18:06 02/23/19 05:22 Vital Signs Date Time Temp Pulse Resp B/P (MAP) Pulse Ox O2 Delivery O2 Flow Rate FiO2 02/23/19 08:56 63 147/81 02/23/19 08:00 97.6 18 97 Nasal Cannula 2.0 I&O- Last 24 Hours up to 6 AM 02/23/19 06:00 Intake Total 2120 ml Output Total 200 ml Balance 1920 ml JORDAN CUMMINGS MD Feb 23, 2019 10:45
[2019-02-23 12:44] LABS: HEMATOCRIT 24.9 % (36.0-47.0); HEMOGLOBIN 8.2 g/dl (12.0-15.5)
--- NOTE | 2019-02-23 17:58 | ECGEPIP ---
[facility] - ED Test Date: 2019-02-22 Pat Name: PHUONG ARZOLA Department: Room: - Gender: Female Conference Producer: : [id number] Requested By: Natali Uribe Order Number: [id number] Reading MD: Shayne Murphy Measurements Intervals [place] Rate: 79 P: 46 MD: 200 QRS: 30 QRSD: 145 T: 239 QT: 407 QTc: 467 Interpretive Statements ELECTRONIC VENTRICULAR PACEMAKER SIMILAR TO 02/07/18 Electronically Signed on 02-23-2019 17:57:48 EST by Shayne Murphy
[2019-02-23 18:20] LABS: HEMATOCRIT 28.7 % (36.0-47.0); HEMOGLOBIN 9.2 g/dl (12.0-15.5)
[2019-02-23] MEDS: OCTREOTIDE ACETATE 1,200 MCG in NS 238.8 ML IV SCH ×3 (23:59)
[2019-02-24] VITALS: BP 170/80
[2019-02-24 00:33] LABS: HEMOGLOBIN 9.5 g/dl (12.0-15.5)
[2019-02-24 04:00] VITALS: BP 158/82
[2019-02-24 06:12] LABS: BASO % 0.9 % (0.0-1.0); EOS # 0.2 10^3/uL (0.0-0.5); HEMATOCRIT 27.1 % (36.0-47.0); LYMPH # 1.1 10^3/uL (1.5-5.0); LYMPH % 26.1 % (24.0-44.0); MEAN CORPUSCULAR HEMOGLOBIN 32.5 pg (27.0-33.0); MEAN CORPUSCULAR HGB CONC 33.2 g/dl (32.0-36.5); MEAN CORPUSCULAR VOLUME 97.8 fl (80.0-96.0); MONO # 0.5 10^3/uL (0.0-0.8); MONO % 11.2 % (0.0-5.0); NEUTROPHILS # 2.5 10^3/uL (1.5-8.5); NEUTROPHILS % 56.6 % (36.0-66.0); PLATELET COUNT, AUTOMATED 176 10^3/uL (150-450); RED BLOOD COUNT 2.77 10^6/uL (4.00-5.40); WHITE BLOOD COUNT 4.4 10^3/uL (4.0-10.0)
[2019-02-24 06:40] LABS: CALCIUM LEVEL 8.1 MG/DL (8.8-10.2); CREATININE FOR GFR 2.54 MG/DL (0.55-1.30); PERCENT SATURATION 32.5 % (13.2-45.0); POTASSIUM SERUM 4.8 MEQ/L (3.5-5.1)
[2019-02-24 08:00] VITALS: BP 161/82
[2019-02-24] MEDS: SPIRONOLACTONE 12.5MG PER 1/2 TABLET PO SCH (09:47)
[2019-02-24] MEDS: CARVedilol 3.125 MG TAB PO SCH ×2 (09:50→21:11)
[2019-02-24] MEDS: busPIRone 5 MG TAB PO SCH ×2 (09:50→21:11)
[2019-02-24] MEDS: PANTOPRAZOLE 40MG INJ (PROTONIX) (C9113) IV SCH ×2 (09:50→21:11)
[2019-02-24 09:54] LABS: FOLATE 5.8 NG/ML (>5.4)
[2019-02-24 12:00] VITALS: BP 158/84
[2019-02-24 12:43] LABS: HEMATOCRIT 29.6 % (36.0-47.0); HEMOGLOBIN 9.5 g/dl (12.0-15.5)
[2019-02-24] MEDS ORDERED: PROPOFOL 200 MG/20 ML VIAL As Ordered ONE (15:19)
[2019-02-24] MEDS ORDERED: LIDOCAINE 2% INJ 100 MG/5 ML SDV (FOR ANES.) As Ordered ONE (15:19)
--- NOTE | 2019-02-24 15:21 | IPNPDOC ---
Text Note Date of Service The patient was seen on 02/24/19. NOTE SUBJECTIVE: Patient was confused early this morning when she first woke up. She tried to get ut of bed to dress up and go for her procedure. She was confused abut where she was. Later during the morning she was more oriented . She had a soft brown bowel movement this morning as per the nurse. Denies any abdominal pain , nausea or vomiting. No fever or chills, Just says she feels very weak and tired. PHYSICAL EXAMINATION: VITAL SIGNS: Please see below. GENERAL APPEARANCE: Well-nourished, well-developed, not in apparent distress HEENT: Cephalic, atraumatic, mucous membranes moist and pink. Sclera are anicteric. Nasal cannula is in place CARDIOVASCULAR: Regular rate and rhythm. No murmurs, rubs or gallops LUNGS:. Clear to auscultation bilaterally on room air ABDOMEN: Bowel sounds are hypoactive. Abdomen is soft and slightly tender with palpation of the mid lower abdomen MUSCULOSKELETAL:. Range of motion is intact in all 4 extremities INTEGUMENT:. Generalized pallor PSYCHIATRIC: A&O x 3 / able to understand and follow all commands LABORATORY DATA and radiology : reviewed. See below. 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 As per patient's grandson patient sleeps most of the day and last 3 to 4 days she was having 4 to 6 bowel movements a day with red to black stools. Acute GIB with acute blood loss anemia on the back ground of chronic anemia usual Hb is about 9.0 Unknown ource of bleeding. Getting EGD today. on octreotide and PPI in view of h/o GAVE disease received 2 units of PRBC. Now HH has siena stable No Iron deficiency this make the source of acute or chroic GIB les likely The drop in HH could be just worsening of her Chronic anemia due to CKD or the progression of malignancy. Chronic anemia Multifactorial anemia secondary to chronic renal insufficiency and iron deficiency anemia from GIB with upper endoscopy March 2017 showing mild gastric antral vascular ectasia and duodenal polyp. Hematology does not think it its due to her CML. However GI thinks she needs a bone marrow evaluation Hypothyroid. Synthroid Latoya on CKD stage 4 with baseline creatinine about 2.5 to 2.8 now creatinine back to baseline. CML On imatinib stable HTN Amlodipine , coreg and spironolactone. Anxiety/depression c/w Buspirone, lexapro, trazodone. Peripheral neuropathy/chronic pain Gabapentin High degree A-V block. has a pacemaker which was last checked in 2018. will need to be rechecked again. VS,Fishbone, I+O VS, Fishbone, I+O Laboratory Tests 02/23/19 18:01 02/23/19 23:52 02/24/19 05:50 02/24/19 12:17 Vital Signs Date Time Temp Pulse Resp B/P (MAP) Pulse Ox O2 Delivery O2 Flow Rate FiO2 02/24/19 09:50 84 163/82 02/24/19 04:00 97.9 17 93 Room Air 02/23/19 16:00 2.0 I&O- Last 24 Hours up to 6 AM 02/24/19 06:00 Intake Total 960 ml Output Total 1450 ml Balance -490 ml JORDAN CUMMINGS MD Feb 24, 2019 15:21
[2019-02-24 16:15] VITALS: BP 135/82
--- NOTE | 2019-02-24 16:29 | ROOR ---
Patient Name: Mariia Barnard Procedure Date: 02/24/2019 3:18 PM Date of : 1930 Age: 89 Room: [facility] Gender: Female Note Status: Finalized Procedure: Upper GI endoscopy Indications: Acute post hemorrhagic anemia Providers: Patel Dumont MD Referring MD: OLIVIA LEE Requesting Provider: Medicines: Monitored Anesthesia Care Complications: No immediate complications. Procedure: Pre-Anesthesia Assessment: - Prior to the procedure, a History and Physical was performed, and patient medications and allergies were reviewed. The patient is competent. The risks and benefits of the procedure and the sedation options and risks were discussed with the patient. All questions were answered and informed consent was obtained. Patient identification and proposed procedure were verified by the physician, the nurse and the anesthesiologist in the procedure room. Mental Status Examination: alert and oriented. Airway Examination: normal oropharyngeal airway and neck mobility. Respiratory Examination: clear to auscultation. CV Examination: normal. Prophylactic Antibiotics: The patient does not require prophylactic antibiotics. Prior Anticoagulants: The patient has taken no previous anticoagulant or antiplatelet agents. ASA Grade Assessment: III - A patient with severe systemic disease. After reviewing the risks and benefits, the patient was deemed in satisfactory condition to undergo the procedure. The anesthesia plan was to use monitored anesthesia care (MAC). Immediately prior to administration of medications, the patient was re-assessed for adequacy to receive sedatives. The heart rate, respiratory rate, oxygen saturations, blood pressure, adequacy of pulmonary ventilation, and response to care were monitored throughout the procedure. The physical status of the patient was re-assessed after the procedure. The Endoscope was introduced through the mouth, and advanced to the second part of duodenum. The upper GI endoscopy was accomplished without difficulty. The patient tolerated the procedure well. Findings: LA Grade B (one or more mucosal breaks greater than 5 mm, not extending between the tops of two mucosal folds) esophagitis with no bleeding was found in the distal esophagus. Biopsies were taken with a cold forceps for histology. Verification of patient identification for the specimen was done by the physician and nurse using the patient's name, date and medical record number. Estimated blood loss was minimal. A small hiatal hernia was present. No gross lesions were noted in the entire examined stomach. There is no endoscopic evidence of angioectasia in the entire examined stomach. No gross lesions were noted in the duodenal bulb and in the second portion of the duodenum. Impression: - LA Grade B reflux esophagitis. Rule out Simmons's esophagus. Biopsied. - Small hiatal hernia. - No gross lesions in the stomach. - No gross lesions in the duodenal bulb and in the second portion of the duodenum. Recommendation: - Patient has a contact number available for emergencies. The signs and symptoms of potential delayed complications were discussed with the patient. Return to normal activities tomorrow. Written discharge instructions were provided to the patient. - Chopped diet and mechanical soft diet. - Continue present medications. - Await pathology results. - Follow an antireflux regimen. - Repeat upper endoscopy in 3 months to check healing and to assess disease activity. - Return to GI clinic in [facility] (address [address], [address], [place] [address]) in 4 -- 6 weeks. Please call GI clinic @ [phone] for apppointment date and time. - Return to primary care physician. Patel Dumont MD Patel Dumont MD 02/24/2019 4:28:57 PM Electronically signed by Patel Dumont MD Number of Addenda: 0 Note Initiated On: 02/24/2019 3:18 PM Estimated Blood Loss: Estimated blood loss was minimal.
[2019-02-24] MEDS: amLODIPine 5 MG TAB PO SCH (17:40)
[2019-02-24] MEDS: LEVOTHYROXINE 50MCG TABLET (0.05MG) PO SCH (17:40)
[2019-02-24] MEDS: ESCITALOPRAM OXALATE 10 MG TAB (LEXAPRO) PO SCH (17:40)
[2019-02-24 17:57] LABS: HEMOGLOBIN 9.8 g/dl (12.0-15.5)
[2019-02-24 20:00] VITALS: BP 182/88
[2019-02-24] MEDS: GABAPENTIN 300 MG CAP PO SCH (21:11)
[2019-02-24] MEDS: rOPINIRole 0.25 MG TAB(REQUIP) PO SCH (21:11)
[2019-02-24] MEDS: traZODone 50 MG TAB PO PRN (21:11)
[2019-02-25] VITALS: BP 161/81
[2019-02-25 04:00] VITALS: BP 125/89
[2019-02-25 05:25] LABS: BASO % 0.6 % (0.0-1.0); EOS # 0.1 10^3/uL (0.0-0.5); EOS % 2.9 % (0.0-3.0); HEMATOCRIT 27.8 % (36.0-47.0); HEMOGLOBIN 9.1 g/dl (12.0-15.5); LYMPH # 1.3 10^3/uL (1.5-5.0); MEAN CORPUSCULAR HEMOGLOBIN 32.4 pg (27.0-33.0); MEAN CORPUSCULAR HGB CONC 32.7 g/dl (32.0-36.5); MEAN CORPUSCULAR VOLUME 98.9 fl (80.0-96.0); MONO # 0.7 10^3/uL (0.0-0.8); MONO % 13.9 % (0.0-5.0); NEUTROPHILS # 2.6 10^3/uL (1.5-8.5); NEUTROPHILS % 54.2 % (36.0-66.0); PLATELET COUNT, AUTOMATED 175 10^3/uL (150-450); RED BLOOD COUNT 2.81 10^6/uL (4.00-5.40); WHITE BLOOD COUNT 4.8 10^3/uL (4.0-10.0)
[2019-02-25 05:47] LABS: CALCIUM LEVEL 8.4 MG/DL (8.8-10.2); CREATININE FOR GFR 2.37 MG/DL (0.55-1.30); GLOMERULAR FILTRATION RATE 20.6 (>32); POTASSIUM SERUM 4.5 MEQ/L (3.5-5.1)
[2019-02-25 08:00] VITALS: BP 154/82
[2019-02-25] MEDS ORDERED: FOLIC ACID 1 MG TAB PO SCH (09:00)
[2019-02-25 09:21] VITALS: BP 154/82
[2019-02-25] MEDS: CARVedilol 3.125 MG TAB PO SCH (09:21)
[2019-02-25] MEDS: busPIRone 5 MG TAB PO SCH (09:21)
[2019-02-25] MEDS: PANTOPRAZOLE 40MG INJ (PROTONIX) (C9113) IV SCH (09:22)
[2019-02-25] MEDS: SPIRONOLACTONE 12.5MG PER 1/2 TABLET PO SCH (09:22)
[2019-02-25] MEDS ORDERED: CYANOCOBALAMIN 1,000 MCG/ML VIAL (J3420) IM ONE (10:00)
[2019-02-25] MEDS ORDERED: FOLI1TAB11 PO (10:57)
[2019-02-25] MEDS ORDERED: PANT40TA3 PO (10:57)
[2019-02-25] MEDS ORDERED: VITA500T40 PO (10:57)
[2019-02-25 12:00] VITALS: BP 162/82
--- NOTE | 2019-02-25 18:51 | CR.PDOC ---
General Date of Consultation: Feb 23, 2019 Referring Provider: JORDAN CUMMINGS MD Attending Physician: AMADA MATHUR MD Consultation Retrospective note: Ashlyn was seen on 02/22/2019 and this consult is done on that day but note was placed at a later date. 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 GI was consulted for EGD evaluation in view of patient's prior history of watermelon stomach. Patient reports having intermittent episodes of small amount of bright red blood with bowel movements, which she attributes to hemorrhoids. Patient denies any abdominal pain, black stools, but has history of dark stools in the past. Patient received transfusion during this hospitalization and her hemoglobin has appropriately increased with transfusion. Pertinent negative GI symptoms: Patient denies fever, sick contacts, recent travel, nausea, vomiting, diarrhea, abdominal pain, loss of appetite, early satiety or unintentional weight loss. No history of hematemesis, melena. Patient reports regular bowel movements. Review of Systems: GI: as stated above CVS: No chest pain, No palpitations, No leg swelling. RS: No Shortness of breath, No Wheezing, no cough BOAT PULLER: No dizziness, No motor weakness, No sensory problems Hematology: No bruising, No gum bleeding, Musculoskeletal: No joint pain, ambulating well. Skin: No rash : No hematuria, No burning sensation of the urine ENT: No ear discharge/ pain, No dysphagia. Eyes: No photophobia. Jaundice Home medications: reviewed. Antithrombotic agents: None Medical h/o: As above. Surgical h/o: None on abdomen. Social h/o: Alcohol: Denied. smoking: Denies, IVDA/ drugs:. Denies. Family h/o of GI cancers - None Prior Endoscopies: --- EGD: -Prior multiple endoscopy by Dr. Philip for management of antral vascular ectasia and duodenal adenoma. --- Colonoscopy: - Prior Colonoscopy by Dr. Hernandez and Dr. Mullins in 2016 and 2014 respectively. Prior GI evaluations: - Was seen by Dr. Philip in past. Exam: Vitals: reviewed General: Alert and oriented x 3 but has episodes of confusion, not in distress HEENT: NO pallor, no icterus. Normal oropharynx, NO cervical lymph nodes. Chest: symmetric with bilateral clear air entry, CVS: S1, S2 heard, normal, no murmurs . Abdomen: non-distended, no surgical scars, soft, non-tender, no palpable masses, normal bowel sounds heard. Rectal exam: Patient refused . Extremities: no pedal edema, pulses palpable. BOAT PULLER: no focal motor or sensory deficits. Moves all extremities Skin: no rash. Labs: reviewed. 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 vs less likely chronic GI blood loss. 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 Carroll and patient reports she was also seen in [place] since then and had therapy there as well. - episodes of streaks of blood in stools -- likely from hemorrhoids. had [facility] noscopy in [address] Hernandez -- recommended repeat in 3-5 years. Recommendations: - Patient educated about the test results, possible differential diagnoses and All questions answered. - Monitor Hemoglobin and hematocrit. - As per discussion with patient, Primary teama nd recommendations from hematology, patient is scheduled for EGD to evaluate for therapy of the GAVE and to rule out upper GI bleeding. - Patient and her health care proxy ( Grand son Mr. Lara) were educated about the procedure, indications, risks (bleeding, perforation, infection, hypo tension, respiratory depression, allergy, need for endotracheal intubation, surgery, colostomy, cardiac arrest, even ), benefits, limitations (e.g., missing a lesion), and all other alternatives (including no intervention). Informed consent signed by patient's health care proxy. - Pace maker records were obtain and patient was cleared for the procedure by primary team. - Post procedure recommendations as per operative note. - elective follow up of the rectal bleeding if persistent. Plan of care discussed with patient and primary team. Patient verbalized understanding and agreed with the plan. Vital Signs/I&O Vital Signs Date Time Temp Pulse Resp B/P (MAP) Pulse Ox O2 Delivery O2 Flow Rate FiO2 02/25/19 12:00 98.0 89 18 162/82 (108) 97 Room Air 02/23/19 16:00 2.0 I&O- Last 24 Hours up to 6 AM 02/25/19 06:00 Intake Total 0 ml Output Total 1800 ml Balance -1800 ml Laboratory Data Labs 24H Laboratory Tests 2 02/25/19 05:06: Immature Granulocyte % (Auto) 0.4, Neutrophils (%) (Auto) 54.2, Lymphocytes (%) (Auto) 28.0, Monocytes (%) (Auto) 13.9H, Eosinophils (%) (Auto) 2.9, Basophils (%) (Auto) 0.6, Neutrophils # (Auto) 2.6, Lymphocytes # (Auto) 1.3L, Monocytes # (Auto) 0.7, Eosinophils # (Auto) 0.1, Basophils # (Auto) 0.0, Nucleated Red Blood Cells % (auto) 0.0, Anion Gap 6L, Glomerular Filtration Rate 20.6L, Calcium Level 8.4L CBC/BMP Laboratory Tests 02/25/19 05:06 Microbiology Microbiology 02/22/19 Urine Culture - Final, Complete Escherichia Coli 02/22/19 Blood Culture - Preliminary, Resulted No Growth after 72 hours. All specime... 02/22/19 Blood Culture - Preliminary, Resulted No Growth after 72 hours. All specime... Allergies Coded Allergies: losartan (Verified Adverse Reaction, Severe, angioedema, 06/23/18) mushroom (Verified Adverse Reaction, Intermediate, vomiting, 02/22/19) oyster extract (Verified Adverse Reaction, Intermediate, vomiting, 02/22/19) Home Medications Scheduled Amlodipine Besylate (Amlodipine Besylate) 5 Mg Tablet, 5 MG PO QPM, (Reported) Buspirone HCl (Buspirone HCl) 5 Mg Tab, 5 MG PO BID, (Reported) Calcium Carbonate (Tums) 200 Mg Tab.chew, 500 MG PO BID, (Reported) Carvedilol (Carvedilol) 3.125 Mg Tablet, 3.125 MG PO BID, (Reported) Cyanocobalamin (Vitamin B-12) (Vitamin B-12) 500 Mcg Tablet, 1,000 MCG PO DAILY, #30 Escitalopram Oxalate (Escitalopram Oxalate) 20 Mg Tablet, 20 MG PO QPM, (Reported) Folic Acid (Folic Acid) 1 Mg Tablet, 1 MG PO DAILY, #30 Gabapentin (Gabapentin) 100 Mg Capsule, 300 MG PO TID, (Reported) Imatinib Mesylate (Imatinib Mesylate) 400 Mg Tablet, 400 MG PO DAILY for 30 Days, #30 TAKE ONE TABLET BY MOUTH ONCE DAILY. Lactose-Reduced Food (Boost Plus) 237 Ml Liquid, 237 ML PO BID, (Reported) Levothyroxine Sodium (Levothyroxine Sodium) 50 Mcg Tab, 50 MCG PO QPM, (Report ed) Magnesium Oxide (Magnesium Oxide) 400 Mg Tablet, 400 MG PO BID, (Reported) Pantoprazole Sodium (Pantoprazole Sodium) 40 Mg Tab, 40 MG PO BID, #60 Ropinirole HCl (Ropinirole HCl) 0.25 Mg Tablet, 0.25 MG PO QHS, (Reported) Spironolactone (Spironolactone) 25 Mg Tablet, 12.5 MG PO DAILY, (Reported) Scheduled PRN Ondansetron HCl (Ondansetron HCl) 8 Mg Tablet, 8 MG PO Q6H PRN for NAUSEA OR VOMITING, (Reported) Trazodone HCl (Trazodone HCl) 50 Mg Tab, 50 MG PO QHS PRN for SLEEP, (Reported) AMADA MATHUR MD Feb 25, 2019 18:51
--- NOTE | 2019-02-25 23:01 | DS.PDOC ---
Discharge Summary General Date of Admission Feb 22, 2019 at 19:34 Date of Discharge 02/25/19 Discharge Summary PROCEDURES PERFORMED DURING STAY: EGD:: LA Grade B reflux esophagitis. Rule out Simmons's esophagus. Biopsied. Small hiatal hernia. No gross lesions in the stomach. No gross lesions in the duodenal bulb and in the second portion of the duodenum. There is no endoscopic evidence of angioectasia in the entire examined stomach. DISCHARGE DIAGNOSES: Acute on chronic macrocytic anemia due to severe Vit B12 deficiency and folate deficiency Chronic anemia is due to anemia of chronic disease from CKD Vs anemia from chronic bone marrow disease Episodes of rectal bleeding possibly from hemorrhoids. Reflux Esophagitis. 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 As per patient's grandson patient sleeps most of the day and last 3 to 4 days she was having 4 to 6 bowel movements a day with red blood in stools. Patient says that she has intermittent episodes of small amount of bright red blood with bowel movements, which she attributes to hemorrhoids. Patient was probably have rectal bleeding which has stopped spontaneously. In hospital. as per nurses her stools are soft and brown . No blood seen and no david. In the ED she was found to have a Hb of 6.3 and was transfused 2 units of PRBC to which she responded appropriately. Rectal bleeding probably from hemorrhoids if it continues then follow up with GI Dr Philip or Julia for colonoscopy as outpatient. Episodes of streaks of blood in stools -- likely from hemorrhoids. had Colonoscopy in [address] Hernandez -- recommended repeat in 3-5 years. Acute on Chronic anemia--Macrocytic Found to have severe Vit B12 deficiency started on im vit B12 supplements and po supplements folate low normal range started supplements. 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 vs less likely chronic GI blood loss. Gastric vascular ectasia in past - treated twice by Dr. Carroll and patient reports she was also seen in [place] since then and had therapy there as well. Now EGD did not show any signs of recent bleeding. No gastric angioectasia was seen at this time. It did show reflux esophagitis. Follow up with oncology for bone marrow evaluation if recurrent drop in HH. RefluX esophagitis seen in EGD now continue PPI bid. follow up with Gi for repeat EGD in 3 months to document healing. Hypothyroid. Synthroid Latoya on CKD stage 4 with baseline creatinine about 2.5 to 2.8 now creatinine back to baseline. CML On imatinib. Last seen in September by oncology and was felt to be stable However pateint could not get the imatinib from the [facility] were i sent it after discussion with the oncall oncologist Dr Perez as the script wa in pending format as prescribed by the oncology provider and i could not do the dischrge of the pateint without that being finalized Instructed patient 's grandson to call oncology on wednesday HTN Amlodipine , coreg and spironolactone. Anxiety/depression c/w Buspirone, lexapro, trazodone. Peripheral neuropathy/chronic pain Gabapentin High degree A-V block. has a pacemaker which was last checked in nov 2017. will need to be rechecked again with Dr Ash. Dirty UA with urine culture with Ecoli patient did not have any urinary symptoms. No fever or elevated WBC . I think this is asymptomatic bacteruria so was not treated. DISCHARGE MEDICATIONS: Please see below. ALLERGIES: Please see below. PHYSICAL EXAMINATION ON DISCHARGE: VITAL SIGNS: Please see below. GENERAL APPEARANCE: Well-nourished, well-developed, not in apparent distress HEENT: Cephalic, atraumatic, mucous membranes moist and pink. Sclera are anicteric. Nasal cannula is in place CARDIOVASCULAR: Regular rate and rhythm. No murmurs, rubs or gallops LUNGS:. Clear to auscultation bilaterally on room air ABDOMEN: Bowel sounds are hypoactive. Abdomen is soft and slightly tender with palpation of the mid lower abdomen MUSCULOSKELETAL:. Range of motion is intact in all 4 extremities INTEGUMENT:. Generalized pallor PSYCHIATRIC: A&O x 3 / able to understand and follow all commands LABORATORY DATA: Please see below. ACTIVITY: [As tolerated]. DIET: Chopped up and mechanical soft diet. DISPOSITION: 01 Home, Self-Care. DISCHARGE INSTRUCTIONS: Follow up GI in 4 to 6 weeks. Call for biopsy results. Follow up Oncology in 2 weeks Follow up With Dr Ash Follow Up with PMD in 1 week. ITEMS TO FOLLOWUP ON ON OUTPATIENT: Biopsy result from the esophageal biopsy DISCHARGE CONDITION: [Stable]. TIME SPENT ON DISCHARGE: 35 minutes. Vital Signs/I&Os Vital Signs Date Time Temp Pulse Resp B/P (MAP) Pulse Ox O2 Delivery O2 Flow Rate FiO2 02/25/19 12:00 98.0 89 18 162/82 (108) 97 Room Air 02/23/19 16:00 2.0 I&O- Last 24 Hours up to 6 AM 02/25/19 06:00 Intake Total 0 ml Output Total 1800 ml Balance -1800 ml Laboratory Data Labs 24H Laboratory Tests 2 02/25/19 05:06: Immature Granulocyte % (Auto) 0.4, Neutrophils (%) (Auto) 54.2, Lymphocytes (%) (Auto) 28.0, Monocytes (%) (Auto) 13.9H, Eosinophils (%) (Auto) 2.9, Basophils (%) (Auto) 0.6, Neutrophils # (Auto) 2.6, Lymphocytes # (Auto) 1.3L, Monocytes # (Auto) 0.7, Eosinophils # (Auto) 0.1, Basophils # (Auto) 0.0, Nucleated Red Blood Cells % (auto) 0.0, Anion Gap 6L, Glomerular Filtration Rate 20.6L, Calcium Level 8.4L CBC/BMP Laboratory Tests 02/25/19 05:06 Microbiology Microbiology 02/22/19 Urine Culture - Final, Complete Escherichia Coli 02/22/19 Blood Culture - Preliminary, Resulted No Growth after 72 hours. All specime... 12/4/19 Blood Culture - Preliminary, Resulted No Growth after 72 hours. All specime... Discharge Medications Scheduled Amlodipine Besylate (Amlodipine Besylate) 5 Mg Tablet, 5 MG PO QPM, (Reported) Buspirone HCl (Buspirone HCl) 5 Mg Tab, 5 MG PO BID, (Reported) Calcium Carbonate (Tums) 200 Mg Tab.chew, 500 MG PO BID, (Reported) Carvedilol (Carvedilol) 3.125 Mg Tablet, 3.125 MG PO BID, (Reported) Cyanocobalamin (Vitamin B-12) (Vitamin B-12) 500 Mcg Tablet, 1,000 MCG PO DAILY Escitalopram Oxalate (Escitalopram Oxalate) 20 Mg Tablet, 20 MG PO QPM, (Reported) Folic Acid (Folic Acid) 1 Mg Tablet, 1 MG PO DAILY Gabapentin (Gabapentin) 100 Mg Capsule, 300 MG PO TID, (Reported) Imatinib Mesylate (Imatinib Mesylate) 400 Mg Tablet, 400 MG PO DAILY TAKE ONE TABLET BY MOUTH ONCE DAILY. Lactose-Reduced Food (Boost Plus) 237 Ml Liquid, 237 ML PO BID, (Reported) Levothyroxine Sodium (Levothyroxine Sodium) 50 Mcg Tab, 50 MCG PO QPM, (Reported) Magnesium Oxide (Magnesium Oxide) 400 Mg Tablet, 400 MG PO BID, (Reported) Pantoprazole Sodium (Pantoprazole Sodium) 40 Mg Tab, 40 MG PO BID Ropinirole HCl (Ropinirole HCl) 0.25 Mg Tablet, 0.25 MG PO QHS, (Reported) Spironolactone (Spironolactone) 25 Mg Tablet, 12.5 MG PO DAILY, (Reported) Scheduled PRN Ondansetron HCl (Ondansetron HCl) 8 Mg Tablet, 8 MG PO Q6H PRN for NAUSEA OR VOMITING, (Reported) Trazodone HCl (Trazodone HCl) 50 Mg Tab, 50 MG PO QHS PRN for SLEEP, (Reported) Allergies Coded Allergies: losartan (Verified Adverse Reaction, Severe, angioedema, 06/23/18) mushroom (Verified Adverse Reaction, Intermediate, vomiting, 02/22/19) oyster extract (Verified Adverse Reaction, Intermediate, vomiting, 02/22/19) JORDAN CUMIMNGS MD Feb 25, 2019 23:01
[2019-02-26] MEDS ORDERED: CYANOCOBALAMIN 500 MCG TAB PO SCH (09:00)
== END 2019-02-25 15:46 | disposition home or self-care (01) | DRG 378 ==
LOC: EDBD 17:12 → M ED 17:12 → M ED INP 19:34 → M PCU 20:29
PROVIDERS: ADMIT Internal Medicine; ATTEND Internal Medicine
PROC: 30233N1 Transfusion of Nonautologous Red Blood Cells into Peripheral Vein, Percutaneous Approach (ICD-10-PCS; principal; 2019-02-22)
PROC: 0DB58ZX Excision of Esophagus, Via Natural or Artificial Opening Endoscopic, Diagnostic (ICD-10-PCS; 2019-02-24)
DX: K92.2 Gastrointestinal hemorrhage, unspecified (principal); N18.5 Chronic kidney disease, stage 5; D62 Acute posthemorrhagic anemia; N17.9 Acute kidney failure, unspecified; C92.10 Chronic myeloid leukemia, BCR/ABL-positive, not having achieved remission; K31.819 Angiodysplasia of stomach and duodenum without bleeding; K44.9 Diaphragmatic hernia without obstruction or gangrene; D53.9 Nutritional anemia, unspecified; E53.8 Deficiency of other specified B group vitamins; D63.1 Anemia in chronic kidney disease; K21.0 Gastro-esophageal reflux disease with esophagitis; E03.9 Hypothyroidism, unspecified; Z95.0 Presence of cardiac pacemaker; K64.8 Other hemorrhoids; D75.9 Disease of blood and blood-forming organs, unspecified; R26.89 Other abnormalities of gait and mobility; F41.9 Anxiety disorder, unspecified; F32.9 Major depressive disorder, single episode, unspecified; B96.29 Other Escherichia coli [E. coli] as the cause of diseases classified elsewhere; Z79.899 Other long term (current) drug therapy; Z88.8 Allergy status to other drugs, medicaments and biological substances; Z91.018 Allergy to other foods

== ENCOUNTER 2019-02-26 14:21 | Outpatient (CLI) | payer MEDICARE ==
[~2019-02-26] VITALS: Ht 152.4 cm; Wt 52.5 kg
[~2019-02-26 14:21] MED LIST changes: +BOOSLIQ77 PO; +ESCI20TA PO; +FOLI1TAB11 PO; +MAGN400T2 PO; +TUMS500C PO; +VITA500T40 PO
[2019-02-26] MEDS ORDERED: CYANOCOBALAMIN 1,000 MCG/ML VIAL (J3420) IM ONE (15:00)
[2019-02-28] MEDS ORDERED: IMAT400T PO (15:21)
== END 2019-02-26 14:55 | disposition home or self-care (01) ==
LOC: M PED 14:21 → M OPCLIPED 14:21
PROVIDERS: ATTEND Internal Medicine Nephrology
DX: E53.8 Deficiency of other specified B group vitamins (principal)
CPT/HCPCS: 96372; J3420

== ENCOUNTER 2019-02-27 16:51 | Outpatient (CLI) | payer MEDICARE ==
[~2019-02-27] VITALS: Ht 152.4 cm; Wt 52.5 kg
[2019-02-27 17:00] VITALS: BP 141/70
[2019-02-27 17:40] VITALS: BP 149/70
[2019-02-27] MEDS ORDERED: CYANOCOBALAMIN 1,000 MCG/ML VIAL (J3420) IM ONE (18:00)
[2019-02-28] MEDS ORDERED: IMAT400T PO (15:21)
== END 2019-02-27 17:40 | disposition home or self-care (01) ==
LOC: M INFU 16:51
PROVIDERS: ATTEND Internal Medicine Nephrology
DX: E53.8 Deficiency of other specified B group vitamins (principal)
CPT/HCPCS: 96372; J3420

== ENCOUNTER 2019-03-06 13:38 | Outpatient (CLI) | payer MEDICARE ==
[~2019-03-06] VITALS: Ht 152.4 cm; Wt 52.5 kg
[2019-03-06 13:50] VITALS: BP 121/83
[2019-03-06] MEDS ORDERED: CYANOCOBALAMIN 1,000 MCG/ML VIAL (J3420) IM ONE (15:00)
== END 2019-03-06 15:00 | disposition home or self-care (01) ==
LOC: M INFU 13:38
PROVIDERS: ATTEND Internal Medicine Nephrology
DX: E53.8 Deficiency of other specified B group vitamins (principal)
CPT/HCPCS: 96372; J3420

== ENCOUNTER 2019-04-14 11:57 | Outpatient (CLI) | payer MEDICARE ==
[2019-04-14] VITALS (8 sets, daily range): BP systolic 112–142; BP diastolic 56–83
[~2019-04-14] VITALS: Ht 152.4 cm; Wt 51.2 kg
[~2019-04-14 11:57] MED LIST changes: +CYAN1000VL SQ; +ONDA-83 PO; -ONDA4TAB5 PO; +ONDA8TAB10 PO; -ONDA8TAB7 PO; -VALS160T PO; +VALS160T2 PO
[2019-04-14] MEDS ORDERED: diphenhydrAMINE 25 MG CAP PO ONE (12:15)
[2019-04-14] MEDS ORDERED: ACETAMINOPHEN TAB 650MG DOSE (2X325MG) PO ONE (12:15)
[2019-04-17] MEDS ORDERED: OXYB-54 PO (15:07)
[2019-04-17] MEDS ORDERED: LOPE2CAP PO (15:07)
== END 2019-04-14 17:25 | disposition home or self-care (01) ==
LOC: M INFU 11:57
PROVIDERS: ATTEND Internal Medicine Hematology
DX: D64.9 Anemia, unspecified (principal); Z88.8 Allergy status to other drugs, medicaments and biological substances
CPT/HCPCS: 36430; P9016

== ENCOUNTER 2019-05-04 11:49 | Emergency (ER) | payer MEDICARE ==
[~2019-05-04] VITALS: Ht 152.4 cm; Wt 47.8 kg
[~2019-05-04 11:49] MED LIST changes: +LOPE2CAP PO; +OXYB-54 PO
--- NOTE | 2019-05-04 13:42 | REP ---
Clinical: Fall. Comparison: 08/07/2018 . Findings: Age-related atrophy and microvascular ischemic changes are appreciated. The ventricles and sulci are symmetric. Luu-white differentiation is maintained. There is no evidence for acute intracranial hemorrhage, mass/mass effect, pathology or infarction. No extra-axial fluid collection. Calvarium is intact. Partial opacification of the ethmoid and left sphenoid sinus with small air fluid level. Impression: Age related atrophy and microvascular ischemic changes. No acute intracranial pathology or trauma/injury appreciated. Fluid level in the left maxillary sinus is nonspecific, but occult facial injury cannot be excluded. Electronically Signed by Brennan Rodriguez MD 05/04/2019 01:32 P
[2019-05-04 13:44] LABS: BASO % 0.4 % (0.0-1.0); EOS # 0.1 10^3/uL (0.0-0.5); EOS % 1.2 % (0.0-3.0); HEMOGLOBIN 12.1 g/dl (12.0-15.5); LYMPH # 0.8 10^3/uL (1.5-5.0); LYMPH % 11.2 % (24.0-44.0); MEAN CORPUSCULAR HEMOGLOBIN 31.1 pg (27.0-33.0); MEAN CORPUSCULAR HGB CONC 31.8 g/dl (32.0-36.5); MEAN CORPUSCULAR VOLUME 97.7 fl (80.0-96.0); MONO # 0.5 10^3/uL (0.0-0.8); MONO % 6.9 % (0.0-5.0); NEUTROPHILS # 5.9 10^3/uL (1.5-8.5); NEUTROPHILS % 79.9 % (36.0-66.0); PLATELET COUNT, AUTOMATED 229 10^3/uL (150-450); RED BLOOD COUNT 3.89 10^6/uL (4.00-5.40); WHITE BLOOD COUNT 7.3 10^3/uL (4.0-10.0)
--- NOTE | 2019-05-04 13:58 | REP ---
Clinical: Trauma. Technique: Axial noncontrast images from the skull base to the thoracic inlet with coronal and sagittal reformed. Findings: Advanced osteopenia and multilevel degenerative disc osteophyte complexes are appreciated. No acute fracture/compression injury or subluxation. Spinal canal is patent. Posterior elements and spinous processes are intact. Paravertebral soft tissues are normal. Impression: Advanced osteopenia and multilevel degenerative spondylosis. No acute fracture / compression injury or subluxation. Electronically Signed by Brennan Rodriguez MD 05/04/2019 01:50 P
[2019-05-04 14:17] LABS: ALBUMIN 3.6 GM/DL (3.2-5.2); BILIRUBIN,TOTAL 0.6 MG/DL (0.2-1.0); CALCIUM LEVEL 8.6 MG/DL (8.8-10.2); CREATININE FOR GFR 3.41 MG/DL (0.55-1.30); GLOMERULAR FILTRATION RATE 13.5 (>32); TOTAL PROTEIN 6.7 GM/DL (6.4-8.2)
[2019-05-04] MEDS ORDERED: ONDANSETRON 4MG/2ML VIAL (J2405) IV ONE (15:00)
--- NOTE | 2019-05-04 15:11 | REP ---
Maxillofacial bone CT study without contrast: History: Trauma. Technique: Helical scanning is acquired. Axial and MPR coronal and sagittal images are reformatted. CT findings: There is moderate to marked soft tissue swelling over the left malar soft tissues. The zygomatic arches are intact. Lateral and superior orbital margins are intact. There is, however, a displaced blowout fracture of the floor of the orbit on the left with orbital fat protruding into the left maxillary sinus. There is some fluid presumably blood in the left maxillary sinus. There are a few air bubbles in the intraorbital fat. No intraorbital hematoma is seen. The inferior rectus muscle belly is displaced slightly downward and it is somewhat swollen. There is downward displacement of some of the intraorbital fat as well. There is no evidence of displacement of the ocular globe. There is diffuse atrophy intracranially and some vascular calcification is noted. No other facial fracture is seen. No mandibular or maxillary fracture is observed. 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 Inferior maxillary spine and nasal bone are intact. Impression: Blowout fracture of the orbital floor on the left with significant periorbital and malar soft tissue swelling. There is downward displacement and swelling of the inferior rectus muscle belly with some herniation of intraorbital fat through the orbital floor defect. Electronically Signed by Damien Braga MD 05/04/2019 05:15 P
[2019-05-04] MEDS ORDERED: DOXYCYCLINE HYCLATE 100 MG TAB PO ONE (16:15)
[2019-05-04 16:50] VITALS: BP 135/69
[2019-05-05] MEDS ORDERED: PANT40TA3 PO (23:52)
[2019-05-05] MEDS ORDERED: AMOX875T2 PO (23:52)
[2019-05-05] MEDS ORDERED: FOLI1TAB11 PO (23:52)
[2019-05-05] MEDS ORDERED: CYAN1000VL IM (23:52)
[2019-05-05] MEDS ORDERED: CYAN100050 PO (23:52)
== END 2019-05-04 17:06 | disposition short-term general hospital (02) ==
LOC: EDBD 11:49 → M ED 11:49
DX: S02.32XA Fracture of orbital floor, left side, initial encounter for closed fracture (principal); W01.0XXA Fall on same level from slipping, tripping and stumbling without subsequent striking against object, initial encounter; Y92.019 Unspecified place in single-family (private) house as the place of occurrence of the external cause; N18.4 Chronic kidney disease, stage 4 (severe); M47.812 Spondylosis without myelopathy or radiculopathy, cervical region; M85.88 Other specified disorders of bone density and structure, other site; G90.09 Other idiopathic peripheral autonomic neuropathy; I11.9 Hypertensive heart disease without heart failure; E78.5 Hyperlipidemia, unspecified; K31.819 Angiodysplasia of stomach and duodenum without bleeding; E03.9 Hypothyroidism, unspecified; D64.9 Anemia, unspecified; Z87.440 Personal history of urinary (tract) infections; Z88.8 Allergy status to other drugs, medicaments and biological substances; Z91.018 Allergy to other foods; Z79.891 Long term (current) use of opiate analgesic; Z79.899 Other long term (current) drug therapy
CPT/HCPCS: 36415; 70450; 70486; 72125; 80053; 84132; 85025; 99285; J2405

== ENCOUNTER 2019-05-05 20:29 | Inpatient (IN) | payer MEDICARE ==
[~2019-05-05] VITALS: Ht 152.4 cm; Wt 47.4 kg
[2019-05-05 23:11] LABS: HEMATOCRIT 32.3 % (36.0-47.0); HEMOGLOBIN 10.4 g/dl (12.0-15.5); MEAN CORPUSCULAR HEMOGLOBIN 31.1 pg (27.0-33.0); MEAN CORPUSCULAR HGB CONC 32.2 g/dl (32.0-36.5); MEAN CORPUSCULAR VOLUME 96.7 fl (80.0-96.0); PLATELET COUNT, AUTOMATED 210 10^3/uL (150-450); RED BLOOD COUNT 3.34 10^6/uL (4.00-5.40); WHITE BLOOD COUNT 10.2 10^3/uL (4.0-10.0)
[2019-05-05 23:23] LABS: INR 1.11
--- NOTE | 2019-05-05 23:28 | HPEPDOC ---
General Date of Admission 05/05/19 Date of Service: May 05, 2019 Chief Complaint The patient is a 89-year-old female admitted with a reason for visit of FALL. Source: Patient Exam Limitations: No limitations Timing/Duration: 24 hours Severity: Moderate Associated Symptoms: Mechanical fall History of Present Illness Patient is 89 years old female with past medical history of hypertension, hypothyroidism, CML, chronic anemia presented to the hospital after mechanical fall. Yesterday patient developed mechanical fall, she was brought to the hospital and found to have left orbital fracture and left bimalleolar fracture. Patient was admitted for orthopedic surgery which planned tomorrow. Patient denied fever, chills, nausea, vomiting, chest pain, palpitations, diarrhea or dysuria. Patient does not have any neurological deficiency. CT head was negative for acute bleed Home Medications Scheduled Amlodipine Besylate (Amlodipine Besylate) 5 Mg Tablet, 5 MG PO QPM, (Reported) Amoxicillin/Potassium Clav (Amox-Clav 875-125 mg Tablet) 1 Each Tablet, 875 MG PO BID, (Reported) Calcium Carbonate (Tums) 200 Mg Tab.chew, 500 MG PO BID, (Reported) Cyanocobalamin (Cyanocobalamin Injection) 1,000 Mcg/1 Ml Vial, 1 ML IM Q30D, (Reported) Cyanocobalamin (Vitamin B-12) (Vitamin B-12) 1,000 Mcg Tablet, 1,000 MCG PO DAILY, (Reported) Escitalopram Oxalate (Escitalopram Oxalate) 20 Mg Tablet, 20 MG PO QPM, (Reported) Folic Acid (Folic Acid) 1 Mg Tablet, 1 MG PO DAILY, (Reported) Gabapentin (Gabapentin) 100 Mg Capsule, 300 MG PO TID, (Reported) Imatinib Mesylate (Imatinib Mesylate) 400 Mg Tablet, 400 MG PO DAILY TAKE ONE TABLET BY MOUTH ONCE DAILY. Lactose-Reduced Food (Boost Plus) 237 Ml Liquid, 237 ML PO BID, (Reported) Levothyroxine Sodium (Levothyroxine Sodium) 50 Mcg Tab, 50 MCG PO QPM, (Reported) Loperamide HCl (Loperamide) 2 Mg Capsule, 2 MG PO QAM, (Reported) Magnesium Oxide (Magnesium Oxide) 400 Mg Tablet, 400 MG PO BID, (Reported) Oxybutynin Chloride (Oxybutynin Chloride ER) 5 Mg Tab.er.24, 5 MG PO QPM, (Reported) Pantoprazole Sodium (Pantoprazole Sodium) 40 Mg Tablet.dr, 40 MG PO DAILY, (Reported) Ropinirole HCl (Ropinirole HCl) 0.25 Mg Tablet, 0.25 MG PO QHS, (Reported) Spironolactone (Spironolactone) 25 Mg Tablet, 12.5 MG PO DAILY, (Reported) Scheduled PRN Buspirone HCl (Buspirone HCl) 5 Mg Tab, 5 MG PO TIDP PRN for ANXIETY, (Reported) Ondansetron HCl (Ondansetron HCl) 8 Mg Tablet, 8 MG PO Q6H PRN for NAUSEA OR VOMITING, (Reported) Trazodone HCl (Trazodone HCl) 50 Mg Tab, 50 MG PO QHS PRN for SLEEP, (Reported) Allergies Coded Allergies: losartan (Verified Allergy, Severe, angioedema, 05/05/19) mushroom (Verified Adverse Reaction, Intermediate, vomiting, 05/05/19) oyster extract (Verified Adverse Reaction, Intermediate, vomiting, 05/05/19) Past Medical History Medical History CML diagnosed in 2007 on imatinib 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 CKD4 Chronic hypertension Hypothyroidism Pacemaker placed for unspecified arrhythmia . 2016 Status post tubal ligation. Status post hysterectomy Unsteady gait, ambulates with a cane Family History Her mother from breast cancer Social History * Smoker: Denies, current smoker Alcohol: Denies Drugs: denies A-FIB/CHADSVASC A-FIB History Current/History of A-Fib/PAF?: No Current PO Anticoag Therapy: No Review of Systems Constitutional: Denies: Chills, Fever Eyes: Denies: Pain ENT: Reports: Other Symptoms (left orbital fracture); Denies: Head Aches Skin: Denies: Rash, Lesions Pulmonary: Denies: Dyspnea, Cough Cardiovascular: Denies: Chest Pain, Palpitations Gastrointestinal: Denies: Nausea, Vomiting Genitourinary: Denies: Dysuria Hematologic: Denies: Bruising Endocrine: Denies: Polydipsia, Polyphagia Musculoskeletal: Reports: Leg Pain (left ankle pain); Denies: Neck Pain, Back Pain Neurological: Denies: Weakness Psych: Reports: Mood Normal Physical Examination General Exam: Positive: Alert, Cooperative Eye Exam: Positive: PERRLA ENT Exam: Negative: Atraumatic (left orbital fracture) Neck Exam: Positive: Supple; Negative: JVD Chest Exam: Positive: Clear to auscultation Heart Exam: Positive: Rate Normal Telemetry: Positive: No significant arrhythmia Abdomen Exam: Positive: Normal bowel sounds Extremity Exam: Positive: Tenderness (all over the left ankle) Skin Exam: Positive: Nl turgor and temperature Neuro Exam: Positive: Sensation Intact, Cranial Nerves 3-12 NL Psych Exam: Positive: Mental status NL Vital Signs Vital Signs Date Time Temp Pulse Resp B/P (MAP) Pulse Ox O2 Delivery O2 Flow Rate FiO2 05/05/19 22:15 78 144/72 (96) 97 05/05/19 20:43 97.9 19 Room Air Laboratory Data Labs 24H Laboratory Tests 2 05/05/19 23:03: Nucleated Red Blood Cells % (auto) 0.0 CBC/BMP Laboratory Tests 05/05/19 23:03 Assessment/Plan Patient is 89 years old female with past medical history of hypertension, hypothyroidism, CML, chronic anemia presented to the hospital after mechanical fall. Yesterday patient developed mechanical fall, she was brought to the hospital and found to have left orbital fracture and left bimalleolar fracture. Patient was admitted for orthopedic surgery which planned tomorrow. Patient denied fever, chills, nausea, vomiting, chest pain, palpitations, diarrhea or dysuria. Patient does not have any neurological deficiency. CT head was negative for acute bleed Problems (1) Orbit fracture, left Status: Acute Problem Text: Follow-up with ENT surgeon (2) Bimalleolar fracture of left ankle Status: Acute Problem Text: Nothing by mouth after midnight Planned surgery in the morning after preoperative clearance (3) Preoperative clearance Status: Acute Problem Text: Await CBC, BMP, CPK EKG showed paced rhythm, no any acute ischemic changes (4) HTN (hypertension) Status: Chronic Problem Text: Continue home meds Plan / VTE VTE Prophylaxis Ordered?: Yes CHANEL YANES DO May 05, 2019 23:28
[2019-05-05] MEDS ORDERED: FOLI1TAB11 PO (23:52)
[2019-05-05] MEDS ORDERED: CYAN1000VL IM (23:52)
[2019-05-05] MEDS ORDERED: PANT40TA3 PO (23:52)
[2019-05-05] MEDS ORDERED: AMOX875T2 PO (23:52)
[2019-05-05] MEDS ORDERED: CYAN100050 PO (23:52)
[2019-05-06] VITALS (8 sets, daily range): BP systolic 105–152; BP diastolic 58–72
[2019-05-06] MEDS ORDERED: busPIRone 5 MG TAB PO PRN
[2019-05-06] MEDS ORDERED: traZODone 50 MG TAB PO PRN
[2019-05-06 00:22] LABS: CALCIUM LEVEL 8.5 MG/DL (8.8-10.2); CREATININE FOR GFR 3.34 MG/DL (0.55-1.30); GLOMERULAR FILTRATION RATE 13.9 (>32); POTASSIUM SERUM 5.2 MEQ/L (3.5-5.1)
[2019-05-06] MEDS: MAGNESIUM OXIDE 400 MG TAB (MAG-OX) PO SCH ×3 (01:28→20:17)
[2019-05-06] MEDS: rOPINIRole 0.25 MG TAB(REQUIP) PO SCH ×2 (01:29→20:17)
[2019-05-06] MEDS: GABAPENTIN 300 MG CAP PO SCH ×2 (01:29→20:17)
[2019-05-06] MEDS: CALCIUM CARBONATE 500 MG CHEW U/D PO SCH ×3 (01:30→20:17)
--- NOTE | 2019-05-06 05:46 | ECGEPIP ---
[facility] - ED Test Date: 2019-05-05 Pat Name: PHUONG ARZOLA Department: Room: - Gender: Female Training Technician: : [id number] Requested By: HALLE TREVINO Order Number: [id number] Reading MD: Shayne Murphy Measurements Intervals [place] Rate: 74 P: 54 OK: 192 QRS: -28 QRSD: 163 T: 92 QT: 454 QTc: 505 Interpretive Statements ELECTRONIC VENTRICULAR PACEMAKER SIMILAR TO 02/22/19 Electronically Signed on 05-06-2019 5:46:20 EST by Shayne Murphy
[2019-05-06] MEDS ORDERED: ceFAZolin SOD 2 GM in IV 1 EA IV SCH (06:00)
[2019-05-06] MEDS: NS 1,000 ML IV SCH ×2 (06:09→19:20)
[2019-05-06 07:05] LABS: HEMATOCRIT 29.5 % (36.0-47.0); HEMOGLOBIN 9.5 g/dl (12.0-15.5); MEAN CORPUSCULAR HEMOGLOBIN 31.1 pg (27.0-33.0); MEAN CORPUSCULAR HGB CONC 32.2 g/dl (32.0-36.5); MEAN CORPUSCULAR VOLUME 96.7 fl (80.0-96.0); PLATELET COUNT, AUTOMATED 183 10^3/uL (150-450); RED BLOOD COUNT 3.05 10^6/uL (4.00-5.40)
[2019-05-06 07:26] LABS: CALCIUM LEVEL 8.1 MG/DL (8.8-10.2); CREATININE FOR GFR 3.18 MG/DL (0.55-1.30); GLOMERULAR FILTRATION RATE 14.7 (>32); MAGNESIUM LEVEL 3.7 MG/DL (1.8-2.4); POTASSIUM SERUM 4.8 MEQ/L (3.5-5.1)
[2019-05-06] MEDS: LOPERAMIDE 2 MG CAPLET PO SCH (09:00)
[2019-05-06] MEDS: FOLIC ACID 1 MG TAB PO SCH (09:00)
[2019-05-06] MEDS ORDERED: HEPARIN SOD (PORCINE) 5000 UNITS/ML VIAL (J1644 PER 1000UNITS) SC SCH (09:00)
[2019-05-06] MEDS: SPIRONOLACTONE 12.5MG PER 1/2 TABLET PO SCH (09:00)
[2019-05-06] MEDS: PANTOPRAZOLE 40MG TAB (PROTONIX) PO SCH (09:00)
--- NOTE | 2019-05-06 09:01 | REP ---
Clinical: Trauma. Fall. Technique: Portable AP, lateral, bilateral oblique views of the left ankle. Findings: Fractures of the medial and lateral malleoli with overlying soft tissue swelling noted. Impression: Bimalleolar fractures with soft tissue swelling. Electronically Signed by Brennan Rodriguez MD 05/06/2019 08:53 A
--- NOTE | 2019-05-06 09:05 | REP ---
Clinical: Preoperative assessment. Comparison: 09/09/2017. Findings: Cardiac silhouette is normal and dual lead pacemaker is in stable position. Left lower lobe opacities cannot exclude [id number] atelectasis and consolidation along with small pleural effusion. Impression: Left lower lobe opacities suggesting consolidation/atelectasis and small pleural effusion. Electronically Signed by Brennan Rodriguez MD 05/06/2019 08:56 A
--- NOTE | 2019-05-06 10:44 | IPNPDOC ---
Text Note Date of Service The patient was seen on 05/06/19. NOTE PREOP MEDICAL CLEARANCE: Subjective: -Sleeping peacefully on arrival -No complaints this morning Objective: General Exam: Alert, Cooperative, NAD HEENT: PERRLA, EOMI, has bruising by left supra-orbit Neck Exam: supple, no JVD, full range of motion Chest Exam: CTAB without rhonchi, crackles or wheezing Heart Exam: Normal rate, rhythm, no murmues Abdomen Exam: Normal bowel sounds, NTND Extremity Exam: Left ankle pain with some swelling, dressing, toes warm, able to wiggle, range of motion limited by pain and bandaging, RLE exam wnl. Otherwise WWP with 2+ DP pulses Skin Exam: Nl turgor and temperature, with no rashes or erythema Neuro Exam: Cranial Nerves 3-12 NL, AOx3, moving all extremities spontaneously Psych Exam: AOx3 Labs: Cr now down to 3.13 (recent baseline ~3), stable anemia hgb 9.5, WBC 9, platelets 183, INR 1.11 Imaging: CXR without acute cardiopulmonary pathology. Ankle XR with left bimalleolar fracture Assessment: Patient is 89 years old female with past medical history of hypertension, hypothyroidism, CML, chronic anemia presented to the hospital after mechanical fall. Yesterday patient developed mechanical fall, she was brought to the [facility] and found to have left orbital fracture and left bimalleolar fracture. Patient was admitted for orthopedic surgery which planned tomorrow. Patient denied fever, chills, nausea, vomiting, chest pain, palpitations, diarrhea or dysuria. Patient does not have any neurological deficiency. CT head was negative for acute bleed Problems (1) Orbit fracture, left Status: Acute -to follow up with ENT surgeon (2) Bimalleolar fracture of left ankle Status: Acute -Planned surgery this morning after medicine preop clearance as detailed below (3) MARCUS on CKD: likely 2/2 dehydration with prerenal MARCUS -improving with maintenance fluids, was likely prerenal 2/2 dehydration -monitor daily BMP (4) Chronic hypertension - Continue home amlodipine tonight Preoperative clearance -CBC with no leukocytosis and stable anemia per baseline and normal platelets -INR 1.11 without evidence of coagulopathy -EKG showed paced rhythm without acute ischemic changes -CXR was without acute cardiopulmonary pathology and exam within normal limits while breathing comfortably on room air without a history of SIRI -Electrolytes are within normal limits (Na and K) -Renal function with mild MARCUS on chronic CKD with improvement, otherwise cleared for surgery at this time with known chronic CKD with mild CPK likely 2/2 fall and prerenal physiology on maintenance fluids -Last TTE was in 2018 with EF45% -is normoglycemic and normotensive at this time -Non-smoker -Normal BMI -Revised cardiac risk index for pre-op rish for non-cardiac surgery is 10.1% 30day risk of , [place] or cardiac arrest -AT THIS TIME, THE PATIENT IS MEDICALLY CLEARED FOR THIS INTERMEDIATE RISK ORTHOPEDIC SURGERY VS,Fishbone, I+O VS, Fishbone, I+O Laboratory Tests 05/05/19 23:03 05/05/19 23:32 05/06/19 06:18 Vital Signs Date Time Temp Pulse Resp B/P (MAP) Pulse Ox O2 Delivery O2 Flow Rate FiO2 05/06/19 06:00 97.4 81 18 134/67 (89) 97 Room Air I&O- Last 24 Hours up to 6 AM 05/06/19 06:00 Intake Total 0 ml Output Total 200 ml Balance -200 ml JOSEPH LONDON MD May 06, 2019 07:58
[2019-05-06] MEDS ORDERED: MIDAZOLAM INJ 2 MG/2 ML VIAL (J2250) As Ordered ONE (11:26)
[2019-05-06] MEDS ORDERED: fentaNYL 100 MCG/2 ML INJECTION (J3010) As Ordered ONE ×2 (11:26→12:42)
[2019-05-06] MEDS ORDERED: propofoL 200 MG/20 ML VIAL As Ordered ONE (12:39)
[2019-05-06] MEDS ORDERED: LIDOCAINE 2% INJ 100 MG/5 ML SDV (FOR ANES.) As Ordered ONE (12:39)
[2019-05-06] MEDS ORDERED: dexameTHASONE 4 MG/ML 1ML VIAL (J1100) As Ordered ONE (12:40)
[2019-05-06] MEDS ORDERED: ONDANSETRON 4MG/2ML VIAL (J2405) As Ordered ONE (12:40)
[2019-05-06] MEDS ORDERED: ceFAZolin 2 GM/D5W 50 ML IV BAG (J0690 PER 500MG) As Ordered ONE (13:17)
[2019-05-06] MEDS ORDERED: ACETAMINOPHEN 1000MG 100ML IV BTL (OFIRMEV) (J0131 PER 10MG) As Ordered ONE (13:25)
[2019-05-06] MEDS ORDERED: MIDAZOLAM INJ 2 MG/2 ML VIAL (J2250) IV ONE (13:30)
[2019-05-06] MEDS ORDERED: fentaNYL 100 MCG/2 ML INJECTION (J3010) IV ONE (13:30)
--- NOTE | 2019-05-06 13:30 | CR ---
DATE OF CONSULTATION: 05/06/2019 CHIEF COMPLAINT: Left ankle pain. This is an 89-year-old female who has a significant past medical history of hypertension, hypothyroidism, CML, chronic anemia. The patient was admitted to the hospital after mechanical fall. She immediately appreciated significant left ankle and facial pain. The pain in her ankle was 10/10, made worse with any sort of movement or attempt at weightbearing. She was unable to ambulate. It was only improved with pain medications and immobilization. Outside of her face, she denies any pain elsewhere in her bilateral upper extremities or right lower extremity. Denies any fevers, chills, nausea, or vomiting. HOME MEDICATIONS: - amlodipine - amoxicillin - calcium carbonate - cyanocobalamin - escitalopram - gabapentin - imatinib - levothyroxine - loperamide - magnesium oxide - oxybutynin - pantoprazole - ropinirole - spironolactone ALLERGIES: Are LOSARTAN severe angioedema. MUSHROOMS vomiting and OYSTER EXTRACT vomiting. PAST MEDICAL HISTORY: CML. On imatinib. In 2007. Chronic iron deficiency secondary to gastric vascular ectasia. Duodenal polyps. Chronic kidney disease (CKD) stage IV. Chronic hypertension. Hypothyroidism. PAST SURGICAL HISTORY: Is for: Pacemaker. Status post tubal ligation. Hysterectomy FAMILY HISTORY: Mother of breast cancer. SOCIAL HISTORY: Denies alcohol and drugs. She is a current smoker. PHYSICAL EXAMINATION: The patient is awake, alert, and oriented. Well dressed, appropriate affect. Breathing unlabored on room air. Significant ecchymosis and facial bruising. Bilateral upper extremities: No tenderness to palpation. Full active range of motion . Sensation intact to light touch, superficial sensory branches of the radial nerve, median nerve, and ulnar nerve. Positive AIN/PIN/ULN motor nerve function. Bilateral lower extremities: No tenderness to palpation knee or ankle. Positive extensor hallucis longus (EHL), flexor hallucis longus (FHL), tibialis, and gastroc motor function. Sensation intact to light touch, superficial, peroneal, deep peroneal, saphenous, and fibular distributions. Posterior tibial pulses 2+, regular rate. Skin intact. Left lower extremity: Tender to palpation about the medial and lateral ankle. Positive EHL, FHL, tibialis, and gastroc motor function. Sensation intact to light touch, superficial, peroneal, deep peroneal, saphenous, and fibular distributions. Nontender to palpation about the knee or hip. Negative logroll. XR reviewed demonstrating bimalleolar displaced ankle fracture with lateral translation. DIAGNOSIS: Unstable bimalleolar ankle fracture. Discussed with the patient and the that this unstable ankle fracture, in order to increase ankle function ability going forward, I would recommend operative intervention. We discussed the risks and benefits including but not limited to infection, damage to surrounding structures, incomplete relief, malunion, nonunion. The patient wished to proceed. She is currently nothing by mouth. dvt prophylaxis postoperatively. She will be nonweightbearing postoperatively. Plan to work on elevation and pain control. JOSE
[2019-05-06] MEDS ORDERED: ePHEDrine SULFATE 25 MG/5 ML(5MG/ML) SYRINGE As Ordered ONE (13:51)
--- NOTE | 2019-05-06 14:38 | REP ---
Clinical: Status post fixation. Technique: Intraoperative fluoroscopic imaging using portable C-arm technique. Findings: The patient is status post satisfactory bimalleolar fracture fixation. Total fluoroscopic time 1 minute 41 seconds. Impression: Status post bimalleolar fixation. Electronically Signed by Brennan Rodriguez MD 05/06/2019 02:30 P
[2019-05-06] MEDS ORDERED: dexameTHASONE 10 MG/1 ML VIAL PRES.FREE (J1100) ONE (15:12)
[2019-05-06] MEDS ORDERED: ROPIvacaine 0.5% 30 ML INJECTION (J2795 PER 1MG) ONE (15:12)
[2019-05-06] MEDS ORDERED: LIDOCAINE 1% MDV 20ML VIAL ONE (15:12)
[2019-05-06] MEDS: oxyBUTYnin *DITROPAN XL* 5 MG TABCR PO SCH (18:12)
[2019-05-06] MEDS: ESCITALOPRAM OXALATE 10 MG TAB (LEXAPRO) PO SCH (18:12)
[2019-05-06] MEDS: LEVOTHYROXINE 50MCG TABLET (0.05MG) PO SCH (18:12)
[2019-05-06] MEDS: amLODIPine 5 MG TAB PO SCH (18:13)
[2019-05-06] MEDS: traMADol 50 MG TAB PO PRN (20:17)
[2019-05-06] MEDS: ceFAZolin SOD 1 GM in D5W MINI-BAG PLUS 50 ML IV SCH (21:18)
[2019-05-07 02:00] VITALS: BP 118/63
[2019-05-07] MEDS: ceFAZolin SOD 1 GM in D5W MINI-BAG PLUS 50 ML IV SCH ×2 (05:02→14:55)
[2019-05-07 06:00] VITALS: BP_SYST 110; BP_SYST 113; BP_DIAS 60; BP_DIAS 63
[2019-05-07] MEDS: ACETAMINOPHEN 500 MG TAB PO SCH ×3 (06:22→21:17)
[2019-05-07] MEDS: MAGNESIUM OXIDE 400 MG TAB (MAG-OX) PO SCH ×2 (08:50→21:16)
[2019-05-07] MEDS: LOPERAMIDE 2 MG CAPLET PO SCH (08:51)
[2019-05-07] MEDS: FOLIC ACID 1 MG TAB PO SCH (08:51)
[2019-05-07] MEDS: ASPIRIN 81 MG ENTERIC TAB PO SCH ×2 (08:51→21:16)
[2019-05-07] MEDS: PANTOPRAZOLE 40MG TAB (PROTONIX) PO SCH (08:51)
[2019-05-07] MEDS: CALCIUM CARBONATE 500 MG CHEW U/D PO SCH ×2 (08:51→21:16)
[2019-05-07] MEDS: SPIRONOLACTONE 12.5MG PER 1/2 TABLET PO SCH (08:51)
[2019-05-07 10:00] VITALS: BP 111/61
[2019-05-07] MEDS: traMADol 50 MG TAB PO PRN ×2 (12:19→21:17)
[2019-05-07 13:44] LABS: HEMATOCRIT 27.7 % (36.0-47.0); HEMOGLOBIN 8.8 g/dl (12.0-15.5); MEAN CORPUSCULAR HEMOGLOBIN 31.2 pg (27.0-33.0); MEAN CORPUSCULAR HGB CONC 31.8 g/dl (32.0-36.5); MEAN CORPUSCULAR VOLUME 98.2 fl (80.0-96.0); PLATELET COUNT, AUTOMATED 215 10^3/uL (150-450); RED BLOOD COUNT 2.82 10^6/uL (4.00-5.40); WHITE BLOOD COUNT 9.7 10^3/uL (4.0-10.0)
[2019-05-07 14:00] VITALS: BP 112/61
[2019-05-07 14:03] LABS: CALCIUM LEVEL 8.2 MG/DL (8.8-10.2); CREATININE FOR GFR 3.03 MG/DL (0.55-1.30); GLOMERULAR FILTRATION RATE 15.5 (>32); POTASSIUM SERUM 4.5 MEQ/L (3.5-5.1)
--- NOTE | 2019-05-07 14:07 | IPNPDOC ---
Text Note Date of Service The patient was seen on 05/07/19. NOTE Subjective: -Sitting up, visiting with her family, conversational Interim events: -Had L ankle surgery yesterday, went well Objective: General Exam: Alert, Cooperative, NAD HEENT: PERRLA, EOMI, has bruising by left supra-orbit Neck Exam: supple, no JVD, full range of motion Chest Exam: CTAB without rhonchi, crackles or wheezing Heart Exam: Normal rate, rhythm, no murmues Abdomen Exam: Normal bowel sounds, NTND Extremity Exam: LLE in cast now, toes are warm, RLE exam wnl. Otherwise WWP. Skin Exam: Nl turgor and temperature, with no rashes or erythema Neuro Exam: Cranial Nerves 3-12 NL, AOx3, moving all extremities spontaneously Psych Exam: AOx3 Labs: AM labs are pending Imaging: CXR without acute cardiopulmonary pathology. Ankle XR with left bimalleolar fracture Assessment: 89 years old W with chronic hypertension, hypothyroidism, CML, and chronic anemia presented to the hospital after mechanical fall and found to have a left orbital fracture and left bimalleolar fracture now s/p L ankle surgery. Plan: (1) Orbit fracture, left Status: Acute -to follow up with ENT surgeon as an outpatient (2) Bimalleolar fracture of left ankle Status: Acute -s/p L ankle surgery on 05/06/2019 -pain control per surgery team (3) MARCUS on CKD: likely 2/2 dehydration with prerenal MARCUS -improved after fluids, was likely prerenal 2/2 dehydration , follow up AM labs -monitor daily BMP (4) Chronic hypertension - Continue home amlodipine (5) chronic conditions: -continue home synthroid, lexapro, protonix, Vitamin B12, oxybutynin, requip, ASA, aldactone DVT ppx: Heparin Dispo: med/sug with pending PT/OT eval VS,Fishbone, I+O VS, Fishbone, I+O Vital Signs Date Time Temp Pulse Resp B/P (MAP) Pulse Ox O2 Delivery O2 Flow Rate FiO2 05/07/19 06:00 96.9 73 18 110/60 (77) 100 Nasal Cannula 2.0 I&O- Last 24 Hours up to 6 AM 05/07/19 06:00 Intake Total 1960 ml Output Total 1325 ml Balance 635 ml JOSEPH LONDON MD May 07, 2019 08:03
[2019-05-07 18:00] VITALS: BP 111/57
[2019-05-07] MEDS ORDERED: RIVAROXABAN 10 MG TAB (XARELTO) PO SCH (18:00)
[2019-05-07] MEDS: oxyBUTYnin *DITROPAN XL* 5 MG TABCR PO SCH (18:06)
[2019-05-07] MEDS: ESCITALOPRAM OXALATE 10 MG TAB (LEXAPRO) PO SCH (18:06)
[2019-05-07] MEDS: amLODIPine 5 MG TAB PO SCH (18:07)
[2019-05-07] MEDS: LEVOTHYROXINE 50MCG TABLET (0.05MG) PO SCH (18:07)
[2019-05-07] MEDS: GABAPENTIN 300 MG CAP PO SCH (21:16)
[2019-05-07] MEDS: rOPINIRole 0.25 MG TAB(REQUIP) PO SCH (21:16)
[2019-05-07 22:00] VITALS: BP 112/59
[2019-05-08] VITALS (11 sets, daily range): BP systolic 113–135; BP diastolic 55–76
[2019-05-08] MEDS: ACETAMINOPHEN 500 MG TAB PO SCH ×3 (05:38→22:04)
[2019-05-08 06:14] LABS: HEMATOCRIT 22.7 % (36.0-47.0); HEMOGLOBIN 7.3 g/dl (12.0-15.5); MEAN CORPUSCULAR HEMOGLOBIN 31.2 pg (27.0-33.0); MEAN CORPUSCULAR HGB CONC 32.2 g/dl (32.0-36.5); PLATELET COUNT, AUTOMATED 186 10^3/uL (150-450); RED BLOOD COUNT 2.34 10^6/uL (4.00-5.40); WHITE BLOOD COUNT 8.1 10^3/uL (4.0-10.0)
[2019-05-08 06:38] LABS: CREATININE FOR GFR 2.93 MG/DL (0.55-1.30); GLOMERULAR FILTRATION RATE 16.1 (>32); POTASSIUM SERUM 4.7 MEQ/L (3.5-5.1)
[2019-05-08] MEDS: MAGNESIUM OXIDE 400 MG TAB (MAG-OX) PO SCH (09:00)
[2019-05-08] MEDS: PANTOPRAZOLE 40MG TAB (PROTONIX) PO SCH (09:21)
[2019-05-08] MEDS: CALCIUM CARBONATE 500 MG CHEW U/D PO SCH ×2 (09:21→22:04)
[2019-05-08] MEDS: FOLIC ACID 1 MG TAB PO SCH (09:21)
[2019-05-08] MEDS: SPIRONOLACTONE 12.5MG PER 1/2 TABLET PO SCH (09:21)
[2019-05-08] MEDS: LOPERAMIDE 2 MG CAPLET PO SCH (09:21)
[2019-05-08] MEDS: ASPIRIN 81 MG ENTERIC TAB PO SCH ×2 (09:21→22:04)
[2019-05-08] MEDS: traMADol 50 MG TAB PO PRN (13:08)
--- NOTE | 2019-05-08 14:24 | IPNPDOC ---
Text Note Date of Service The patient was seen on 05/08/19. NOTE Subjective: -Feels well, no complaints this morning Objective: General Exam: Alert, Cooperative, NAD HEENT: PERRLA, EOMI, has bruising by left supra-orbit Neck Exam: supple, no JVD, full range of motion Chest Exam: CTAB without rhonchi, crackles or wheezing Heart Exam: Normal rate, rhythm, no murmues Abdomen Exam: Normal bowel sounds, NTND Extremity Exam: LLE in cast now, toes are warm, RLE exam wnl. Otherwise WWP. Skin Exam: Nl turgor and temperature, with no rashes or erythema, face with left bruising Neuro Exam: Cranial Nerves 3-12 NL, AOx3, moving all extremities spontaneously Psych Exam: AOx3 Labs: Hgb 7.3, Hct 22.7. Cr now 2.93. Reviewed Imaging: CXR without acute cardiopulmonary pathology. Ankle XR with left bimalleolar fracture Assessment: 89 years old W with chronic hypertension, hypothyroidism, CML, and chronic anemia presented to the hospital after mechanical fall and found to have a left orbital fracture and left bimalleolar fracture now s/p L ankle surgery doing well with course c/b worsening acute on chronic anemia with no evidence of bleeding. Plan: Acute on chronic anemia without evidence of significant acute bleeding -transfuse 2 units of blood today -check post transfusion CBC, and daily CBC -continue vit B12 Bimalleolar fracture of left ankle Status: Acute -s/p L ankle surgery on 05/06/2019, with cast, working with PT -pain control per surgery team Orbit fracture, left Status: Acute -to follow up with ENT surgeon as an outpatient MARCUS on CKD: likely 2/2 dehydration with prerenal MARCUS -improved after fluids, was likely prerenal 2/2 dehydration -monitor daily BMP Chronic hypertension - Continue home amlodipine chronic conditions: -continue home synthroid, lexapro, protonix, Vitamin B12, oxybutynin, requip, ASA, aldactone DVT ppx: Heparin Dispo: med/sug with pending PT/OT eval VS,Fishbone, I+O VS, Fishbone, I+O Laboratory Tests 05/08/19 05:36 Vital Signs Date Time Temp Pulse Resp B/P (MAP) Pulse Ox O2 Delivery O2 Flow Rate FiO2 05/08/19 14:00 97.5 73 16 120/62 (81) 95 Room Air 05/07/19 08:30 0.0 I&O- Last 24 Hours up to 6 AM 05/08/19 06:00 Intake Total 840 ml Output Total 300 ml Balance 540 ml JOSEPH LONDON MD May 08, 2019 14:24
[2019-05-08] MEDS: amLODIPine 5 MG TAB PO SCH (18:32)
[2019-05-08] MEDS: ESCITALOPRAM OXALATE 10 MG TAB (LEXAPRO) PO SCH (18:32)
[2019-05-08] MEDS: oxyBUTYnin *DITROPAN XL* 5 MG TABCR PO SCH (18:32)
[2019-05-08] MEDS: LEVOTHYROXINE 50MCG TABLET (0.05MG) PO SCH (18:33)
--- NOTE | 2019-05-08 20:35 | REPVR ---
PROCEDURE INFORMATION: Exam: CT Head Without Contrast Exam date and time: 05/08/2019 8:22 PM Age: 89 years old Clinical indication: Injury or trauma; Fall; Initial encounter; Blunt trauma (contusions or hematomas) TECHNIQUE: Imaging protocol: Computed tomography of the head without contrast. Radiation optimization: All CT scans at this facility use at least one of these dose optimization techniques: automated exposure control; mA and/or kV adjustment per patient size (includes targeted exams where dose is matched to clinical indication); or iterative reconstruction. COMPARISON: CT Head without contrast 05/04/2019 12:25 PM FINDINGS: Brain: There is moderate age related global parenchymal volume loss. White matter changes are demonstrated in the subcortical, centrum semiovale and periventricular white matter consistent with age related small vessel white matter angiopathic gliosis. 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 Ventricles: The degree of ventricular dilatation is normal for age and/or degree of atrophy present. Bones/joints: Unremarkable. No acute fracture. Sinuses: Visualized sinuses are unremarkable. No fluid levels. Mastoid air cells: Visualized mastoid air cells are well aerated. Soft tissues: Unremarkable. Vasculature: Atherosclerotic calcifications demonstrated in the vertebral basilar system and more pronounced in the intracranial carotid arteries. IMPRESSION: 1. There is moderate age related global parenchymal volume loss. White matter changes are demonstrated in the subcortical, centrum semiovale and periventricular white matter consistent with age related small vessel white matter angiopathic gliosis. 2. The degree of ventricular dilatation is normal for age and/or degree of atrophy present. Electronically signed by: Ryan Patel On 05/08/2019 20:35:39 PM
--- NOTE | 2019-05-08 21:17 | IPNPDOC ---
Text Note Date of Service The patient was seen on 05/08/19. NOTE Called to evaluate patient after a fall. She was found down at the change of shift. She reported that she slid out of her bed and nursing reports the bed alarm was not on. Alert and oriented to herself, the state she is in and the season. Small abrasion on her right back, no new bruising otherwise. CT head and Rib XR negative Plan is to put on bed alarm, and do hourly rounding, since she is not in a [facility] room. She is only on aspirin, not on other anti-coagulants VS,Fishbone, I+O VS, Fishbone, I+O Laboratory Tests 05/08/19 05:36 Vital Signs Date Time Temp Pulse Resp B/P (MAP) Pulse Ox O2 Delivery O2 Flow Rate FiO2 05/08/19 18:32 67 125/67 05/08/19 18:29 97.7 16 Room Air 05/08/19 17:57 98 05/07/19 08:30 0.0 I&O- Last 24 Hours up to 6 AM 05/08/19 06:00 Intake Total 840 ml Output Total 300 ml Balance 540 ml GME ATTESTATION GME ATTESTATION My faculty preceptor for this patient encounter was physically present during the encounter and was fully available. All aspects of the patient interview, examination, medical decision making process, and medical care plan development were reviewed and approved by the faculty preceptor. The faculty preceptor is aware and concurs with the plan as stated in the body of this note and will attest to such by his/her cosignature. CRISTAL BLANK D.O. May 08, 2019 21:17
[2019-05-08] MEDS: GABAPENTIN 300 MG CAP PO SCH (22:03)
[2019-05-08] MEDS: rOPINIRole 0.25 MG TAB(REQUIP) PO SCH (22:04)
[2019-05-09 05:57] LABS: HEMATOCRIT 32.7 % (36.0-47.0); MEAN CORPUSCULAR HEMOGLOBIN 30.7 pg (27.0-33.0); MEAN CORPUSCULAR VOLUME 92.9 fl (80.0-96.0); PLATELET COUNT, AUTOMATED 188 10^3/uL (150-450); RED BLOOD COUNT 3.52 10^6/uL (4.00-5.40); WHITE BLOOD COUNT 6.7 10^3/uL (4.0-10.0)
[2019-05-09 06:00] VITALS: BP 139/76
[2019-05-09 06:00] LABS: HEMOGLOBIN 10.8 g/dl (12.0-15.5)
[2019-05-09 06:17] LABS: CALCIUM LEVEL 7.6 MG/DL (8.8-10.2); CREATININE FOR GFR 2.75 MG/DL (0.55-1.30); GLOMERULAR FILTRATION RATE 17.3 (>32); POTASSIUM SERUM 4.9 MEQ/L (3.5-5.1)
[2019-05-09] MEDS: ACETAMINOPHEN 500 MG TAB PO SCH ×3 (06:42→22:00)
--- NOTE | 2019-05-09 07:38 | RO ---
DATE OF PROCEDURE: 05/06/2019 PREOPERATIVE DIAGNOSIS: Left bimalleolar ankle fracture. POSTOPERATIVE DIAGNOSES: Left bimalleolar ankle fracture and syndesmotic deltoid injury. PROCEDURE: SURGEON: Dr. Teja Kumar AUTOMATIC MACHINE ATTENDANT: None. ANESTHESIA: General. PREOPERATIVE ANTIBIOTICS: 2 grams of Ancef. TOURNIQUET TIME: 54 minutes. BLOOD LOSS: 24 mL. COMPLICATIONS: None. INDICATIONS: 89-year-old female who suffered an unstable left bimalleolar ankle fracture after trip and fall. We discussed the risks and benefits of operative intervention including, but not limited to, infection, damage to surrounding structures, incomplete relief, malunion, nonunion, and patient and her son wished to proceed. DESCRIPTION OF PROCEDURE: The patient was brought back to the operating room (OR) in the supine position and underwent general anesthesia, at which point the left leg was prepped and draped in the usual fashion. We then had time-out confirming site, side, and surgery. Once all in agreement, we elevated tourniquet up to 250 mmHg. We then made a longitudinal incision along the distal fibula with the sharp blade and dissected through subcutaneous tissue, careful to control superficial bleeding. Elevated periosteum to expose the fracture. We irrigated the fracture thoroughly. We tried using a point topoint clamp to reduce the fracture; however, due to the extreme poor quality of the bone, we further created more comminution, at which point we used indirect manipulation to reduce the fracture and holding the place with two 1.6 K-wires. At which point, we placed a distal tibial locking plate and confirmed this placement on AP view. We then placed 4- 5 distal locking screws to get adequate fixation. We then confirmed our placement. It looked like we needed to gain some fibular length; therefore, we placed one of our cortical screws in the shaft eccentrically to distract the fracture somewhat to regain our length and reduction. Once this was done and we were happy with this, we placed one more cortical screw and then one locking screw for a hybride fixation at which point we made a longitudinal incision along the medial malleolus. We dissected through subcutaneous tissue careful to identify and preserve the saphenous vein. We then irrigated and debrided the fracture site and used point-point reduction clamp to reduce. We then placed two K-wires for our medial malleolar fixation. We were happy with this. We over-drilled and placed two 40 cannulated 4.0 screws, at which point we stressed the syndesmotic and deltoid and appreciated some instability. Therefore, we placed one 3.5 screw across the syndesmosis parallel to the tibiotalar joint. I was happy with the fixation at this point. We irrigated thoroughly. Closed subcutaneous tissue with #2-0 Vicryl and skin with nylon. Placed Adaptic, gauze, sterile Webril, posterior slab splint, and 4- and 6-inch Arcadio, at which point tourniquet was let down. Patient taken stable to postanesthesia care unit (PACU). POSTOPERATIVE PLAN: Patient will get Surgical Care Improvement Project (SCIP) antibiotic prophylaxis, be placed on deep venous thrombosis (DVT) prophylaxis, be non-weightbearing left lower extremity. We will see her in the office in 2 weeks for a repeat clinical check of the incisions for suture removal and transition her over to a cast at that time. JOSE
--- NOTE | 2019-05-09 07:43 | REP ---
Clinical: Trauma. Fall. Technique: Five views of the bilateral ribs. Findings: Generalized age-related changes are appreciated and there is evidence for old healed right rib fractures. No obvious acute displaced rib fracture identified. Impression: No obvious or acute displaced rib fracture identified. Electronically Signed by Brennan Rodriguez MD 05/09/2019 07:34 A
[2019-05-09] MEDS: CALCIUM CARBONATE 500 MG CHEW U/D PO SCH ×2 (09:13→20:04)
[2019-05-09] MEDS: ASPIRIN 81 MG ENTERIC TAB PO SCH ×2 (09:13→20:04)
[2019-05-09] MEDS: LOPERAMIDE 2 MG CAPLET PO SCH (09:14)
[2019-05-09] MEDS: FOLIC ACID 1 MG TAB PO SCH (09:14)
[2019-05-09] MEDS: PANTOPRAZOLE 40MG TAB (PROTONIX) PO SCH (09:14)
[2019-05-09] MEDS: SPIRONOLACTONE 12.5MG PER 1/2 TABLET PO SCH (09:16)
[2019-05-09 10:00] VITALS: BP 136/73
[2019-05-09 13:28] VITALS: BP 130/70
[2019-05-09] MEDS: ESCITALOPRAM OXALATE 10 MG TAB (LEXAPRO) PO SCH (18:25)
[2019-05-09] MEDS: LEVOTHYROXINE 50MCG TABLET (0.05MG) PO SCH (18:25)
[2019-05-09] MEDS: oxyBUTYnin *DITROPAN XL* 5 MG TABCR PO SCH (18:25)
[2019-05-09] MEDS: amLODIPine 5 MG TAB PO SCH (18:26)
[2019-05-09] MEDS: GABAPENTIN 300 MG CAP PO SCH (20:04)
[2019-05-09] MEDS: rOPINIRole 0.25 MG TAB(REQUIP) PO SCH (20:04)
[2019-05-09] MEDS: traMADol 50 MG TAB PO PRN (20:06)
[2019-05-09 22:00] VITALS: BP 126/67
--- NOTE | 2019-05-10 01:21 | IPNPDOC ---
Text Note Date of Service The patient was seen on 05/09/19. NOTE Subjective: -Fell overnight, reporting that she slipped out of bed onto the floor. Had CT head and XR of ribs that were negative for bleeding and fractures -This AM with normal vitals and no new complaints -Got blood yesterday and that went well Objective: General Exam: Alert, Cooperative, NAD HEENT: PERRLA, EOMI, has bruising by left supra-orbit Neck Exam: supple, no JVD, full range of motion Chest Exam: CTAB without rhonchi, crackles or wheezing Heart Exam: Normal rate, rhythm, no murmues Abdomen Exam: Normal bowel sounds, NTND Extremity Exam: LLE in cast now, toes are warm, RLE exam wnl. Otherwise WWP. Skin Exam: Nl turgor and temperature, with no rashes or erythema, face with left bruising Neuro Exam: Cranial Nerves 3-12 NL, AOx3, moving all extremities spontaneously Psych Exam: AOx3 Labs: Reviewed. Hgb improved to 10.8 post 2u pRBCs, Hct 32.7. Cr now 2.75. Imaging: CT head without acute bleeding of fractures. XR of ribs without acute fractures noted. Admission CXR was without acute cardiopulmonary pathology. Admission Ankle XR showed left bimalleolar fracture. Assessment: 89 years old W with chronic hypertension, hypothyroidism, CML, and chronic a nemia presented to the hospital after mechanical fall and found to have a left orbital fracture and left bimalleolar fracture now s/p L ankle surgery doing well with course c/b worsening acute on chronic anemia with no evidence of bleeding and now fall overnight, thankfully without noted new fractures. Plan: Acute on chronic anemia without evidence of significant acute bleeding -s/p 2 units of blood on 05/08 with adequate response. Will monitor daily CBC while inpatient -continue vit B12 Bimalleolar fracture of left ankle Status: Acute -s/p L ankle surgery on 05/06/2019, with cast, working with PT -pain control per surgery team Orbit fracture, left Status: Acute -to follow up with ENT surgeon as an outpatient MARCUS on CKD: likely 2/2 dehydration with prerenal MARCUS, continues to improve. -improved after fluids, was likely prerenal 2/2 dehydration -monitor daily BMP Falls with one fall overnight: -Thankfully CT head and rib XR was negative for acute bleeding and fractures -Pain is well controlled at this time -Has ongoing PT evaluation and ARU consultation for safe discharge planning Chronic hypertension - Continue home amlodipine chronic conditions: -continue home synthroid, lexapro, protonix, Vitamin B12, oxybutynin, requip, ASA, aldactone DVT ppx: SCDs and TEDs Dispo: med/sug with pending PT/OT and ARU eval VS,Fishbone, I+O VS, Fishbone, I+O Laboratory Tests 05/09/19 05:35 Vital Signs Date Time Temp Pulse Resp B/P (MAP) Pulse Ox O2 Delivery O2 Flow Rate FiO2 05/09/19 06:00 97.7 70 17 139/76 (97) 96 Room Air 05/07/19 08:30 0.0 I&O- Last 24 Hours up to 6 AM 05/09/19 06:00 Intake Total 1160 ml Output Total 450 ml Balance 710 ml JOSEPH LONDON MD May 09, 2019 08:16
[2019-05-10 06:00] VITALS: BP 129/70
[2019-05-10] MEDS: ACETAMINOPHEN 500 MG TAB PO SCH ×3 (06:01→21:05)
[2019-05-10 06:42] LABS: HEMATOCRIT 36.8 % (36.0-47.0); HEMOGLOBIN 12.1 g/dl (12.0-15.5); MEAN CORPUSCULAR HEMOGLOBIN 30.6 pg (27.0-33.0); MEAN CORPUSCULAR HGB CONC 32.9 g/dl (32.0-36.5); MEAN CORPUSCULAR VOLUME 93.2 fl (80.0-96.0); PLATELET COUNT, AUTOMATED 221 10^3/uL (150-450); RED BLOOD COUNT 3.95 10^6/uL (4.00-5.40); WHITE BLOOD COUNT 6.5 10^3/uL (4.0-10.0)
[2019-05-10 07:01] LABS: CALCIUM LEVEL 8.1 MG/DL (8.8-10.2); CREATININE FOR GFR 2.54 MG/DL (0.55-1.30); POTASSIUM SERUM 4.6 MEQ/L (3.5-5.1)
[2019-05-10] MEDS: SPIRONOLACTONE 12.5MG PER 1/2 TABLET PO SCH (08:27)
[2019-05-10] MEDS: PANTOPRAZOLE 40MG TAB (PROTONIX) PO SCH (08:27)
[2019-05-10] MEDS: ASPIRIN 81 MG ENTERIC TAB PO SCH ×2 (08:27→21:04)
[2019-05-10] MEDS: FOLIC ACID 1 MG TAB PO SCH (08:27)
[2019-05-10] MEDS: LOPERAMIDE 2 MG CAPLET PO SCH (08:27)
[2019-05-10] MEDS: CALCIUM CARBONATE 500 MG CHEW U/D PO SCH ×2 (08:27→21:04)
[2019-05-10] MEDS: LEVOTHYROXINE 50MCG TABLET (0.05MG) PO SCH (16:50)
[2019-05-10] MEDS: ESCITALOPRAM OXALATE 10 MG TAB (LEXAPRO) PO SCH (16:50)
[2019-05-10] MEDS: amLODIPine 5 MG TAB PO SCH (16:51)
[2019-05-10] MEDS: oxyBUTYnin *DITROPAN XL* 5 MG TABCR PO SCH (16:51)
[2019-05-10] MEDS: GABAPENTIN 300 MG CAP PO SCH (21:04)
[2019-05-10] MEDS: rOPINIRole 0.25 MG TAB(REQUIP) PO SCH (21:04)
[2019-05-11] MEDS: PANTOPRAZOLE 40MG TAB (PROTONIX) PO SCH (04:24)
[2019-05-11] MEDS: ACETAMINOPHEN 500 MG TAB PO SCH ×3 (05:05→21:32)
[2019-05-11 06:00] VITALS: BP 156/84
[2019-05-11 06:15] LABS: HEMATOCRIT 37.8 % (36.0-47.0); HEMOGLOBIN 12.5 g/dl (12.0-15.5); MEAN CORPUSCULAR HEMOGLOBIN 31.1 pg (27.0-33.0); MEAN CORPUSCULAR HGB CONC 33.1 g/dl (32.0-36.5); PLATELET COUNT, AUTOMATED 238 10^3/uL (150-450); RED BLOOD COUNT 4.02 10^6/uL (4.00-5.40); WHITE BLOOD COUNT 6.1 10^3/uL (4.0-10.0)
[2019-05-11 06:32] LABS: CALCIUM LEVEL 8.4 MG/DL (8.8-10.2); CREATININE FOR GFR 2.51 MG/DL (0.55-1.30); GLOMERULAR FILTRATION RATE 19.3 (>32)
[2019-05-11] MEDS: CALCIUM CARBONATE 500 MG CHEW U/D PO SCH ×2 (09:21→21:32)
[2019-05-11] MEDS: LOPERAMIDE 2 MG CAPLET PO SCH (09:21)
[2019-05-11] MEDS: SPIRONOLACTONE 12.5MG PER 1/2 TABLET PO SCH (09:21)
[2019-05-11] MEDS: FOLIC ACID 1 MG TAB PO SCH (09:21)
[2019-05-11] MEDS: ASPIRIN 81 MG ENTERIC TAB PO SCH ×2 (09:21→21:32)
[2019-05-11 14:00] VITALS: BP 159/84
[2019-05-11] MEDS: oxyBUTYnin *DITROPAN XL* 5 MG TABCR PO SCH (18:05)
[2019-05-11] MEDS: ESCITALOPRAM OXALATE 10 MG TAB (LEXAPRO) PO SCH (18:06)
[2019-05-11] MEDS: LEVOTHYROXINE 50MCG TABLET (0.05MG) PO SCH (18:06)
[2019-05-11] MEDS: amLODIPine 5 MG TAB PO SCH (18:08)
[2019-05-11 20:00] VITALS: BP 160/85
[2019-05-11] MEDS: GABAPENTIN 300 MG CAP PO SCH (21:32)
[2019-05-11] MEDS: SENOKOT S TAB PO SCH (21:32)
[2019-05-11] MEDS: rOPINIRole 0.25 MG TAB(REQUIP) PO SCH (21:32)
[2019-05-11] MEDS: ONDANSETRON 4 MG TAB (S0181) PO PRN (22:08)
[2019-05-12 06:18] VITALS: BP 135/84
[2019-05-12] MEDS: ACETAMINOPHEN 500 MG TAB PO SCH ×3 (06:35→21:44)
[2019-05-12 08:07] LABS: HEMATOCRIT 39.1 % (36.0-47.0); HEMOGLOBIN 12.6 g/dl (12.0-15.5); MEAN CORPUSCULAR HEMOGLOBIN 30.7 pg (27.0-33.0); MEAN CORPUSCULAR HGB CONC 32.2 g/dl (32.0-36.5); MEAN CORPUSCULAR VOLUME 95.1 fl (80.0-96.0); PLATELET COUNT, AUTOMATED 255 10^3/uL (150-450); RED BLOOD COUNT 4.11 10^6/uL (4.00-5.40); WHITE BLOOD COUNT 6.3 10^3/uL (4.0-10.0)
[2019-05-12 08:31] LABS: CALCIUM LEVEL 8.6 MG/DL (8.8-10.2); CREATININE FOR GFR 2.42 MG/DL (0.55-1.30); GLOMERULAR FILTRATION RATE 20.1 (>32); POTASSIUM SERUM 4.6 MEQ/L (3.5-5.1)
[2019-05-12] MEDS: ASPIRIN 81 MG ENTERIC TAB PO SCH ×2 (09:01→21:43)
[2019-05-12] MEDS: FOLIC ACID 1 MG TAB PO SCH (09:01)
[2019-05-12] MEDS: PANTOPRAZOLE 40MG TAB (PROTONIX) PO SCH (09:01)
[2019-05-12] MEDS: CALCIUM CARBONATE 500 MG CHEW U/D PO SCH ×2 (09:01→21:43)
[2019-05-12] MEDS: SENOKOT S TAB PO SCH ×2 (09:01→21:43)
[2019-05-12] MEDS: SPIRONOLACTONE 12.5MG PER 1/2 TABLET PO SCH (09:01)
[2019-05-12 14:00] VITALS: BP 138/82
[2019-05-12] MEDS: LEVOTHYROXINE 50MCG TABLET (0.05MG) PO SCH (17:22)
[2019-05-12] MEDS: oxyBUTYnin *DITROPAN XL* 5 MG TABCR PO SCH (17:22)
[2019-05-12] MEDS: amLODIPine 5 MG TAB PO SCH (17:22)
[2019-05-12] MEDS: ESCITALOPRAM OXALATE 10 MG TAB (LEXAPRO) PO SCH (17:22)
[2019-05-12 20:00] VITALS: BP 144/90
[2019-05-12] MEDS: GABAPENTIN 300 MG CAP PO SCH (21:42)
[2019-05-12] MEDS: rOPINIRole 0.25 MG TAB(REQUIP) PO SCH (21:43)
[2019-05-13 06:00] VITALS: BP 141/78
[2019-05-13] MEDS: ACETAMINOPHEN 500 MG TAB PO SCH ×3 (06:27→21:25)
[2019-05-13] MEDS: ASPIRIN 81 MG ENTERIC TAB PO SCH ×2 (09:00→21:24)
[2019-05-13] MEDS: CALCIUM CARBONATE 500 MG CHEW U/D PO SCH ×2 (09:00→21:24)
[2019-05-13] MEDS: SPIRONOLACTONE 12.5MG PER 1/2 TABLET PO SCH (09:00)
[2019-05-13] MEDS: PANTOPRAZOLE 40MG TAB (PROTONIX) PO SCH (09:00)
[2019-05-13] MEDS: SENOKOT S TAB PO SCH ×2 (09:00→21:24)
[2019-05-13] MEDS: FOLIC ACID 1 MG TAB PO SCH (09:00)
[2019-05-13 14:00] VITALS: BP 160/96
[2019-05-13] MEDS: amLODIPine 5 MG TAB PO SCH (18:04)
[2019-05-13] MEDS: oxyBUTYnin *DITROPAN XL* 5 MG TABCR PO SCH (18:04)
[2019-05-13] MEDS: LEVOTHYROXINE 50MCG TABLET (0.05MG) PO SCH (18:04)
[2019-05-13] MEDS: ESCITALOPRAM OXALATE 10 MG TAB (LEXAPRO) PO SCH (18:05)
[2019-05-13] MEDS: ONDANSETRON 4 MG TAB (S0181) PO PRN (18:07)
[2019-05-13] MEDS: GABAPENTIN 300 MG CAP PO SCH (21:23)
[2019-05-13] MEDS: rOPINIRole 0.25 MG TAB(REQUIP) PO SCH (21:24)
[2019-05-13 21:49] VITALS: BP 161/90
[2019-05-14] MEDS: ACETAMINOPHEN 500 MG TAB PO SCH ×3 (05:08→21:31)
[2019-05-14 05:58] VITALS: BP 137/62
[2019-05-14] MEDS: CALCIUM CARBONATE 500 MG CHEW U/D PO SCH ×2 (07:44→21:30)
[2019-05-14] MEDS: PANTOPRAZOLE 40MG TAB (PROTONIX) PO SCH (07:44)
[2019-05-14] MEDS: FOLIC ACID 1 MG TAB PO SCH (07:44)
[2019-05-14] MEDS: ASPIRIN 81 MG ENTERIC TAB PO SCH ×2 (07:44→21:30)
[2019-05-14] MEDS: SPIRONOLACTONE 12.5MG PER 1/2 TABLET PO SCH (07:45)
[2019-05-14] MEDS: SENOKOT S TAB PO SCH ×2 (07:45→21:00)
[2019-05-14] MEDS: ONDANSETRON 4 MG TAB (S0181) PO PRN ×2 (07:46→15:05)
[2019-05-14 14:00] VITALS: BP 159/78
[2019-05-14] MEDS: traMADol 50 MG TAB PO PRN (15:07)
[2019-05-14] MEDS ORDERED: LIDOCAINE 5% (LIDODERM) PATCH TD ONE (16:15)
[2019-05-14 18:20] VITALS: BP 130/70
[2019-05-14] MEDS: ESCITALOPRAM OXALATE 10 MG TAB (LEXAPRO) PO SCH (18:20)
[2019-05-14] MEDS: LEVOTHYROXINE 50MCG TABLET (0.05MG) PO SCH (18:20)
[2019-05-14] MEDS: oxyBUTYnin *DITROPAN XL* 5 MG TABCR PO SCH (18:20)
[2019-05-14] MEDS: amLODIPine 5 MG TAB PO SCH (18:20)
[2019-05-14] MEDS: GABAPENTIN 300 MG CAP PO SCH (21:30)
[2019-05-14] MEDS: rOPINIRole 0.25 MG TAB(REQUIP) PO SCH (21:30)
[2019-05-14 22:00] VITALS: BP 121/63
[2019-05-15] MEDS ORDERED: ACETAMINOPHEN 500 MG TAB PO PRN (05:45)
[2019-05-15 06:00] VITALS: BP 128/62
[2019-05-15] MEDS: FOLIC ACID 1 MG TAB PO SCH (08:24)
[2019-05-15] MEDS: SENOKOT S TAB PO SCH (08:24)
[2019-05-15] MEDS: SPIRONOLACTONE 12.5MG PER 1/2 TABLET PO SCH (08:24)
[2019-05-15] MEDS: CALCIUM CARBONATE 500 MG CHEW U/D PO SCH (08:24)
[2019-05-15] MEDS: ASPIRIN 81 MG ENTERIC TAB PO SCH (08:24)
[2019-05-15] MEDS: PANTOPRAZOLE 40MG TAB (PROTONIX) PO SCH (08:24)
--- NOTE | 2019-05-15 15:00 | DS.PDOC ---
Discharge Summary General Date of Admission May 05, 2019 at 23:08 Date of Discharge 05/15/19 Discharge Summary CC: Fall Final Diagnosis Bimalleolar fracture of left ankle Orbit fracture, left MARCUS on CKD Falls with one fall overnight History of present illness and the hospital course. 89 years old W with chronic hypertension, hypothyroidism, CML, and chronic anemia presented to the hospital after mechanical fall and found to have a left orbital fracture and left bimalleolar fracture now s/p L ankle surgery doing well with acute on chronic anemia with no evidence of bleeding with stable Hb.He is s/p 2 units of blood on 05/08 with adequate response. Will continue vit B12 for vit b12 deficiency. For his Orbit fracture, he is to follow up with ENT surgeon as an outpatient. For his Chronic hypertension, Continue home amlodipine . Also continue home synthroid, lexapro, protonix, Vitamin B12, oxybutynin, requip, ASA, aldactone on dc. Physical Exam. General Exam: Alert, Cooperative, NAD HEENT: PERRLA, EOMI, has bruising by left supra-orbit Neck Exam: supple, no JVD, full range of motion Chest Exam: CTAB without rhonchi, crackles or wheezing Heart Exam: Normal rate, rhythm, no murmues Abdomen Exam: Normal bowel sounds, NTND Extremity Exam: LLE in cast now, toes are warm, RLE exam wnl. Otherwise WWP. Skin Exam: Nl turgor and temperature, with no rashes or erythema, face with left bruising Neuro Exam: Cranial Nerves 3-12 NL, AOx3, moving all extremities spontaneously Psych Exam: AOx3 Medications. As per discharge reconciliation medication list Activity as tolerated Diet. 2 g sodium diet Follow-up appointments. PCP in 1 week. Condition on discharge. Patient is medically optimized for discharge Discharge disposition: Rehabilitation Total time spent on this discharge including coordination of care, review of chart documentation and actual contact is around 35 minutes Vital Signs/I&Os Vital Signs Date Time Temp Pulse Resp B/P (MAP) Pulse Ox O2 Delivery O2 Flow Rate FiO2 05/15/19 06:00 97.9 69 17 128/62 (84) 96 Room Air I&O- Last 24 Hours up to 6 AM 05/15/19 06:00 Intake Total 360 ml Output Total 650 ml Balance -290 ml Discharge Medications Scheduled Amlodipine Besylate (Amlodipine Besylate) 5 Mg Tablet, 5 MG PO QPM, (Reported) Calcium Carbonate (Tums) 200 Mg Tab.chew, 500 MG PO BID, (Reported) Cyanocobalamin (Cyanocobalamin Injection) 1,000 Mcg/1 Ml Vial, 1 ML IM Q30D, (Reported) Cyanocobalamin (Vitamin B-12) (Vitamin B-12) 1,000 Mcg Tablet, 1,000 MCG PO DAILY, (Reported) Escitalopram Oxalate (Escitalopram Oxalate) 20 Mg Tablet, 20 MG PO QPM, (Reported) Folic Acid (Folic Acid) 1 Mg Tablet, 1 MG PO DAILY, (Reported) Gabapentin (Gabapentin) 100 Mg Capsule, 300 MG PO TID, (Reported) Imatinib Mesylate (Imatinib Mesylate) 400 Mg Tablet, 400 MG PO DAILY TAKE ONE TABLET BY MOUTH ONCE DAILY. Lactose-Reduced Food (Boost Plus) 237 Ml Liquid, 237 ML PO BID, (Reported) Levothyroxine Sodium (Levothyroxine Sodium) 50 Mcg Tab, 50 MCG PO QPM, (Reported) Loperamide HCl (Loperamide) 2 Mg Capsule, 2 MG PO QAM, (Reported) Magnesium Oxide (Magnesium Oxide) 400 Mg Tablet, 400 MG PO BID, (Reported) Oxybutynin Chloride (Oxybutynin Chloride ER) 5 Mg Tab.er.24, 5 MG PO QPM, (Repo rted) Pantoprazole Sodium (Pantoprazole Sodium) 40 Mg Tablet.dr, 40 MG PO DAILY, (Reported) Ropinirole HCl (Ropinirole HCl) 0.25 Mg Tablet, 0.25 MG PO QHS, (Reported) Spironolactone (Spironolactone) 25 Mg Tablet, 12.5 MG PO DAILY, (Reported) Scheduled PRN Buspirone HCl (Buspirone HCl) 5 Mg Tab, 5 MG PO TIDP PRN for ANXIETY, (Reported) Ondansetron HCl (Ondansetron HCl) 8 Mg Tablet, 8 MG PO Q6H PRN for NAUSEA OR VOMITING, (Reported) Trazodone HCl (Trazodone HCl) 50 Mg Tab, 50 MG PO QHS PRN for SLEEP, (Reported) Allergies Coded Allergies: losartan (Verified Allergy, Severe, angioedema, 05/05/19) mushroom (Verified Adverse Reaction, Intermediate, vomiting, 05/05/19) oyster extract (Verified Adverse Reaction, Intermediate, vomiting, 05/05/19) NICOLETTE BURCH MD May 15, 2019 15:00
[2019-06-03] MEDS ORDERED: CYANOCOBALAMIN 1,000 MCG/ML VIAL (J3420) IM SCH (09:00)
== END 2019-05-15 15:05 | DRG 493 ==
LOC: M ED 20:29 → M ED INP 23:08 → ENRESERVDT 23:33 → ENRESERVTM 23:33 → M MS5PR 05-06 00:17
PROVIDERS: ADMIT Internal Medicine; ATTEND Internal Medicine
PROC: 0SSG04Z Reposition Left Ankle Joint with Internal Fixation Device, Open Approach (ICD-10-PCS; principal; 2019-05-06 09:30)
PROC: 30233N1 Transfusion of Nonautologous Red Blood Cells into Peripheral Vein, Percutaneous Approach (ICD-10-PCS; 2019-05-08)
DX: S82.845A Nondisplaced bimalleolar fracture of left lower leg, initial encounter for closed fracture (principal); N18.4 Chronic kidney disease, stage 4 (severe); N17.9 Acute kidney failure, unspecified; S02.32XA Fracture of orbital floor, left side, initial encounter for closed fracture; C92.10 Chronic myeloid leukemia, BCR/ABL-positive, not having achieved remission; W01.0XXA Fall on same level from slipping, tripping and stumbling without subsequent striking against object, initial encounter; Y92.019 Unspecified place in single-family (private) house as the place of occurrence of the external cause; I12.9 Hypertensive chronic kidney disease with stage 1 through stage 4 chronic kidney disease, or unspecified chronic kidney disease; K31.819 Angiodysplasia of stomach and duodenum without bleeding; D50.9 Iron deficiency anemia, unspecified; Z88.8 Allergy status to other drugs, medicaments and biological substances; Z91.018 Allergy to other foods; Z79.899 Other long term (current) drug therapy; E03.9 Hypothyroidism, unspecified; Z95.0 Presence of cardiac pacemaker; F17.200 Nicotine dependence, unspecified, uncomplicated; E86.0 Dehydration

== ENCOUNTER → 2019-05-16 | Outpatient (REF) ==
[~2019-05-16] MED LIST changes: +AMOX875T2 PO; +CYAN100050 PO; +CYAN1000VL IM; +LEXA1TAB2 PO; +PRIL20TA2 PO; +ZOFR8TAB24 PO
[2019-05-16 08:33] LABS: HEMATOCRIT 31.4 % (36.0-47.0); HEMOGLOBIN 10.3 g/dl (12.0-15.5); MEAN CORPUSCULAR HEMOGLOBIN 31.4 pg (27.0-33.0); MEAN CORPUSCULAR HGB CONC 32.8 g/dl (32.0-36.5); MEAN CORPUSCULAR VOLUME 95.7 fl (80.0-96.0); PLATELET COUNT, AUTOMATED 252 10^3/uL (150-450); RED BLOOD COUNT 3.28 10^6/uL (4.00-5.40); WHITE BLOOD COUNT 5.9 10^3/uL (4.0-10.0)
[2019-05-16 09:03] LABS: CREATININE FOR GFR 2.32 MG/DL (0.55-1.30); FREE T4 1.5 NG/DL (0.76-1.46); GLOMERULAR FILTRATION RATE 21.1 (>32); POTASSIUM SERUM 4.8 MEQ/L (3.5-5.1); THYROID STIMULATING HORMONE 2.17 uIU/ML (0.358-3.740)
== END ==
LOC: SKLAB7 07:16
PROVIDERS: ATTEND Internal Medicine
DX: D64.9 Anemia, unspecified (principal); E03.9 Hypothyroidism, unspecified

== ENCOUNTER 2019-05-19 13:13 | Day surgery (SDC) | payer MEDICARE ==
[~2019-05-19] VITALS: Ht 152.4 cm; Wt 59.9 kg
[~2019-05-19 13:13] MED LIST changes: +NS 1,000 ML IV ONE
--- NOTE | 2019-05-19 14:54 | ROOR ---
Patient Name: Mariia Barnard Procedure Date: 05/19/2019 2:25 PM Date of : 1930 Age: 89 Room: [facility] Gender: Female Note Status: Finalized Procedure: Upper GI endoscopy Indications: Iron deficiency anemia secondary to chronic blood loss Providers: Adin PHILIP MD Referring MD: OLIVIA LEE Thomas, Leno, MD Requesting Provider: Medicines: Monitored Anesthesia Care Complications: No immediate complications. Procedure: Pre-Anesthesia Assessment: - The heart rate, respiratory rate, oxygen saturations, blood pressure, adequacy of pulmonary ventilation, and response to care were monitored throughout the procedure. The Endoscope was introduced through the mouth, and advanced to the second part of duodenum. The upper GI endoscopy was accomplished without difficulty. The patient tolerated the procedure well. Findings: Moderately severe esophagitis was found in the entire esophagus. Biopsies were taken with a cold forceps for histology. A medium-sized hiatal hernia was present. The exam of the stomach was otherwise normal. A medium-sized frond-like/villous mass (2-3 cm polypoid mass) with no bleeding was found in the second portion of the duodenum. Biopsies were taken with a cold forceps for histology. Impression: - Moderately severe reflux esophagitis. Biopsied. - Medium-sized hiatal hernia. 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 Biopsied. Recommendation: - Await pathology results. Adin Philip MD Adin PHILIP MD 05/19/2019 2:54:08 PM Electronically signed by Adin PHILIP MD Number of Addenda: 0 Note Initiated On: 05/19/2019 2:25 PM Estimated Blood Loss: Estimated blood loss: none.
--- NOTE | 2019-05-19 14:58 | ROOR ---
Patient Name: Mariia Barnard Procedure Date: 05/19/2019 2:26 PM Date of : 1930 Age: 89 Room: [facility] Gender: Female Note Status: Finalized Procedure: Colonoscopy Indications: Iron deficiency anemia secondary to chronic blood loss Providers: Adin PHILIP MD Referring MD: OLIVIA LEE Requesting Provider: Medicines: Monitored Anesthesia Care Complications: No immediate complications. Procedure: Pre-Anesthesia Assessment: - The heart rate, respiratory rate, oxygen saturations, blood pressure, adequacy of pulmonary ventilation, and response to care were monitored throughout the procedure. The procedure was aborted. The colonoscope was not inserted. Medications were given. The colonoscopy was aborted due to poor bowel prep with stool present. Findings: A large amount of solid stool was found in the rectum, precluding visualization. Impression: - The procedure was aborted due to poor bowel prep with stool present. - Stool in the rectum. - No specimens collected. Recommendation: - Repeat colonoscopy at next available appointment (within 3 months) because the bowel preparation was poor. - My office will call you within the next few days to reschedule a colonoscopy with alternate colon preparation. Adin Philip MD Adin PHILIP MD 05/19/2019 2:57:44 PM Electronically signed by Adin PHILIP MD Number of Addenda: 0 Note Initiated On: 05/19/2019 2:26 PM Estimated Blood Loss: Estimated blood loss: none.
[2019-05-19 15:25] VITALS: BP 136/60
[2019-05-29] MEDS ORDERED: LEVO30TA PO (15:28)
== END 2019-05-19 15:42 | disposition home or self-care (01) ==
LOC: M OPP 13:13
PROVIDERS: ATTEND Internal Medicine Gastroenterology
DX: K20.8 Other esophagitis (principal); K44.9 Diaphragmatic hernia without obstruction or gangrene; K31.819 Angiodysplasia of stomach and duodenum without bleeding; R19.7 Diarrhea, unspecified; D50.0 Iron deficiency anemia secondary to blood loss (chronic); N19 Unspecified kidney failure; C95.90 Leukemia, unspecified not having achieved remission; Z79.899 Other long term (current) drug therapy; Z88.8 Allergy status to other drugs, medicaments and biological substances; Z91.018 Allergy to other foods; Z95.0 Presence of cardiac pacemaker

== ENCOUNTER → 2019-05-19 | Outpatient (REF) | payer MEDICARE | LOC: SKLAB7 08:57 | PROVIDERS: ATTEND Nurse Practitioner Family | DX: D64.9 Anemia, unspecified (principal) ==

== ENCOUNTER → 2019-06-02 | Outpatient (REF) | payer MEDICARE ==
[~2019-06-02] MED LIST changes: +LEVO30TA PO; -NS 1,000 ML IV ONE
[2019-06-02 08:21] LABS: HEMATOCRIT 26.7 % (36.0-47.0); HEMOGLOBIN 8.6 g/dl (12.0-15.5); MEAN CORPUSCULAR HEMOGLOBIN 31.7 pg (27.0-33.0); MEAN CORPUSCULAR HGB CONC 32.2 g/dl (32.0-36.5); MEAN CORPUSCULAR VOLUME 98.5 fl (80.0-96.0); PLATELET COUNT, AUTOMATED 280 10^3/uL (150-450); RED BLOOD COUNT 2.71 10^6/uL (4.00-5.40); WHITE BLOOD COUNT 6.5 10^3/uL (4.0-10.0)
[2019-06-02 08:41] LABS: CREATININE FOR GFR 2.48 MG/DL (0.55-1.30)
[2019-06-02 08:42] LABS: ALBUMIN 2.6 GM/DL (3.2-5.2); BILIRUBIN,TOTAL 0.2 MG/DL (0.2-1.0); CALCIUM LEVEL 8.3 MG/DL (8.8-10.2); GLOMERULAR FILTRATION RATE 19.5 (>32); POTASSIUM SERUM 4.9 MEQ/L (3.5-5.1); TOTAL PROTEIN 5.4 GM/DL (6.4-8.2)
== END ==
LOC: SKLAB7 07:00
PROVIDERS: ATTEND Internal Medicine
DX: E86.0 Dehydration (principal)

== ENCOUNTER → 2019-06-07 | Outpatient (REF) | payer MEDICARE ==
[2019-06-07 15:42] LABS: HEMATOCRIT 28.4 % (36.0-47.0); HEMOGLOBIN 9.4 g/dl (12.0-15.5); MEAN CORPUSCULAR HEMOGLOBIN 32.4 pg (27.0-33.0); MEAN CORPUSCULAR HGB CONC 33.1 g/dl (32.0-36.5); MEAN CORPUSCULAR VOLUME 97.9 fl (80.0-96.0); PLATELET COUNT, AUTOMATED 262 10^3/uL (150-450); WHITE BLOOD COUNT 5.5 10^3/uL (4.0-10.0)
== END ==
LOC: SKLAB7 11:01
PROVIDERS: ATTEND Internal Medicine
DX: D64.9 Anemia, unspecified (principal); R53.83 Other fatigue

== ENCOUNTER → 2019-06-29 | Outpatient (REF) | payer MEDICARE | LOC: SKLAB7 07:00 | PROVIDERS: ATTEND Internal Medicine | DX: C92.10 Chronic myeloid leukemia, BCR/ABL-positive, not having achieved remission (principal) ==

== ENCOUNTER → 2019-07-13 | Outpatient (REF) | payer MEDICARE ==
[2019-07-13 09:29] LABS: FREE T4 0.88 NG/DL (0.76-1.46); THYROID STIMULATING HORMONE 4.14 uIU/ML (0.358-3.740)
== END ==
LOC: SKLAB7 07:00
PROVIDERS: ATTEND Internal Medicine
DX: E03.9 Hypothyroidism, unspecified (principal)

== ENCOUNTER → 2019-08-03 | Outpatient (REF) | LOC: SKLAB7 09:42 | PROVIDERS: ATTEND Internal Medicine | DX: Z03.818 Encounter for observation for suspected exposure to other biological agents ruled out (principal) ==

== ENCOUNTER → 2019-08-29 | Outpatient (REF) | payer MEDICARE ==
[~2019-08-29] MED LIST changes: +MULT1TAB7 PO
[2019-08-29 09:40] LABS: MEAN CORPUSCULAR HEMOGLOBIN 30.3 pg (27.0-33.0); MEAN CORPUSCULAR HGB CONC 31.4 g/dl (32.0-36.5); MEAN CORPUSCULAR VOLUME 96.4 fl (80.0-96.0); PLATELET COUNT, AUTOMATED 298 10^3/uL (150-450); RED BLOOD COUNT 3.63 10^6/uL (4.00-5.40); WHITE BLOOD COUNT 8.4 10^3/uL (4.0-10.0)
[2019-08-29 10:15] LABS: CREATININE FOR GFR 2.46 MG/DL (0.55-1.30); GLOMERULAR FILTRATION RATE 19.7 (>32); POTASSIUM SERUM 5.2 MEQ/L (3.5-5.1)
[2019-08-29 10:16] LABS: ALBUMIN 3.7 GM/DL (3.2-5.2); BILIRUBIN,TOTAL 0.2 MG/DL (0.2-1.0); CALCIUM LEVEL 9.5 MG/DL (8.8-10.2); PERCENT SATURATION 19.1 % (13.2-45.0)
--- NOTE | 2019-08-29 21:52 | ECGEPIP ---
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
== END ==
LOC: SKLAB7 08:25
PROVIDERS: ATTEND Internal Medicine
DX: D64.9 Anemia, unspecified (principal); Z79.899 Other long term (current) drug therapy

== ENCOUNTER → 2019-09-07 | Outpatient (REF) | payer MEDICARE | LOC: SKLAB7 07:00 | PROVIDERS: ATTEND Internal Medicine | DX: Z79.899 Other long term (current) drug therapy (principal) ==

== ENCOUNTER → 2019-09-24 | Outpatient (REF) | payer MEDICARE | LOC: SKLAB7 07:00 | PROVIDERS: ATTEND Internal Medicine | DX: Z01.818 Encounter for other preprocedural examination (principal); Z20.828 Contact with and (suspected) exposure to other viral communicable diseases; Z11.59 Encounter for screening for other viral diseases ==

== ENCOUNTER → 2019-10-06 | Outpatient (REF) | payer MEDICARE ==
[~2019-10-06] MED LIST changes: +ACET1TAB55 PO; +BISA10SU27 PR; +CIPR-249 PO; +FLEEENE12 PR; +GABA-843 PO; +MOM30SS PO; +OMEP-221 PO
[2019-10-06 08:02] LABS: HEMATOCRIT 23.5 % (36.0-47.0); HEMOGLOBIN 7.2 g/dl (12.0-15.5); MEAN CORPUSCULAR HEMOGLOBIN 28.8 pg (27.0-33.0); MEAN CORPUSCULAR HGB CONC 30.6 g/dl (32.0-36.5); PLATELET COUNT, AUTOMATED 248 10^3/uL (150-450); WHITE BLOOD COUNT 20.6 10^3/uL (4.0-10.0)
[2019-10-06 08:21] LABS: CALCIUM LEVEL 8.8 MG/DL (8.8-10.2); CREATININE FOR GFR 2.51 MG/DL (0.55-1.30); GLOMERULAR FILTRATION RATE 19.3 (>32); POTASSIUM SERUM 4.4 MEQ/L (3.5-5.1)
[2019-10-06 13:55] LABS: APPEARANCE, URINE CLOUDY (CLEAR); BACTERIA, URINE AUTO 3+ (NEGATIVE); BILIRUBIN, URINE AUTO NEGATIVE (NEGATIVE); BLOOD, URINE BLOOD 2+ (NEGATIVE); COLOR, URINE YELLOW (YELLOW); GLUCOSE, URINE (UA) AUTO NEGATIVE (NEGATIVE); KETONE, URINE AUTO NEGATIVE (NEGATIVE); LEUKOCYTE ESTERASE, URINE AUTO 3+ (NEGATIVE); MUCUS, URINE SMALL (NEGATIVE); NITRITE, URINE AUTO NEGATIVE (NEGATIVE); PROTEIN, URINE AUTO NEGATIVE (NEGATIVE); RBC, URINE AUTO 8 /HPF (0-3); SPECIFIC GRAVITY URINE AUTO 1.011 (1.002-1.035); SQUAMOUS EPITHELIAL CELL UR AU 0 /HPF (0-6); UROBILINOGEN, URINE AUTO 0.2 mg/dL (0.0-2.0); WBC, URINE AUTO TNTC /HPF (0-3)
== END ==
LOC: SKLAB7 07:23
PROVIDERS: ATTEND Internal Medicine
DX: D72.829 Elevated white blood cell count, unspecified (principal); Z79.899 Other long term (current) drug therapy

== ENCOUNTER → 2019-10-18 | Outpatient (REF) | payer MEDICARE ==
[~2019-10-18] MED LIST changes: -AMLO10TA5 PO; +AMLO1TAB24 PO; +AMLO1TAB25 PO; -AMLO5TAB6 PO; +PANT40TA29 PO; -PANT40TA3 PO
== END ==
LOC: SKLAB7 07:00
PROVIDERS: ATTEND Internal Medicine
DX: K92.2 Gastrointestinal hemorrhage, unspecified (principal)

== ENCOUNTER → 2019-10-19 | Outpatient (REF) | payer MEDICARE | LOC: SKLAB7 07:00 | PROVIDERS: ATTEND Internal Medicine | DX: R53.83 Other fatigue (principal) ==

== ENCOUNTER → 2019-10-27 | Outpatient (REF) | payer MEDICARE | LOC: CANPREREF → SKLAB7 09:00 | PROVIDERS: ATTEND Internal Medicine | DX: Z79.899 Other long term (current) drug therapy (principal) ==

== ENCOUNTER → 2019-10-27 | Outpatient (REF) | payer MEDICARE ==
[2020-01-13 10:25] LABS: BASO # 0.6 10^3/uL (0.0-0.2); BASO % 1.1 % (0.0-1.0); EOS # 1.1 10^3/uL (0.0-0.5); EOS % 2.2 % (0.0-3.0); HEMATOCRIT 29.4 % (36.0-47.0); LYMPH # 4.5 10^3/uL (1.5-5.0); LYMPH % 8.7 % (24.0-44.0); MEAN CORPUSCULAR HEMOGLOBIN 28.5 pg (27.0-33.0); MEAN CORPUSCULAR HGB CONC 30.6 g/dl (32.0-36.5); MONO # 4.8 10^3/uL (0.0-0.8); MONO % 9.2 % (0.0-5.0); NEUTROPHILS # 23.4 10^3/uL (1.5-8.5); NEUTROPHILS % 45.1 % (36.0-66.0); PLATELET COUNT, AUTOMATED 289 10^3/uL (150-450); RED BLOOD COUNT 3.16 10^6/uL (4.00-5.40); WHITE BLOOD COUNT 52.1 10^3/uL (4.0-10.0)
[2020-01-25 13:54] LABS: CALCIUM LEVEL 8.6 MG/DL (8.8-10.2); CREATININE FOR GFR 2.39 MG/DL (0.55-1.30); GLOMERULAR FILTRATION RATE 20.3 (>32); POTASSIUM SERUM 4.7 MEQ/L (3.5-5.1)
== END ==
LOC: SKLAB7 07:00 → SKLAB2 07:00
PROVIDERS: ATTEND Internal Medicine
DX: N18.4 Chronic kidney disease, stage 4 (severe) (principal); C93.10 Chronic myelomonocytic leukemia not having achieved remission

== ENCOUNTER → 2019-11-02 | Outpatient (REF) | payer MEDICARE ==
[2020-01-13 10:53] LABS: HEMATOCRIT 27.6 % (36.0-47.0); HEMOGLOBIN 8.6 g/dl (12.0-15.5); MEAN CORPUSCULAR HEMOGLOBIN 28.8 pg (27.0-33.0); MEAN CORPUSCULAR HGB CONC 31.2 g/dl (32.0-36.5); MEAN CORPUSCULAR VOLUME 92.3 fl (80.0-96.0); PLATELET COUNT, AUTOMATED 213 10^3/uL (150-450); RED BLOOD COUNT 2.99 10^6/uL (4.00-5.40)
[2020-01-13 10:55] LABS: ANISOCYTOSIS 1+; BASOPHILS 3 % (0-1); EOSINOPHILS 3 % (0-3); HYPOCHROMASIA 2+; LYMPHOCYTES 16 % (16-44); METAMYELOCYTES 9 % (0-0); MONOCYTES 5 % (0-5); MYELOCYTES 19 % (0-0); NEUTROPHILS 40 % (28-66); PLATELET ESTIMATE NORMAL (NORMAL); POIKILOCYTOSIS 1+
== END ==
LOC: SKLAB7 09:11
PROVIDERS: ATTEND Internal Medicine
DX: C93.10 Chronic myelomonocytic leukemia not having achieved remission (principal); N18.4 Chronic kidney disease, stage 4 (severe)

== ENCOUNTER → 2019-11-07 | Outpatient (REF) | payer MEDICARE ==
[2019-12-27 21:05] LABS: HEMATOCRIT 29.4 % (36.0-47.0); MEAN CORPUSCULAR HEMOGLOBIN 28.8 pg (27.0-33.0); MEAN CORPUSCULAR HGB CONC 30.6 g/dl (32.0-36.5); MEAN CORPUSCULAR VOLUME 93.9 fl (80.0-96.0); PLATELET COUNT, AUTOMATED 191 10^3/uL (150-450); RED BLOOD COUNT 3.13 10^6/uL (4.00-5.40)
[2019-12-27 21:06] LABS: LYMPHOCYTES 5 % (16-44); NEUTROPHILS 51 % (28-66); WHITE BLOOD COUNT 52.2 10^3/uL (4.0-10.0)
[2019-12-27 21:07] LABS: ANISOCYTOSIS 2+; ATYPICAL LYMPH 2 % (0-5); EOSINOPHILS 2 % (0-3); METAMYELOCYTES 10 % (0-0); MONOCYTES 8 % (0-5); MYELOCYTES 15 % (0-0); PLATELET ESTIMATE NORMAL (NORMAL); PROMYELOCYTES 2 % (0-0)
== END ==
LOC: SKLAB7 10:20
PROVIDERS: ATTEND Internal Medicine
DX: C95.90 Leukemia, unspecified not having achieved remission (principal)

== ENCOUNTER → 2019-11-09 | Outpatient (REF) | payer MEDICARE ==
[2019-11-09 12:27] LABS: HEMATOCRIT 31.9 % (36.0-47.0); HEMOGLOBIN 9.7 g/dl (12.0-15.5); MEAN CORPUSCULAR HEMOGLOBIN 28.4 pg (27.0-33.0); MEAN CORPUSCULAR HGB CONC 30.4 g/dl (32.0-36.5); MEAN CORPUSCULAR VOLUME 93.5 fl (80.0-96.0); PLATELET COUNT, AUTOMATED 206 10^3/uL (150-450); RED BLOOD COUNT 3.41 10^6/uL (4.00-5.40)
[2019-11-09 12:34] LABS: WHITE BLOOD COUNT 47.9 10^3/uL (4.0-10.0)
[2019-11-09 12:39] LABS: CALCIUM LEVEL 8.9 MG/DL (8.8-10.2); CREATININE FOR GFR 2.82 MG/DL (0.55-1.30); GLOMERULAR FILTRATION RATE 16.8 (>32); POTASSIUM SERUM 4.9 MEQ/L (3.5-5.1)
== END ==
LOC: SKLAB7 07:00
PROVIDERS: ATTEND Internal Medicine
DX: N18.4 Chronic kidney disease, stage 4 (severe) (principal)

== ENCOUNTER → 2019-11-10 | Outpatient (REF) | payer MEDICARE | LOC: SKLAB7 10:37 | PROVIDERS: ATTEND Internal Medicine | DX: Z11.59 Encounter for screening for other viral diseases (principal) ==

== ENCOUNTER → 2019-11-16 | Outpatient (REF) | payer MEDICARE ==
[2019-11-16 11:06] LABS: HEMATOCRIT 28.2 % (36.0-47.0); HEMOGLOBIN 8.9 g/dl (12.0-15.5); MEAN CORPUSCULAR HEMOGLOBIN 29.1 pg (27.0-33.0); MEAN CORPUSCULAR HGB CONC 31.6 g/dl (32.0-36.5); MEAN CORPUSCULAR VOLUME 92.2 fl (80.0-96.0); PLATELET COUNT, AUTOMATED 216 10^3/uL (150-450); RED BLOOD COUNT 3.06 10^6/uL (4.00-5.40); WHITE BLOOD COUNT 27.6 10^3/uL (4.0-10.0)
== END ==
LOC: SKLAB7 07:00
PROVIDERS: ATTEND Internal Medicine
DX: C92.10 Chronic myeloid leukemia, BCR/ABL-positive, not having achieved remission (principal)

== ENCOUNTER → 2019-11-23 | Outpatient (REF) | payer MEDICARE ==
[2019-11-23 10:19] LABS: HEMATOCRIT 26.5 % (36.0-47.0); HEMOGLOBIN 8.3 g/dl (12.0-15.5); MEAN CORPUSCULAR HEMOGLOBIN 28.5 pg (27.0-33.0); MEAN CORPUSCULAR HGB CONC 31.3 g/dl (32.0-36.5); MEAN CORPUSCULAR VOLUME 91.1 fl (80.0-96.0); PLATELET COUNT, AUTOMATED 223 10^3/uL (150-450); RED BLOOD COUNT 2.91 10^6/uL (4.00-5.40); WHITE BLOOD COUNT 14.2 10^3/uL (4.0-10.0)
== END ==
LOC: SKLAB7 07:00
PROVIDERS: ATTEND Internal Medicine
DX: C95.90 Leukemia, unspecified not having achieved remission (principal)

== ENCOUNTER → 2019-11-29 13:57 | Outpatient (RCR) | payer MEDICARE, OTHER ==
[2018-01-26 13:44] LABS: HEMATOCRIT 30.8 % (37.0-51.0); LYMPH % 30.3 % (10.0-58.5); MEAN CORPUSCULAR HEMOGLOBIN 31.5 pg (26.0-32.0); MEAN CORPUSCULAR HGB CONC 32.5 g/dl (31.0-36.0); MEAN CORPUSCULAR VOLUME 97.2 fl (80.0-97.0); NEUTROPHILS # 3.4 10^3/uL (2.0-7.8); NEUTROPHILS % 58.9 % (37.0-92.0); RED BLOOD COUNT 3.17 10^6/uL (4.2-6.3); WHITE BLOOD COUNT 5.7 10^3/uL (4.1-10.9)
[2018-02-07 13:38] LABS: HEMATOCRIT 32.8 % (37.0-51.0); HEMOGLOBIN 10.6 g/dl (12.0-18.0); LYMPH % 31.9 % (10.0-58.5); MEAN CORPUSCULAR HEMOGLOBIN 31.7 pg (26.0-32.0); MEAN CORPUSCULAR HGB CONC 32.3 g/dl (31.0-36.0); MEAN CORPUSCULAR VOLUME 98.1 fl (80.0-97.0); NEUTROPHILS # 3.5 10^3/uL (2.0-7.8); NEUTROPHILS % 57.8 % (37.0-92.0); RED BLOOD COUNT 3.34 10^6/uL (4.2-6.3); WHITE BLOOD COUNT 6.1 10^3/uL (4.1-10.9)
[2018-02-07 13:52] VITALS: BP 185/83
[2018-02-07 14:09] LABS: ALBUMIN 4.2 GM/DL (3.5-5.2); BLOOD UREA NITROGEN 50 MG/DL (6-20); CALCIUM LEVEL 9.7 MG/DL (8.5-10.2); CARBON DIOXIDE LEVEL 22 MEQ/L (23-31); CHLORIDE LEVEL 107 MMOL/L (98-107); CREATININE FOR GFR 2.43 MG/DL (0.60-1.10); GLUCOSE, FASTING 100 MG/DL (70-105); SODIUM LEVEL 135 MMOL/L (136-145); TOTAL PROTEIN 6.7 GM/DL (6.4-8.3)
[2018-02-07 14:10] LABS: POTASSIUM SERUM 6.8 MMOL/L (3.5-5.1)
[2018-06-10 13:58] VITALS: BP 130/71
[2018-06-10 14:08] LABS: HEMATOCRIT 25.2 % (36.0-47.0); HEMOGLOBIN 8.1 g/dl (12.0-15.5); LYMPH % 22.4 % (24.0-44.0); MEAN CORPUSCULAR HGB CONC 32.1 g/dl (32.0-36.5); MEAN CORPUSCULAR VOLUME 99.6 fl (80.0-96.0); NEUTROPHILS # 3.6 10^3/uL (1.8-7.7); RED BLOOD COUNT 2.53 10^6/uL (4.00-5.40); WHITE BLOOD COUNT 5.4 10^3/uL (4.0-10.0)
[2018-06-10 14:19] LABS: BLOOD UREA NITROGEN 39 MG/DL (6-20); CALCIUM LEVEL 8.2 MG/DL (8.5-10.2); CARBON DIOXIDE LEVEL 22 MEQ/L (23-31); CHLORIDE LEVEL 105 MMOL/L (98-107); CREATININE FOR GFR 2.66 MG/DL (0.60-1.10); GLOMERULAR FILTRATION RATE 18.1 (>32); GLUCOSE, FASTING 111 MG/DL (70-105); POTASSIUM SERUM 4.8 MMOL/L (3.5-5.1); SODIUM LEVEL 137 MMOL/L (135-145); TOTAL PROTEIN 6.6 GM/DL (6.4-8.3)
--- NOTE | 2018-06-14 14:05 | MEDONC ---
MEDICAL ONCOLOGY PROGRESS NOTE DATE OF SERVICE: 06/10/2018 REASON FOR VISIT: Followup of chronic myelogenous leukemia. The patient had been diagnosed several years ago and is currently on the imatinib therapy. She has had no complaints and she has been tolerating the medication quite well. The patient has been on the imatinib since 2007 and has been in complete cytogenetic remission. She has had a concomitant iron deficiency anemia and anemia of chronic disease. 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 PAST MEDICAL HISTORY: 1. CML diagnosed in 2007. 2. Chronic renal insufficiency. 3. Chronic anemia. 4. Gastric antral vascular ectasias (watermelon stomach). 5. Duodenal and adenomatous polyp. 6. Hypertension. 7. Depression. 8. Hypothyroidism. 9. Arrhythmia status post pacemaker in 2016. ALLERGIES: Her allergies are to LOSARTAN. SURGERIES: Tubal ligation, hysterectomy, EGD and colonoscopy in 2017 and pacemaker implant in 2016. FAMILY HISTORY: Negative for colorectal carcinoma, inflammatory bowel disease and is positive for breast cancer in her mother. SOCIAL HISTORY: Negative for tobacco. Negative for alcohol. REVIEW OF SYSTEMS: 1. CONSTITUTIONAL: The patient has marked fatigue, weakness and tiredness. She denies any rashes on the skin. 2. EYES: No blurring of vision, no visual loss partial or complete, no tearing, redness. 3. EAR, NOSE, THROAT and MOUTH: No hearing loss, sinusitis, sore throat, dental problems, tooth pain. Denies dysphagia, mouth sores, bleeding. 4. RESPIRATORY: Denies asthma, wheezing, cough, sputum production. 5. GI: No nausea, vomiting, diarrhea or constipation, change in color or caliber of stool. No hemorrhoids. No rectal bleeding. No hematemesis, heartburn. 6. : No hematuria, dysuria, frequency, stones. 7. CV: No chest pain, palpitations, murmur, fainting, lightheadedness or chest pressure. 8. ENDOCRINE: No cold or heat intolerance, diabetes, polyuria, polydipsia. 9. MUSCULOSKELETAL: No new joint stiffness, joint swelling, myalgias, gout. 10. ALLERGY/IMMUNOLOGY: No new allergies to food, medications. 11. HEMATOLOGICAL: Denies bruising, bleeding, lymph node enlargement. 12. PSYCHIATRIC: Denies depression, agitation, memory loss, panic attacks. 13. SKIN: Denies rashes, moles, dryness, pigment changes. 14. NEUROLOGIC: Denies dizziness, syncope, seizures, vertigo, weakness, tremor. PHYSICAL EXAMINATION: VITAL SIGNS: 97.1, pulse 78, respiratory rate 18, blood pressure 138/71, pulse oximetry was 100. She has a weight of 55.2, BSA of 1.54. CONSTITUTIONAL: The patient's appearance is appropriate for an 88-year-old female. HEENT: NC. AT, PERRL, EOMI, sclera is white, nonicteric, nares intact, oropharynx clear, no thrush, no buccal lesions, tongue without lesions, facial area without abnormalities. NECK: Trachea midline. No thyromegaly. No masses. CHEST: Normal AP diameter. No truncal lesions noted. No rales, rhonchi or wheezes noted. Clear to auscultation and percussion. CV: S1 and S2 appreciated, no murmurs, gallops or rubs. Rhythm RR. ABDOMEN: Soft, nontender. No HSM. No ascites. No guarding or rebound. : No CVA tenderness. Normal external genitalia, normal secondary sexual characteristics. EXTREMITIES: Upper extremities: No edema, swelling, abnormalities. Lower extremities show no cyanosis, clubbing or edema. No varicosities. Good capillary filling noted on right and left lower extremity. CHEST: Normal AP diameter, no truncal lesions noted, no rales rhonchi or wheezes noted, clear to auscultation and percussion. NEUROLOGICAL: Cranial nerves II- XII intact. No focal deficits, motor and sensory intact, no tremor. VASCULAR: Pulses equal and present in upper extremities and lower extremities. Good capillary filling in lower extremities. No carotid bruits. No abdominal bruits. MUSCULOSKELETAL: Muscle wasting and thinness. No point tenderness. Normal spinal alignment. Range of motion joints, no limitation. She does have some crepitance in the joints of the shoulders, knees. She has thickening of the joints at the wrists as well and thickening of the DIP and MCP joints. SKIN: No lesions, rashes noted. PSYCH: No agitation, normal behavior. LABORATORIES: WBC count of 5.4, hemoglobin and hematocrit of 8.1 over 25.2, MCV of 99.6, platelets of 242, neutrophils of 67, lymphocytes of 22%. On her chemistries, she has an AST of 14, ALT of 4, albumin of 4.0. IMPRESSION: 1. Chronic myelogenous leukemia. PLAN: 1. Get a BCR ABL to make sure the patient is in a major molecular remission. 2. Check iron studies to see if the patient needs any iron due to her watermelon stomach. 3. Followup with me in approximately 3 months if not sooner, depending upon the laboratories that were drawn today. Electronically Signed by Judy Barragan MD 06/14/2018 02:22 P DD: Judy Barragan MD 06/13/2018 03:35 P DT: kerry 06/14/2018 12:07 P CC: OLIVIA Worrell
--- NOTE | 2018-09-07 10:26 | MEDONC ---
HEMATOLOGY ONCOLOGY PROGRESS NOTE DATE OF SERVICE: REASON FOR VISIT: Follow-up of chronic myelogenous leukemia. The patient is currently on imatinib therapy. She had been put into a complete cytogenetic remission as of 2007. She has also an underlying watermelon stomach and has been monitored for chronic iron deficiency anemia. She has been tolerating the medication well with no other new issues. She has had no adenopathy. No splenomegaly. No postprandial fullness. No fever. No night sweats. There have been no new non-oncology incidents related since her last visit of 06/10/2018. PAST MEDICAL/SURGICAL/FAMILY HISTORY: Have remained unchanged since her date of service of 06/10/2018. REVIEW OF SYSTEMS: 1. CONSTITUTIONAL: No weight loss, fever chills or night sweats. 2. EYES: No blurring of vision, no visual loss partial or complete, no tearing, redness. 3. EAR, NOSE, THROAT and MOUTH: No hearing loss, sinusitis, sore throat, dental problems, tooth pain. Denies dysphagia, mouth sores, bleeding. 4. RESPIRATORY: Denies asthma, wheezing, cough, sputum production. 5. GI: No nausea, vomiting, diarrhea or constipation, change in color or caliber of stool. No hemorrhoids. No rectal bleeding. No hematemesis, heartburn. 6. : No hematuria, dysuria, frequency, stones. 7. CV: No chest pain, palpitations, murmur, fainting, lightheadedness or chest pressure. 8. ENDOCRINE: No cold or heat intolerance, diabetes, polyuria, polydipsia. 9. MUSCULOSKELETAL: No new joint stiffness, joint swelling, myalgias, gout. 10. ALLERGY/IMMUNOLOGY: No new allergies to food, medications. 11. HEMATOLOGICAL: Denies bruising, bleeding, lymph node enlargement. 12. PSYCHIATRIC: Denies depression, agitation, memory loss, panic attacks. 13. SKIN: Denies rashes, moles, dryness, pigment changes. 14. NEUROLOGIC: Denies dizziness, syncope, seizures, vertigo, weakness, tremor. PHYSICAL EXAMINATION: Her weight is 55.2. Her temperature is 97.1. Pulse is 78. Respiratory rate is 18. BP is 130/71. CONSTITUTIONAL: ECOG status 0/4. HEENT: NC. AT, PERRL, EOMI, sclera is white, nonicteric, nares intact, oropharynx clear, no thrush, no buccal lesions, tongue without lesions, facial area without abnormalities. NECK: Trachea midline. No thyromegaly. No masses. CHEST: Normal AP diameter. No truncal lesions noted. No rales, rhonchi or wheezes noted. Clear to auscultation and percussion. CV: S1 and S2 appreciated, no murmurs, gallops or rubs. Rhythm RR. ABDOMEN: Soft, nontender. No HSM. No ascites. No guarding or rebound. : No CVA tenderness. Normal external genitalia, normal secondary sexual characteristics. EXTREMITIES: Upper extremities: No edema, swelling, abnormalities. Lower extremities show no cyanosis, clubbing or edema. No varicosities. Good capillary filling noted on right and left lower extremity. NEUROLOGICAL: Cranial nerves II- XII intact. No focal deficits, motor and sensory intact, no tremor. VASCULAR: Pulses equal and present in upper extremities and lower extremities. Good capillary filling in lower extremities. No carotid bruits. No abdominal bruits. MUSCULOSKELETAL: No point tenderness. Normal spinal alignment. Range of motion joints, no limitation. SKIN: No lesions, rashes noted. PSYCH: No agitation, normal behavior. ALLERGIES: - MUSHROOMS - OYSTERS - LOSARTAN - OYSTER EXTRACT PATHOLOGY: Her BCR-ABL able on 12/14/2017 showed a quantitative RT-PCR which was negative. Her WBC count is 5.4, hemoglobin is 8.1 over 25.2, MCV of 99.6, RDW of 12.9, platelet count of 242, neutrophils of 67% and lymphocytes of 22%. Serum chemistries show a sodium of 137, potassium is 4.8, chloride of 105, CO2 22, BUN of 39, creatinine of 2.66. ASSESSMENT: CML still in cytogenetic remission. PLAN: To continue the imatinib therapy. With BCR-ABL, RT-PCR quantitative, CBC, CMP and LDH 1 one week before the next office visit. Electronically Signed by Judy Barragan MD 09/07/2018 04:36 P DD: Judy Barragan MD 09/06/2018 09:48 A DT: good 09/07/2018 10:17 A CC:
[2018-09-20 15:10] VITALS: BP 161/92
[2018-09-20 15:16] LABS: HEMATOCRIT 26.8 % (36.0-47.0); HEMOGLOBIN 8.9 g/dl (12.0-15.5); LYMPH % 40.7 % (24.0-44.0); MEAN CORPUSCULAR HGB CONC 33.2 g/dl (32.0-36.5); MEAN CORPUSCULAR VOLUME 99.2 fl (80.0-96.0); NEUTROPHILS # 2.7 10^3/uL (1.8-7.7); NEUTROPHILS % 47.5 % (36.0-66.0); RED BLOOD COUNT 2.7 10^6/uL (4.00-5.40); WHITE BLOOD COUNT 5.7 10^3/uL (4.0-10.0)
[2018-09-20 15:49] LABS: ALBUMIN 4.6 GM/DL (3.5-5.2); BLOOD UREA NITROGEN 26 MG/DL (6-20); CARBON DIOXIDE LEVEL 25 MEQ/L (23-31); CHLORIDE LEVEL 102 MMOL/L (98-107); CREATININE FOR GFR 2.82 MG/DL (0.60-1.10); GLOMERULAR FILTRATION RATE 16.9 (>32); GLUCOSE, FASTING 109 MG/DL (70-105); SODIUM LEVEL 138 MMOL/L (135-145); TOTAL PROTEIN 6.7 GM/DL (6.4-8.3)
[2018-09-20 16:10] LABS: PERCENT SATURATION 28.4 % (13.2-45.0)
--- NOTE | 2018-09-21 10:11 | MEDONC ---
HEMATOLOGY/ONCOLOGY PROGRESS NOTE DATE OF SERVICE: 09/20/2018 This is a very pleasant 88-year-old female who has a history of chronic myelogenous leukemia who is currently on maintenance Imatinib therapy. The patient stopped taking the medication for 2 months as she attributed this to her having some weakness and fatigue. She also has an underlying watermelon stomach and is monitored for chronic iron deficiency anemia. She has been tolerating the Imatinib well and she has had no signs of any joint aches, pains or rashes. The patient is frail, uses a cane and has someone who helps her come here for her office visits. PAST MEDICAL/SURGICAL/FAMILY HISTORY: Have remained unchanged since 06/10/2018. ALLERGIES: MUSHROOM, OYSTER, LOSARTAN, MUSHROOM AND OYSTER EXTRACT. REVIEW OF SYSTEMS: Constitutional: Generalized fatigue, weakness, night sweats, weight loss. She has had no signs of any GI blood loss, dark tarry stools that she is aware. She has generalized musculoskeletal aches, joint stiffness, joint swelling, and myalgias. PHYSICAL EXAMINATION: Her weight is 48.1 kg. Her BSA is 1.43. BMI is 20.7. On her vital signs, her temperature is 97, pulse is 94, respiratory rate is 18, BP is 161/92 and pulse oximetry is 99. The patient is a very tiny, frail, elderly female with a performance status of about 2/4. HEENT is normocephalic, atraumatic. PERRL. EOMI. Sclerae is white, nonicteric. Oropharynx is otherwise clear. Her neck is supple with no adenopathy. Chest is decreased breath sounds at the bases. Cardiovascular: S1 and S2 appreciated with no murmurs. Abdomen is otherwise soft. Extremities show no cyanosis, minimal +1 edema. LABORATORIES: Today show a WBC count of 5.7, hemoglobin is 8.9 over 26.8, MCV is 99.2, platelet count of 333, neutrophils of 47% and lymphocytes of 40.7%, and mid range are 11.8. Her serum chemistries are currently pending. Iron studies have been added. The RT-PCR specimen has been drawn today and is currently pending. ASSESSMENT: CML currently controlled on amatinib. Hematologically, we will need to check for molecular remission with BCR/ABL. Plan The patient will be returning in 2 weeks. We will assess her iron stores and consideration for intravenous iron infusions. Electronically Signed by Judy Barragan MD 09/21/2018 01:59 P DD: Judy Barragan MD 09/20/2018 03:44 P DT: good 09/21/2018 09:51 A CC: OLIVIA Worrell
[2019-02-22 13:38] VITALS: BP 121/68
[2019-02-22 15:23] LABS: ALBUMIN 3.5 GM/DL (3.2-5.2); BILIRUBIN,TOTAL 0.2 MG/DL (0.2-1.0); CALCIUM LEVEL 8.5 MG/DL (8.8-10.2); CREATININE FOR GFR 3.15 MG/DL (0.55-1.30); GLOMERULAR FILTRATION RATE 14.8 (>32); POTASSIUM SERUM 4.8 MEQ/L (3.5-5.1); TOTAL PROTEIN 6.3 GM/DL (6.4-8.2)
[2019-02-22 15:40] LABS: BASO % 0.5 % (0.0-1.0); EOS # 0.2 10^3/uL (0.0-0.5); EOS % 3.9 % (0.0-3.0); HEMATOCRIT 21.4 % (36.0-47.0); LYMPH # 0.8 10^3/uL (1.5-5.0); LYMPH % 21.2 % (24.0-44.0); MEAN CORPUSCULAR HEMOGLOBIN 33.3 pg (27.0-33.0); MEAN CORPUSCULAR HGB CONC 31.3 g/dl (32.0-36.5); MEAN CORPUSCULAR VOLUME 106.5 fl (80.0-96.0); MONO # 0.4 10^3/uL (0.0-0.8); MONO % 10.6 % (0.0-5.0); NEUTROPHILS # 2.4 10^3/uL (1.5-8.5); NEUTROPHILS % 63.3 % (36.0-66.0); PLATELET COUNT, AUTOMATED 199 10^3/uL (150-450); RED BLOOD COUNT 2.01 10^6/uL (4.00-5.40); WHITE BLOOD COUNT 3.9 10^3/uL (4.0-10.0)
[2019-02-22 15:48] LABS: HEMOGLOBIN 6.7 g/dl (12.0-15.5)
--- NOTE | 2019-02-23 09:54 | MEDONC ---
HEMATOLOGY/ONCOLOGY PROGRESS NOTE DATE OF SERVICE: 02/22/2019 This is a very pleasant 88-year-old female who has a history of chronic myelogenous leukemia, who is currently on maintenance imatinib therapy. The patient stopped taking the medication for 2 months because of weakness and fatigue. She is now taking this medicine again. The patient has been tolerating the imatinib well and she has no signs of any joint aches, pains or rashes. The patient is frail. She ambulates with a cane, and has someone who helps her come here for her office visit. Today, her grandson accompanied her. Past medical, surgical and family history are unchanged since last visit on 09/20/2018. REVIEW OF SYSTEMS: The patient is generally lethargic and tends to sleep all day long. Her grandson notices that she has diarrhea four to six times daily and she noticed some dark tarry stools and bright red blood in the stool. The patient has generalized musculoskeletal aches, joint stiffness, joint swelling and myalgias. VITAL SIGNS: Blood pressure is slightly low. She weighs 54 kg. BSA 1.52. Temperature 98.5, pulse 63, respiratory rate 18, blood pressure 121/68, pulse oximetry 94% on room air. The patient is a very tiny, frail, elderly female with ECOG status of 2/4. HEENT: Normocephalic, atraumatic. Pupils equal, round, and reactive to light and accommodation, pallor. EOMI. Sclerae white and nonicteric. Oropharynx is otherwise clear. NECK: Supple with no adenopathy. CHEST: Decreased breath sounds at the bases. CVS: S1, S2 without murmurs or gallop. ABDOMEN: Soft, nontender. EXTREMITIES: No cyanosis. 1+ pedal edema. LABORATORY DATA: It was later found out that her hemoglobin is only 6.7 grams. ASSESSMENT: 1. CML currently controlled on imatinib. The patient has acute GI bleeding. The patient has already left our clinic so we informed her at home that she should go to the emergency room immediately. She will need a transfusion and also colonoscopy to check the cause of GI bleeding. Electronically Signed by Diamante Samano MD 02/24/2019 05:45 P DD: Diamante Samano MD 02/22/2019 04:31 P DT: kerry 02/23/2019 09:08 A CC:
[2019-04-04 15:53] VITALS: BP 127/66
[2019-04-04 17:08] LABS: BASO % 0.4 % (0.0-1.0); EOS # 0.3 10^3/uL (0.0-0.5); EOS % 4.5 % (0.0-3.0); HEMOGLOBIN 7.5 g/dl (12.0-15.5); LYMPH # 1.2 10^3/uL (1.5-5.0); LYMPH % 22.1 % (24.0-44.0); MEAN CORPUSCULAR HEMOGLOBIN 32.6 pg (27.0-33.0); MEAN CORPUSCULAR HGB CONC 31.3 g/dl (32.0-36.5); MEAN CORPUSCULAR VOLUME 104.3 fl (80.0-96.0); MONO # 0.5 10^3/uL (0.0-0.8); MONO % 9.6 % (0.0-5.0); NEUTROPHILS # 3.5 10^3/uL (1.5-8.5); PLATELET COUNT, AUTOMATED 177 10^3/uL (150-450); WHITE BLOOD COUNT 5.6 10^3/uL (4.0-10.0)
[2019-04-04 17:56] LABS: ALBUMIN 3.7 GM/DL (3.2-5.2); BILIRUBIN,TOTAL 0.2 MG/DL (0.2-1.0); CALCIUM LEVEL 8.8 MG/DL (8.8-10.2); CREATININE FOR GFR 3.09 MG/DL (0.55-1.30); GLOMERULAR FILTRATION RATE 15.2 (>32); POTASSIUM SERUM 4.7 MEQ/L (3.5-5.1); TOTAL PROTEIN 6.7 GM/DL (6.4-8.2)
[2019-04-04 17:57] LABS: PERCENT SATURATION 30.1 % (13.2-45.0)
[2019-04-04 18:04] LABS: FOLATE > 24.0 NG/ML (>5.4)
[2019-04-05 16:09] LABS: TOTAL PROTEIN,RANDOM URINE 115.3 MG/DL (0.0-12.0)
--- NOTE | 2019-04-06 14:32 | MEDONC ---
DATE OF SERVICE: REASON FOR FOLLOWUP: CML DIAGNOSIS AND TREATMENT HISTORY: Per prior notes. 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 INTERVAL HISTORY: Patient met for the first time today. She comes to the office in a wheelchair, though she states she is not usually dependent on it. It is merely to mobilize herself outside of the house. She is able to manage her activities of daily living fairly independently but does require family for occasional help navigating steps and for her IADLs. When she was seen last in this office in early February, hemoglobin was noted to be 6.7. She was subsequently admitted. She reports receiving transfusions. She does have a history of underlying watermelon stomach with intermittent GI bleeding. She believes and endoscopy was done during her in-hospital stay but she is unclear about followup. She currently has longstanding chronic fatigue without any recent exacerbation since her discharge from the hospital. Denies any cardiopulmonary symptoms. She does described incontinence of stool for the past 6-8 months, though she did not bring this to anyone's attention. Otherwise, she has a good appetite and sleep and good spirits. Denies any weight loss. Currently denies any black tarry or maroon stool or acute pain or bleeding at any site. Denies any other complaints. REVIEW OF SYSTEMS: Constitutional: No fevers, no chills, no night sweats, no malaise, no weight loss. Cardiopulmonary: No chest pain, no SOB, no palpitations, no dizziness. No cough. No hemoptysis. Gastrointestinal: No pain, no nausea, no vomiting, no constipation. No hematemesis, no melena, no hematochezia. Genitourinary: No dysuria, no hematuria, no incontinence, no frequency, no urgency. Musculoskeletal: Chronic stable LBP. No other new bony, no muscle, no joint aches. CROWN POUNCER: No tingling, no weakness, no numbness, no headaches, no dizziness, no seizures, no speech, no visual disturbances, All other systems, are negative unless otherwise specified in HPI. PAST MEDICAL HISTORY: Hemorrhoids. 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 MEDICATIONS: Reviewed and reconciled in the EMR. ALLERGIES: Mushroom moisture, LOSARTAN. VITAL SIGNS: Reviewed in EMR - stable. PHYSICAL EXAM: HEENT: Oral mucosa - pink and moist, no conjunctival pallor, sclera anicteric bilaterally. LYMPHATICS: No cervical, supraclavicular, axillary or inguinal LAD. LUNGS: Clear to auscultation bilaterally, resonant to percussion bilaterally. HEART: Regular rhythm, no murmurs, no S3/S4, no rubs. ABDOMEN: Soft, nontender, bowel sounds normoactive, no hepatosplenomegaly. EXTREMITIES: No edema bilaterally. Calves, nontender bilaterally. SKIN/NAILS: No nail changes. No petechiae/ecchymosis or other skin changes. MUSCULOSKELETAL: Spine nontender to palpation. INVESTIGATIONS: Reviewed in the EMR. ASSESSMENT/PLAN: 1. CML diagnosed 2018 - on imatinib since. The patient has been tolerating her imatinib well without any reportable side effects. As of 02/22/2019, BCR/ABL by FISH was negative. 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 Continued therapy imatinib for now. 2. Anemia multifactorial - secondary to intermittent GIB bleed from GAVE, CKD, B12 deficiency. 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 Patient was admitted last month for hemoglobin of 6.7, required two to three units of transfusions per her history. She believes she had an EGD - GI records requested. She is unclear about her GI followup advised her and her grandson to call her railroad signal operator's office and ensure she has adequate followup. - CKD w/ anemia of chronic disease - update iron indices. If patient has adequate iron stores, I advised initiation of erythropoietin stimulating agents. Prior notes do mention Procrit, however, patient states she has never previously received this. Risks and benefits discussed with the patient. Given renal insufficiency, we will also add paraproteinemia markers. If found to be positive, we will have a further discussion on the next steps. Given the patient's advanced age, we will need to define the extent workup if she is found to have a monoclonal paraproteinemia. - B12 deficiency (02/24/2019 B12 - 159) completed daily loading dose per grandson, as well as weekly dosing x 4 weeks, now initiate monthly 1000 mcg subcu at home, per patient's and grandson's request. Of notes, Folate, WNL 5.8 (02/24/2019). CBC today revealed a hemoglobin of 7.5 - asymptomatic. No acute cardiopulmonary symptoms by history. Would recommend CBC check on 04/07/2019 to assess transfusion needs. 5. Fecal incontinence x 6-8 months. Advised the patient and grandson to ensure she has a followup with her railroad signal operator for further evaluation and management. Followup CBC 04/07/2019 - to assess transfusion needs. FOLLOWUP: See me in 10 days for clinical assessment. All of the above was relayed to the patient who was given an opportunity to ask questions that were answered to satisfaction. The patient voiced an understanding and agreed to proceed. Addendum- Serum iron 123, TIBC 409, transferrin % saturation 30, ferritin 85 - orders for Procrit written. edited: 04/07/2019 [id number] tkf Electronically Signed by Oswaldo Hsu MD 04/11/2019 05:34 P DD: Oswaldo Hsu MD 04/05/2019 06:09 P DT: cabrera 04/06/2019 12:52 P CC:
[2019-04-07 14:05] LABS: BASO % 0.5 % (0.0-1.0); EOS # 0.2 10^3/uL (0.0-0.5); EOS % 5.3 % (0.0-3.0); HEMATOCRIT 23.2 % (36.0-47.0); HEMOGLOBIN 7.4 g/dl (12.0-15.5); LYMPH # 1.3 10^3/uL (1.5-5.0); LYMPH % 33.8 % (24.0-44.0); MEAN CORPUSCULAR HEMOGLOBIN 32.6 pg (27.0-33.0); MEAN CORPUSCULAR HGB CONC 31.9 g/dl (32.0-36.5); MEAN CORPUSCULAR VOLUME 102.2 fl (80.0-96.0); MONO # 0.5 10^3/uL (0.0-0.8); MONO % 11.9 % (0.0-5.0); NEUTROPHILS # 1.8 10^3/uL (1.5-8.5); NEUTROPHILS % 48.2 % (36.0-66.0); PLATELET COUNT, AUTOMATED 206 10^3/uL (150-450); RED BLOOD COUNT 2.27 10^6/uL (4.00-5.40); WHITE BLOOD COUNT 3.8 10^3/uL (4.0-10.0)
--- NOTE | 2019-04-07 15:29 | MEDONCENPD ---
Date/Time of Encounter Date of Encounter: Apr 07, 2019 Encounter Here for CBC and TX assessesent- today pt states she has been feeling very fatigued, hgb 7.4, d/w pt agrees to 2 units PRBC Tx. orders written. PAM MCFARLAND MD Apr 07, 2019 15:29
[2019-04-17 14:58] VITALS: BP 122/68
[2019-04-17 15:05] LABS: BASO % 0.7 % (0.0-1.0); EOS # 0.2 10^3/uL (0.0-0.5); EOS % 5.7 % (0.0-3.0); HEMATOCRIT 34.9 % (36.0-47.0); LYMPH # 0.9 10^3/uL (1.5-5.0); LYMPH % 21.1 % (24.0-44.0); MEAN CORPUSCULAR HGB CONC 31.5 g/dl (32.0-36.5); MEAN CORPUSCULAR VOLUME 98.3 fl (80.0-96.0); MONO # 0.5 10^3/uL (0.0-0.8); MONO % 12.2 % (0.0-5.0); NEUTROPHILS # 2.4 10^3/uL (1.5-8.5); NEUTROPHILS % 59.8 % (36.0-66.0); PLATELET COUNT, AUTOMATED 207 10^3/uL (150-450); RED BLOOD COUNT 3.55 10^6/uL (4.00-5.40)
--- NOTE | 2019-04-19 10:33 | MEDONC ---
DATE OF SERVICE: 04/17/2019 REASON FOR FOLLOWUP: CML DIAGNOSIS AND TREATMENT HISTORY: Per prior notes. 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 INTERVAL HISTORY: Patient returns in followup today. She recently received 2 units of packed RBCs. States her fatigue and sleepiness has improved, though she reports not having energy like her "younger days." Since her last visit, she denies any loss bowel function that she previously reported at her last visit for a duration of 6-8 months. States she did not see her GI since her last visit. Has had no BM for the past 2 days. Denies any other complaints at this time. REVIEW OF SYSTEMS: Constitutional: No fevers, no chills, no night sweats, no malaise, no weight loss. Cardiopulmonary: No chest pain, no SOB, no palpitations, no dizziness. No cough. No hemoptysis. Gastrointestinal: No pain, no nausea, no vomiting, no constipation. No hematemesis, no melena, no hematochezia. Genitourinary: No dysuria, no hematuria, no incontinence, no frequency, no urgency. Musculoskeletal: Chronic stable LBP. No other new bony, no muscle, no joint aches. SURGEON PARTNER: No tingling, no weakness, no numbness, no headaches, no dizziness, no seizures, no speech, no visual disturbances, All other systems, are negative unless otherwise specified in HPI. PAST MEDICAL HISTORY: Hemorrhoids. 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 MEDICATIONS: Reviewed and reconciled in the EMR. ALLERGIES: Mushroom moisture, LOSARTAN. VITAL SIGNS: Reviewed in EMR - stable. PHYSICAL EXAM: HEENT: Oral mucosa - pink and moist, no conjunctival pallor, sclera anicteric bilaterally. LYMPHATICS: Prior exam - no cervical, supraclavicular, axillary or inguinal LAD. LUNGS: Clear to auscultation bilaterally, resonant to percussion bilaterally. HEART: Regular rhythm, no murmurs, no S3/S4, no rubs. ABDOMEN: Soft, nontender, bowel sounds normoactive, no hepatosplenomegaly. EXTREMITIES: No edema bilaterally. Calves, nontender bilaterally. SKIN/NAILS: No nail changes. No petechiae/ecchymosis or other skin changes. MUSCULOSKELETAL: Spine nontender to palpation. INVESTIGATIONS: Reviewed in the EMR. ASSESSMENT/PLAN: 1. CML diagnosed 2018 - on imatinib since. The patient has been tolerating her imatinib well without any reportable side effects. As of 02/22/2019, BCR/ABL by FISH was negative. 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 Continued imatinib therapy for now. 04/07/2018 BCR/ABL by PCR - not detected. The patient is in molecular remission. 2. 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 03/10/2019 - EGD - has periodic APC laser coagulation - followup with GI per their instructions. 04/04/2019 iron indices ferritin 85, transferrin saturation 30.1, serum iron 123, TIBC 409 - no evidence of deficiency at this time. We had previously discussed commencing Aranesp therapy. However, following recent 2 units of transfusion for hemoglobin of 7.4, today her hemoglobin is 11. Initiate Aranesp therapy when hemoglobin falls <10. 04/04/2019 urine and serum immunofixation - negative for monoclonal proteins. Folate >24. B12 deficiency (02/24/2019 B12 - 159) s/p daily loading dose x7 days and weekly dosing x4 weeks - currently on monthly maintenance dosing 1000 mcg subcu at home - continue until further instructions. 3. Fecal incontinence 6-8 months. None since last visit. Advised to followup with GI for any recurrence. FOLLOWUP: CBC 2 weeks, initiate Aranesp therapy if hemoglobin <10, clinical MD visit 6 weeks, sooner p.r.n. All of the above was relayed to the patient who was given an opportunity to ask questions that were answered to satisfaction. The patient voiced an understanding and agreed to proceed. Electronically Signed by Oswaldo Hsu MD 04/20/2019 07:16 P DD: Oswaldo Hsu MD 04/17/2019 09:16 P DT: rosemarie 04/19/2019 10:02 A CC: OLIVIA Worrell
[2019-05-01 15:00] LABS: BASO % 0.4 % (0.0-1.0); EOS # 0.2 10^3/uL (0.0-0.5); EOS % 3.4 % (0.0-3.0); HEMATOCRIT 37.2 % (36.0-47.0); HEMOGLOBIN 11.5 g/dl (12.0-15.5); LYMPH # 1.3 10^3/uL (1.5-5.0); LYMPH % 24.8 % (24.0-44.0); MEAN CORPUSCULAR HEMOGLOBIN 31.1 pg (27.0-33.0); MEAN CORPUSCULAR HGB CONC 30.9 g/dl (32.0-36.5); MEAN CORPUSCULAR VOLUME 100.5 fl (80.0-96.0); MONO # 0.5 10^3/uL (0.0-0.8); MONO % 9.9 % (0.0-5.0); NEUTROPHILS # 3.2 10^3/uL (1.5-8.5); NEUTROPHILS % 61.1 % (36.0-66.0); PLATELET COUNT, AUTOMATED 213 10^3/uL (150-450); WHITE BLOOD COUNT 5.2 10^3/uL (4.0-10.0)
[2019-05-29 15:17] VITALS: BP 105/60
[2019-05-29 16:10] LABS: BASO % 0.5 % (0.0-1.0); EOS # 0.2 10^3/uL (0.0-0.5); EOS % 2.6 % (0.0-3.0); HEMATOCRIT 29.2 % (36.0-47.0); HEMOGLOBIN 9.6 g/dl (12.0-15.5); LYMPH # 1.5 10^3/uL (1.5-5.0); LYMPH % 25.4 % (24.0-44.0); MEAN CORPUSCULAR HEMOGLOBIN 31.8 pg (27.0-33.0); MEAN CORPUSCULAR HGB CONC 32.9 g/dl (32.0-36.5); MEAN CORPUSCULAR VOLUME 96.7 fl (80.0-96.0); MONO # 0.5 10^3/uL (0.0-0.8); MONO % 8.9 % (0.0-5.0); NEUTROPHILS # 3.6 10^3/uL (1.5-8.5); NEUTROPHILS % 62.3 % (36.0-66.0); PLATELET COUNT, AUTOMATED 347 10^3/uL (150-450); RED BLOOD COUNT 3.02 10^6/uL (4.00-5.40); WHITE BLOOD COUNT 5.8 10^3/uL (4.0-10.0)
[2019-05-29 16:35] LABS: BILIRUBIN,TOTAL 0.3 MG/DL (0.2-1.0); CALCIUM LEVEL 8.2 MG/DL (8.8-10.2); CREATININE FOR GFR 2.83 MG/DL (0.55-1.30); GLOMERULAR FILTRATION RATE 16.8 (>32); PERCENT SATURATION 31.7 % (13.2-45.0); POTASSIUM SERUM 4.2 MEQ/L (3.5-5.1); TOTAL PROTEIN 5.9 GM/DL (6.4-8.2)
--- NOTE | 2019-05-31 09:46 | MEDONC ---
DATE OF SERVICE: 05/29/2019 REASON FOR FOLLOWUP: CML, multifactorial anemia. DIAGNOSIS AND TREATMENT HISTORY: Per prior notes. 2018 - Diagnosed with CML - commenced imatinib - in cytogenic remission as per 02/08/2018 notes. INTERVAL HISTORY: Patient here in followup today. She states she recently tripped and fell. She was admitted for a left ankle fracture. She underwent ORIF on 05/06/2019, also sustained a left orbital fracture. Now she is in a fdc recuperating. She denies any new symptoms. She has chronic fatigue, no worse than usual, no longer complains of loss of bowel function which she did in March. Denies any constipation. No diarrhea. No other GI complaints. Has a good appetite and sleep. Denies any weight loss. No cardiopulmonary complaints. Denies any other issues at this time. REVIEW OF SYSTEMS: Constitutional: No fevers, no chills, no night sweats, no malaise, no weight loss. Cardiopulmonary: No chest pain, no SOB, no palpitations, no dizziness. No cough. No hemoptysis. Gastrointestinal: No pain, no nausea, no vomiting, no constipation. No hematemesis, no melena, no hematochezia. Genitourinary: No dysuria, no hematuria, no incontinence, no frequency, no urgency. Musculoskeletal: Chronic stable LBP. No other new bony, no muscle, no joint aches. 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 PAST MEDICAL HISTORY: Hemorrhoids. 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 MEDICATIONS: Reviewed and reconciled in the EMR. ALLERGIES: Mushroom moisture, LOSARTAN. VITAL SIGNS: Reviewed in EMR - stable. PHYSICAL EXAM: HEENT: Oral mucosa - pink and moist, no conjunctival pallor, sclera anicteric bilaterally. LYMPHATICS: Not re-examined today, Prior exam - no cervical, supraclavicular, axillary or inguinal LAD. LUNGS: Clear to auscultation bilaterally, resonant to percussion bilaterally. HEART: Regular rhythm, no murmurs, no S3/S4, no rubs. ABDOMEN: Soft, nontender, bowel sounds normoactive, no hepatosplenomegaly. EXTREMITIES: Right lower extremity - no edema, calf nontender. Left leg and ankle - hard cast. SKIN/NAILS: No nail changes. No petechiae/ecchymosis or other skin changes. MUSCULOSKELETAL: Spine nontender to palpation. INVESTIGATIONS: Reviewed in the EMR. ASSESSMENT/PLAN: 1. CML diagnosed 2018 - on imatinib since, currently in remission. Tolerating well without any reportable side effects. 04/07/2018 BCR/ABL by PCR - not detected. CBC today reveals anemia in the 9 range. No other cytopenias - anemia is multifactorial - see below. Continue imatinib therapy for now. Monitor counts. 2. 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 03/10/2019 - EGD - has periodic APC laser coagulation - followup with GI per their instructions. Updated iron indices 05/29/2019 - ferritin >300. Rest of iron indices WNL. Ferritin is likely in acute phase reaction status post recent ankle fracture and surgery. Previously discussed commencing Aranesp when her hemoglobin falls to <10. B12 deficiency (02/24/2019 B12 - 159) - s/p loading dose x7 days and weekly dosing x4 weeks - currently on monthly maintenance dosing 1000 mcg subcu - sent notation to fdc to continue until further instructions. Update B12 today (addendum B 61- 837 - stores replenished). Noted drop in hemoglobin to 9 range today compared to 11.5 on 05/01/2019 - likely secondary to recent fracture, surgical blood loss, IV fluids with consequent dilution, frequent phlebotomies during her recent hospitalization. Monitor counts for now. Otherwise no new symptoms. No indication for transfusion yet. FOLLOW UP: 4 weeks with updated BCR/ABL, CBC and CMP, sooner p.r.n. All of the above was relayed to the patient who was given an opportunity to ask questions that were answered to satisfaction. The patient voiced an understanding and agreed to proceed. Electronically Signed by Oswaldo Hsu MD 06/06/2019 09:07 A DD: Oswaldo Hsu MD 05/29/2019 08:16 P DT: good 05/31/2019 09:27 A CC: OLIVIA Worrell
[2019-07-05 15:24] VITALS: BP 117/68
--- NOTE | 2019-07-05 15:51 | MEDONCPDOC ---
Medical Oncology Office Note Date of Service: Jul 05, 2019 Diagnosis/Treatment History Oncology problem list 1. 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 Stage IV chronic kidney disease with adequate iron stores with grade 3 anemia with hemoglobin 7.9 3. B12 deficiency on repletion 4. CODE STATUS reviewed with patient still full code 5. 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 Manjarrez patient is here for follow-up on her chronic myeloid leukemia and chronic kidney disease induced anemia Patient's iron stores are adequate and assessed May 2019. Patient's BCR/ABL fusion protein status is pending drawn June 28. CBC today revealed a hemoglobin of 7.9 NCCN guidelines support discontinuing imatinib after 2 more years in complete remission Patient's been in remission for more than 10 years shows us use Zofran to help with nausea Patient would require monthly BCR/ABL fusion protein tests for the first year and then every other year for second year and then every 3 months following that I think this is a very reasonable approach and should be considered Interval History Reports fatigue Denies significant shortness of breath Denies any melena Denies any active nausea Allergies Coded Allergies: losartan (Verified Allergy, Severe, angioedema, 05/18/19) mushroom (Verified Adverse Reaction, Intermediate, vomiting, 05/18/19) oyster extract (Verified Adverse Reaction, Intermediate, vomiting, 05/18/19) Home Medications Active Scripts Imatinib Mesylate (Imatinib Mesylate) 400 Mg Tablet, 400 MG PO DAILY for 30 Days, #30 TAB 3 Refills TAKE ONE TABLET BY MOUTH ONCE DAILY. Prov:BOSTON YUSUF MD 02/28/19 Reported Medications Ondansetron HCl (Zofran) 4 Mg Tablet, 4 MG PO DAILY, TAB 07/05/19 Levothyroxine Sodium (Levo-T) 25 Mcg Tablet, 25 MCG PO DAILY for 30 Days, #30 TAB 05/29/19 Omeprazole Magnesium (Prilosec Otc) 20 Mg Tablet.dr, 20 MG PO DAILY, TAB 05/18/19 Escitalopram Oxalate (Lexapro) 20 Mg Tablet, 20 MG PO DAILY, TAB 05/18/19 Folic Acid (Folic Acid) 1 Mg Tablet, 1 MG PO DAILY, #90 TAB 2 Refills 05/05/19 Oxybutynin Chloride (Oxybutynin Chloride ER) 5 Mg Tab.er.24, 5 MG PO QPM 04/17/19 Lactose-Reduced Food (Boost Plus) 237 Ml Liquid, 237 ML PO BID, CONTAINER 02/22/19 Calcium Carbonate (Tums) 200 Mg Tab.chew, 500 MG PO BID, CHW 02/22/19 Ropinirole HCl (Ropinirole HCl) 0.25 Mg Tablet, 0.25 MG PO QHS, TAB 02/22/19 Gabapentin (Gabapentin) 100 Mg Capsule, 300 MG PO TID, CAP 02/22/19 Spironolactone (Spironolactone) 25 Mg Tablet, 12.5 MG PO DAILY, TAB 02/22/19 Amlodipine Besylate (Amlodipine Besylate) 5 Mg Tablet, 5 MG PO QPM, TAB 02/22/19 Past Medical History Past Medical History: Chronic myeloid leukemia Stage IV chronic kidney disease Malabsorption syndrome Polypharmacy Restless leg syndrome Review of Systems Constitutional: Reports: Fatigue Pulmonary: Reports: Dyspnea (on exertion) Physical Examination General Exam: Positive: Cooperative Heart Exam: Positive: Other (systolic murmur noted) Extremity Exam: Positive: Other (left leg boot in place) Ht / Wt Ht / Wt Height:5 Feet 0 Inches Weight: 45.000 Kg Vital Signs Vital Signs Date Time Temp Pulse Resp B/P (MAP) Pulse Ox O2 Delivery O2 Flow Rate FiO2 07/05/19 15:24 97.5 71 16 117/68 (84) 98 Room Air Laboratory Data Vital Signs Date Time Temp Pulse Resp B/P (MAP) Pulse Ox O2 Delivery O2 Flow Rate FiO2 07/05/19 15:24 97.5 71 16 117/68 (84) 98 Room Air Laboratory TestsLaboratory Tests 07/05/19 15:44 07/05/19 15:44: White Blood Count 6.7, Red Blood Count 2.39L, Hemoglobin 7.9L, Hematocrit 24.2L, Mean Corpuscular Volume 101.3H, Mean Corpuscular Hemoglobin 33.1H, Mean Corpuscular Hemoglobin Concent 32.6, Red Cell Distribution Width 18.8H, Platelet Count 268, Immature Granulocyte % (Auto) 0.3, Neutrophils (%) (Auto) 46.0, Lymphocytes (%) (Auto) 43.2, Monocytes (%) (Auto) 7.6H, Eosinophils (%) (Auto) 2.5, Basophils (%) (Auto) 0.4, Neutrophils # (Auto) 3.1, Lymphocytes # (Auto) 2.9, Monocytes # (Auto) 0.5, Eosinophils # (Auto) 0.2, Basophils # (Auto) 0.0, Nucleated Red Blood Cells % (auto) 0.0 Assessment/Plan Assessment 1. Stage IV chronic kidney disease with adequate iron stores 2. Documented B12 deficiency on repletion therapy 3. Folate deficiency on repletion 4. Mild reduction syndrome 5. Chronic myeloid leukemia long-standing remission for more than 10 years Plan Aranesp 200 g subcutaneous today B12 1000 mg subcutaneous today We'll see the patient back in 4 weeks time Consideration for stopping imatinib All of the above was relayed to the patient who was given an opportunity to ask questions that were answered to satisfaction. The patient voiced an understanding and agreed to proceed. I spent 30 minutes during this visit seeing the patient [id number] and reviewing records. More than 50% of the time was spent in direct [id number] discussion and counseling of the patient. CC TO: Primary Care Provider: Abdirizak Florez Referring Provider: Problems: (1) Anemia of chronic renal failure, stage 4 (severe) FARRAH VELASCO MD Jul 05, 2019 15:51
[2019-07-05 15:56] LABS: BASO % 0.4 % (0.0-1.0); EOS # 0.2 10^3/uL (0.0-0.5); EOS % 2.5 % (0.0-3.0); HEMATOCRIT 24.2 % (36.0-47.0); HEMOGLOBIN 7.9 g/dl (12.0-15.5); LYMPH # 2.9 10^3/uL (1.5-5.0); LYMPH % 43.2 % (24.0-44.0); MEAN CORPUSCULAR HEMOGLOBIN 33.1 pg (27.0-33.0); MEAN CORPUSCULAR HGB CONC 32.6 g/dl (32.0-36.5); MEAN CORPUSCULAR VOLUME 101.3 fl (80.0-96.0); MONO # 0.5 10^3/uL (0.0-0.8); MONO % 7.6 % (0.0-5.0); NEUTROPHILS # 3.1 10^3/uL (1.5-8.5); PLATELET COUNT, AUTOMATED 268 10^3/uL (150-450); RED BLOOD COUNT 2.39 10^6/uL (4.00-5.40); WHITE BLOOD COUNT 6.7 10^3/uL (4.0-10.0)
[2019-08-04 14:55] LABS: BASO % 0.9 % (0.0-1.0); EOS # 0.2 10^3/uL (0.0-0.5); EOS % 3.5 % (0.0-3.0); HEMATOCRIT 31.8 % (36.0-47.0); HEMOGLOBIN 10.1 g/dl (12.0-15.5); LYMPH # 2.1 10^3/uL (1.5-5.0); LYMPH % 46.2 % (24.0-44.0); MEAN CORPUSCULAR HGB CONC 31.8 g/dl (32.0-36.5); MEAN CORPUSCULAR VOLUME 107.1 fl (80.0-96.0); MONO # 0.4 10^3/uL (0.0-0.8); MONO % 9.2 % (0.0-5.0); NEUTROPHILS # 1.8 10^3/uL (1.5-8.5); PLATELET COUNT, AUTOMATED 202 10^3/uL (150-450); RED BLOOD COUNT 2.97 10^6/uL (4.00-5.40); WHITE BLOOD COUNT 4.6 10^3/uL (4.0-10.0)
[2019-08-04 14:59] VITALS: BP 127/68
--- NOTE | 2019-08-04 15:21 | MEDONCPDOC ---
Medical Oncology Office Note Date of Service: August 04, 2019 Diagnosis/Treatment History Oncology problem list 1. 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 Stage IV chronic kidney disease with adequate iron stores with grade 3 anemia with hemoglobin 7.9 3. B12 deficiency on repletion 4. CODE STATUS reviewed with patient still full code 5. 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 Manjarrez patient is here for follow-up on her chronic myeloid leukemia and chronic kidney disease induced anemia Patient's iron stores are adequate and assessed May 2019. Patient's BCR/ABL fusion protein status is negative again drawn June 28. CBC today revealed a hemoglobin of 10.1 NCCN guidelines support discontinuing imatinib after 2 more years in complete remission Patient's been in remission for more than 10 years shows us use Zofran to help with nausea Patient would require monthly BCR/ABL fusion protein tests for the first year an d then every other year for second year and then every 3 months following that I think this is a very reasonable approach and discussed in detail with the patient She is in agreement to discontinue imatinib Interval History Reports left leg starting to to get better Does not know how long she'll be in the boot Patient in agreement to discontinue imatinib Proceed with erythropoietin growth factor support for hemoglobin of 10.1 with aranesp 200mcg and documented adequate iron stores for anemia of chronic kidney disease. Patient responding to therapy Allergies Coded Allergies: losartan (Verified Allergy, Severe, angioedema, 05/18/19) mushroom (Verified Adverse Reaction, Intermediate, vomiting, 05/18/19) oyster extract (Verified Adverse Reaction, Intermediate, vomiting, 05/18/19) Home Medications Active Scripts Imatinib Mesylate (Imatinib Mesylate) 400 Mg Tablet, 400 MG PO DAILY for 30 Days, #30 TAB 3 Refills TAKE ONE TABLET BY MOUTH ONCE DAILY. Prov:BOSTON YUSUF MD 02/28/19 Reported Medications Ondansetron HCl (Zofran) 4 Mg Tablet, 4 MG PO DAILY, TAB 07/05/19 Levothyroxine Sodium (Levo-T) 25 Mcg Tablet, 25 MCG PO DAILY for 30 Days, #30 TAB 05/29/19 Omeprazole Magnesium (Prilosec Otc) 20 Mg Tablet.dr, 20 MG PO DAILY, TAB 05/18/19 Escitalopram Oxalate (Lexapro) 20 Mg Tablet, 20 MG PO DAILY, TAB 05/18/19 Folic Acid (Folic Acid) 1 Mg Tablet, 1 MG PO DAILY, #90 TAB 2 Refills 05/05/19 Oxybutynin Chloride (Oxybutynin Chloride ER) 5 Mg Tab.er.24, 5 MG PO QPM 04/17/19 Lactose-Reduced Food (Boost Plus) 237 Ml Liquid, 237 ML PO BID, CONTAINER 02/22/19 Calcium Carbonate (Tums) 200 Mg Tab.chew, 500 MG PO BID, CHW 02/22/19 Ropinirole HCl (Ropinirole HCl) 0.25 Mg Tablet, 0.25 MG PO QHS, TAB 02/22/19 Gabapentin (Gabapentin) 100 Mg Capsule, 300 MG PO TID, CAP 02/22/19 Spironolactone (Spironolactone) 25 Mg Tablet, 12.5 MG PO DAILY, TAB 02/22/19 Amlodipine Besylate (Amlodipine Besylate) 5 Mg Tablet, 5 MG PO QPM, TAB 02/22/19 Past Medical History Past Medical History: Chronic myeloid leukemia Stage IV chronic kidney disease Malabsorption syndrome Polypharmacy Restless leg syndrome Review of Systems General: Reports: Normal Appetite; Denies: Chills, Fatigue, Malaise Constitutional: Reports: Fatigue Eyes: Denies: Vision change HEENT: Denies: Head Aches, Dysphagia, Sore Throat, Epistaxis Skin: Denies: Rash, Lesions, Jaundice, Bruising Pulmonary: Denies: Dyspnea, Cough Cardiovascular: Denies: Chest Pain, Palpitations, Orthopnea, Edema Gastrointestinal: Denies: Nausea, Vomiting, Diarrhea Genitourinary: Denies: Dysuria, Frequency, Incontinence Hematologic: Denies: Bruising, Petecchia Musculoskeletal: Reports: Leg pain, Foot pain (left foot) Neurological: Reports: Weakness, Numbness; Denies: Change in Speech Psych: Reports: Mood Normal Physical Examination General Exam: Positive: Alert, No Acute Distress Eye Exam: Positive: PERRLA, Conjunctiva & lids normal; Negative: Sclera icteric ENT EXAM: Positive: Atraumatic, Mucous membr. moist/pink Neck Exam: Reports: Supple; Denies: JVD, Thyromegaly, Lymphadenopathy Chest Exam: Positive: Clear to auscultation, Normal air movement Heart Exam: Positive: Rate Normal Abdomen Exam: Positive: Normal bowel sounds; Negative: Tenderness, Hepatospenomegaly, Mass Extremity Exam: Positive: Other (wearing a boot left leg) Skin Exam: Positive: Nl turgor and temperature; Negative: Rash, Breakdown, Lesion Neuro Exam: Positive: Normal Speech, Normal Tone Psych Exam: Positive: Mental status NL Ht / Wt Ht / Wt Height:5 Feet 0 Inches Weight: 46.000 Kg Vital Signs Vital Signs Date Time Temp Pulse Resp B/P (MAP) Pulse Ox O2 Delivery O2 Flow Rate FiO2 08/04/19 14:59 97.7 69 16 127/68 (87) 97 Room Air Laboratory Data Laboratory Tests 08/04/19 14:43 Assessment/Plan Assessment 1. Stage IV anemia of chronic kidney disease with adequate iron stores and documented response to erythropoietin growth factor 2. Documented B12 deficiency on repletion therapy 3. Folate deficiency on repletion 4. Mild reduction syndrome 5. Chronic myeloid leukemia long-standing remission for more than 10 years Plan Aranesp 200 g subcutaneous today B12 1000 mg subcutaneous today We'll see the patient back in 4 weeks time Proceed with discontinuing imatinib Some increased muscle and bone pain may be a side effect of discontinuing. Patient aware All of the above was relayed to the patient who was given an opportunity to ask questions that were answered to satisfaction. The patient voiced an understanding and agreed to proceed. I spent 25 minutes during this visit seeing the patient [id number] and reviewing records. More than 50% of the time was spent in direct [id number] discussion and counseling of the patient. CC TO: Primary Care Provider: Abdirizak Florez Problems: (1) CKD (chronic kidney disease) (2) Anemia (3) CML (chronic myelocytic leukemia) (4) Anemia associated with chronic renal failure (5) Erythropoietin deficiency anemia FARRAH VELASCO MD August 04, 2019 15:21
[2019-08-31 14:46] VITALS: BP 145/72
--- NOTE | 2019-08-31 17:03 | MEDONCPDOC ---
Medical Oncology Office Note Date of Service: Aug 31, 2019 Diagnosis/Treatment History Current diagnosis: #1. 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 #2. Imatinib on hold since 08/04/2019 and is being followed with monthly blood count and quantification with PCR for BCRABL. #3 Chronic renal insufficiency was multifactorial anemia. #4. Vitamin B12 deficiency. #5 moderate absorption. Interval History Current status: Ms. Das is coming today for a follow-up visit along with her caregiver. She continues to live in [facility] since 05/15/2019 and is being followed by Dr. Chávez on monthly basis. She feels much better since her imatnib is stopped. She can walk with the help of walker, but majority of the time. She is wheelchair-bound. Her hemoglobin has improved since imatinib is discontinued. She has no difficulty in breathing.. Denies cough or wheezing. She does not have chest pain or palpitation. No headache or dizziness and has no urinary symptoms. Allergies Coded Allergies: losartan (Verified Allergy, Severe, angioedema, 05/18/19) mushroom (Verified Adverse Reaction, Intermediate, vomiting, 05/18/19) oyster extract (Verified Adverse Reaction, Intermediate, vomiting, 05/18/19) Home Medications Active Scripts Imatinib Mesylate (Imatinib Mesylate) 400 Mg Tablet, 400 MG PO DAILY for 30 Days, #30 TAB 3 Refills TAKE ONE TABLET BY MOUTH ONCE DAILY. Prov:BOSTON YUSUF MD 02/28/19 Reported Medications Multivitamin with Minerals (Multiple Vitamin) 1 Each Tablet, 1 TAB PO, TAB 08/31/19 Ondansetron HCl (Zofran) 4 Mg Tablet, 4 MG PO DAILY, TAB 07/05/19 Levothyroxine Sodium (Levo-T) 25 Mcg Tablet, 37.5 MCG PO DAILY for 30 Days, #30 TAB 05/29/19 Omeprazole Magnesium (Prilosec Otc) 20 Mg Tablet.dr, 40 MG PO DAILY, TAB 05/18/19 Escitalopram Oxalate (Lexapro) 20 Mg Tablet, 20 MG PO DAILY, TAB 05/18/19 Folic Acid (Folic Acid) 1 Mg Tablet, 1 MG PO DAILY, #90 TAB 2 Refills 05/05/19 Oxybutynin Chloride (Oxybutynin Chloride ER) 5 Mg Tab.er.24, 5 MG PO QPM 04/17/19 Lactose-Reduced Food (Boost Plus) 237 Ml Liquid, 237 ML PO BID, CONTAINER 02/22/19 Calcium Carbonate (Tums) 200 Mg Tab.chew, 500 MG PO BID, CHW 02/22/19 Ropinirole HCl (Ropinirole HCl) 0.25 Mg Tablet, 0.25 MG PO QHS, TAB 02/22/19 Gabapentin (Gabapentin) 100 Mg Capsule, 300 MG PO TID, CAP 02/22/19 Spironolactone (Spironolactone) 25 Mg Tablet, 12.5 MG PO DAILY, TAB 02/22/19 Amlodipine Besylate (Amlodipine Besylate) 5 Mg Tablet, 5 MG PO QPM, TAB 02/22/19 Past Medical History Past Medical History: Chronic myeloid leukemia Stage IV chronic kidney disease Malabsorption syndrome Polypharmacy Restless leg syndrome Ht / Wt Ht / Wt Height:5 Feet 0 Inches Weight: 43.000 Kg Vital Signs Vital Signs Date Time Temp Pulse Resp B/P (MAP) Pulse Ox O2 Delivery O2 Flow Rate FiO2 08/31/19 14:46 97.6 54 18 145/72 (96) 99 Room Air Laboratory Data Laboratory Tests Test 08/29/19 08:56 Blood Urea Nitrogen 95 MG/DL (7-18) H Creatinine 2.46 MG/DL (0.55-1.30) H Glomerular Filtration Rate 19.7 (>32) L Fasting Glucose 119 MG/DL (70-100) H Calcium Level 9.5 MG/DL (8.8-10.2) Total Bilirubin 0.2 MG/DL (0.2-1.0) Aspartate Amino Transf (AST/SGOT) 15 U/L (7-37) Alanine Aminotransferase (ALT/SGPT) 19 U/L (12-78) Total Protein 7.0 GM/DL (6.4-8.2) Sodium Level 143 MEQ/L (136-145) Albumin 3.7 GM/DL (3.2-5.2) Alkaline Phosphatase 75 U/L (45-117) Potassium Level 5.2 MEQ/L (3.5-5.1) H Chloride Level 111 MEQ/L (98-107) H Carbon Dioxide Level 24 MEQ/L (21-32) Anion Gap 8 MEQ/L (8-16) Laboratory Tests 08/29/19 08:56 Assessment/Plan Mrs. Das is an 89-year-old old white female who has long-standing history of CML, which is in complete remission for last 10 years. She was taken off of imatinib on July and had hemoglobin has improved. Today a hemoglobin is more than 10 and she does not require Procrit therapy. She will be followed by Dr. Chávez at [facility]. Patient will have standing order for a CBC and PCR quantification of BCR/ABL transcripts on monthly basis. We will see her back in 3 months for the follow-up and surveillance of her chronic myeloleukemia and multifactorial anemia. CC TO: Primary Care Provider: Abdirizak Florez IHSAN U. MD Aug 31, 2019 17:03
[~2019-11-29] VITALS: Ht 152.4 cm; Wt 39.7 kg
[~2019-11-29 13:57] MED LIST changes: +CYANOCOBALAMIN 1,000MCG/ML VIAL (J3420) SQ ONE; +DARBEPOETIN 100 MCG/0.5 ML *NON-DIALYSIS* SYRINGE (J0881) SC ONE; +DARBEPOETIN 200MCG/0.4ML *NON-DIALYSIS* SYRINGE (J0881 PER 1MCG) SC ONE; +DARBEPOETIN 200MCG/0.4ML *NON-DIALYSIS* SYRINGE (J0881 PER 1MCG) SQ ONE
[2019-11-29 14:10] VITALS: BP 120/65
[2019-11-29 14:36] LABS: BASO % 0.4 % (0.0-1.0); EOS # 0.4 10^3/uL (0.0-0.5); EOS % 4.9 % (0.0-3.0); HEMATOCRIT 27.3 % (36.0-47.0); HEMOGLOBIN 8.5 g/dl (12.0-15.5); LYMPH # 1.7 10^3/uL (1.5-5.0); LYMPH % 21.4 % (24.0-44.0); MEAN CORPUSCULAR HEMOGLOBIN 28.4 pg (27.0-33.0); MEAN CORPUSCULAR HGB CONC 31.1 g/dl (32.0-36.5); MEAN CORPUSCULAR VOLUME 91.3 fl (80.0-96.0); MONO # 0.4 10^3/uL (0.0-0.8); MONO % 5.2 % (0.0-5.0); NEUTROPHILS # 5.2 10^3/uL (1.5-8.5); NEUTROPHILS % 67.5 % (36.0-66.0); PLATELET COUNT, AUTOMATED 205 10^3/uL (150-450); RED BLOOD COUNT 2.99 10^6/uL (4.00-5.40); WHITE BLOOD COUNT 7.8 10^3/uL (4.0-10.0)
[2019-12-04 14:13] LABS: SOLUBLE TRANSFERRIN RECEPTOR 10.9 nmol/L (12.2-27.3)
--- NOTE | 2019-12-29 11:48 | MEDONC ---
DATE OF VISIT: 10/18/2019 REASON FOR CONSULTATION: Anemia and leukocytosis. HISTORY OF PRESENT ILLNESS: I had the pleasure of seeing Ms. Mariia Barnard who as you know is an 89-year-old white female who is a resident of [facility] for the last six months. She is brought in by her caregiver. Patient is being followed by Dr. Chávez for her general medical care. Her activity is limited and she is mainly wheelchair bound. At the longterm she can hardly walk but stays in the wheelchair. She has multiple co-morbidities including pressure ulcers and chronic renal insufficiency. She was diagnosed to have anemia of chronic renal disease. Apparently she was diagnosed to have chronic myeloid leukemia and was found to be BCR-ABL positive which was not in remission. Her activity is limited and she is hardly communicative. She is very pleasant and is able to answer some questions. She is in no acute distress. Her breathing is good. She denies any cough, phlegm or wheezing. She does not have chest pain, no palpitations, no headache or dizziness. She has no urinary symptoms. She claims she is not incontinent. PAST MEDICAL HISTORY: As mentioned above is significant for chronic renal insufficiency. She has anemia of multifactorial reasons including anemia due to CML and anemia due to chronic renal insufficiency and anemia secondary to chronic renal disease. FAMILY HISTORY: Patient has one sister who lives in [place] and one brother who has . Mother of cancer. SOCIAL HISTORY: Patient is a nonsmoker although she likes to take wine once in a while. ALLERGIES: No known drug allergies. MEDICATIONS: * Calcium. * Citalopram. * Folic acid. * Gabapentin. * Ensure. * Levothyroxine. * Omeprazole. * Ropinirole. * Zofran. ASSESSMENT/PLAN: The patient is an 89-year-old white female who is in [facility] for the last six months. She has been documented to have chronic myeloid leukemia but details are not available as to whether she has been on treatment or not. Patient is unable to give any history or details. We will do some investigations of her anemia as well as PCR for quantification of BCR-ABL transcripts. Once quantification is available she should be started on treatment with Imatinib and we plan to start her on low dose Imatinib. Patient needs to be seen as soon as her results are available for quantification of BCR-ABL transcripts. Patient's blood will also be checked for anemia profile including iron study, B12, Folate and reticulocyte counts. If we find out some correctable cause of anemia, that then will be corrected. Patient will be having this blood draw at [facility] in the near future and then we will make our decision accordingly. Currently the patient does not require active intervention until she is seen again. IUSantos/luzma GARCIA
--- NOTE | 2019-12-29 11:51 | MEDONC ---
DATE OF VISIT: 11/01/2019 CURRENT DIAGNOSIS: Multifactorial anemia with chronic myeloid leukemia causing leukocytosis. PREVIOUS HISTORY: Ms. Mariia Barnard was originally seen on 10/18/2019, for leukocytosis and anemia. She is a resident of [facility] for about six months and is mainly wheelchair bound. Patient was found to have chronic myeloid leukemia and has not been on any active treatment. Patients detailed history of previous chronic myeloid leukemia is not available at this point. Her hemoglobin is still on the lower side and iron profile and anemia profile, which were ordered last time, are not yet available to me for further decision. She has multifactorial anemia. She is comfortable today. Her breathing is good. She is able to answer a few questions with simple words, but she is mainly demented. Patient is not in any acute distress. Her breathing is good. She has no cough, phlegm, or wheezing. She does not have any chest pain, and denies headache or dizziness. Patient claims that she is not having any urinary issues. PAST MEDICAL HISTORY: Significant for chronic renal insufficiency and multifactorial anemia due to chronic myeloid leukemia, chronic renal insufficiency, and chronic disease. FAMILY HISTORY: Patients one sister lives in [place]. History of cancer in mother. SOCIAL HISTORY: Patient denies smoking. She lives in [facility] for six months. MEDICATIONS: Her medicines remain unchanged. PHYSICAL EXAMINATION: VITAL SIGNS: Weight not done because she is wheelchair bound. Blood pressure 144/74, pulse 62, temperature 97.8 degrees Fahrenheit. GENERAL: An elderly female sitting in the wheelchair in no acute distress. She has dementia, although she is calm and is able to answer a few questions. She is pale looking, but no jaundice or cyanosis. No clubbing or koilonychia. There is no pedal edema. HEENT: Patient is hard of hearing. Otherwise, there is no mucositis or thrush. CARDIAC: Regular rate and rhythm (RRR). Normal S1, S2. LUNGS: Clear to auscultation and percussion. ABDOMEN: Soft. Bowel sounds present. No hepatosplenomegaly. MUSCULOSKELETAL: Normal without any deformity. EXTREMITIES: Normal without edema. SKIN: Clear and dry without rash or lesions. LYMPH NODE SURVEY: Nonpalpable in the cervical, supraclavicular, axillary, or inguinal region. NEUROLOGIC: Patient is wheelchair bound, although she is able to move all four limits. There is no gross sensory deficit. LABORATORY DATA: CBC from 10/27/2019, WBC 52.06, hemoglobin 9, hematocrit 29.4, MCV 93, platelets 283,000. Absolute neutrophil count 23.44, absolute lymphocyte count 4.54, monocytes 4.81, eosinophils 1.13. Chemistry from 10/27/2019, sodium 142, potassium 4.7, bicarb 28, glucose 94, BUN 73, creatinine 2.39, calcium 8.1. ASSESSMENT: Ms. Mariia Barnard is an 89-year-old white female who has a history of chronic myeloid leukemia and multifactorial anemia due to chronic myeloid leukemia, chronic renal insufficiency, and anemia of chronic disease. Patient needs to start low-dose imatinib. Her anemia profile, including iron studies, B12 and folate, are not available yet, so we cannot decide to give her any iron therapy. Patient will be taking imatinib 200 mg p.o. daily, which is half the dose for a young adult. Patient is very frail and hardly communicative and not having any treatment for chronic myeloid leukemia (CML) would be an option. Anemia might be due to CML so that is why we plan to do very low-dose imatinib therapy to see if that helps to improve her anemia. She has also chronic renal insufficiency and we plan to start her on epoetin mari 20,000 units subcutaneously on a weekly basis. We will make a standing order for a CBC done weekly. Once the results of iron stores, B12, and folate are available, then we will modify her treatment accordingly. Patient will be seen again in four weeks for further follow-up and decision making regarding her chronic myeloid leukemia and anemia. We may see her sooner if needed. BENJAMIND
--- NOTE | 2020-02-13 18:14 | MEDONCPDOC ---
Medical Oncology Office Note Date of Service: Nov 29, 2019 Diagnosis/Treatment History Current diagnosis: #1. 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 #2. Imatinib on hold since 08/04/2019 and is being followed with monthly blood count and quantification with PCR for BCRABL. #3 Chronic renal insufficiency was multifactorial anemia. #4. Vitamin B12 deficiency. #5 malabsoption Treatment history:Ms. Mariia Barnard was originally seen on 10/18/2019, for leukocytosis and anemia. She is a resident of [facility] for about six months and is mainly wheelchair bound. 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 Reviewing previous rectal revealed no BCR ABL transcripts on RT-PCR until now. She is a resident of [facility] for last 6 months and is mainly wheelchair-bound. She is coming for a follow-up visit with her caregiver. Interval History Ms. Barnard is coming today for a follow-up visit along with her caregiver. She is weak for a land has almost no activity. He did not have BCR ABL check out for a long time and we'll plan to do that today for close surveillance of her chronic myeloleukemia. She has multifactorial anemia and hemoglobin today is 8.5 although white blood cell count is 7.8 with absolute neutrophil count of 5.2. There are no immature cells found and PET for blood. Platelet count was 205 today. She is comfortable although minimally communicative. She has many comorbidities and his blood count is showing anemia visit multifactorial in origin. She has dementia although she is not in acute distress. She is not having any cough or wheezing. She denies any chest pain or palpitation no headache or dizziness and has no urinary symptoms. Allergies Coded Allergies: losartan (Verified Allergy, Severe, angioedema, 05/18/19) mushroom (Verified Adverse Reaction, Mild, vomiting, 10/06/19) oyster extract (Verified Adverse Reaction, Mild, vomiting, 10/06/19) Home Medications Reported Medications Sodium Phosphate,Knott-Dibasic (Fleet Enema) 133 Ml Enema, 1 ANKUR MI DAILY PRN for CONSTIPATION 10/06/19 Bisacodyl (Bisacodyl) 10 Mg Supp.rect, 10 MG MI DAILY PRN for CONSTIPATION, SUP 10/06/19 Milk Of Magnesia (Milk of Magnesia) 2,400 Mg/10 Ml Oral.susp, 10 ML PO DAILY PRN for CONSTIPATION, ARTUR 10/06/19 Acetaminophen (Acetaminophen) 325 Mg Tablet, 650 MG PO Q4H PRN for PAIN OR FEVER, TAB 10/06/19 Metronidazole (Flagyl) 500 Mg Tablet, 500 MG PO TID, #30 TAB FOR 10 DAYS 10/06/19 Ciprofloxacin HCl (Cipro) 500 Mg Tablet, 500 MG PO DAILY, #14 TAB 10/06/19 Omeprazole (Omeprazole) 40 Mg Capsule.dr, 40 MG PO BID, CAP 10/06/19 Gabapentin (Gabapentin) 300 Mg Capsule, 300 MG PO BID, CAP 10/06/19 Multivitamin with Minerals (Multiple Vitamin) 1 Each Tablet, 1 TAB PO, TAB 08/31/19 Levothyroxine Sodium (Levo-T) 25 Mcg Tablet, 37.5 MCG PO DAILY 05/29/19 Escitalopram Oxalate (Lexapro) 20 Mg Tablet, 20 MG PO QHS, TAB 05/18/19 Folic Acid (Folic Acid) 1 Mg Tablet, 1 MG PO DAILY, #90 TAB 2 Refills 05/05/19 Lactose-Reduced Food (Boost Plus) 237 Ml Liquid, 237 ML PO BID, CONTAINER 02/22/19 Calcium Carbonate (Tums) 200 Mg Tab.chew, 500 MG PO BID, CHW 02/22/19 Ropinirole HCl (Ropinirole HCl) 0.25 Mg Tablet, 0.25 MG PO QHS, TAB 02/22/19 Past Medical History Past Medical History: Chronic myeloid leukemia Stage IV chronic kidney disease Malabsorption syndrome Polypharmacy Restless leg syndrome Family History: Patients one sister lives in [place]. History of cancer in mother. Social History: Patient denies smoking. She lives in [facility] for more than six months. Review of Systems General: Reports: Normal Appetite; Denies: Chills, Fatigue, Malaise Constitutional: Reports: Fatigue Eyes: Denies: Vision change HEENT: Denies: Head Aches, Dysphagia, Sore Throat, Epistaxis Skin: Denies: Rash, Lesions, Jaundice, Bruising Pulmonary: Denies: Dyspnea, Cough Cardiovascular: Denies: Chest Pain, Palpitations, Orthopnea, Edema Gastrointestinal: Denies: Nausea, Vomiting, Diarrhea Genitourinary: Denies: Dysuria, Frequency, Incontinence Hematologic: Denies: Bruising, Petecchia Musculoskeletal: Reports: Leg pain, Foot pain (left foot) Neurological: Reports: Weakness, Numbness; Denies: Change in Speech Psych: Reports: Mood Normal Physical Examination General Exam: Positive: Alert, No Acute Distress Eye Exam: Positive: PERRLA, Conjunctiva & lids normal; Negative: Sclera icteric ENT EXAM: Positive: Atraumatic, Mucous membr. moist/pink Neck Exam: Positive: Supple; Negative: JVD, Thyromegaly, Lymphadenopathy Chest Exam: Positive: Clear to auscultation, Normal air movement Heart Exam: Positive: Rate Normal Abdomen Exam: Positive: Normal bowel sounds; Negative: Tenderness, Hepatospenomegaly, Mass Extremity Exam: Positive: Other (wearing a boot left leg) Skin Exam: Positive: Nl turgor and temperature; Negative: Rash, Breakdown, Lesion Neuro Exam: Positive: Normal Speech, Normal Tone Psych Exam: Positive: Mental status NL Ht / Wt Ht / Wt Height:5 Feet 0 Inches Weight: 39.700 Kg Assessment/Plan Mrs. Das is an 89-year-old old white female who has long-standing history of CML, which is in complete remission for last 10 years. She was taken off of imatinib on July her hemoglobin is fluctuating and multifactorial anemia. We'll draw blood for BCR ABL transcripts. Hemoglobin is 8.5 and her hemoglobin fluctuates and may go up to 10 sometimes. If she is found to be positive for BCR ABL translocation she may be started on low-dose imatinib although because of multiple comorbidities she may not be able to tolerate that. We will see her back in 3 months for further follow-up of her CML in remission and multifactorial anemia. CC TO: CC TO: Primary Care Provider: Abdirizak Florez IHSAN U. MD Feb 13, 2020 18:14
== END | disposition home or self-care (01) ==
LOC: M ONCM 01-26 13:04
PROVIDERS: ATTEND Specialist
DX: N18.4 Chronic kidney disease, stage 4 (severe) (principal); D63.1 Anemia in chronic kidney disease; D51.9 Vitamin B12 deficiency anemia, unspecified; C92.10 Chronic myeloid leukemia, BCR/ABL-positive, not having achieved remission; Z91.018 Allergy to other foods; Z91.013 Allergy to seafood; Z88.8 Allergy status to other drugs, medicaments and biological substances; R53.1 Weakness; R53.83 Other fatigue
CPT/HCPCS: 36415; 80053; 82607; 82728; 82746; 83520; 83550; 85025; 85027; 86335; 86850; 86870; 86900; 86901; 86920; 88300; 96372; G0463; J0881; J3420

== ENCOUNTER → 2019-12-07 | Outpatient (REF) | payer MEDICARE ==
[~2019-12-07] MED LIST changes: -CYANOCOBALAMIN 1,000MCG/ML VIAL (J3420) SQ ONE; -DARBEPOETIN 100 MCG/0.5 ML *NON-DIALYSIS* SYRINGE (J0881) SC ONE; -DARBEPOETIN 200MCG/0.4ML *NON-DIALYSIS* SYRINGE (J0881 PER 1MCG) SC ONE; -DARBEPOETIN 200MCG/0.4ML *NON-DIALYSIS* SYRINGE (J0881 PER 1MCG) SQ ONE
[2019-12-07 09:22] LABS: HEMOGLOBIN 9.1 g/dl (12.0-15.5); MEAN CORPUSCULAR HEMOGLOBIN 29.2 pg (27.0-33.0); MEAN CORPUSCULAR HGB CONC 31.4 g/dl (32.0-36.5); MEAN CORPUSCULAR VOLUME 92.9 fl (80.0-96.0); PLATELET COUNT, AUTOMATED 240 10^3/uL (150-450); RED BLOOD COUNT 3.12 10^6/uL (4.00-5.40)
== END ==
LOC: SKLAB7 13:00
PROVIDERS: ATTEND Internal Medicine
DX: C95.90 Leukemia, unspecified not having achieved remission (principal)

== ENCOUNTER → 2019-12-12 | Outpatient (REF) | payer MEDICARE ==
[2019-12-12 11:18] LABS: HEMATOCRIT 36.7 % (36.0-47.0); HEMOGLOBIN 11.5 g/dl (12.0-15.5); MEAN CORPUSCULAR HEMOGLOBIN 29.3 pg (27.0-33.0); MEAN CORPUSCULAR HGB CONC 31.3 g/dl (32.0-36.5); MEAN CORPUSCULAR VOLUME 93.6 fl (80.0-96.0); PLATELET COUNT, AUTOMATED 185 10^3/uL (150-450); RED BLOOD COUNT 3.92 10^6/uL (4.00-5.40); WHITE BLOOD COUNT 10.3 10^3/uL (4.0-10.0)
[2019-12-12 13:04] LABS: CALCIUM LEVEL 8.4 MG/DL (8.8-10.2); CREATININE FOR GFR 6.5 MG/DL (0.55-1.30); GLOMERULAR FILTRATION RATE 6.4 (>32); POTASSIUM SERUM 5.9 MEQ/L (3.5-5.1)
[2019-12-12 14:59] LABS: APPEARANCE, URINE TURBID (CLEAR); BACTERIA, URINE AUTO 3+ (NEGATIVE); BILIRUBIN, URINE AUTO NEGATIVE (NEGATIVE); BLOOD, URINE BLOOD 2+ (NEGATIVE); COLOR, URINE YELLOW (YELLOW); GLUCOSE, URINE (UA) AUTO NEGATIVE (NEGATIVE); KETONE, URINE AUTO NEGATIVE (NEGATIVE); LEUKOCYTE ESTERASE, URINE AUTO 3+ (NEGATIVE); NITRITE, URINE AUTO NEGATIVE (NEGATIVE); PROTEIN, URINE AUTO 2+ mg/dL (NEGATIVE); RBC, URINE AUTO 32 /HPF (0-3); SPECIFIC GRAVITY URINE AUTO 1.013 (1.002-1.035); SQUAMOUS EPITHELIAL CELL UR AU 3 /HPF (0-6); UROBILINOGEN, URINE AUTO 0.2 mg/dL (0.0-2.0); WBC, URINE AUTO TNTC /HPF (0-3)
== END ==
LOC: SKLAB7 10:07
PROVIDERS: ATTEND Internal Medicine
DX: R53.83 Other fatigue (principal)

== ENCOUNTER → 2019-12-13 | Outpatient (REF) | payer MEDICARE ==
[2019-12-13 07:58] LABS: BASO % 0.1 % (0.0-1.0); EOS # 0.2 10^3/uL (0.0-0.5); EOS % 2.6 % (0.0-3.0); HEMATOCRIT 29.6 % (36.0-47.0); LYMPH # 1.4 10^3/uL (1.5-5.0); LYMPH % 18.7 % (24.0-44.0); MEAN CORPUSCULAR HEMOGLOBIN 29.1 pg (27.0-33.0); MEAN CORPUSCULAR HGB CONC 30.7 g/dl (32.0-36.5); MEAN CORPUSCULAR VOLUME 94.6 fl (80.0-96.0); MONO # 0.6 10^3/uL (0.0-0.8); MONO % 7.6 % (0.0-5.0); NEUTROPHILS # 5.4 10^3/uL (1.5-8.5); NEUTROPHILS % 70.5 % (36.0-66.0); PLATELET COUNT, AUTOMATED 141 10^3/uL (150-450); RED BLOOD COUNT 3.13 10^6/uL (4.00-5.40); WHITE BLOOD COUNT 7.6 10^3/uL (4.0-10.0)
[2019-12-13 08:04] LABS: HEMOGLOBIN 9.1 g/dl (12.0-15.5)
[2019-12-13 08:25] LABS: ALBUMIN 2.6 GM/DL (3.2-5.2); BILIRUBIN,TOTAL 0.3 MG/DL (0.2-1.0); CALCIUM LEVEL 7.1 MG/DL (8.8-10.2); CREATININE FOR GFR 6.2 MG/DL (0.55-1.30); GLOMERULAR FILTRATION RATE 6.8 (>32); POTASSIUM SERUM 4.7 MEQ/L (3.5-5.1); TOTAL PROTEIN 5.8 GM/DL (6.4-8.2)
== END ==
LOC: SKLAB7 07:00
PROVIDERS: ATTEND Internal Medicine
DX: N17.9 Acute kidney failure, unspecified (principal)

== ENCOUNTER → 2019-12-15 | Outpatient (REF) | payer MEDICARE ==
[2019-12-15 12:24] LABS: HEMATOCRIT 26.2 % (36.0-47.0); MEAN CORPUSCULAR HEMOGLOBIN 28.8 pg (27.0-33.0); MEAN CORPUSCULAR HGB CONC 30.5 g/dl (32.0-36.5); MEAN CORPUSCULAR VOLUME 94.2 fl (80.0-96.0); PLATELET COUNT, AUTOMATED 128 10^3/uL (150-450); RED BLOOD COUNT 2.78 10^6/uL (4.00-5.40); WHITE BLOOD COUNT 8.1 10^3/uL (4.0-10.0)
[2019-12-15 12:34] LABS: CALCIUM LEVEL 6.6 MG/DL (8.8-10.2); CREATININE FOR GFR 4.82 MG/DL (0.55-1.30); GLOMERULAR FILTRATION RATE 9.1 (>32); POTASSIUM SERUM 3.9 MEQ/L (3.5-5.1)
--- NOTE | 2019-12-17 15:29 | REPVR ---
PROCEDURE INFORMATION: Exam: XR Chest, 1 View Exam date and time: 12/17/2019 2:53 PM Age: 89 years old Clinical indication: Shortness of breath; Additional info: Chest pain TECHNIQUE: Imaging protocol: XR of the chest Views: 1 view. COMPARISON: CR Chest, 1 view 10/06/2019 4:01 PM FINDINGS: Lungs: There may be minimal left infrahilar and right perihilar atelectasis versus pneumonia. Pleural space: There is probable artifact from a skin fold at the right upper chest. There appear to be lung markings peripheral to this. No definite pneumothorax. No pleural effusion. Heart/Mediastinum: There is a moderate sized hiatal hernia. Heart size is upper normal. Aorta is tortuous, ectatic, and atherosclerotic. Bones/joints: Unremarkable. Soft tissues: There is artifact from soft tissues of the left upper arm overlapping the left lower lateral chest. IMPRESSION: 1. Questionable minimal left infrahilar and right perihilar atelectasis versus pneumonia. 2. Moderate sized hiatal hernia. 3. Tortuous calcified atherosclerotic aorta. Electronically signed by: Erica Glaser On 12/17/2019 15:29:41 PM
== END ==
LOC: SKLAB7 07:00
PROVIDERS: ATTEND Internal Medicine
DX: R07.9 Chest pain, unspecified (principal); K44.9 Diaphragmatic hernia without obstruction or gangrene

== ENCOUNTER → 2019-12-17 | Outpatient (REF) | payer MEDICARE | LOC: M RAD 14:30 | PROVIDERS: ATTEND Internal Medicine | DX: R07.9 Chest pain, unspecified (principal) ==

== ENCOUNTER → 2019-12-18 | Outpatient (REF) | payer MEDICARE ==
[2019-12-18 08:25] LABS: HEMATOCRIT 25.1 % (36.0-47.0); MEAN CORPUSCULAR HEMOGLOBIN 29.5 pg (27.0-33.0); MEAN CORPUSCULAR HGB CONC 31.9 g/dl (32.0-36.5); MEAN CORPUSCULAR VOLUME 92.6 fl (80.0-96.0); PLATELET COUNT, AUTOMATED 169 10^3/uL (150-450); RED BLOOD COUNT 2.71 10^6/uL (4.00-5.40); WHITE BLOOD COUNT 6.5 10^3/uL (4.0-10.0)
[2019-12-18 08:52] LABS: CALCIUM LEVEL 6.8 MG/DL (8.8-10.2); CREATININE FOR GFR 4.36 MG/DL (0.55-1.30); GLOMERULAR FILTRATION RATE 10.2 (>32); POTASSIUM SERUM 3.7 MEQ/L (3.5-5.1)
== END ==
LOC: SKLAB7 07:10
PROVIDERS: ATTEND Internal Medicine
DX: E86.0 Dehydration (principal); N17.9 Acute kidney failure, unspecified

== ENCOUNTER → 2019-12-21 | Outpatient (REF) | payer MEDICARE ==
[2019-12-21 08:25] LABS: HEMOGLOBIN 8.3 g/dl (12.0-15.5); MEAN CORPUSCULAR HEMOGLOBIN 29.5 pg (27.0-33.0); MEAN CORPUSCULAR HGB CONC 31.9 g/dl (32.0-36.5); MEAN CORPUSCULAR VOLUME 92.5 fl (80.0-96.0); PLATELET COUNT, AUTOMATED 217 10^3/uL (150-450); RED BLOOD COUNT 2.81 10^6/uL (4.00-5.40); WHITE BLOOD COUNT 6.2 10^3/uL (4.0-10.0)
[2019-12-21 08:46] LABS: CREATININE FOR GFR 4.04 MG/DL (0.55-1.30); GLOMERULAR FILTRATION RATE 11.1 (>32)
== END ==
LOC: SKLAB7 07:00
PROVIDERS: ATTEND Internal Medicine
DX: N17.9 Acute kidney failure, unspecified (principal)